=== PATIENT | male | born 1940 | race Caucasian/White ===

== ENCOUNTER 2019-02-02 11:49 | Emergency (ER) | payer MEDICARE, OTHER, SELFPAY ==
[2019-02-02 12:05] VITALS: PULSE 84; RESP 18; TEMP 36.6; O2SAT 95
[2019-02-02 12:08] VITALS: BP 137/59
--- NOTE | 2019-02-02 13:09 | ED.GENADUL_ITS ---
Discharge Plan Disposition Patient Disposition: HOME Condition: Good Discharge Details Chief Complaint: Vascular Clinical Impression: Muscle strain of right lower leg, Traumatic hematoma of right lower leg Primary Care Provider: Marielle,Local ED Provider: Malcolm Naqvis and New Rx's Prescriptions: Continued meclizine 12.5 mg Tablet 12.5 mg PO TID PRNRF: 0 tamsulosin 0.4 mg Capsule 0.4 mg PO DAILY RF: 0 hydroxyzine HCl 25 mg Tablet 25 mg PO TID-QID PRNRF: 0 polyethylene glycol 3350 17 gram/dose Powder 17 g PO DAILY RF: 0 ferrous sulfate 325 mg (65 mg iron) Tablet,Delayed Release (Dr/Ec) 325 mg PO DAILY RF: 0 sertraline 50 mg Tablet 150 mg PO DAILY AM RF: 0 Discharge Instructions Additional Instructions: You most likely strained/tore a muscle in your groin/upper leg which led to bleeding. Your blood count is fine. Your coagulation studies are fine. Would use Tylenol as needed for discomfort. Would ice on and off for the next couple of days and then switch over to heat. Follow-up with primary care at the [facility] in 2-3 weeks to see how you are doing. Return to the emergency department for inability to ambulate, fever, lightheadedness, chest pain, shortness of breath. Referrals: [facility] [Outside] Medical Decision Making Patient with extensive ecchymosis, pain, tenderness along the posterior medial aspect of the right lower extremity from groin to knee. Occurred when he squatted and felt a pop in his groin. He actually has almost normal and complete range of motion of the right lower extremity. He is able to ambulate though with pain. There is no testicular swelling or ecchymosis. Pulses are intact distally. Neurologic exam is normal distally. Suspect muscle or tendon injury when he squatted with resultant bleeding and ecchymosis. I do not think he has bony injury. I do not think he necessarily needs any imaging as he is able to ambulate and has good range of motion. I will check CBC with platelets and coags. I did speak to radiology who recommends MRI as modality of choice if imaging is done. However, in my opinion this should wait 3-4 weeks to see if there is recovery as again he is able to ambulate without significant difficulty and has normal range of motion. Patient's hemoglobin is reasonable at 12.7. Platelets are normal at 233. Coags are normal. Patient will be [facility] He may use Tylenol as needed for pain. Ice on and off for the next couple of days before switching over to heat. HPI General Mode of arrival: ambulatory . Date/Time Provider Initiated Documentation: 02/02/19 13:08 . Limitations to Documentation: no limitations . Information obtained by: patient and old records reviewed . HPI Narrative: Patient presents to ED for evaluation of right groin and thigh pain with associated ecchymosis. Patient reports that 3 days prior, he squatted down to pick remover a trash can lid. He felt a pop in his right groin and had immediate pain. He has subsequently continued to have pain which has progressed down the back of his leg to some degree. He noticed discoloration today and decided to come in for evaluation. He denies any actual fall. He is able to ambulate. He denies abdominal pain, back pain, inability to urinate, testicular pain or swelling. He is not on any blood thinners. He does report bruising and bleeding easily over the last few years. Related Data Home Medications Medication Instructions Recorded Confirmed ferrous sulfate 325 mg PO DAILY 02/02/19 02/02/19 hydroxyzine HCl 25 mg PO TID-QID PRN 02/02/19 02/02/19 meclizine 12.5 mg PO TID PRN 02/02/19 02/02/19 polyethylene glycol 3350 17 g PO DAILY 02/02/19 02/02/19 sertraline 150 mg PO DAILY AM 02/02/19 02/02/19 tamsulosin 0.4 mg PO DAILY 02/02/19 02/02/19 Allergies Allergy/AdvReac Type Severity Reaction Status Date / Time simvastatin Allergy Mild Nausea Unverified 02/02/19 12:55 General Stated Complaint: Vascular EZEKIEL: 3 Review of Systems Constitutional Denies chills, Denies fever(s), Denies headache(s) and Denies weakness ENT Denies otalgia, Denies facial pain, Denies headache(s) and Denies neck pain Cardiovascular Denies chest pain, Denies diaphoresis, Denies syncope, Denies edema and Denies dyspnea Respiratory Denies cough and Denies dyspnea Gastrointestinal Denies abdominal pain, Denies diarrhea, Denies nausea and Denies vomiting Genitourinary Denies hematuria, Denies difficulty urinating, Denies dysuria, Denies flank pain, Denies testicular mass and Denies testicular pain Musculoskeletal Denies back pain and Denies neck pain Comments: groin pain/thigh pain Integumentary/Breasts Denies erythema, Denies rash and Denies wounds Neurologic Denies syncope, Denies headache(s), Denies focal weakness, Denies sensory deficit and Denies weakness [facility] Medical History Aortic valve stenosis (Chronic) BPH (benign prostatic hyperplasia) (Chronic) CAD (coronary artery disease) (Chronic) COPD (chronic obstructive pulmonary disease) (Chronic) Diabetes mellitus (Chronic) HTN (hypertension) (Chronic) Hypercholesterolemia (Chronic) Surgical History History of heart artery stent (Chronic) Social History Smoking/Tobacco Use Status: Never Alcohol Intake: never Substance use type: does not use Do you feel safe at home: Yes Do you feel safe in your relationship?: Yes Exam Const General: cooperative, comfortable and no acute distress Orientation: alert and oriented x3 HENMT Head: normocephalic and atraumatic GI Inspection: normal to inspection and non-distended Palpation: soft and nontender Male General Exam: Yes normal external exam and No hernia Testes: normal Back/Spine/Pelvis Thoracic/Lumbar Spine: thoraco-lumbar ROM normal and No pain with thoraco-lumbar ROM Skin General skin exam: ecchymosis (Extensive ecchymosis extending from right groin to knee medial posterior) Neuro General: alert, oriented x3 and no focal motor deficits Sensory Exam: no sensory deficits noted Extrem General: normal exam except as noted Right lower extremity: full ROM, hip/thigh Details: tenderness (medial/posterior along ecchymotic area), normal ROM and ecchymosis and knee Details: normal to inspection and normal ROM; no edema Course Vital Signs Temperature 97.9 F 02/02/19 12:05 Pulse 84 02/02/19 12:05 Respiratory Rate 18 02/02/19 12:05 Pulse Oximetry 95 02/02/19 12:05 Temperature 97.9 F 02/02/19 12:05 Temperature Source Temporal Artery Scan 02/02/19 12:05 Pulse 84 02/02/19 12:05 Respiratory Rate 18 02/02/19 12:05 Respiratory Effort 02/02/19 12:07 Blood Pressure 137/59 L 02/02/19 12:08 Blood Pressure Position Sitting 02/02/19 12:05 Pulse Oximetry 95 02/02/19 12:05 Oxygen Delivery Method Room Air 02/02/19 12:05 Oxygen Flow Rate 0 02/02/19 12:05 Pain Level 8 02/02/19 12:05
[2019-02-02 13:47] LABS: HCT 36.6 % (40.0-50.0); HGB 12.7 g/dL (13.5-17.5); Mean Corp. HGB Concentration 34.7 g/dL (32.0-36.0); Mean Corpuscular Volume 92.2 fL (80-95); Platelet Count 233 x1000/uL (130-400); RBC 3.97 m/cumm (4.50-6.00); RBC Distribution Width 13.2 % (11.8-14.1); White Blood Cell Count 8.72 k/cumm (4.4-10.8)
[2019-02-02 14:07] LABS: PTT Activated 23.9 sec (21.0-31.4); Prothrombin Time 9.7 sec (9.3-11.0)
== END 2019-02-02 15:26 | disposition home or self-care (01) ==
PROVIDERS: Emergency Provider Emergency Medicine
DX: S86.911A Strain of unspecified muscle(s) and tendon(s) at lower leg level, right leg, initial encounter (principal); S80.11XA Contusion of right lower leg, initial encounter; X50.1XXA Overexertion from prolonged static or awkward postures, initial encounter; I10 Essential (primary) hypertension; E11.9 Type 2 diabetes mellitus without complications; J44.9 Chronic obstructive pulmonary disease, unspecified
CPT/HCPCS: 36415; 85027; 99283; 85610; 85730; 99282

== ENCOUNTER 2019-03-16 18:56 | Inpatient (IN) | payer MEDICARE, OTHER, SELFPAY ==
[2019-03-16] VITALS (26 sets, daily range): BP systolic 119–156; BP diastolic 61–80; PULSE 74–87; RESP 15–21; TEMP 36.6–37; O2SAT 86–96
--- NOTE | 2019-03-16 19:27 | DI.CT_ITS ---
SYMPTOM/DIAGNOSIS: FELL, STRUCK LT SIDE NONCONTRAST HEAD CT: A noncontrast examination was performed. There are no priors for comparison. The ventricles and sulci are consistent with the patient's age. No acute intracranial hemorrhage, midline shift or mass effect is identified. The ventricles are intact. The basilar cisterns are patent. There is complete opacification of the left maxillary sinus and several left ethmoid air cells. Mild thickening of the wall of the left maxillary sinus is present. The findings suggest chronic sinus disease. There is opacification of the left frontal sinus. The mastoid air cells are well pneumatized. The calvarium is intact. There is expansion of the left frontal sinus and a mass such as mucocele cannot be excluded. IMPRESSION: No acute intracranial process. CERVICAL SPINE CT: Multiple continuous axial images of the cervical spine were obtained. Sagittal and coronal reformatted images were evaluated on the Siemens workstation. There is normal alignment of the cervical spine. No acute fractures or subluxations are seen. Multi level degenerative changes are present throughout the cervical spine resulting in multi level neural foraminal and central spinal canal stenosis. IMPRESSION: No acute fracture or subluxation in the cervical spine. CHEST/ABDOMEN AND PELVIC CT: ABDOMEN AND PELVIS: No priors for comparison. The liver is normal in size and appearance. The patient is status post cholecystectomy. No biliary ductal dilatation is seen. The portal, superior mesenteric and splenic veins are patent. The pancreas, spleen and adrenal glands are unremarkable. There are bilateral renal cysts, the largest is seen in the superior pole of the right kidney and measures 4 cm. in diameter. A 2 mm. non obstructing stone is seen in the lower pole of the right kidney. The urinary bladder is intact. Note is made of a small diverticulum arising from the left aspect of the bladder. Reproductive organs are unremarkable. There is diverticulosis of the colon but no evidence of acute diverticulitis. No evidence of bowel obstruction or inflammation is seen. No findings to suggest an acute appendicitis are present. Note is made of a large hiatal hernia. There is a 3.1 cm. infrarenal abdominal aortic aneurysm. No significant abdominal or pelvic adenopathy, ascites or pneumoperitoneum is seen. The bones are intact. Degenerative changes are seen in the spine. 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 IMPRESSION: No evidence of an acute abdominal or pelvic process. Incidental findings including a 3.1 cm. infrarenal abdominal aortic aneurysm and right nephrolithiasis present. CHEST: There is atherosclerosis of the thoracic aorta but no aneurysmal dilatation is seen. Heart size is within normal limits. Coronary artery calcifications are seen. There is also calcification in both the mitral and aortic valves. No significant pericardial effusion is seen. No pleural effusion or pneumothorax is identified. No focal consolidating infiltrates are seen in the lungs. Bilateral basilar atelectasis is present. The tracheobronchial tree is unremarkable. There are fractures involving the third, fourth and fifth ribs laterally and the fifth rib posteriorly. No pneumothorax is identified. There is a compression deformity of the T 7 vertebral body which does not appear to be acute. Degenerative changes are present throughout the thoracic spine. Findings in the spine are also noted which may reflect spondyloarthropathy such as ankylosing spondylitis. There is a large hiatal hernia present. IMPRESSION: Fractures involving multiple left ribs. No pneumothorax or pleural effusion. Compression deformity involving T 7 of indeterminate chronicity.
--- NOTE | 2019-03-16 19:29 | W.ED.GENAD ---
Discharge Plan Disposition Patient Disposition: [facility] INPATIENT Condition: Fair Discharge Details Chief Complaint: Trauma Clinical Impression: Rib fractures Admit Date/Time: 03/16/19 22:11 Admit Provider: Raoul Todd Attending Provider: Raoul Todd Primary Care Provider: Edson Contreras ED Provider: Jazmine Orosco Medical Decision Making Patient 78-year-old male presenting today with chief complaint of fall. He reports that he tripped over his dog leash and falling down 3 steps landing on the left side of his body. Struck the left side of his head, over the upper lateral side of the orbit, left shoulder. Did not initially report pain on left side of chest but has discomfort with palpation of left lateral chest wall and left side of abdomen. No ecchymosis or signs of trauma in these areas. No pain or trauma BLE. Neuro exam intact. Will obtain CT of head/neck, abdomen/pelvis. Will obtain XR of left shoulder. Plan to give Morphine for pain. CT head reviewed by radiologist: FINDINGS: Brain: There is mild age related parenchymal atrophy with prominence of the cortical sulci. Periventricular and deep white matter hypodensities are consistent with sequela of chronic microvascular ischemic disease. Garvey-white matter differentiation is preserved. No acute intracranial hemorrhage. Midline shift: None. Ventricles: Mild ex vacuo dilation of the ventricles, likely secondary to age related volume loss. Bones/joints: Unremarkable. No acute fracture. Sinuses: There is opacification of the left frontal and maxillary sinuses as well as the ethmoid air cells with associated punctate air fluid level is seen in sinus. There is chronic appearing osseous hypertrophic changes of the involved sinuses with slight expansile appearance of the left frontal sinus, could represent mucocele. Right paranasal sinuses are otherwise clear. Mastoid air cells: No mastoid effusion. Orbits: Unremarkable. Soft tissues: No focal soft tissue abnormality. Vasculature: Vascular calcifications of the vertebral and carotid arteries are present. IMPRESSION: 1. No acute intracranial finding. Senescent changes as discussed. 2. 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 Correlate clinically to exclude acute sinusitis. CTneck reviewed by radiologist: FINDINGS: Vertebrae: There is diffuse osteopenia. No acute fracture. No spondylolisthesis. Moderate facet hypertrophic changes, asymmetric to the right, at C3-C5. Discs/Spinal canal/Neural foramina: Moderate multilevel degenerative disc disease scattered throughout the cervical spine, most advanced at C5-C6. There is moderate intervertebral disc height loss at C2-C3, C5-C6, and C6-C7. There is at least mild osseous neural foraminal narrowing bilaterally at C5-C7. There is mild osseous central canal narrowing at C5-C6. Retropharyngeal space: Within normal limits. Soft tissues: No focal abnormality. Thyroid: No mass. Lymph nodes: No pathologically sized nodes by CT size criteria. Lungs: Lung apices are clear. Vasculature: Scattered vascular calcifications are present. IMPRESSION: 1. No acute fracture. No spondylolisthesis. 2. Moderate multilevel cervical spondylosis as discussed, most advanced at C5-C6. CT chest: FINDINGS: Lungs: The lungs are hyperinflated. Linear opacities in the lung bases consistent with mild basilar atalectasis. No pulmonary consolidation or mass. Pleural space: There is minimal reactive pleural thickening underlying nondisplaced left lateral third, fourth, and fifth rib fractures. Also noted minimal pleural thickening underlying nondisplaced posterior left fifth rib fracture. No pneumothorax. No pleural effusion. Heart: No cardiomegaly or pericardial effusion. Scattered dense coronary vascular calcifications are present. Mediastinum: There is moderate hiatal hernia. Aorta: No thoracic aortic dissection or aneurysm. Moderate atherosclerotic calcifications of the aortic arch and its major branches. Dense vascular calcifications of the aortic annulus. Lymph nodes: Unremarkable. No enlarged lymph nodes. Bones/joints: There is nondisplaced fracture of the posterior left fifth rib as well as the lateral left third, fourth, and fifth ribs. There is mild to moderate anterior compression deformity of the T7 vertebral body. Remaining thoracic vertebral body heights are preserved. Multilevel flowing anterior bridging marginal osteophytes are present. There is increased thoracic kyphosis with mild to moderate multilevel degenerative changes. Soft tissues: Minimal symmetric gynecomastia. IMPRESSION: 1. Nondisplaced fractures of the left third, fourth, and fifth ribs as discussed. No pneumothorax or pleural effusion. 2. Mild to moderate anterior compression deformity of the T7 vertebral body of uncertain chronicity. Correlate clinically for acute compression deformity. 3. Moderate hiatal hernia. 4. Multilevel flowing anterior bridging marginal osteophytes of the thoracic spine. This imaging appearance could be seen in the setting of certain spondyloarthropathies such as ankylosing spondylitis. Correlate clinically. 5. Dense aortic annular and coronary vascular calcifications. 6. Hyperinflation. Correlate for COPD. CT abdomen: ABDOMEN: Liver: Unremarkable. No mass. Gallbladder and bile ducts: Gallbladder is surgically absent with mild, expected degree of common bile duct dilation. Pancreas: Unremarkable. No ductal dilation. Spleen: Unremarkable. No splenomegaly. Adrenals: Unremarkable. No mass. Kidneys and ureters: There is mild symmetric renal cortical thinning. There is circumscribed, lobulated 3.9 cm exophytic fluid attenuation superior right renal pole cyst. Few other scattered bilateral subcentimeter renal hypodensities are too small to characterize. There is punctate 1-2 mm calcification within the inferior right renal collecting system. No hydronephrosis. Ureters are normal in course and caliber. Stomach and bowel: Mild diverticulosis is present in the distal colon. No CT evidence of acute diverticulitis. No focal mural thickening. There is mild fibrofatty mural proliferation of the terminal ileum. No evidence of bowel obstruction. Appendix: Within normal limits. PELVIS: Bladder: There is small urinary bladder diverticulum superior and lateral to the insertion of the left ureter. Bladder is otherwise unremarkable. Reproductive: Unremarkable as visualized. ABDOMEN and PELVIS: Intraperitoneal space: No free air. No significant fluid collection. Bones/joints: Mild grade 1 anterolisthesis of L4 and L5, likely secondary to facet hypertrophic changes, no spondylolysis. Otherwise mild to moderate multilevel degenerative disc and facet changes of the lumbar spine. No acute fracture of the abdomen or pelvis. No acute dislocation. There is diffuse osteopenia. Soft tissues: Trace/mild fat projects within the inguinal canals, asymmetric to the right. Trace/small fat containing umbilical hernia. Vasculature: There are moderate scattered atherosclerotic calcifications of the abdominal aorta and its major branches. There is mild fusiform aneurysmal dilation of the infrarenal abdominal aorta, 3.1 cm AP. Lymph nodes: No pathologically enlarged lymph nodes. IMPRESSION: 1. No acute finding of the abdomen or pelvis. 2. Circumscribed, lobulated 3.9 cm exophytic right renal cyst, benign. 3. 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 4. Nonobstructive 1-2 mm right nephrolith. XR left shoulder: FINDINGS: Bones/joints: No acute fracture or dislocation. There are moderate degenerative changes of the left shoulder. There is a high riding humerus with moderate to severe narrowing of the subacromial interval. Punctate ossific fragment adjacent to the anterior, inferior glenoid may represent sequela of prior osseous versus labral injury, correlate clinically. Noted are nondisplaced lateral left rib fractures of the left third through fifth ribs. Soft tissues: No focal abnormality. IMPRESSION: 1. No acute fracture or dislocation. 2. High riding humerus with moderate to severe narrowing of the subacromial space. May be seen in association with high-grade rotator cuff tear. Correlate clinically. 3. Nondisplaced left rib fractures. Discussed findings with the patient. Morphine was unsuccessful at alleviating his pain, gave Dilaudid which still left patient uncomfortable and not wanting to move. He is desaturating yue 88% RA, appears to be breathing shallow, likely secondary to pain. Nursing staff taught to use IS. I am concerned that the patient is a poor candidate to go home. I do not think he will tolerate going home secondary to poor pain control. He lives alone and needs to care for his dog. Discussed secondary complications such as pneumonia. Consulted with Dr. Todd who agrees to admission for pain control of patients 3 nondisplaced rib fractures. HPI General Mode of arrival: ambulatory. Date/Time Provider Initiated Documentation: 03/16/19 19:19. Limitations to Documentation: no limitations. Information obtained by: patient, family (accompanied by daughter) and RN notes reviewed. HPI Narrative: Patient is a 78-year-old male presents today with chief complaint of left sided pain after fall. Patient has history of diabetes, aortic valve stenosis, CAD, hyperlipidemia, hypertension, COPD, BPH. Patient is status post stent placement. He reports that he over a dog run and fell down 3 steps landing on his left side. Struck his head, no loss conscious. Denies any headache at this time. He does have pain over the focal area of swelling in the superior left orbit. Endorses left-sided neck pain, chest pain abdominal pain. Denies any altered sensation. Is not noted any weakness. Is been able to ambulate well since time of the fall. Daughter is with him and brought him in for evaluation. Patient is not anticoagulated Related Data Home Medications Medication Instructions Recorded Confirmed ferrous sulfate 325 mg PO DAILY 02/02/19 03/16/19 hydroxyzine HCl 25 mg PO TID-QID PRN 02/02/19 03/16/19 meclizine 12.5 mg PO TID PRN 02/02/19 03/16/19 polyethylene glycol 3350 17 g PO DAILY 02/02/19 03/16/19 sertraline 200 mg PO DAILY AM 02/02/19 03/16/19 tamsulosin 0.4 mg PO DAILY 02/02/19 02/02/19 atorvastatin [Lipitor] 03/16/19 fluticasone propionate [Flonase 03/16/19 Allergy Relief] metformin 250 03/16/19 metoprolol succinate BID 03/16/19 omeprazole 03/16/19 ropinirole 03/16/19 Allergies Allergy/AdvReac Type Severity Reaction Status Date / Time simvastatin Allergy Mild Nausea Unverified 03/16/19 20:27 lisinopril AdvReac Unverified 03/16/19 20:27 General Stated Complaint: Trauma EZEKIEL: 3 Review of Systems Constitutional Reports as per HPI, Denies chills, Denies fatigue, Denies fever(s), Denies headache(s) and Denies weakness Eyes Reports as per HPI, Denies blurry vision, Denies change in vision and Denies loss of vision ENT Denies abnormal hearing and Denies headache(s) Cardiovascular Reports as per HPI, Denies chest pain and Denies dyspnea Respiratory Reports as per HPI, Denies cough, Denies pain on inspiration, Denies pain with cough and Denies dyspnea Gastrointestinal Reports as per HPI, Denies abdominal pain, Denies nausea and Denies vomiting Genitourinary Reports as per HPI and Denies urinary incontinence Musculoskeletal Reports as per HPI Integumentary/Breasts Reports as per HPI and Denies rash Neurologic Reports as per HPI, Denies abnormal hearing, Denies abnormal movements, Denies abnormal speech, Denies headache(s), Denies lack of coordination, Denies focal weakness, Denies loss of vision, Denies seizure-like activity, Denies paresthesias and Denies weakness Endocrine Denies fatigue [facility] Medical History Aortic valve stenosis (Chronic) BPH (benign prostatic hyperplasia) (Chronic) CAD (coronary artery disease) (Chronic) COPD (chronic obstructive pulmonary disease) (Chronic) Diabetes mellitus (Chronic) HTN (hypertension) (Chronic) Hypercholesterolemia (Chronic) Surgical History History of heart artery stent (Chronic) Social History Smoking/Tobacco Use Status: Never Alcohol Intake: never Substance use type: does not use Do you feel safe at home: Yes Do you feel safe in your relationship?: Yes Exam Const General: cooperative, healthy appearing, comfortable, no acute distress, well developed and well groomed Nutritional Appearance: average body habitus and well nourished Orientation: alert, awake and oriented x3 HENMT Head: no palpable skull fracture, normocephalic and signs of trauma (swelling over left orbit) Ears: hearing grossly normal bilaterally, external ears normal and TM's normal bilaterally General nose exam: external nose normal Mouth: oral mucosae normal, lip normal and tongue normal Throat: posterior oropharynx normal Eyes General: appearance normal, both eyes and all related structures Visual Reeves: normal visual reeves by confrontation Alignment and Position: alignment normal Periorbital: periorbital findings normal Eyelids: eyelids normal Conjunctivae: conjunctivae normal Pupils: PERRL EOM: EOM intact bilaterally Neck Neck: normal visual inspection, full ROM, no lymphadenopathy, no meningeal signs, trachea midline and supple Chest Chest: normal inspection of the chest, normal palpation of entire chest wall, no crepitus, localized rib tenderness with anteroposterior compression (lateral left) and No rash Resp Effort & Inspection: normal respiratory effort, able to speak in complete sentences and no respiratory distress Auscultation: clear to auscultation bilaterally, no rales, no rhonchi and no wheezes Cardio Rate: regular rate Rhythm: regular rhythm Heart Sounds: S1 normal and S2 normal GI Inspection: normal to inspection, no abdominal wall ecchymosis, no edema and non-distended Palpation: soft, no hepatosplenomegaly, not firm, no guarding, no pulsatile masses, not rigid and tender (left upper and lower quadrants, no signs of trauma) Auscultation: normal bowel sounds Back/Spine/Pelvis Back: no CVA tenderness Cervical Spine: normal cervical lordosis, cervical ROM normal, cervical muscular tenderness, pain with cervical ROM (pain with rotation to the left), cervical spasm, cervical spinal tenderness (tenderness left lateral along trapezius,no midline or paraspinal tenderness) and No step off deformity Thoracic/Lumbar Spine: thoracic and lumbar spine normal to inspection, thoraco-lumbar ROM normal, No thoraco-lumbar ROM limited, No thoraco-lumbar spasm and No thoracic spinal tenderness Pelvis: no pain with anterior-posterior compression and no pain with lateral compression Skin Trauma: abrasion (to left lateral shoulder, left wrist, right hand) Neuro General: alert, awake, oriented x3, gait normal, tone normal and moves all extremities Cranial Nerves: CN's II-XI intact bilaterally Cognition: normal cognition Speech: speech normal Gait: normal gait Motor: muscle tone normal throughout and strength 5/5 throughout Sensory Exam: no sensory deficits noted (no saddle paresthesias) Plantar Reflexes: Downgoing: bilateral Extrem General: normal capillary refill, no pedal edema and no calf tenderness Right upper extremity: normal capillary refill, shoulder/upper arm Details: tenderness, swelling, abnormal ROM and ecchymosis; ROM limited, no crepitus, no deformity and no unusual warmth, elbow/forearm Details: normal to inspection, wrist Details: normal to inspection and hand (sensory motor exam normal) Details: normal to inspection; abnormal to inspection (pain with palpation over the left shoulder, ecchymosis laterally) and ROM limited (will not range left shoulder) Psych Appearance: grossly normal and well kempt Mental Status: mental status grossly normal Speech and Movement: speech and movement normal Course Vital Signs Temperature 37 C 03/16/19 19:06 Pulse 74 03/16/19 19:06 Respiratory Rate 20 03/16/19 19:06 Blood Pressure 153/69 H 03/16/19 19:06 Pulse Oximetry 94 L 03/16/19 19:06 Temperature 37 C 03/16/19 19:06 Temperature Source Skin 03/16/19 19:06 Pulse 74 03/16/19 19:06 Respiratory Rate 20 03/16/19 19:06 Respiratory Effort 03/16/19 19:20 Respiratory Depth Shallow 03/16/19 19:20 Respiratory Pattern Normal 03/16/19 19:20 Blood Pressure 153/69 H 03/16/19 19:06 Blood Pressure Position Sitting 03/16/19 19:06 Pulse Oximetry 94 L 03/16/19 19:06 Oxygen Delivery Method Room Air 03/16/19 19:06 Oxygen Flow Rate 0 03/16/19 19:06 Pain Level 10 03/16/19 19:20
--- NOTE | 2019-03-16 19:30 | DI.RAD_ITS ---
SYMPTOM/DIAGNOSIS: PAIN AFTER FALL LEFT SHOULDER: Four views. No acute fracture or dislocation of the left shoulder is noted. There is superior subluxation of the humeral head which may reflect chronic rotator cuff tear. Degenerative changes are seen at the acromioclavicular joint and the glenohumeral joint. The bones appear osteopenic. IMPRESSION: No acute fracture or dislocation of the left shoulder. Please refer to the CT scan of the chest, abdomen and pelvis for further details.
[2019-03-16 19:45] LABS: Abs Immature Grans 0.05 k/cumm (0.0-0.09); Absolute Basophil Count 0.03 k/cumm (0.0-0.2); Absolute Eosinophil Count 0.18 k/cumm (0.0-0.7); Absolute Lymphocyte Count 1.33 k/cumm (1.2-3.4); Absolute Monocyte Count 0.75 k/cumm (0.11-0.7); Basophils % 0.3; Eosinophils % 1.8; HCT 43.7 % (40.0-50.0); Immature Grans % 0.5; Lymphocytes % 13.4; Mean Corp. HGB Concentration 34.3 g/dL (32.0-36.0); Mean Corpuscular Hemoglobin 31.2 pg (27.0-33.0); Mean Corpuscular Volume 90.9 fL (80-95); Mean Platelet Volume 9.2 fL (8.0-11.0); Monocytes % 7.5; Neutrophils % 76.5; Platelet Count 223 x1000/uL (130-400); RBC 4.81 m/cumm (4.50-6.00); RBC Distribution Width 13.2 % (11.8-14.1); White Blood Cell Count 9.94 k/cumm (4.4-10.8)
[2019-03-16] MEDS: MORPHine 10 MG/ML VIAL 2 MG IVP ×2 (20:00→20:30)
[2019-03-16] MEDS: Normal Saline 1,000 ML 150 ML IV ×2 (20:02→23:42)
[2019-03-16 20:03] LABS: ALT 45 U/L (12-78); AST 34 U/L (15-37); Alkaline Phosphatase 101 U/L (46-116); Anion Gap 11.1 mmol/L (3-11); BUN 18 mg/dL (7-18); Bilirubin, Total 0.5 mg/dL (0.2-1.0); CO2 26.9 mmol/L (21.0-32.0); CREATININE 1.28 mg/dL (0.70-1.30); Calcium 8.9 mg/dL (8.5-10.1); Chloride 99 mmol/L (98-107); Glucose 190 mg/dL (70-100); Magnesium 2.1 mg/dL (1.8-2.4); Potassium 4.2 mmol/L (3.5-5.1); Sodium 137 mmol/L (136-145); Total Protein 7.9 g/dL (6.4-8.2)
[2019-03-16 20:05] LABS: Troponin I < 0.02 ng/mL (0.00-0.06)
--- NOTE | 2019-03-16 20:26 | NUR.NOTE ---
Nursing Note: Pt to radiology pain is still 10/10 gave another 2 mg morphine prior to leaving
[2019-03-16] MEDS: Omnipaque 350 MG/ML 100 ML BTL IJ (20:47)
--- NOTE | 2019-03-16 21:09 | DI.VRAD_ITS ---
EXAM: CT Head Without Contrast EXAM DATE/TIME: 03/16/2019 7:29 PM CLINICAL HISTORY: 78 years old, male; Injury or trauma; Fall; Initial encounter; Blunt trauma (contusions or hematomas); Consciousness not specified; Injury date: 03/16/2019; Injury details: Fell outside, fell forward onto steps, impact on left side. Anterior left chest/rib pain TECHNIQUE: Imaging protocol: Axial computed tomography images of the head/brain without contrast. Coronal and sagittal reformatted images were created and reviewed. Radiation optimization: All CT scans at this facility use at least one of these dose optimization techniques: automated exposure control; mA and/or kV adjustment per patient size (includes targeted exams where dose is matched to clinical indication); or iterative reconstruction. COMPARISON: No relevant prior studies available. FINDINGS: Brain: There is mild age related parenchymal atrophy with prominence of the cortical sulci. Periventricular and deep white matter hypodensities are consistent with sequela of chronic microvascular ischemic disease. Garvey-white matter differentiation is preserved. No acute intracranial hemorrhage. Midline shift: None. Ventricles: Mild ex vacuo dilation of the ventricles, likely secondary to age related volume loss. Bones/joints: Unremarkable. No acute fracture. Sinuses: There is opacification of the left frontal and maxillary sinuses as well as the ethmoid air cells with associated punctate air fluid level is seen in sinus. There is chronic appearing osseous hypertrophic changes of the involved sinuses with slight expansile appearance of the left frontal sinus, could represent mucocele. Right paranasal sinuses are otherwise clear. Mastoid air cells: No mastoid effusion. Orbits: Unremarkable. Soft tissues: No focal soft tissue abnormality. Vasculature: Vascular calcifications of the vertebral and carotid arteries are present. IMPRESSION: 1. No acute intracranial finding. Senescent changes as discussed. 2. 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 Correlate clinically to exclude acute sinusitis. EXAM: CT Cervical Spine Without Contrast EXAM DATE/TIME: 03/16/2019 7:29 PM CLINICAL HISTORY: 78 years old, male; Injury or trauma; Fall; Initial encounter; Blunt trauma (contusions or hematomas); Consciousness not specified; Injury date: 03/16/2019; Injury details: Fell outside, fell forward onto steps, impact on left side. Anterior left chest/rib pain TECHNIQUE: Imaging protocol: Axial computed tomography images of the cervical spine without contrast. Coronal and sagittal reformatted images were created and reviewed. Radiation optimization: All CT scans at this facility use at least one of these dose optimization techniques: automated exposure control; mA and/or kV adjustment per patient size (includes targeted exams where dose is matched to clinical indication); or iterative reconstruction. COMPARISON: No relevant prior studies available. FINDINGS: Vertebrae: There is diffuse osteopenia. No acute fracture. No spondylolisthesis. Moderate facet hypertrophic changes, asymmetric to the right, at C3-C5. Discs/Spinal canal/Neural foramina: Moderate multilevel degenerative disc disease scattered throughout the cervical spine, most advanced at C5-C6. There is moderate intervertebral disc height loss at C2-C3, C5-C6, and C6-C7. There is at least mild osseous neural foraminal narrowing bilaterally at C5-C7. There is mild osseous central canal narrowing at C5-C6. Retropharyngeal space: Within normal limits. Soft tissues: No focal abnormality. Thyroid: No mass. Lymph nodes: No pathologically sized nodes by CT size criteria. Lungs: Lung apices are clear. Vasculature: Scattered vascular calcifications are present. IMPRESSION: 1. No acute fracture. No spondylolisthesis. 2. Moderate multilevel cervical spondylosis as discussed, most advanced at C5-C6. Dictated and Authenticated by: Alejandro Jacques MD. Ordering:AMBROSE Luecro MD
[2019-03-16] MEDS: HYDROmorphone 2 MG/ML VIAL 1 MG IVP (21:21)
--- NOTE | 2019-03-16 21:25 | DI.VRAD_ITS ---
EXAM: CT Chest With Contrast EXAM DATE/TIME: 03/16/2019 7:29 PM CLINICAL HISTORY: 78 years old, male; Injury or trauma; Fall; Initial encounter; Luq; Blunt trauma (contusions or hematomas); Injury date: 03/16/2019; Injury details: Fell outside onto left side, struck stairs, left anterior chest and rib pain TECHNIQUE: Imaging protocol: Axial computed tomography images of the chest with intravenous contrast. Coronal and sagittal reformatted images were created and reviewed. Radiation optimization: All CT scans at this facility use at least one of these dose optimization techniques: automated exposure control; mA and/or kV adjustment per patient size (includes targeted exams where dose is matched to clinical indication); or iterative reconstruction. COMPARISON: No relevant prior studies available. FINDINGS: Lungs: The lungs are hyperinflated. Linear opacities in the lung bases consistent with mild basilar atalectasis. No pulmonary consolidation or mass. Pleural space: There is minimal reactive pleural thickening underlying nondisplaced left lateral third, fourth, and fifth rib fractures. Also noted minimal pleural thickening underlying nondisplaced posterior left fifth rib fracture. No pneumothorax. No pleural effusion. Heart: No cardiomegaly or pericardial effusion. Scattered dense coronary vascular calcifications are present. Mediastinum: There is moderate hiatal hernia. Aorta: No thoracic aortic dissection or aneurysm. Moderate atherosclerotic calcifications of the aortic arch and its major branches. Dense vascular calcifications of the aortic annulus. Lymph nodes: Unremarkable. No enlarged lymph nodes. Bones/joints: There is nondisplaced fracture of the posterior left fifth rib as well as the lateral left third, fourth, and fifth ribs. There is mild to moderate anterior compression deformity of the T7 vertebral body. Remaining thoracic vertebral body heights are preserved. Multilevel flowing anterior bridging marginal osteophytes are present. There is increased thoracic kyphosis with mild to moderate multilevel degenerative changes. Soft tissues: Minimal symmetric gynecomastia. IMPRESSION: 1. Nondisplaced fractures of the left third, fourth, and fifth ribs as discussed. No pneumothorax or pleural effusion. 2. Mild to moderate anterior compression deformity of the T7 vertebral body of uncertain chronicity. Correlate clinically for acute compression deformity. 3. Moderate hiatal hernia. 4. Multilevel flowing anterior bridging marginal osteophytes of the thoracic spine. This imaging appearance could be seen in the setting of certain spondyloarthropathies such as ankylosing spondylitis. Correlate clinically. 5. Dense aortic annular and coronary vascular calcifications. 6. Hyperinflation. Correlate for COPD. EXAM: CT Abdomen and Pelvis With Contrast EXAM DATE/TIME: 03/16/2019 7:29 PM CLINICAL HISTORY: 78 years old, male; Injury or trauma; Fall; Initial encounter; Luq; Blunt trauma (contusions or hematomas); Injury date: 03/16/2019; Injury details: Fell outside onto left side, struck stairs, left anterior chest and rib pain TECHNIQUE: Imaging protocol: Axial computed tomography images of the abdomen and pelvis with intravenous contrast. Coronal and sagittal reformatted images were created and reviewed. Radiation optimization: All CT scans at this facility use at least one of these dose optimization techniques: automated exposure control; mA and/or kV adjustment per patient size (includes targeted exams where dose is matched to clinical indication); or iterative reconstruction. Contrast material: [id number]; Contrast volume: 100 ml; Contrast route: IV; COMPARISON: No relevant prior studies available. FINDINGS: ABDOMEN: Liver: Unremarkable. No mass. Gallbladder and bile ducts: Gallbladder is surgically absent with mild, expected degree of common bile duct dilation. Pancreas: Unremarkable. No ductal dilation. Spleen: Unremarkable. No splenomegaly. Adrenals: Unremarkable. No mass. Kidneys and ureters: There is mild symmetric renal cortical thinning. There is circumscribed, lobulated 3.9 cm exophytic fluid attenuation superior right renal pole cyst. Few other scattered bilateral subcentimeter renal hypodensities are too small to characterize. There is punctate 1-2 mm calcification within the inferior right renal collecting system. No hydronephrosis. Ureters are normal in course and caliber. Stomach and bowel: Mild diverticulosis is present in the distal colon. No CT evidence of acute diverticulitis. No focal mural thickening. There is mild fibrofatty mural proliferation of the terminal ileum. No evidence of bowel obstruction. Appendix: Within normal limits. PELVIS: Bladder: There is small urinary bladder diverticulum superior and lateral to the insertion of the left ureter. Bladder is otherwise unremarkable. Reproductive: Unremarkable as visualized. ABDOMEN and PELVIS: Intraperitoneal space: No free air. No significant fluid collection. Bones/joints: Mild grade 1 anterolisthesis of L4 and L5, likely secondary to facet hypertrophic changes, no spondylolysis. Otherwise mild to moderate multilevel degenerative disc and facet changes of the lumbar spine. No acute fracture of the abdomen or pelvis. No acute dislocation. There is diffuse osteopenia. Soft tissues: Trace/mild fat projects within the inguinal canals, asymmetric to the right. Trace/small fat containing umbilical hernia. Vasculature: There are moderate scattered atherosclerotic calcifications of the abdominal aorta and its major branches. There is mild fusiform aneurysmal dilation of the infrarenal abdominal aorta, 3.1 cm AP. Lymph nodes: No pathologically enlarged lymph nodes. IMPRESSION: 1. No acute finding of the abdomen or pelvis. 2. Circumscribed, lobulated 3.9 cm exophytic right renal cyst, benign. 3. 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 4. Nonobstructive 1-2 mm right nephrolith. Dictated and Authenticated by: Alejandro Jacques MD. Ordering:AMBROSE Lucero MD
--- NOTE | 2019-03-16 21:27 | DI.VRAD_ITS ---
EXAM: XR Left Shoulder, Complete, 2 or More Views EXAM DATE/TIME: 03/16/2019 7:31 PM CLINICAL HISTORY: 78 years old, male; Injury or trauma; Fall; Initial encounter; Blunt trauma (contusions or hematomas; Shoulder; Injury date: 03/16/2019; Injury details: Fell outside onto stairs, struck left side TECHNIQUE: Imaging protocol: XR Left shoulder, complete 2 or more views. COMPARISON: No relevant prior studies available. FINDINGS: Bones/joints: No acute fracture or dislocation. There are moderate degenerative changes of the left shoulder. There is a high riding humerus with moderate to severe narrowing of the subacromial interval. Punctate ossific fragment adjacent to the anterior, inferior glenoid may represent sequela of prior osseous versus labral injury, correlate clinically. Noted are nondisplaced lateral left rib fractures of the left third through fifth ribs. Soft tissues: No focal abnormality. IMPRESSION: 1. No acute fracture or dislocation. 2. High riding humerus with moderate to severe narrowing of the subacromial space. May be seen in association with high-grade rotator cuff tear. Correlate clinically. 3. Nondisplaced left rib fractures. Dictated and Authenticated by: Alejandro Jacques MD. Ordering:AMBROSE Lucero MD
[2019-03-16] MEDS: HYDROmorphone 2 MG/ML VIAL (21:44)
--- NOTE | 2019-03-16 22:02 | W.PM.HP.N ---
Date of service: 03/16/19 Time of Service: 22:02 Assessment and Plan (1) Rib fractures: Current visit: Yes Status: Acute Rib and vertebral fractures secondary to fall. Will admit for pain management and will have PT help to mobilize him. Usual meds otherwise. History of Present Illness Chief Complaint: rib fractures Narrative: 78 male, mechanical fall today (tripped over dog leash) struck left side on pavement. C/o left chest pain. In ER rib fractures (three) noted along with t7 compression fracture. Patient given morphine and dilaudid but still unable to navigate. Admitted for further management. Review of Systems Review of Systems All systems reviewed & are unremarkable except as noted in HPI and below PFS Medical History Aortic valve stenosis (Chronic) BPH (benign prostatic hyperplasia) (Chronic) CAD (coronary artery disease) (Chronic) COPD (chronic obstructive pulmonary disease) (Chronic) Diabetes mellitus (Chronic) HTN (hypertension) (Chronic) Hypercholesterolemia (Chronic) Surgical History History of heart artery stent (Chronic) Social History Smoking/Tobacco Use Status: Never Alcohol Intake: never Substance use type: does not use Do you feel safe at home: Yes Do you feel safe in your relationship?: Yes Meds Home Medications Medication Instructions Recorded Confirmed Type ferrous sulfate 325 mg PO DAILY 02/02/19 03/16/19 History hydroxyzine HCl 25 mg PO TID-QID PRN 02/02/19 03/16/19 History meclizine 12.5 mg PO TID PRN 02/02/19 03/16/19 History polyethylene glycol 3350 17 g PO DAILY 02/02/19 03/16/19 History sertraline 200 mg PO DAILY AM 02/02/19 03/16/19 History tamsulosin 0.4 mg PO DAILY 02/02/19 02/02/19 History atorvastatin [Lipitor] 03/16/19 History fluticasone propionate [Flonase 03/16/19 History Allergy Relief] metformin 250 03/16/19 History metoprolol succinate BID 03/16/19 History omeprazole 03/16/19 History ropinirole 03/16/19 History Allergies Allergy/AdvReac Type Severity Reaction Status Date / Time simvastatin Allergy Mild Nausea Unverified 03/16/19 20:27 lisinopril AdvReac Unverified 03/16/19 20:27 Exam Narrative Exam Narrative: 119/77, 75, 19, 37.0. HEENT 3 cm contusion left supraorbital area; necck nontender good ROM; lung dimiinished; hear RRR; abdomen soft nontender; /Rectal defereed; neuro a bit sleepy but oriented and lucid, moves all 4s equally Results Labs : 03/16/19 19:27 03/16/19 19:36 Laboratory Results - last 24 hr 03/16/19 03/16/19 19:27 19:36 WBC 9.94 RBC 4.81 Hgb 15.0 Hct 43.7 MCV 90.9 MCH 31.2 MCHC 34.3 RDW 13.2 Plt Count 223 MPV 9.2 Immature Gran % 0.5 Neutrophils % 76.5 Lymphocytes % 13.4 Monocytes % 7.5 Eosinophils % 1.8 Basophils % 0.3 Absolute Neutrophils 7.60 H Absolute Lymphocytes 1.33 Absolute Monocytes 0.75 H Absolute Eosinophils 0.18 Absolute Basophils 0.03 Sodium 137 Potassium 4.2 Chloride 99 Carbon Dioxide 26.9 Anion Gap 11.1 H BUN 18 Creatinine 1.28 Estimated GFR/1.73 m2 54.50 Glucose 190 H Calcium 8.9 Magnesium 2.1 Total Bilirubin 0.5 AST 34 ALT 45 Alkaline Phosphatase 101 Troponin I < 0.02 Total Protein 7.9 Albumin 4.0 Last Vital Signs Temp 37 C 03/16/19 19:06 Pulse 82 03/16/19 21:32 Resp 19 03/16/19 20:16 BP 119/77 03/16/19 21:32 Pulse Ox 94 L 03/16/19 21:40
[2019-03-16] MEDS: hydrOXYzine HCL 25 MG TAB PO (23:43)
[2019-03-16] MEDS: oxyCODONE 5 MG TAB PO (23:43)
[2019-03-17] VITALS (11 sets, daily range): BP systolic 96–146; BP diastolic 52–76; PULSE 59–90; RESP 6–21; TEMP 36.5–37.3; O2SAT 93–100
[2019-03-17] MEDS: HYDROmorphone 2 MG/ML VIAL 1 MG IVP ×2 (02:35→09:01)
[2019-03-17] MEDS: Normal Saline Flush 10 ML SYR IVP (02:35)
[2019-03-17] MEDS: oxyCODONE 5 MG TAB PO (05:43)
[2019-03-17] MEDS: Sertraline 50 MG TAB 200 MG PO (05:43)
[2019-03-17] MEDS: Normal Saline 1,000 ML 150 ML IV ×2 (06:00→13:08)
--- NOTE | 2019-03-17 07:34 | PDOC.CMIN ---
- If Service Date Differs Date of service: 03/17/19 Time of Service: 07:34 Care Management Initial Assess REASON FOR HOSPITALIZATION:: Rib Fractures PAST MEDICAL HISTORY/PAST SURGICAL HISTORY:: Aortic valve stenosis (Chronic). BPH (benign prostatic hyperplasia) (Chronic). CAD (coronary artery disease) (Chronic). COPD (chronic obstructive pulmonary disease) (Chronic). Diabetes mellitus (Chronic). HTN (hypertension) (Chronic). Hypercholesterolemia (Chronic). History of heart artery stent (Chronic) PREVIOUS FUNCTIONAL STATUS/SOCIAL/FAMILY SUPPORTS:: Jim resides with his daughter Consuelo in [facility]. He states that his Clauida recently one month ago, and that this has been a difficult time for him. Jim was in the [employer] and reports that he is from [place]. His daughter Consuelo prepares his meals, and Jim states that he still drives. He reports that he has two dogs that he spends a lot of time with. CURRENT FUNCTIONAL STATUS:: Currently Jim is sitting up in his chair after working with PT this afternoon. He is pleasant and receptive to discussion. ADVANCE DIRECTIVES:: None on file Has patient been provided with information about the portal?: Yes Did the patient sign up for the portal?: No CODE STATUS:: Full Code INSURANCE COVERAGE / FINANCIAL ISSUES:: Medicare, [employer] CURRENT HOME/COMMUNITY SERVICES/EQUIPMENT:: Currently Olegario has no services in the community. He has a cane, walker, w/c, raised toilet seat, and shower chair at home which he states he does not use any of the above at this time. PRIMARY CARE PHYSICIAN:: Alejandra Schaffer POTENTIAL DISCHARGE NEEDS:: F/U appointment with PCP. ? home health PT vs. SNF placement PATIENT/FAMILY EDUCATION NEEDS:: Review DC instructions, any limitations, and ongoing DC planning discussion. Discuss 'Ask Me Three' ANTICIPATED BARRIERS TO DISCHARGE:: None identified at this time. TRANSPORTATION:: Via private vehicle with serenity Cordero PLAN:: Olegario will return home with home health vs. SNF placement once medically cleared. He will F/U with PCP and plan of care as prescribed. Serenity Cordero to transport when ready.
--- NOTE | 2019-03-17 07:48 | INITIAL_ITS ---
- If Service Date Differs Date of service: 03/17/19 Time of Service: 07:34 Care Management Initial Assess REASON FOR HOSPITALIZATION:: Rib Fractures PAST MEDICAL HISTORY/PAST SURGICAL HISTORY:: Aortic valve stenosis (Chronic). BPH (benign prostatic hyperplasia) (Chronic). CAD (coronary artery disease) (Chronic). COPD (chronic obstructive pulmonary disease) (Chronic). Diabetes mellitus (Chronic). HTN (hypertension) (Chronic). Hypercholesterolemia (C hronic). History of heart artery stent (Chronic) PREVIOUS FUNCTIONAL STATUS/SOCIAL/FAMILY SUPPORTS:: Jim resides with his daughter Consuelo in [facility]. He states that his Claudia recently one month ago, and that this has been a difficult time for him. Jim was in the [employer] and reports that he is from [place]. His daughter Consuelo prepares his meals, and Jim states that he still drives. He reports that he has two dogs that he spends a lot of time with. CURRENT FUNCTIONAL STATUS:: Currently Jim is sitting up in his chair after working with PT this afternoon. He is pleasant and receptive to discussion. ADVANCE DIRECTIVES:: None on file Has patient been provided with information about the portal?: Yes Did the patient sign up for the portal?: No CODE STATUS:: Full Code INSURANCE COVERAGE / FINANCIAL ISSUES:: Medicare, [employer] CURRENT HOME/COMMUNITY SERVICES/EQUIPMENT:: Currently Olegario has no services in the community. He has a cane, walker, w/c, raised toilet seat, and shower chair at home which he states he does not use any of the above at this time. PRIMARY CARE PHYSICIAN:: Alejandra Schaffer POTENTIAL DISCHARGE NEEDS:: F/U appointment with PCP. ? home health PT vs. SNF placement PATIENT/FAMILY EDUCATION NEEDS:: Review DC instructions, any limitations, and ongoing DC planning discussion. Discuss 'Ask Me Three' ANTICIPATED BARRIERS TO DISCHARGE:: None identified at this time. TRANSPORTATION:: Via private vehicle with serenity Cordero PLAN:: Olegario will return home with home health vs. SNF placement once medically cleared. He will F/U with PCP and plan of care as prescribed. Serenity Cordero to transport when ready.
[2019-03-17] MEDS: Ferrous Sulfate 325 MG TAB PO (07:55)
[2019-03-17] MEDS: Metoprolol CR 25 MG TABCR PO (07:55)
[2019-03-17] MEDS: Tamsulosin 0.4 MG CAPCR PO (07:55)
[2019-03-17] MEDS: Lidocaine 5% Patch 1 PATCH TP (09:03)
[2019-03-17] MEDS: Naloxone 0.4 MG/ML VIAL 0.2 MG IVP (10:47)
[2019-03-17] MEDS: ACETAMINOPHEN 1,000 MG/100 ML BTL 400 MG IVPB ×2 (10:47→18:04)
--- NOTE | 2019-03-17 10:48 | DI.RAD_ITS ---
SYMPTOM/DIAGNOSIS: HYPOXIA, POST RIB FRACTURES, ? PNEUMOTHORAX PORTABLE AP CHEST: Heart size and pulmonary vasculature are within normal limits. There is again seen a large hiatal hernia. The lungs are clear. No effusions are seen. No evidence of a pneumothorax is identified. The left rib fractures are best appreciated on the CT scan of the chest. IMPRESSION: No evidence of a pneumothorax.
--- NOTE | 2019-03-17 11:11 | W.PM.PROGNOT ---
Date of Service Date of service: 03/17/19 Time of Service: 11:11 Assessment and Plan (1) Rib fractures: Current visit: Yes Status: Acute Status post mechanical fall. Nondisplaced fractures of the left third, fourth and fifth ribs noted on chest CT with no pneumothorax or pleural effusion. He received oxycodone and IV Dilaudid for pain, he appears mildly oversedated, likely related to narcotic pain medication. Discontinue Dilaudid. We will plan to give him IV Tylenol and Toradol. Give low-dose Narcan as he is experiencing periods of apnea on continuous pulse oximeter. Chest x-ray to assess for pneumothorax and/or effusion. Continue Lidoderm patch, incentive spirometer, oxycodone moderate to severe for pain not relieved by IV acetaminophen and Toradol. Continue to monitor with continuous pulse oximeter. Assess orthostatic vital signs when able. Continue physical therapy and Occupational Therapy. (2) Falls: Current visit: Yes Status: Acute Reportedly suffered a mechanical fall at home after tripping on dog leash. However, the patient reports that he has had other falls at home. Obtain orthostatic vital signs. Consult PT/OT. Unclear at this point if he will be able to return home or if he will require rehab prior to returning home. (3) Diabetes: Current visit: Yes Status: Chronic Assess blood glucose a before meals and at bedtime, short acting insulin per sliding scale, continue ADA diet. (4) Hypercholesteremia: Current visit: Yes Status: Acute Continue lipitor when dose verified by Pharmacy. (5) Depression: Current visit: Yes Status: Chronic Continue Sertraline per home dose. (6) Discharge planning issues: Current visit: Yes Status: Acute Subcutaneous heparin. (7) DVT prophylaxis: Current visit: Yes Status: Acute He is a FULL code. He may require rehab prior to returning home with his history of falls. PT/OT to evaluate and determine if he is safe to return home. This case was discussed with Dr. Prasad who is in agreement. Subjective Interval history since last seen: Mr. Frazier reports pain 5/10 to his left lateral ribs. He has difficulty taking deep breaths due to increased pain in his left side. He denies back pain. His nurse reports shallow breathing and difficulty arousing him. He has been placed on a continuous pulse oximeter. He was noted to have an episode of apnea lasting 30 seconds. He denies shortness of breath, coughing or wheezing. No chest pain/pressure, palpitations. No nausea, vomiting or diarrhea. He does have difficulty moving/repositioning in bed due to pain. A portable chest x-ray has been ordered to evaluate for pneumothorax and/or effusion. Low-dose Narcan has been ordered. Dilaudid has been discontinued. Exam Narrative Exam Narrative: General: Elderly man, lying in bed with head of bed elevated. Reluctant to move due to pain. Answers questions appropriately. HEENT: Normocephalic, atraumatic, pupils symmetrical and round, mucous membranes moist. Neck: Supple, no JVD. Respiratory: Respirations unlabored, shallow, lung sounds clear bilaterally. Reluctant to take deep breaths due to pain. Cardiovascular: Heart has regular rate and rhythm, 3/6 murmur noted across precordium. GI: Normoactive bowel sounds, abdomen soft, nondistended, nontender on palpation. Extremities: Well-perfused, no clubbing, cyanosis or edema. No calf swelling or tenderness. Pedal pulses palpable bilaterally. Skin: Lidoderm patch noted on left lateral chest, no bruising appreciated. Objective Objective Clinical Data: Abnormal lab results 03/16/19 03/16/19 Range/Units 19:27 19:36 Absolute Neutrophils 7.60 H (1.2-6.7) k/cumm Absolute Monocytes 0.75 H (0.11-0.7) k/cumm Anion Gap 11.1 H (3-11) mmol/L Glucose 190 H (70-100) mg/dL Vital Signs Temperature 36.7 C 03/17/19 10:35 Temperature Source Tympanic 03/17/19 10:35 Pulse 83 03/17/19 10:35 Pulse Rhythm Regular 03/16/19 23:10 Pulse 75 03/16/19 20:16 Respiratory Rate 21 03/17/19 10:35 Respiratory Effort Non-Labored 03/16/19 23:10 Respiratory Depth Normal 03/16/19 23:10 Respiratory Pattern Normal 03/16/19 23:10 Blood Pressure 131/73 03/17/19 10:35 Blood Pressure Mean 83 03/16/19 22:31 Blood Pressure Position Sitting 03/16/19 19:06 Pulse Oximetry 95 03/17/19 10:35 Oxygen Delivery Method Nasal Cannula 03/17/19 10:35 Oxygen Flow Rate 2 03/17/19 10:35 Pain Level 5 03/17/19 09:01 Intake & Output 03/16/19 03/16/19 03/17/19 11:59 23:59 11:59 Intake Total 550 / 550 1245 / 1245 Output Total 650 / 650 Balance 550 / 550 595 / 595 Weight 84.368 kg Intake: IV 550 / 550 945 / 945 Oral 300 / 300 Output: Urine 650 / 650 Other: Urine Color Yellow Urine Appearance Clear Urine Odor None Voiding Methods Urinal Laboratory Results WBC 9.94 k/cumm (4.4-10.8) 03/16/19 19: RBC 4.81 m/cumm (4.50-6.00) 03/16/19 19:27 Hgb 15.0 g/dL (13.5-17.5) 03/16/19 19:27 Hct 43.7 % (40.0-50.0) 03/16/19 19:27 MCV 90.9 fL (80-95) 03/16/19 19:27 MCH 31.2 pg (27.0-33.0) 03/16/19 19:27 MCHC 34.3 g/dL (32.0-36.0) 03/16/19 19:27 RDW 13.2 % (11.8-14.1) 03/16/19 19:27 Plt Count 223 x1000/uL (130-400) 03/16/19 19:27 MPV 9.2 fL (8.0-11.0) 03/16/19 19:27 Immature Gran % 0.5 03/16/19 19:27 Neutrophils % 76.5 03/16/19 19:27 Lymphocytes % 13.4 03/16/19 19:27 Monocytes % 7.5 03/16/19 19:27 Eosinophils % 1.8 03/16/19 19:27 Basophils % 0.3 03/16/19 19:27 Absolute Neutrophils 7.60 k/cumm (1.2-6.7) H 03/16/19 19:27 Absolute Lymphocytes 1.33 k/cumm (1.2-3.4) 03/16/19 19:27 Absolute Monocytes 0.75 k/cumm (0.11-0.7) H 03/16/19 19:27 Absolute Eosinophils 0.18 k/cumm (0.0-0.7) 03/16/19 19:27 Absolute Basophils 0.03 k/cumm (0.0-0.2) 03/16/19 19:27 Sodium 137 mmol/L (136-145) 03/16/19 19:36 Potassium 4.2 mmol/L (3.5-5.1) 03/16/19 19:36 Chloride 99 mmol/L (98-107) 03/16/19 19:36 Carbon Dioxide 26.9 mmol/L (21.0-32.0) 03/16/19 19:36 Anion Gap 11.1 mmol/L (3-11) H 03/16/19 19:36 BUN 18 mg/dL (7-18) 03/16/19 19:36 Creatinine 1.28 mg/dL (0.70-1.30) 03/16/19 19:36 Estimated GFR/1.73 m2 54.50 (mL/min/1.73m2) 03/16/19 19:36 Glucose 190 mg/dL (70-100) H 03/16/19 19:36 Calcium 8.9 mg/dL (8.5-10.1) 03/16/19 19:36 Magnesium 2.1 mg/dL (1.8-2.4) 03/16/19 19:36 Total Bilirubin 0.5 mg/dL (0.2-1.0) 03/16/19 19:36 AST 34 U/L (15-37) 03/16/19 19:36 ALT 45 U/L (12-78) 03/16/19 19:36 Alkaline Phosphatase 101 U/L (46-116) 03/16/19 19:36 Troponin I < 0.02 ng/mL (0.00-0.06) 03/16/19 19:36 Total Protein 7.9 g/dL (6.4-8.2) 03/16/19 19:36 Albumin 4.0 g/dL (3.4-5.0) 03/16/19 19:36
--- NOTE | 2019-03-17 11:32 | OT.INIE ---
Occupational Therapy Notes Inpatient Occupational Therapy Evaluation Date: 03/17/19 Referring Doctor:Violeta Prasad MD OT Orders: Eval and Treat Precautions: Standard, Increased Pain PATIENT PROFILE/ADMITTING DIAGNOSIS: Pt is a 78 year old male who was admitted through the ER for (L) rib fx s/p a mechanical fall over a dog leash. Past Medical History: Medical History Aortic valve stenosis (Chronic) BPH (benign prostatic hyperplasia) (Chronic) CAD (coronary artery disease) (Chronic) COPD (chronic obstructive pulmonary disease) (Chronic) Diabetes mellitus (Chronic) HTN (hypertension) (Chronic) Hypercholesterolemia (Chronic) Surgical History History of heart artery stent (Chronic) Social History/Home Situation: Pt states that he lives in a home with his daughter and two dogs. He reports that at baseline he is (I) all ADLs/IADLs with no (A) device for functional mobility. 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 Equipment owned/DME: Grab bars SUBJECTIVE: Pt was lying in bed. He states that he is in pain but is agreeable to OT session. OBJECTIVE: General Observation: Pt is able to verbally respond to OT, he c/o pain and decreased ability to perform any ROM. Mental Status: Alert to name and place Pain: Severe pain in (L) ribs and UE. Nursing is aware and pt has received pain medication. ROM: RUE unable to perform AROM shoulder, passively shoulder flexion to 150* pt reports rotator issue, elbow WNL, caser shoe parts/hand WNL L UE unable to perform AROM shoulder, passively shoulder flexion to 160* pt reports rotator issue, elbow WNL, caser shoe parts/hand WNL STRENGTH: RUE Conveyor Console Operator strength is moderate but symmetrical, elbow 3+/5, shoulder NT LUE Conveyor Console Operator strength is moderate but symmetrical , elbow 3-/5, shoulder NT FUNCTIONAL MOBILITY/ADLS: Unable to test at this time. Pt was medicated per nursing but states he is in severe pain and cannot perform. BALANCE: Unable to test as pt has increased pain and inability to perform functional mobility at this time. SPECIAL TESTS: Daily Activity Limitations Standardized Measure [facility] -PAC ?6 clicks? Daily Activity Inpatient Short Form: Raw score: 8 Standardized score: 22.86 CMS score: 85.69% INFORMED CONSENT/EDUCATION: Pt instructed in purpose of OT Consult and plan of care. ASSESSMENT: Patient is a 78-year-old male referred to occupational therapy services with diagnosis of rib fx s/p mechanical fall. Patient presents with clinical signs and symptoms consistent with dx, as demonstrated by the following impairment level findings/ functional limitations: Pt is unable to perform AROM (B), severe pain with any UE movement, decrease ability to perform bed mobility, unable to perform ADLs/IADLS as pt cannot move his (B) UE, decreased able to reach towards his (B) LE, inability to perform rolling in bed, unable to sit in his bed. AMPAC score 8, CMS Score 85.69% Patient is assessed as a high 35057 complexity based on the following: History: See Above Examination: See Above Presentation: Evolving Decision Making: AMPAC score 8, CMS Score 85.69% GOALS Goals x1 week 1. Transfers 2. Dressing Min-mod (A) sitting 3. Bathing sitting in bed min (A) UE, mod (A) LE 4. Toileting on commode min (A) 5. Eating sitting in bed (I) 6. Grooming sitting on side of bed (I) PLAN OF CARE/TREATMENT PLAN: 1x/day, 5 days/ week x 1week Initiate Occupational Therapy Services for bathing, dressing, grooming, toileting, eating, transfer training. DISCHARGE RECOMMENDATIONS Based on pts high pain level and inability to cooperate fully in OT session, OT recommends that pt go to SNF. OT will continue to assess pts functional (I) to perform ADLs/IADLs. OT is unable to assess DME needs at this time. TREATMENT TIME/MINUTES/CODES 25122, 25 minutes (09:05) [facility]
--- NOTE | 2019-03-17 11:49 | OTIE_ITS ---
Occupational Therapy Notes Inpatient Occupational Therapy Evaluation Date: 03/17/19 Referring Doctor:Violeta Prasad MD OT Orders: Eval and Treat Precautions: Standard, Increased Pain PATIENT PROFILE/ADMITTING DIAGNOSIS: Pt is a 78 year old male who was admitted through the ER for (L) rib fx s/p a mechanical fall over a dog leash. Past Medical History: Medical History Aortic valve stenosis (Chronic) BPH (benign prostatic hyperplasia) (Chronic) CAD (coronary artery disease) (Chronic) COPD (chronic obstructive pulmonary disease) (Chronic) Diabetes mellitus (Chronic) HTN (hypertension) (Chronic) Hypercholesterolemia (Chronic) Surgical History History of heart artery stent (Chronic) Social History/Home Situation: Pt states that he lives in a home with his daughter and two dogs. He reports that at baseline he is (I) all ADLs/IADLs with no (A) device for functional mobility. 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 Equipment owned/DME: Grab bars SUBJECTIVE: Pt was lying in bed. He states that he is in pain but is agreeable to OT session. OBJECTIVE: General Observation: Pt is able to verbally respond to OT, he c/o pain and decreased ability to perform any ROM. Mental Status: Alert to name and place Pain: Severe pain in (L) ribs and UE. Nursing is aware and pt has received pain medication. ROM: RUE unable to perform AROM shoulder, passively shoulder flexion to 150* pt reports rotator issue, elbow WNL, weight control engineer/hand WNL L UE unable to perform AROM shoulder, passively shoulder flexion to 160* pt reports rotator issue, elbow WNL, weight control engineer/hand WNL STRENGTH: RUE Cardiac Sonographer strength is moderate but symmetrical, elbow 3+/5, shoulder NT LUE Cardiac Sonographer strength is moderate but symmetrical , elbow 3-/5, shoulder NT FUNCTIONAL MOBILITY/ADLS: Unable to test at this time. Pt was medicated per nursing but states he is in severe pain and cannot perform. BALANCE: Unable to test as pt has increased pain and inability to perform functional mobility at this time. SPECIAL TESTS: Daily Activity Limitations Standardized Measure [facility] -PAC ?6 clicks? Daily Activity Inpatient Short Form: Raw score: 8 Standardized score: 22.86 CMS score: 85.69% INFORMED CONSENT/EDUCATION: Pt instructed in purpose of OT Consult and plan of care. ASSESSMENT: Patient is a 78-year-old male referred to occupational therapy services with diagnosis of rib fx s/p mechanical fall. Patient presents with clinical signs and symptoms consistent with dx, as demonstrated by the following impairment level findings/ functional limitations: Pt is unable to perform AROM (B), severe pain with any UE movement, decrease ability to perform bed mobility, unable to perform ADLs/IADLS as pt cannot move his (B) UE, decreased able to reach towards his (B) LE, inability to perform rolling in bed, unable to sit in his bed. AMPAC score 8, CMS Score 85.69% Patient is assessed as a high [id number] complexity based on the following: History: See Above Examination: See Above Presentation: Evolving Decision Making: AMPAC score 8, CMS Score 85.69% GOALS Goals x1 week 1. Transfers 2. Dressing Min-mod (A) sitting 3. Bathing sitting in bed min (A) UE, mod (A) LE 4. Toileting on commode min (A) 5. Eating sitting in bed (I) 6. Grooming sitting on side of bed (I) PLAN OF CARE/TREATMENT PLAN: 1x/day, 5 days/ week x 1week Initiate Occupational Therapy Services for bathing, dressing, grooming, toileting, eating, transfer training. DISCHARGE RECOMMENDATIONS Based on pts high pain level and inability to cooperate fully in OT session, OT recommends that pt go to SNF. OT will continue to assess pts functional (I) to perform ADLs/IADLs. OT is unable to assess DME needs at this time. TREATMENT TIME/MINUTES/CODES 22211, 25 minutes (09:05) [facility]
[2019-03-17] MEDS: Ketorolac 15 MG/ML VIAL IVP ×2 (13:08→18:04)
[2019-03-17] MEDS: Heparin 5,000 UNITS/ML VIAL 5000 UNITS SC ×2 (13:09→19:53)
--- NOTE | 2019-03-17 14:10 | IN_ITS ---
Date of service: 03/17/19 Time of Service: 13:30 PT Notes Inpatient Physical Therapy Evaluation Date: 03/17/19 Referring Doctor:Violeta Prasad MD OT Orders: Eval and Treat Precautions: Standard, Increased Pain PATIENT PROFILE/ADMITTING DIAGNOSIS: Pt is a 78 year old male who was admitted through the ER for (L) rib fx s/p a mechanical fall over a dog leash. Past Medical History: Medical History Aortic valve stenosis (Chronic) BPH (benign prostatic hyperplasia) (Chronic) CAD (coronary artery disease) (Chronic) COPD (chronic obstructive pulmonary disease) (Chronic) Diabetes mellitus (Chronic) HTN (hypertension) (Chronic) Hypercholesterolemia (Chronic) Surgical History History of heart artery stent (Chronic) Social History/Home Situation/Premorbid level of function: Pt states that he lives in a one level home, with ramp to enter, with his daughter and two dogs. His daughter his home during the day with him. passed one month ago. He reports that at baseline he is (I) all ADLs/IADLs with no (A) device for functional mobility. 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 He admits to falling, almost daily. He reports need assist from his daughter to get out of his recliner and out of kitchen/dining room chairs, a majority of the time. He generally gets OOB I. Equipment owned/DME: Grab bars, ramp to enter home. Subjective: Reports pain in L anterior rib cage. C/o chronic bilateral shoulder pain, due to RCT's with a daily pain number of 8-10/10 in both shoulders. Agreeable to PT consultation. Objective: General Observation: Lying reclined in hospital bed, IV R [place], [place] 2L O2, pillow protection at L rib cage. Jumpy LE's, which is his baseline. Mental Status: A&Ox3, appears sleepy, but responsive. Pain: 5/10 when resting, increasing to 8/10 with sit at EOB, and sit to stand. Vital Signs: In bed: BP 110/54, HR 84, O2 92% on 2L. Sitting EOB: BP 103/59, HR 72. ROM: Right Upper Extremity: Passive flexion 160*, abduction 90*, ER 45*, IR 40* limited by pain. Attempt of active motion painful to shoulder, beyond 40* flexion. Left Upper Extremity: Passive flexion 160*, abduction 90*, ER 45*, IR 40* limited by pain. Attempt of active motion painful to shoulder and L rib cage. Right Lower Extremity: Grossly WFL Left Lower Extremity: Grossly WFL C-spine: Rotation 20* B, Flexion/extension 5* bilaterally, with pain at end range at L upper trap. Strength: Right Upper Extremity: Shoulder 2/5 due to RC pain, wrist and elbow WFL. Left Upper Extremity: Shoulder 2/5 due to RC pain and rib cage strain, elbow and wrist not assessed to defer pain increase to rib cage. Demonstrates at least 3/5 strength to 40* flexion, with pain. Right Lower Extremity: At least functional for transfer, avoiding MMT today to avoid strain to rib cage Left Lower Extremity: At least functional for transfer, avoiding MMT today to a void strain to rib cage Sensation: Intact throughout to light touch Bed Mobility/Transfers: SBA with supine (80* angle of HOB), to sit at EOB SBA with sit <> stand at walker CG with bed to chair, with RW Gait: RW, 3 steps, CG Balance: Static Sitting: Fair Dynamic Sitting: NA to avoid exacerbation of rib pain Static Standing: Poor Dynamic Standing: Poor Special Tests: Mobility Limitations Standardized Measure [facility] AM-PAC 6 clicks Basic Mobility Inpatient Short Form: 57% disability Patient Education: Deep breathing education, to be completed 10x hourly Neck ROM, gently yes/no 10x hourly, painless range, to defer muscle stiffness. Informed Consent/Education: Patient instructed in purpose of PT consult and plan of care. Assessment: Patient is a 78 year old male referred to physical therapy services with the diagnosis of 3 L rib fractures and T7 compression fracture. Patient presents with clinical signs and symptoms consistent with this diagnosis, in the presence of chronic B shoulder pain and RCT's, degenerative physical condition due to age, and RLS, as demonstrated by the following impairment level findings: Poor shoulder mobility and strength, limited spinal mobility due to acute fractures, global weakness and poor movement, leg restlessness/jumping and poor balance. Impairments are contributing to the following functional limitations: Assist with Bed mobility and transfers, poor tolerance to transfer activities and attempt of ambulation, poor motor control with transfers due to pain inhibition. AMPAC score of 57% disability. Patient is assessed as a Moderate [id number] complexity based on the following: History: See comorbidities Examination: See above impairments and functional limitations Presentation: Evolving Decision Making: Easy, [facility] 57% disability Goals: Goals X1 week 1. Supine-Sit Supervision 2. Sit-Supine Supervision 3. Sit-Stand Supervision 4. Stand-Sit Supervision 5. Bed-Chair RW, supervision 6. Chair-Bed RW, Supervision 7. Gait 100 ft, RW Supervision 8. Independent with home exercise program 10. Balance Fair with static and dynamic standing, with RW Plan of Care/Treatment Plan: 1-2x/day, 7 days/week x 1 week. Plan of care has been reviewed with the TRIAL MANAGER providing the service under Physical Therapy direction. Initiate Physical Therapy intervention for strengthening, bed mobility, transfers, gait, stairs, balance training, use of assistive device. DISCHARGE RECOMMENDATIONS: Home with family, with outpatient PT for return to improve balance and attend to strength deficits acquired from fall. To use RW, which he owns, at time of discharge - at all times!! TREATMENT CODE/TIME: 30 minutes, [id number] Kayli Wolfe, MPT
--- NOTE | 2019-03-17 16:38 | PHARADMIT ---
Addendum entered by Armaan Perez III 03/19/19 13:11: Pharmacy Note Subjective Patient noted to MD that he is experiencing visual changes, MD ordered Head CT & MRI. Objective vs-ok, SCr-0.96 Lytes,H&H,Plts, WBC-OK Assessment No med changes Plan Patient recovering from rib fractures following a fall at home. Possible discharge later today, to [facility], if MRI/CT negative Original Note: Admission Pharmacy Clinical Review Code Status Full Code Current Weight 84.368 kg Renally Cleared and Narrow Therapeutic Index Meds crcl ~53ml/min QTc Value / Action Taken 362 BP Control, Fever 96/52 AFEBRILE Electrolytes reviewed OK DVT Prophylaxis HEPARIN Opiate Usage / Scheduled Bowel Regimen Ordered PRN/NADER Plt/SCr for Heparin / Enoxaparin 223/1.28 INR for Warfarin NA H/H stable, WBC/Bands 15.0/43.7 WBC 9.94 Antibiotic appropriateness NA Cultures and Sensitivities NA Surgical ABX d/c within 24 hr NA DM control / Insulin Dosing NA Heart Failure (Check EF%) (DIEGO's, B-Block, Diuretics) IV to PO Switch Home Meds Reviewed Home Meds Not Ordered hydroxyzine HCl 25 mg PO TID-QID PRN atorvastatin [Lipitor] fluticasone propionate [Flonase Allergy Relief] metformin 250 omeprazole ropinirole Comments Carleen [facility] I called [facility] and they have only filled omeprazole 40mg
[2019-03-17] MEDS: LIDOCAINE Patch Removal 1 EACH TP (19:52)
[2019-03-17] MEDS: Docusate Sodium 100 MG CAP PO (20:42)
[2019-03-17] MEDS: Normal Saline 1,000 ML 100 ML IV (22:58)
[2019-03-18] VITALS (9 sets, daily range): BP systolic 101–153; BP diastolic 49–78; PULSE 68–75; RESP 16–20; TEMP 36.7–37.5; O2SAT 92–97
[2019-03-18] MEDS: Normal Saline Flush 10 ML SYR IVP ×3 (00:39→12:03)
[2019-03-18] MEDS: Ketorolac 15 MG/ML VIAL IVP ×3 (00:39→12:02)
[2019-03-18] MEDS: ACETAMINOPHEN 1,000 MG/100 ML BTL 400 MG IVPB ×2 (01:18→12:02)
[2019-03-18] MEDS: Heparin 5,000 UNITS/ML VIAL 5000 UNITS SC ×2 (05:05→12:02)
[2019-03-18] MEDS: oxyCODONE 5 MG TAB PO ×2 (05:12→19:44)
[2019-03-18 07:00] LABS: Abs Immature Grans 0.02 k/cumm (0.0-0.09); Absolute Basophil Count 0.02 k/cumm (0.0-0.2); Absolute Lymphocyte Count 1.14 k/cumm (1.2-3.4); Absolute Monocyte Count 0.71 k/cumm (0.11-0.7); Absolute Neutrophil Count 5.27 k/cumm (1.2-6.7); Basophils % 0.3; Eosinophils % 2.7; HCT 38.8 % (40.0-50.0); HGB 13.1 g/dL (13.5-17.5); Immature Grans % 0.3; Lymphocytes % 15.5; Mean Corp. HGB Concentration 33.8 g/dL (32.0-36.0); Mean Corpuscular Hemoglobin 31.8 pg (27.0-33.0); Mean Corpuscular Volume 94.2 fL (80-95); Mean Platelet Volume 9.4 fL (8.0-11.0); Monocytes % 9.6; Neutrophils % 71.6; Platelet Count 152 x1000/uL (130-400); RBC 4.12 m/cumm (4.50-6.00); RBC Distribution Width 13.1 % (11.8-14.1); White Blood Cell Count 7.36 k/cumm (4.4-10.8)
[2019-03-18 07:12] LABS: Anion Gap 6.8 mmol/L (3-11); BUN 13 mg/dL (7-18); CO2 29.2 mmol/L (21.0-32.0); CREATININE 1.12 mg/dL (0.70-1.30); Calcium 8.6 mg/dL (8.5-10.1); Chloride 104 mmol/L (98-107); Glucose 109 mg/dL (70-100); Sodium 140 mmol/L (136-145)
[2019-03-18] MEDS: Polyethylene Glycol 3350 17 GM PACKET PO (08:45)
[2019-03-18] MEDS: Docusate Sodium 100 MG CAP PO ×2 (08:46→19:44)
[2019-03-18] MEDS: Lidocaine 5% Patch 1 PATCH TP (08:46)
[2019-03-18] MEDS: Metoprolol CR 25 MG TABCR PO (08:47)
[2019-03-18] MEDS: Ferrous Sulfate 325 MG TAB PO (08:47)
[2019-03-18] MEDS: Sertraline 50 MG TAB 200 MG PO (08:47)
[2019-03-18] MEDS: Tamsulosin 0.4 MG CAPCR PO (08:47)
[2019-03-18] MEDS: Normal Saline 1,000 ML 100 ML IV (09:19)
--- NOTE | 2019-03-18 11:25 | OT.INTREAT ---
Date of service: 03/18/19 Time of Service: 09:30 Occupational Therapy Notes Occupational Therapy Inpatient Treatment Note Date: 03/18/19 PRECAUTIONS: Fall, standard SUBJECTIVE: Pt was walking with BALLOON ARTIST prior to OT session, please refer to her note for full details. He states that he is having pain in his (L) pec area but is agreeable to OT session reporting he wants to go home as soon as possible. OBJECTIVE: PAIN:6/10 pain in (L) chest and ribs FUNCTIONAL MOBILITY Supine-sit: (S) Sit-supine: (S) BATHING: Sitting in bed with max (A) set up Upper Body: Max (A) (B) shoulders and hair, (I) chest abdoman, and lower abdomen Lower Body: (I) de area, (I) legs with bringing leg to abdomen, denies (B) feet DRESSING: Upper Extremity: Sitting in bed mod (A) to [facility] gown d/t pain Lower Extremity: NT GROOMING: Standing at sink post walk with BALLOON ARTIST (I) with brushing teeth, discomfort noted. TOILETING: NT ASSESSMENT/PLAN: Pt has made functional (I) since initial evaluation. He was able to perform bathing sitting in bed d/t decreased functional activity tolerance from walking prior to OT session. Based on pts current functional level for ADLs/IADLs OT recommends that pt return home with HH services when medically cleared per MD. TREATMENT CODES/TIME: [id number], 35 minutes (09:30) Bianca Montana OTR/L [facility]
--- NOTE | 2019-03-18 11:32 | OTTR_ITS ---
Date of service: 03/18/19 Time of Service: 09:30 Occupational Therapy Notes Occupational Therapy Inpatient Treatment Note Date: 03/18/19 PRECAUTIONS: Fall, standard SUBJECTIVE: Pt was walking with MID LEVEL NET DEVELOPER prior to OT session, please refer to her note for full details. He states that he is having pain in his (L) pec area but is agreeable to OT session reporting he wants to go home as soon as possible. OBJECTIVE: PAIN:6/10 pain in (L) chest and ribs FUNCTIONAL MOBILITY Supine-sit: (S) Sit-supine: (S) BATHING: Sitting in bed with max (A) set up Upper Body: Max (A) (B) shoulders and hair, (I) chest abdoman, and lower abdomen Lower Body: (I) de area, (I) legs with bringing leg to abdomen, denies (B) feet DRESSING: Upper Extremity: Sitting in bed mod (A) to [facility] gown d/t pain Lower Extremity: NT GROOMING: Standing at sink post walk with MID LEVEL NET DEVELOPER (I) with brushing teeth, discomfort noted. TOILETING: NT ASSESSMENT/PLAN: Pt has made functional (I) since initial evaluation. He was able to perform bathing sitting in bed d/t decreased functional activity tolerance from walking prior to OT session. Based on pts current functional level for ADLs/IADLs OT recommends that pt return home with HH services when medically cleared per MD. TREATMENT CODES/TIME: [id number], 35 minutes (09:30) Bianca Montana OTR/L [facility]
[2019-03-18] MEDS: Insulin Aspart 300 UNITS/3 ML PEN SC (12:14)
--- NOTE | 2019-03-18 13:18 | PDOC.CMPRO ---
- If Service Date Differs Date of service: 03/18/19 Time of Service: 13:18 Care Management Progress Note S/O: Jim is lying in bed when this chief underwriter visits with him this morning, he is pleasant and receptive to discussion. Jim's daughter Consuelo arrived this afternoon, and CM met with her and Jim at the beside. Discussed discharge plans with Jim and Consuelo, Jim states that he is receptive to a referral to [facility], however would like to continue to think about it at this time. Consuelo believes that this would be a good option for her dad so that he can get stronger. CM provided a referral to [facility], whom will review and notify CM of decision. CM also [facility] with [facility] about the [facility] and Jim states that he would like to remain at [facility]. CM contacted Amelie A: 78 y/o male admitted 03/16/19 for rib fractures P: Referral has been placed at [facility]& for short term SNF placement. Jim and his daughter will continue to discuss SNF placement. Daughter Consuelo will transport when ready.
--- NOTE | 2019-03-18 14:09 | CMPROGNOTE_ITS ---
- If Service Date Differs Date of service: 03/18/19 Time of Service: 13:18 Care Management Progress Note S/O: Jim is lying in bed when this tag writer visits with him this morning, he is pleasant and receptive to discussion. Jim's daughter Consuelo arrived this afternoon, and CM met with her and Jim at the beside. Discussed discharge plans with Jim and Consuelo, Jim states that he is receptive to a referral to [facility], however would like to continue to think about it at this time. Consuelo believes that this would be a good option for her dad so that he can get stronger. CM provided a referral to [facility], whom will review and notify CM of decision. CM also spoke with [facility] about the [facility] and Jim states that he would like to remain at [facility]. CM contacted Amelie A: 78 y/o male admitted 03/16/19 for rib fractures P: Referral has been placed at [facility]& for short term SNF placement. Jim and his daughter will continue to discuss SNF placement. Daughter Consuelo will transport when ready.
--- NOTE | 2019-03-18 15:26 | W.PM.PROGNOT ---
Date of Service Date of service: 03/18/19 Time of Service: 15:26 Assessment and Plan (1) Rib fractures: Current visit: Yes Status: Acute Status post mechanical fall. Nondisplaced fractures of the left third, fourth and fifth ribs noted on chest CT with no pneumothorax or pleural effusion. Received narcan yesterday for oversedation, Dilaudid discontinued at that time. His pain has been controlled with IV Tylenol and Toradol with oxycodone for moderate to severe pain. Transition to oral pain medication with possible discharge tomorrow to SNF if his pain is well controlled. Hold NSAIDS due to history of ulcers and GI bleed requiring blood transfusion in the past. Repeat Chest x-ray did not show pneumothorax and/or effusion. No orthostatic changes with orthostatic vital signs. Continue Lidoderm patch, pain medication as above and incentive spirometer. Continue physical therapy and Occupational Therapy. (2) Falls: Current visit: Yes Status: Acute Reportedly suffered a mechanical fall at home after tripping on dog leash. However, the patient reports that he has had other falls at home. No orthostatic changes on orthostatic vital signs. Consult PT/OT. PT recommends SNF. Referral has been set to [facility] and rehab by care management. (3) Diabetes: Current visit: Yes Status: Chronic Fingersticks have been within acceptable range. Continue to assess blood glucose a before meals and at bedtime, short acting insulin per sliding scale, continue ADA diet. (4) Hypercholesteremia: Current visit: Yes Status: Acute Continue lipitor. (5) Depression: Current visit: Yes Status: Chronic Continue Sertraline per home dose. (6) Discharge planning issues: Current visit: Yes Status: Acute Subcutaneous heparin. (7) DVT prophylaxis: Current visit: Yes Status: Acute He is a FULL code. PT recommends SNF. Care Management is working on referral to [facility] and rehab. This case was discussed with Dr. Prasad who is in agreement. Subjective Interval history since last seen: Mr. Frazier is sitting up in the chair, alert and talkative. He continues to reports pain to his left lateral ribs, 6/10 with activity. If he sits still he is comfortable. He reports that he has been ambulating in the halls with PT. He also has right shoulder pain that is not new. He denies any back pain. He denies chest pain/pressure, palpitations, shortness of breath, coughing, wheezing, abdominal pain, nausea, vomiting or diarrhea. He reports that he does not want to be away for home for long at rehab. He admits to falling at home and feeling that his balance has been off. PT recommends SNF. Exam Narrative Exam Narrative: General: Elderly man, sitting up in the chair. Moving more freely today. Answers questions appropriately. HEENT: Normocephalic, atraumatic, pupils symmetrical and round, mucous membranes moist. Neck: Supple, no JVD. Respiratory: Respirations even and unlabored. lung sounds clear bilaterally. Cardiovascular: Heart has regular rate and rhythm, 3/6 murmur noted across precordium. GI: Normoactive bowel sounds, abdomen soft, nondistended, nontender on palpation. Extremities: Well perfused, no clubbing, cyanosis or edema. No calf swelling or tenderness. Pedal pulses palpable bilaterally. Skin: Lidoderm patch noted on left lateral chest, no bruising appreciated. Objective Objective Clinical Data: Abnormal lab results 03/18/19 03/18/19 Range/Units 06:20 06:20 RBC 4.12 L (4.50-6.00) m/cumm Hgb 13.1 L (13.5-17.5) g/dL Hct 38.8 L (40.0-50.0) % Absolute Lymphocytes 1.14 L (1.2-3.4) k/cumm Absolute Monocytes 0.71 H (0.11-0.7) k/cumm Glucose 109 H D (70-100) mg/dL Vital Signs Temperature 37.1 C 03/18/19 11:00 Temperature Source Tympanic 03/18/19 11:00 Pulse 75 03/18/19 11:00 Pulse Rhythm Regular 03/18/19 09:58 Pulse 75 03/16/19 20:16 Respiratory Rate 18 03/18/19 11:00 Respiratory Effort 03/18/19 09:58 Respiratory Depth Shallow 03/18/19 09:58 Respiratory Pattern Normal 03/18/19 09:58 Blood Pressure 126/67 03/18/19 11:00 Blood Pressure Mean 83 03/16/19 22:31 Blood Pressure Position Sitting 03/16/19 19:06 Pulse Oximetry 92 L 03/18/19 11:00 Oxygen Delivery Method Nasal Cannula 03/18/19 11:00 Oxygen Flow Rate 0 03/18/19 11:00 Pain Level 2 03/18/19 06:12 Intake & Output 03/17/19 03/18/19 03/18/19 23:59 11:59 23:59 Intake Total 2580.0 / 3825.0 1710.000 / 1710.000 Output Total 975 / 1625 450 / 450 Balance 1605.0 / 2200.0 1260.000 / 1260.000 Intake: IV 2100.0 / 3045.0 1100.000 / 1100.000 Oral 480 / 780 610 / 610 Output: Urine 975 / 1625 450 / 450 Post Void Residual 0 / 0 Other: Urine Color Straw Yellow Urine Appearance Clear Clear Urine Odor Normal None Comment unable to perform bladder scan after voided, stayed on chair until 2200 hrs. No abdominal distention and denied of discomfort on urinary issues. pt only had 36 in his bladder after voiding Voiding Methods Toilet Urinal Laboratory Results WBC 7.36 k/cumm (4.4-10.8) 03/18/19 06:20 RBC 4.12 m/cumm (4.50-6.00) L 03/18/19 06:20 Hgb 13.1 g/dL (13.5-17.5) L 03/18/19 06:20 Hct 38.8 % (40.0-50.0) L 03/18/19 06:20 MCV 94.2 fL (80-95) 03/18/19 06:20 MCH 31.8 pg (27.0-33.0) 03/18/19 06:20 MCHC 33.8 g/dL (32.0-36.0) 03/18/19 06:20 RDW 13.1 % (11.8-14.1) 03/18/19 06:20 Plt Count 152 x1000/uL (130-400) 03/18/19 06:20 MPV 9.4 fL (8.0-11.0) 03/18/19 06:20 Immature Gran % 0.3 03/18/19 06:20 Neutrophils % 71.6 03/18/19 06:20 Lymphocytes % 15.5 03/18/19 06:20 Monocytes % 9.6 03/18/19 06:20 Eosinophils % 2.7 05/09/19 06:20 Basophils % 0.3 03/18/19 06:20 Absolute Neutrophils 5.27 k/cumm (1.2-6.7) 03/18/19 06:20 Absolute Lymphocytes 1.14 k/cumm (1.2-3.4) L 03/18/19 06:20 Absolute Monocytes 0.71 k/cumm (0.11-0.7) H 03/18/19 06:20 Absolute Eosinophils 0.20 k/cumm (0.0-0.7) 03/18/19 06:20 Absolute Basophils 0.02 k/cumm (0.0-0.2) 03/18/19 06:20 Sodium 140 mmol/L (136-145) 03/18/19 06:20 Potassium 4.0 mmol/L (3.5-5.1) 03/18/19 06:20 Chloride 104 mmol/L (98-107) 03/18/19 06:20 Carbon Dioxide 29.2 mmol/L (21.0-32.0) 03/18/19 06:20 Anion Gap 6.8 mmol/L (3-11) 03/18/19 06:20 BUN 13 mg/dL (7-18) 03/18/19 06:20 Creatinine 1.12 mg/dL (0.70-1.30) 03/18/19 06:20 Estimated GFR/1.73 m2 >= 60.00 (mL/min/1.73m2) 03/18/19 06:20 Glucose 109 mg/dL (70-100) H D 03/18/19 06:20 Calcium 8.6 mg/dL (8.5-10.1) 03/18/19 06:20 Magnesium 2.0 mg/dL (1.8-2.4) 03/18/19 06:20 Total Bilirubin 0.5 mg/dL (0.2-1.0) 03/16/19 19:36 AST 34 U/L (15-37) 03/16/19 19:36 ALT 45 U/L (12-78) 03/16/19 19:36 Alkaline Phosphatase 101 U/L (46-116) 03/16/19 19:36 Troponin I < 0.02 ng/mL (0.00-0.06) 03/16/19 19:36 Total Protein 7.9 g/dL (6.4-8.2) 03/16/19 19:36 Albumin 4.0 g/dL (3.4-5.0) 03/16/19 19:36
--- NOTE | 2019-03-18 15:30 | PT.INTREAT ---
Date of service: 03/18/19 Time of Service: 15:30 PT Notes 03/18/19 SUBJECTIVE: Jim stating he does not want to walk because it hurts every time he gets up. He notes he would like to go home verse going to rehab. OBJECTIVE: Encourage pt to participate in PT this afternoon. He does eventually agree to participate. TRANSFERS Supine to sit: SBA Sit to stand: SBA Stand to sit: CGA GAIT Device: FWW Weight bearing: Full Assist: CGA Distance: 30' Deviation: One LOB to the right with self recovery ASSESSMENT: Pt continues to have discomfort with transfers but once in standing position he no longer complains of discomfort. Discuss options to brace abdominals when transferring although pt feels this is worse. He did have a minor LOB today which he is able to recover independently. Pt would benefit from continued use of FWW. PLAN: Continue current POC progressing toward's established goals. Direct time: 20 minutes [id number] Sarika Montanez, ELECTRIC FREIGHT CAR OPERATOR
[2019-03-18] MEDS: Acetaminophen 500 MG TAB 1000 MG PO (16:05)
--- NOTE | 2019-03-18 16:27 | CHAPLAIN ---
Jim told me about his recent falls, that led to his admission. Most of our discussion was about his 's , just about a month ago. He told me about caring for her, she became less mobile this winter so because of the snow and cold weather they didn't get out much, but just a few days before she , they got out of the house and went for a car ride. Her was anticipated, but came more quickly than expected. We talked about how difficult even expected deaths are. Their anniversary is coming up later this month and we talked about how he might spend that day. He said he is taking things one day at a time, and plodding along as he gets use to his new normal without his .
--- NOTE | 2019-03-18 17:55 | DI.CT_ITS ---
SYMPTOM/DIAGNOSIS: VISUAL CHANGES, RECENT FALL, STRUCK HEAD CRANIAL CT: 03/[address] was performed. The previously noted finding of left maxillary ethmoid and frontal sinus opacification with loss of the bony wall of the left frontal sinus raising the possibility of mucocele or mass is again noted and unchanged from 03/16/19. There is moderate generalized cerebral atrophy. No evidence of acute intracranial hemorrhage, mass affect or midline shift. The orbital and temporal bone structures appear intact. CONCLUSION: No evidence of acute intracranial injury. Predominantly left sided sinus findings noted as described on 03/16/19, left frontal mucocele or mass not excluded. The possibility that these findings are post traumatic is less likely but not absolutely excluded.
--- NOTE | 2019-03-18 18:23 | DI.VRAD_ITS ---
EXAM: CT Head Without Contrast EXAM DATE/TIME: 03/18/2019 4:24 PM CLINICAL HISTORY: 78 years old, male; Signs and symptoms; Other: Visual changes, recent fall struck head TECHNIQUE: Imaging protocol: Axial computed tomography images of the head/brain without contrast. Coronal and sagittal reformatted images were created and reviewed. COMPARISON: CT HEAD CERVICAL SPINE WO 03/16/2019 8:21 PM FINDINGS: Brain: Ventricles and sulci are unchanged when compared with the patient's prior exam. There is low attenuation involving the periventricular and subcortical white matter, most prominent in the left frontal centrum semiovale best seen on series 2 image 36. Findings likely are related to small vessel ischemic change/microangiopathy. There is also a remote lacune involving the inferior left lentiform nucleus. The appearance is stable. There is no new hemorrhage, mass or shift. There is no evidence of a new or acute cortical or major vascular territory infarct. No new extra-axial collections are identified. Ventricles: Ventricular size is stable Bones/joints: There is no new bony abnormality Sinuses: There is sinus disease also previously noted. There is complete opacification of the left frontal sinus, anterior, middle ethmoid air cells and the left maxillary antrum. There is some bony thinning/erosion of the anterior wall of the left frontal sinus also previously noted. No new sinus opacification is identified. There is rightward bowing of the nasal septum Mastoid air cells: There is no significant mastoid opacification Soft tissues: Subcutaneous soft tissues are unchanged Vasculature: Intracranial vascular calcification is noted IMPRESSION: 1. No significant interval change. No new or acute findings. Findings suggestive of remote small vessel ischemic change/microangiopathy.If further evaluation for recent, acute or subacute ischemic change is indicated, MR correlation is recommended. 2. Left-sided sinus opacification, thinning of the anterior wall of frontal sinus could be related to mucocele. This finding was previously identified. Dictated and Authenticated by: Ange Santiago MD. Ordering:ALEXANDRIA Craig MD
[2019-03-18] MEDS: Omeprazole 20 MG CAPCR PO (19:44)
[2019-03-18] MEDS: Atorvastatin 40 MG TAB PO (19:44)
[2019-03-18] MEDS: LIDOCAINE Patch Removal 1 EACH TP (19:51)
[2019-03-18] MEDS: rOPINIRole 1 MG TAB 2 MG PO (21:28)
[2019-03-19] VITALS (7 sets, daily range): BP systolic 130–164; BP diastolic 68–82; PULSE 71–86; RESP 16–20; TEMP 36.8–37.4; O2SAT 93–96
[2019-03-19] MEDS: Acetaminophen 500 MG TAB 1000 MG PO ×3 (00:06→16:13)
[2019-03-19] MEDS: oxyCODONE 5 MG TAB PO (06:02)
[2019-03-19 07:24] LABS: HCT 37.9 % (40.0-50.0); HGB 12.9 g/dL (13.5-17.5); Mean Corpuscular Hemoglobin 31.5 pg (27.0-33.0); Mean Corpuscular Volume 92.4 fL (80-95); Mean Platelet Volume 9.4 fL (8.0-11.0); Platelet Count 174 x1000/uL (130-400); RBC Distribution Width 12.9 % (11.8-14.1); White Blood Cell Count 7.68 k/cumm (4.4-10.8)
[2019-03-19 07:43] LABS: Anion Gap 8.3 mmol/L (3-11); BUN 11 mg/dL (7-18); CO2 27.7 mmol/L (21.0-32.0); CREATININE 0.96 mg/dL (0.70-1.30); Calcium 8.8 mg/dL (8.5-10.1); Chloride 103 mmol/L (98-107); Glucose 118 mg/dL (70-100); Potassium 3.8 mmol/L (3.5-5.1); Sodium 139 mmol/L (136-145)
[2019-03-19] MEDS: Polyethylene Glycol 3350 17 GM PACKET PO (08:24)
[2019-03-19] MEDS: Ferrous Sulfate 325 MG TAB PO (08:25)
[2019-03-19] MEDS: Tamsulosin 0.4 MG CAPCR PO (08:25)
[2019-03-19] MEDS: Sertraline 50 MG TAB 200 MG PO (08:25)
[2019-03-19] MEDS: Docusate Sodium 100 MG CAP PO ×2 (08:25→20:24)
[2019-03-19] MEDS: Omeprazole 20 MG CAPCR PO ×2 (08:26→20:24)
[2019-03-19] MEDS: Metoprolol CR 25 MG TABCR PO (08:26)
[2019-03-19] MEDS: Lidocaine 5% Patch 1 PATCH TP (08:29)
--- NOTE | 2019-03-19 10:11 | PT.INNT ---
Date of service: 03/19/19 Time of Service: 10:11 PT Notes 03/19/19 Refused x 2 this AM. Will attempt again this PM. Sarika Montanez, FINANCIAL OPERATIONS CONSULTANT
[2019-03-19] MEDS: Normal Saline Flush 10 ML SYR IVP ×2 (10:53→12:52)
[2019-03-19] MEDS: traMADol 50 MG TAB PO ×3 (11:14→22:14)
--- NOTE | 2019-03-19 11:34 | OT.INNT ---
Date of service: 03/19/19 Time of Service: 11:34 Occupational Therapy Notes 03/19/19 OT attempted to see pt 2x this morning and he denied d/t pain and discomfort stating he can't do it today and he doesn't want to. OT will hold on services for today. Bianca Montana OTR/L [facility]
--- NOTE | 2019-03-19 11:59 | PDOC.CMPRO ---
- If Service Date Differs Date of service: 03/19/19 Time of Service: 11:59 Care Management Progress Note S/O: Jim is lying in bed when this investigative writer visits this morning, he is pleasant and receptive to discussion. FERNIE spoke with [facility], whom state that they can accept Jim at [facility]. FERNIE spoke with Jim in regards to this, and he is receptive to short term placement at [facility]. FERNIE spoke with Kiara INFORMATION TECHNOLOGY INSTRUCTOR, whom states that Jim needs to have an MRI today, which cannot happen until this afternoon. FERNIE spoke with [facility], whom states that they can accept Jim Friday03/20/19 @ 11, [facility] will send the w/c van. FERNIE notified Kiara of the above, and spoke with Consuelo, daughter, in regards to the above to notify her of the DC plan. A: 78 y/o male admitted 03/16/19 for rib fractures P: Jim will DC to [facility] tomorrow 03/20/19 @11 via w/c van if medically cleared.
--- NOTE | 2019-03-19 12:05 | CMPROGNOTE_ITS ---
- If Service Date Differs Date of service: 03/19/19 Time of Service: 11:59 Care Management Progress Note S/O: Jim is lying in bed when this life insurance underwriter visits this morning, he is pleasant and receptive to discussion. FERNIE spoke with [facility], whom state that they can accept Jim at [facility]. FERNIE spoke with Jim in regards to this, and he is receptive to short term placement at [facility]. FERNIE spoke with JOSE [facility], whom states that Jim needs to have an MRI today, which cannot happen until this a fternoon. FERNIE spoke with [facility], whom states that they can accept Jim Friday03/20/19 @ 11, [facility] will send the w/c van. FERNIE notified Kiara of the above, and spoke with Consuelo, daughter, in regards to the above to notify her of the DC plan. A: 78 y/o male admitted 03/16/19 for rib fractures P: [facility] @11 via w/c van if medically cleared.
[2019-03-19] MEDS: Gadoterate meglumine 20 ML VIAL 17 ML IVP (12:51)
--- NOTE | 2019-03-19 12:55 | W.INDIABCONS ---
Date of service: 03/19/19 Time of Service: 12:55 Diabetes Inpatient Consult DESCRIPTION/ASSESSMENT: Appreciate diabetes consult for Mr. Frazier, 78 years, hospitalized fractured ribs. He has no A1c available and his medication list indicates Metformin 500mg daily. BMI 25 This hospitalization blood sugars fasting 111-113; randomly 140-190mg/dl managed with sensitive insulin correction used at one meal only. He is eating 25-54 grams carbohydrate at a meal. Blood sugars at goal without medication. INTERVENTION: No intervention suggested at this time. PLAN: Will follow blood sugars for change in glycemic control. Time Spent in Nutritional Counseling and Treatment: 0 minutes face to face
--- NOTE | 2019-03-19 13:02 | DI.MRI_ITS ---
SYMPTOMS/DIAGNOSIS: VISUAL DISTURBANCES, H/O 2 MM NODULE, LEFT VESTIBULAR NERVE BRAIN MRI: MRI examination of the brain was performed according to the usual protocol with additional post contrast axial and coronal T1 weighted imaging. Examination is significantly limited by motion artifact. There is moderate generalized cerebral atrophy. Diffusion weighted imaging shows no evidence of restricted diffusion to suggest infarction. 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 Again, no diffusion restriction identified at this site. Otherwise, no significant signal abnormality identified in the brain. 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 No enhancing lesion or mass lesion seen. CONCLUSION: Limited study. No acute intracranial process.
--- NOTE | 2019-03-19 14:37 | PGE_ITS ---
Date of Service Date of service: 03/19/19 Time of Service: 14:30 Assessment and Plan (1) Rib fractures: Current visit: Yes Status: Acute Status post mechanical fall. Nondisplaced fractures of the left third, fourth and fifth ribs noted on chest CT with no pneumothorax or pleural effusion. Received narcan 2 days ago for oversedation, Dilaudid discontinued at that time. His pain fairly well controlled with oral pain medication. Hold NSAIDS due to history of ulcers and GI bleed requiring blood transfusion in the past. Repeat Chest x-ray did not show pneumothorax and/or effusion. No orthostatic changes with orthostatic vital signs. Continue Lidoderm patch, APAP and tramadol for pain. Continue incentive spirometer. Continue physical therapy and Occupational Therapy. Discharge to [facility] and rehab when ready. (2) Falls: Current visit: Yes Status: Acute Reportedly suffered a mechanical fall at home after tripping on dog leash. However, the patient reports that he has had other falls at home. No orthostatic changes on orthostatic vital signs. Consult PT/OT. PT recommends SNF. He will transfer to [facility] and rehab when ready for discharge. (3) Visual disturbance: Current visit: Yes Status: Acute He reports this is new on this hospitalization. MRI brain pending. Possibly related to narcotic pain medication. Has been on oxycodone for pain control, changed to tramadol today. Urinalysis pending. Also has history of vertigo, trial meclizine. (4) Diabetes: Current visit: Yes Status: Chronic Fingersticks have been within acceptable range, 111 fasting this morning. Continue to assess blood glucose a before meals and at bedtime, short acting insulin per sliding scale, continue ADA diet. (5) Hypercholesteremia: Current visit: Yes Status: Acute Continue lipitor. (6) Depression: Current visit: Yes Status: Chronic Continue Sertraline per home dose. (7) DVT prophylaxis: Current visit: Yes Status: Acute Subcutaneous heparin. (8) Discharge planning issues: Current visit: Yes Status: Acute He is a FULL code. PT recommends SNF. [facility] This case was discussed with Dr. Prasad who is in agreement. Subjective Interval history since last seen: Mr. Frazier continues to report left-sided rib pain. Last evening, he told his nurse that he was experiencing visual disturbances. He reported that the wall looked wavy and that black spots on the floor were moving like spiders. He reported that this has been present throughout his hospitalization. Today, he continues to report visual disturbances, like the wall is rolling over. He was referred for head CT last night which did not show evidence of acute intracranial injury, again (as compared to previous CT on 03/16), note was made of left frontal mucocele or mass not excluded. The possibility that these findings are post traumatic is less likely but not absolutely excluded. He was referred for MRI brain. Prior to going to the MRI he stated, I am sick of all of this. There was a discussion about whether or not he wanted to MRI at all. He decided to proceed with the imaging as he wants to know what is going on. He continues to have increased pain with activity or deep breathing, however he denies shortness of breath, coughing, wheezing, abdominal pain, nausea, vomiting or diarrhea. He has been accepted at [facility] and will transfer when ready. Exam Narrative Exam Narrative: General: Elderly man, sitting up in bed. Alert and oriented. Answering questions appropriately. HEENT: Normocephalic, atraumatic, pupils symmetrical and round, mucous membranes moist. Neck: Supple, no JVD. Respiratory: Respirations even and unlabored. lung sounds clear bilaterally. Cardiovascular: Heart has regular rate and rhythm, 3/6 murmur noted across precordium. GI: Normoactive bowel sounds, abdomen soft, nondistended, nontender on palpation. Extremities: Well perfused, no clubbing or cyanosis. Trace BLE edema. No calf swelling or tenderness. Pedal pulses palpable bilaterally. Skin: Lidoderm patch noted on left lateral chest, no bruising appreciated. Objective Objective Clinical Data: Abnormal lab results 03/19/19 03/19/19 Range/Units 06:40 06:40 RBC 4.10 L (4.50-6.00) m/cumm Hgb 12.9 L (13.5-17.5) g/dL Hct 37.9 L (40.0-50.0) % Glucose 118 H (70-100) mg/dL Vital Signs Temperature 36.8 C 03/19/19 11:35 Temperature Source Tympanic 03/19/19 11:35 Pulse 71 03/19/19 11:35 Pulse Rhythm Regular 03/19/19 10:00 Pulse 75 03/16/19 20:16 Respiratory Rate 18 03/19/19 11:35 Respiratory Effort Non-Labored 03/19/19 10:00 Respiratory Depth Shallow 03/19/19 10:00 Respiratory Pattern Normal 03/19/19 10:00 Blood Pressure 152/81 H 03/19/19 11:35 Blood Pressure Mean 83 03/16/19 22:31 Blood Pressure Position Sitting 03/16/19 19:06 Pulse Oximetry 96 03/19/19 11:35 Oxygen Delivery Method Room Air 03/19/19 11:35 Oxygen Flow Rate 0 03/19/19 11:35 Pain Level 5 03/19/19 12:14 Intake & Output 03/18/19 03/19/19 03/19/19 23:59 11:59 23:59 Intake Total 1261.667 / 2971.667 270 / 270 Output Total 475 / 925 800 / 800 Balance 786.667 / 2046.667 -530 / -530 Intake: IV 781.667 / 1881.667 30 / 30 Oral 480 / 1090 240 / 240 Output: Urine 475 / 925 800 / 800 Other: Urine Color Yellow Yellow Urine Appearance Clear Clear Urine Odor Normal Foul Voiding Methods Urinal Urinal Laboratory Results WBC 7.68 k/cumm (4.4-10.8) 03/19/19 06:40 RBC 4.10 m/cumm (4.50-6.00) L 03/19/19 06:40 Hgb 12.9 g/dL (13.5-17.5) L 03/19/19 06:40 Hct 37.9 % (40.0-50.0) L 03/19/19 06:40 MCV 92.4 fL (80-95) 03/19/19 06:40 MCH 31.5 pg (27.0-33.0) 03/19/19 06:40 MCHC 34.0 g/dL (32.0-36.0) 03/19/19 06:40 RDW 12.9 % (11.8-14.1) 03/19/19 06:40 Plt Count 174 x1000/uL (130-400) 03/19/19 06:40 MPV 9.4 fL (8.0-11.0) 03/19/19 06:40 Immature Gran % 0.3 03/18/19 06:20 Neutrophils % 71.6 03/18/19 06:20 Lymphocytes % 15.5 03/18/19 06:20 Monocytes % 9.6 03/18/19 06:20 Eosinophils % 2.7 03/18/19 06:20 Basophils % 0.3 03/18/19 06:20 Absolute Neutrophils 5.27 k/cumm (1.2-6.7) 03/18/19 06:20 Absolute Lymphocytes 1.14 k/cumm (1.2-3.4) L 03/18/19 06:20 Absolute Monocytes 0.71 k/cumm (0.11-0.7) H 03/18/19 06:20 Absolute Eosinophils 0.20 k/cumm (0.0-0.7) 03/18/19 06:20 Absolute Basophils 0.02 k/cumm (0.0-0.2) 03/18/19 06:20 Sodium 139 mmol/L (136-145) 03/19/19 06:40 Potassium 3.8 mmol/L (3.5-5.1) 03/19/19 06:40 Chloride 103 mmol/L (98-107) 03/19/19 06:40 Carbon Dioxide 27.7 mmol/L (21.0-32.0) 03/19/19 06:40 Anion Gap 8.3 mmol/L (3-11) 03/19/19 06:40 BUN 11 mg/dL (7-18) 03/19/19 06:40 Creatinine 0.96 mg/dL (0.70-1.30) 03/19/19 06:40 Estimated GFR/1.73 m2 >= 60.00 (mL/min/1.73m2) 03/19/19 06:40 Glucose 118 mg/dL (70-100) H 03/19/19 06:40 Calcium 8.8 mg/dL (8.5-10.1) 03/19/19 06:40 Magnesium 2.0 mg/dL (1.8-2.4) 03/18/19 06:20 Total Bilirubin 0.5 mg/dL (0.2-1.0) 03/16/19 19:36 AST 34 U/L (15-37) 03/16/19 19:36 ALT 45 U/L (12-78) 03/16/19 19:36 Alkaline Phosphatase 101 U/L (46-116) 03/16/19 19:36 Troponin I < 0.02 ng/mL (0.00-0.06) 03/16/19 19:36 Total Protein 7.9 g/dL (6.4-8.2) 03/16/19 19:36 Albumin 4.0 g/dL (3.4-5.0) 03/16/19 19:36
--- NOTE | 2019-03-19 16:04 | PT.INTREAT ---
Date of service: 03/19/19 Time of Service: 16:04 PT Notes Inpatient Physical Therapy Treatment Note [facility] Date: 03/19/19 PRECAUTIONS: Fall, Pain SUBJECTIVE: Jim is agreeable to participating in PT, stating that he is feeling better today. OBJECTIVE: PAIN: Patient c/o left-sided rib pain with transfers BED MOBILITY/TRANSFERS Sit-supine: Min A Sit-stand: SBA Stand-sit: SBA GAIT Assistive Device: FWW Weight bearing: Full Assist: CGA Distance: 120' Deviation: No c/o pain with ambulation ASSESSMENT: Patient tolerated session well with c/o left-sided rib pain with transfers. He was able to tolerate a progression in gait distance with FWW support and CGA. He would benefit from continued transfer training for improved mobility. PLAN: Continue with PT's POC TREATMENT CODE/TIME: 15 minutes; [id number]
[2019-03-19] MEDS: LIDOCAINE Patch Removal 1 EACH TP (18:06)
[2019-03-19] MEDS: Atorvastatin 40 MG TAB PO (20:24)
[2019-03-19] MEDS: Heparin 5,000 UNITS/ML VIAL 5000 UNITS SC (20:24)
[2019-03-19 21:39] LABS: Bilirubin Negative (Negative); Blood Trace-intact (Negative); Clarity Clear; Glucose Negative (Negative); Ketones Trace mg/dL (Negative); Leukocyte Esterase Negative (Negative); Nitrite Negative (Negative); Specific Gravity 1.015 (1.005-1.025)
[2019-03-19 21:49] LABS: Bacteria Rare HPF (Negative); C & S Indicated? No; Casts Negative LPF (Negative); Crystals Negative HPF (Negative); Epithelial Cells Negative HPF (Negative); Mucus Negative (Negative); WBC 0-2 HPF (0-5)
[2019-03-19] MEDS: rOPINIRole 1 MG TAB 2 MG PO (22:14)
[2019-03-19] MEDS: Insulin Aspart 300 UNITS/3 ML PEN SC (22:14)
[2019-03-20 03:15] VITALS: BP 173/79; PULSE 77; RESP 17; TEMP 36.6; O2SAT 94
[2019-03-20] MEDS: Heparin 5,000 UNITS/ML VIAL 5000 UNITS SC (04:48)
[2019-03-20 06:53] VITALS: O2SAT 94
[2019-03-20 07:19] LABS: HCT 40.3 % (40.0-50.0); HGB 13.9 g/dL (13.5-17.5); Mean Corp. HGB Concentration 34.5 g/dL (32.0-36.0); Mean Corpuscular Hemoglobin 31.9 pg (27.0-33.0); Mean Corpuscular Volume 92.4 fL (80-95); Mean Platelet Volume 9.4 fL (8.0-11.0); Platelet Count 184 x1000/uL (130-400); RBC 4.36 m/cumm (4.50-6.00); RBC Distribution Width 13.1 % (11.8-14.1); White Blood Cell Count 9.79 k/cumm (4.4-10.8)
[2019-03-20] MEDS: traMADol 50 MG TAB PO (07:52)
[2019-03-20] MEDS: Omeprazole 20 MG CAPCR PO (07:52)
[2019-03-20] MEDS: Metoprolol CR 25 MG TABCR PO (07:52)
[2019-03-20] MEDS: Sertraline 50 MG TAB 200 MG PO (07:52)
[2019-03-20] MEDS: Polyethylene Glycol 3350 17 GM PACKET PO (07:52)
[2019-03-20] MEDS: Aspirin 325 MG TAB PO (07:52)
[2019-03-20] MEDS: Docusate Sodium 100 MG CAP PO (07:53)
[2019-03-20] MEDS: Acetaminophen 500 MG TAB 1000 MG PO ×2 (07:53)
[2019-03-20] MEDS: Tamsulosin 0.4 MG CAPCR PO (07:53)
[2019-03-20] MEDS: Ferrous Sulfate 325 MG TAB PO (07:53)
[2019-03-20] MEDS: Lidocaine 5% Patch 1 PATCH TP (07:53)
[2019-03-20 07:54] VITALS: BP 162/80; PULSE 68; RESP 14; TEMP 37.6; O2SAT 93
[2019-03-20] MEDS: Bisacodyl 5 MG TABEC PO (09:46)
--- NOTE | 2019-03-20 10:14 | W.PM.DS.N ---
Date of service: 03/20/19 Time of Service: 10:14 DS: Diagnosis Discharge Diagnosis (1) Rib fractures: Status: Acute (2) Falls: Status: Acute (3) Visual disturbance: Status: Acute (4) Diabetes: Status: Chronic (5) Hypercholesteremia: Status: Acute (6) Depression: Status: Chronic (7) DVT prophylaxis: Status: Acute (8) Discharge planning issues: Status: Acute Discharge Plan Disposition Patient Disposition: [facility] Condition: Improving Discharge Details Reason For Visit: RIB FRACTURES Admit Date/Time: 03/16/19 22:11 Admit Provider: Raoul Todd Attending Provider: Raoul Todd Primary Care Provider: Alejandra Schaffer Hospital Course Hospital Course: 78 male, mechanical fall today (tripped over dog leash) struck left side on pavement. C/o left chest pain. In ER rib fractures (three) noted along with t7 compression fracture. Patient given morphine and dilaudid but still unable to navigate. Admitted for further management. He has difficulty taking deep breaths due to increased pain in his left side. He denies back pain. His nurse reports shallow breathing and difficulty arousing him. He has been placed on a continuous pulse oximeter. He was noted to have an episode of apnea lasting 30 seconds. He denies shortness of breath, coughing or wheezing. No chest pain/pressure, palpitations. No nausea, vomiting or diarrhea. He does have difficulty moving/repositioning in bed due to pain. A portable chest x-ray has been ordered to evaluate for pneumothorax and/or effusion. Low-dose Narcan has been ordered. Dilaudid has been discontinued. Mr. Frazier continues to report left-sided rib pain. Last evening, he told his nurse that he was experiencing visual disturbances. He reported that the wall looked wavy and that black spots on the floor were moving like spiders. He reported that this has been present throughout his hospitalization. Today, he continues to report visual disturbances, like the wall is rolling over. He was referred for head CT last night which did not show evidence of acute intracranial injury, again (as compared to previous CT on 03/16), note was made of left frontal mucocele or mass not excluded. The possibility that these findings are post traumatic is less likely but not absolutely excluded. Today he was feeling nauseated after taking his pill, he did take them on an empty stomach, once he ate his nausea went away. He also has not had a BM in several days despite being colace and mirlax. He was given fleet enema and ducolax suppository. He is ready to go to rehab. His pain in a 5/10 however he should not receive narcotics because of side effects. Continue lidoderm patch, and tylenol for pain. (1) Rib fractures: Status post mechanical fall. Nondisplaced fractures of the left third, fourth and fifth ribs noted on chest CT with no pneumothorax or pleural effusion. Received narcan 2 days ago for oversedation, Dilaudid discontinued at that time. His pain fairly well controlled with oral pain medication. Hold NSAIDS due to history of ulcers and GI bleed requiring blood transfusion in the past. Repeat Chest x-ray did not show pneumothorax and/or effusion. No orthostatic changes with orthostatic vital signs. Continue Lidoderm patch, APAP and tramadol for pain. Continue incentive spirometer. Continue physical therapy and Occupational Therapy. Discharge to [facility] when ready. (2) Falls: Reportedly suffered a mechanical fall at home after tripping on dog [employer]. However, the patient reports that he has had other falls at home. No orthostatic changes on orthostatic vital signs. Consult PT/OT. PT recommends SNF. He will transfer to [facility] when ready for discharge. (3) Visual disturbance: He reports this is new on this hospitalization. MRI brain pending. Possibly related to narcotic pain medication. Has been on oxycodone for pain control, changed to tramadol today. Urinalysis pending. Also has history of vertigo, trial meclizine. (4) Diabetes: Fingersticks have been within acceptable range, 184 fasting this morning. Continue to assess blood glucose a before meals and at bedtime, short acting insulin per sliding scale, continue ADA diet. (5) Hypercholesteremia: Continue lipitor. (6) Depression: Continue Sertraline per home dose. (7) DVT prophylaxis: Subcutaneous heparin. (8) Discharge planning issues: He is a FULL code. PT recommends SNF. He has been accepted at [facility]. Home Meds and New Rx's Prescriptions: New tramadol 50 mg Tablet 25 - 50 mg PO Q4H PRN PRN (Reason: pain) Qty: 10 RF: 0 acetaminophen [Mapap Extra Strength] 500 mg Tablet 1,000 mg PO Q8H Qty: 30 RF: 0 docusate sodium [Colace] 100 mg Capsule 100 mg PO BID Qty: 30 RF: 0 Continued omeprazole 20 mg Capsule,Delayed Release(Dr/Ec) RF: 0 metformin 500 mg Tablet 250 RF: 0 metoprolol succinate 25 mg Cap,Sprinkle,Er 24hr Dose Pack BID RF: 0 fluticasone propionate [Flonase Allergy Relief] 50 mcg/actuation [place],Suspension RF: 0 atorvastatin [Lipitor] 40 mg Tablet RF: 0 ropinirole 1 mg Tablet RF: 0 meclizine 12.5 mg Tablet 12.5 mg PO TID PRNRF: 0 tamsulosin 0.4 mg Capsule 0.4 mg PO DAILY RF: 0 hydroxyzine HCl 25 mg Tablet 25 mg PO TID-QID PRNRF: 0 polyethylene glycol 3350 17 gram/dose Powder 17 g PO DAILY RF: 0 ferrous sulfate 325 mg (65 mg iron) Tablet,Delayed Release (Dr/Ec) 325 mg PO DAILY RF: 0 sertraline 50 mg Tablet 200 mg PO DAILY AM RF: 0 Discharge Instructions Instructions: Pain Management in the Elderly (GEN), Rib Fracture (GEN) Additional Instructions: Follow up with your Primary in 1 week. Use your incentive spirometer daily to prevent lung problems. Take tylenol for mild-moderate pain Take tramadol for severe pain If you have chest pain, shortness of breath, nausea/vomiting diarrhea, fever or calf pain report to the emergency department immediately. Stand Alone Forms: Nursing Discharge Form Referrals: Alejandra Schaffer [Primary Care Provider] - Activity:: Activity as Tolerated Shower/Bathe:: 24 hours Activity:: Activity as Tolerated Equipment/Supplies:: No Equipment Needed Diet:: Carb Counting Exam Narrative Exam Narrative: General: Elderly man, sitting up in chair. Alert and oriented. Answering questions appropriately. HEENT: Normocephalic, atraumatic, pupils symmetrical and round, mucous membranes moist. Neck: Supple, no JVD. Respiratory: Respirations even and unlabored. lung sounds clear bilaterally. Cardiovascular: Heart has regular rate and rhythm, 3/6 murmur noted across precordium. GI: Normoactive bowel sounds, abdomen firm, nondistended, nontender on palpation. Extremities: Well perfused, no clubbing or cyanosis. no edema. No calf swelling or tenderness. Pedal pulses palpable bilaterally. Skin: Lidoderm patch noted on left lateral chest, no bruising appreciated. DS: Data Vitals/I&O Vitals and I&O: Vital Signs Temperature 37.6 C H 03/20/19 07:54 Temperature Source Tympanic 03/20/19 07:54 Pulse 68 03/20/19 07:54 Pulse Rhythm Regular 03/19/19 23:00 Pulse 75 03/16/19 20:16 Respiratory Rate 14 03/20/19 07:54 Respiratory Effort Non-Labored 03/19/19 23:00 Respiratory Depth Shallow 03/19/19 23:00 Respiratory Pattern Normal 03/19/19 23:00 Blood Pressure 162/80 H 03/20/19 07:54 Blood Pressure Mean 83 03/16/19 22:31 Blood Pressure Position Sitting 03/16/19 19:06 Pulse Oximetry 93 L 03/20/19 07:54 Oxygen Delivery Method Room Air 03/20/19 07:54 Oxygen Flow Rate 0 03/20/19 07:54 Pain Level 5 03/20/19 07:53 Intake & Output 03/19/19 03/19/19 03/20/19 11:59 23:59 11:59 Intake Total 270 / 810 540 / 810 240 / 240 Output Total 800 / 1600 800 / 1600 Balance -530 / -790 -260 / -790 240 / 240 Intake: IV 30 / 30 Oral 240 / 780 540 / 780 240 / 240 Output: Urine 800 / 1600 800 / 1600 Other: Urine Color Yellow Yellow Urine Appearance Clear Clear Urine Odor Foul Strong Strong Comment patient incontinent over night Voiding Methods Urinal Urinal Incontinent Completed studies during hospitalization [Text1]: a RAD:XR portable chest AP SYMPTOM/DIAGNOSIS: HYPOXIA, POST RIB FRACTURES, ? PNEUMOTHORAX PORTABLE AP CHEST: Heart size and pulmonary vasculature are within normal limits. There is again seen a large hiatal hernia. The lungs are clear. No effusions are seen. No evidence of a pneumothorax is identified. The left rib fractures are best appreciated on the CT scan of the chest. EXAM: CT Head Without Contrast EXAM DATE/TIME: 03/16/2019 7:29 PM CLINICAL HISTORY: 78 years old, male; Injury or trauma; Fall; Initial encounter; Blunt trauma (contusions or hematomas); Consciousness not specified; Injury date: 03/16/2019; Injury details: Fell outside, fell forward onto steps, impact on left side. Anterior left chest/rib pain TECHNIQUE: Imaging protocol: Axial computed tomography images of the head/brain without contrast. Coronal and sagittal reformatted images were created and reviewed. Radiation optimization: All CT scans at this facility use at least one of these dose optimization techniques: automated exposure control; mA and/or kV adjustment per patient size (includes targeted exams where dose is matched to clinical indication); or iterative reconstruction. COMPARISON: No relevant prior studies available. FINDINGS: Brain: There is mild age related parenchymal atrophy with prominence of the cortical sulci. Periventricular and deep white matter hypodensities are consistent with sequela of chronic microvascular ischemic disease. Garvey-white matter differentiation is preserved. No acute intracranial hemorrhage. Midline shift: None. Ventricles: Mild ex vacuo dilation of the ventricles, likely secondary to age related volume loss. Bones/joints: Unremarkable. No acute fracture. Sinuses: There is opacification of the left frontal and maxillary sinuses as well as the ethmoid air cells with associated punctate air fluid level is seen in sinus. There is chronic appearing osseous hypertrophic changes of the involved sinuses with slight expansile appearance of the left frontal sinus, could represent mucocele. Right paranasal sinuses are otherwise clear. Mastoid air cells: No mastoid effusion. Orbits: Unremarkable. Soft tissues: No focal soft tissue abnormality. Vasculature: Vascular calcifications of the vertebral and carotid arteries are present. IMPRESSION: 1. No acute intracranial finding. Senescent changes as discussed. 2. 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 Correlate clinically to exclude acute sinusitis. xam(s) a CT:CT head wo SYMPTOM/DIAGNOSIS: VISUAL CHANGES, RECENT FALL, STRUCK HEAD CRANIAL CT: 03/[address] was performed. The previously noted finding of left maxillary ethmoid and frontal sinus opacification with loss of the bony wall of the left frontal sinus raising the possibility of mucocele or mass is again noted and unchanged from 03/16/19. There is moderate generalized cerebral atrophy. No evidence of acute intracranial hemorrhage, mass affect or midline shift. The orbital and temporal bone structures appear intact. CONCLUSION: No evidence of acute intracranial injury. Predominantly left sided sinus findings noted as described on 03/16/19, left frontal mucocele or mass not excluded. The possibility that these findings are post traumatic is less likely but not absolutely excluded. Labs on day of discharge: Labs from last 24 hours 03/20/19 03/19/19 06:40 12:40 WBC 9.79 RBC 4.36 L Hgb 13.9 Hct 40.3 MCV 92.4 MCH 31.9 MCHC 34.5 RDW 13.1 Plt Count 184 MPV 9.4 Urine Color Yellow Urine Clarity Clear Urine pH 7.0 Ur Specific Lee 1.015 Urine Protein Negative Urine Ketones Trace H Urine Blood Trace-intact H Urine Nitrite Negative Urine Bilirubin Negative Urine Urobilinogen 1.0 H Ur Leukocyte Esterase Negative Urine RBC 3-5 H Urine WBC 0-2 Ur Epithelial Cells Negative Urine Crystals Negative Urine Bacteria Rare Urine Casts Negative Urine Mucus Negative Ur Culture Indicated? No Urine Glucose Negative PFSH Medical History Aortic valve stenosis (Chronic) BPH (benign prostatic hyperplasia) (Chronic) CAD (coronary artery disease) (Chronic) COPD (chronic obstructive pulmonary disease) (Chronic) Diabetes mellitus (Chronic) HTN (hypertension) (Chronic) Hypercholesterolemia (Chronic) Surgical History History of heart artery stent (Chronic) Social History Smoking/Tobacco Use Status: Never Alcohol Intake: never Substance use type: does not use Do you feel safe at home: Yes Do you feel safe in your relationship?: Yes
--- NOTE | 2019-03-20 16:46 | PDOC.CMDIS ---
LACE Index Scoring Tool - Questions: Length of Stay (in days): 4 - 6 Acuity (Admit via E.D.?): Yes E.D. Visits: 1 - Answers: Total Score: 8 Risk of Readmission: Low Risk Care Management Discharge Reason for Hospitalization: Rib Fractures Discharge Plan: Olegario was accepted for SNF Level admission to [facility] today. Transported by Wheel [employer] Van using a Wheel chair from [facility].
--- NOTE | 2019-03-22 07:52 | OTDS_ITS ---
Date of service: 03/22/19 Time of Service: 07:51 Occupational Therapy Notes Occupational Therapy Inpatient Discharge Summary Date: 03/22/19 for 03/20/19 Dates of Service: 03/17/19-03/20/19 Referring Doctor:Violeta Prasad MD OT Orders: Eval and Treat Precautions: Standard, Increased Pain PATIENT PROFILE/ADMITTING DIAGNOSIS: Pt is a 78 year old male who was admitted through the ER for (L) rib fx s/p a mechanical fall over a dog leash. Past Medical History: Medical History Aortic valve stenosis (Chronic) BPH (benign prostatic hyperplasia) (Chronic) CAD (coronary artery disease) (Chronic) COPD (chronic obstructive pulmonary disease) (Chronic) Diabetes mellitus (Chronic) HTN (hypertension) (Chronic) Hypercholesterolemia (Chronic) Surgical History History of heart artery stent (Chronic) Social History/Home Situation: Pt states that he lives in a home with his daughter and two dogs. He reports that at baseline he is (I) all ADLs/IADLs with no (A) device for functional mobility. 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 Equipment owned/DME: [employer] This document serves as a summary of care, no skilled OT services provided for this documentation. SUBJECTIVE: NT Dates of Service: 03/17/19-03/20/19 OBJECTIVE: ROM: RUE unable to perform AROM shoulder, passively shoulder flexion to 150* pt reports rotator issue, elbow WNL, director of home care hospice/hand WNL L UE unable to perform AROM shoulder, passively shoulder flexion to 160* pt reports rotator issue, elbow WNL, director of home care hospice/hand WNL STRENGTH: RUE Railroad Track Mechanic strength is moderate but symmetrical, elbow 3+/5, shoulder NT LUE Railroad Track Mechanic strength is moderate but symmetrical , elbow 3-/5, shoulder NT Dates of Service: 03/17/19-03/20/19 FUNCTIONAL MOBILITY/ADLS: Supine-sit: (S) Sit-supine: (S) BATHING: Sitting in bed with max (A) set up Upper Body: Max (A) (B) shoulders and hair, (I) chest abdomen, and lower abdomen Lower Body: (I) de area, (I) legs with bringing leg to abdomen DRESSING: Upper Extremity: Sitting in bed mod (A) to [facility] gown d/t pain GROOMING: Standing at sink post walk with LIBRARY SCIENCE PROFESSOR (I) with brushing teeth, discomfort was noted. ASSESSMENT: Patient is a 78-year-old male referred to occupational therapy services with diagnosis of rib fx s/p mechanical fall. Pt was seen for 2 skilled OT sessions. He was able to demonstrate (I) in his bathing routine in the sitting position but was limited d/t pain in his (B) shoulders and ribs. Pt was discharged on 03/20/19 and discharged to [facility]. GOALS- NOT MET 1. Transfers 2. Dressing Min-mod (A) sitting 3. Bathing sitting in bed min (A) UE, mod (A) LE 4. Toileting on commode min (A) 5. Eating sitting in bed (I) 6. Grooming sitting on side of bed (I) PLAN OF CARE/TREATMENT PLAN: Discharge from skilled OT services. DISCHARGE RECOMMENDATIONS Pt was discharged on 03/20/19 to [facility] TREATMENT TIME/MINUTES/CODES N/A Bianca Montana OTR/L [facility]
--- NOTE | 2019-03-22 12:51 | PT.INDS ---
Date of service: 03/22/19 PT Notes Inpatient Physical Therapy Discharge Summary Dates: Dates of Service: 03/17/2019 through 03/20/2019 This is a clinical summary of skilled PT services provided on the dates listed above. No charge was made in the completion of this documentation. Referring Doctor:Violeta Prasad MD PT Orders: Eval and Treat Precautions: Standard, Increased Pain PATIENT PROFILE/ADMITTING DIAGNOSIS: Pt is a 78 year old male who was admitted through the ER for (L) rib fx s/p a mechanical fall over a dog leash. Past Medical History: Medical History Aortic valve stenosis (Chronic) BPH (benign prostatic hyperplasia) (Chronic) CAD (coronary artery disease) (Chronic) COPD (chronic obstructive pulmonary disease) (Chronic) Diabetes mellitus (Chronic) HTN (hypertension) (Chronic) Hypercholesterolemia (Chronic) Surgical History History of heart artery stent (Chronic) Social History/Home Situation/Premorbid level of function: Pt states that he lives in a one level home, with ramp to enter, with his daughter and two dogs. His daughter his home during the day with him. passed one month ago. He reports that at baseline he is (I) all ADLs/IADLs with no (A) device for functional mobility. 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 He admits to falling, almost daily. He reports need assist from his daughter to get out of his recliner and out of kitchen/dining room chairs, a majority of the time. He generally gets OOB I. Equipment owned/DME: Grab bars, ramp to enter home. Subjective: NT. Please see LOCOMOTIVE DRIVER notyes on 03/19/2019. Objective: General Observation: NT. Please see LOCOMOTIVE DRIVER notyes on 03/19/2019. Mental Status: NT. Please see LOCOMOTIVE DRIVER notyes on 03/19/2019. Pain: NT. Please see LOCOMOTIVE DRIVER notyes on 03/19/2019. ROM: Right Upper Extremity: Passive flexion 160*, abduction 90*, ER 45*, IR 40* limited by pain. Attempt of active motion painful to shoulder, beyond 40* flexion. Left Upper Extremity: Passive flexion 160*, abduction 90*, ER 45*, IR 40* limited by pain. Attempt of active motion painful to shoulder and L rib cage. Right Lower Extremity: Grossly WFL Left Lower Extremity: Grossly WFL C-spine: Rotation 20* B, Flexion/extension 5* bilaterally, with pain at end range at L upper trap. Strength: Right Upper Extremity: Shoulder 2/5 due to RC pain, wrist and elbow WFL. Left Upper Extremity: Shoulder 2/5 due to RC pain and rib cage strain, elbow and wrist not assessed to defer pain increase to rib cage. Demonstrates at least 3/5 strength to 40* flexion, with pain. Right Lower Extremity: At least functional for transfer, avoiding MMT today to avoid strain to rib cage Left Lower Extremity: At least functional for transfer, avoiding MMT today to avoid strain to rib cage Sensation: Intact throughout to light touch Bed Mobility/Transfers: SBA with supine (80* angle of HOB), to sit at EOB SBA with sit <> stand at walker CG with bed to chair, with RW Gait: 120 feet CGA with FWW and FWB on B UE and LE Balance: Static Sitting: Fair Dynamic Sitting: NA to avoid exacerbation of rib pain Static Standing: Poor Dynamic Standing: Poor Assessment: Patient is a 78 year old male referred to physical therapy services with the diagnosis of 3 L rib fractures and T7 compression fracture. Patient presents with clinical signs and symptoms consistent with this diagnosis, in the presence of chronic B shoulder pain and RCT's, degenerative physical condition due to age, and RLS, as demonstrated by the following impairment level findings: Poor shoulder mobility and strength, limited spinal mobility due to acute fractures, global weakness and poor movement, leg restlessness/jumping and poor balance. Impairments are contributing to the following functional limitations: Assist with Bed mobility and transfers, poor tolerance to transfer activities and attempt of ambulation, poor motor control with transfers due to pain inhibition. AMPAC score of 57% disability. Goals: Goals X1 week 1. Supine-Sit Supervision NOT MET 2. Sit-Supine Supervision NOT MET 3. Sit-Stand Supervision NOT MET 4. Stand-Sit Supervision NOT MET 5. Bed-Chair RW, supervision NOT MET 6. Chair-Bed RW, Supervision NOT MET 7. Gait 100 ft, RW Supervision NOT MET 8. Independent with home exercise program NOT MET 10. Balance Fair with static and dynamic standing, with RW NOT MET DISCHARGE RECOMMENDATIONS: patient will transition to a SNF in order to progress mobility level and reduce fall risk. TREATMENT CODE/TIME: NC Thank you for this referral. Chayo Munguia, PT, DPT, CLT [facility]
--- NOTE | 2019-03-22 12:56 | INDS_ITS ---
Date of service: 03/22/19 PT Notes Inpatient Physical Therapy Discharge Summary Dates: Dates of Service: 03/17/2019 through 03/20/2019 This is a clinical summary of skilled PT services provided on the dates listed above. No charge was made in the completion of this documentation. Referring Doctor:Violeta Prasad MD PT Orders: Eval and Treat Precautions: Standard, Increased Pain PATIENT PROFILE/ADMITTING DIAGNOSIS: Pt is a 78 year old male who was admitted through the ER for (L) rib fx s/p a mechanical fall over a dog leash. Past Medical History: Medical History Aortic valve stenosis (Chronic) BPH (benign prostatic hyperplasia) (Chronic) CAD (coronary artery disease) (Chronic) COPD (chronic obstructive pulmonary disease) (Chronic) Diabetes mellitus (Chronic) HTN (hypertension) (Chronic) Hypercholesterolemia (Chronic) Surgical History History of heart artery stent (Chronic) Social History/Home Situation/Premorbid level of function: Pt states that he lives in a one level home, with ramp to enter, with his daughter and two dogs. His daughter his home during the day with him. passed one month ago. He reports that at baseline he is (I) all ADLs/IADLs with no (A) device for functional mobility. 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 He admits to falling, almost daily. He reports need assist from his daughter to get out of his recliner and out of kitchen/dining room chairs, a majority of the time. He generally gets OOB I. Equipment owned/DME: Grab bars, ramp to enter home. Subjective: NT. Please see MUSIC VIDEO PRODUCER notyes on 03/19/2019. Objective: General Observation: NT. Please see MUSIC VIDEO PRODUCER notyes on 03/19/2019. Mental Status: NT. Please see MUSIC VIDEO PRODUCER notyes on 03/19/2019. Pain: NT. Please see MUSIC VIDEO PRODUCER notyes on 03/19/2019. ROM: Right Upper Extremity: Passive flexion 160*, abduction 90*, ER 45*, IR 40* limited by pain. Attempt of active motion painful to shoulder, beyond 40* flexion. Left Upper Extremity: Passive flexion 160*, abduction 90*, ER 45*, IR 40* limited by pain. Attempt of active motion painful to shoulder and L rib cage. Right Lower Extremity: Grossly WFL Left Lower Extremity: Grossly WFL C-spine: Rotation 20* B, Flexion/extension 5* bilaterally, with pain at end range at L upper trap. Strength: Right Upper Extremity: Shoulder 2/5 due to RC pain, wrist and elbow WFL. Left Upper Extremity: Shoulder 2/5 due to RC pain and rib cage strain, elbow and wrist not assessed to defer pain increase to rib cage. Demonstrates at least 3/5 strength to 40* flexion, with pain. Right Lower Extremity: At least functional for transfer, avoiding MMT today to avoid strain to rib cage Left Lower Extremity: At least functional for transfer, avoiding MMT today to avoid strain to rib cage Sensation: Intact throughout to light touch Bed Mobility/Transfers: SBA with supine (80* angle of HOB), to sit at EOB SBA with sit <> stand at walker CG with bed to chair, with RW Gait: 120 feet CGA with FWW and FWB on B UE and LE Balance: Static Sitting: Fair Dynamic Sitting: NA to avoid exacerbation of rib pain Static Standing: Poor Dynamic Standing: Poor Assessment: Patient is a 78 year old male referred to physical therapy services with the diagnosis of 3 L rib fractures and T7 compression fracture. Patient presents with clinical signs and symptoms consistent with this diagnosis, in the presence of chronic B shoulder pain and RCT's, degenerative physical condition due to age, and RLS, as demonstrated by the following impairment level findings: Poor shoulder mobility and strength, limited spinal mobility due to acute fractures, global weakness and poor movement, leg restlessness/jumping and poor balance. Impairments are contributing to the following functional limitations: Assist with Bed mobility and transfers, poor tolerance to transfer activities and attempt of ambulation, poor motor control with transfers due to pain inhibition. AMPAC score of 57% disability. Goals: Goals X1 week 1. Supine-Sit Supervision NOT MET 2. Sit-Supine Supervision NOT MET 3. Sit-Stand Supervision NOT MET 4. Stand-Sit Supervision NOT MET 5. Bed-Chair RW, supervision NOT MET 6. Chair-Bed RW, Supervision NOT MET 7. Gait 100 ft, RW Supervision NOT MET 8. Independent with home exercise program NOT MET 10. Balance Fair with static and dynamic standing, with RW NOT MET DISCHARGE RECOMMENDATIONS: patient will transition to a SNF in order to progress mobility level and reduce fall risk. TREATMENT CODE/TIME: NC Thank you for this referral. Chayo Munguia, PT, DPT, CLT [facility]
== END 2019-03-20 11:03 | disposition intermediate care facility (04) | DRG 184 ==
LOC: ER 20:42 → MS 23:08
PROVIDERS: Internal Medicine; Nurse Practitioner; Admitting Provider General Practice; Emergency Provider Physician Assistant; PCP Nurse Practitioner Primary Care; Visit Provider Internal Medicine
DX: S22.42XA Multiple fractures of ribs, left side, initial encounter for closed fracture (principal); W01.198A Fall on same level from slipping, tripping and stumbling with subsequent striking against other object, initial encounter; S22.020A Wedge compression fracture of second thoracic vertebra, initial encounter for closed fracture; S00.83XA Contusion of other part of head, initial encounter; H53.8 Other visual disturbances; R07.81 Pleurodynia; E11.9 Type 2 diabetes mellitus without complications; F32.9 Major depressive disorder, single episode, unspecified; E78.00 Pure hypercholesterolemia, unspecified; J44.9 Chronic obstructive pulmonary disease, unspecified; I10 Essential (primary) hypertension; R42 Dizziness and giddiness; R60.0 Localized edema; R29.6 Repeated falls; Z79.84 Long term (current) use of oral hypoglycemic drugs; Z71.3 Dietary counseling and surveillance
CPT/HCPCS: 36415; 70553; 74177; 80048; 80053; 85027; 96361; 96374; 96375; 97110; 97162; 97167; 97530; 97535; 99222; 99232; 99239; 99285; 70450; 71045; 71260; 72125; 73030; 81003; 81015; 83735; 84484; 85025; 99219; 99284; G0378; J0131; J1644; J1885; J2270; J2310; J3490

== ENCOUNTER 2019-09-16 15:03 | Inpatient (IN) | payer MEDICARE, OTHER, SELFPAY ==
[2019-09-16] VITALS (8 sets, daily range): BP systolic 107–166; BP diastolic 64–108; PULSE 81–114; RESP 14–20; TEMP 36.5–37.4; O2SAT 95–98
--- NOTE | 2019-09-16 15:33 | DI.RAD_ITS ---
EXAM: XR HIP RT COMPLETE AP PELVIS CLINICAL HISTORY: fall, tender, pain TECHNIQUE: COMPARISON: No exams were available for comparison FINDINGS: Three views were obtained. There is a moderately displaced intertrochanteric fracture of the right f emur. There is varus angulation at the fracture site. No additional fracture seen. IMPRESSION:
[2019-09-16 16:37] LABS: Abs Immature Grans 0.03 k/cumm (0.0-0.09); Absolute Basophil Count 0.03 k/cumm (0.0-0.2); Absolute Eosinophil Count 0.14 k/cumm (0.0-0.7); Absolute Lymphocyte Count 1.27 k/cumm (1.2-3.4); Absolute Monocyte Count 0.74 k/cumm (0.11-0.7); Absolute Neutrophil Count 7.08 k/cumm (1.2-6.7); Basophils % 0.3; Eosinophils % 1.5; HCT 44.2 % (40.0-50.0); HGB 15.4 g/dL (13.5-17.5); Immature Grans % 0.3; Lymphocytes % 13.7; Mean Corp. HGB Concentration 34.8 g/dL (32.0-36.0); Mean Corpuscular Hemoglobin 31.3 pg (27.0-33.0); Mean Corpuscular Volume 89.8 fL (80-95); Mean Platelet Volume 8.9 fL (8.0-11.0); Neutrophils % 76.2; Platelet Count 228 x1000/uL (130-400); RBC 4.92 m/cumm (4.50-6.00); RBC Distribution Width 13.2 % (11.8-14.1); White Blood Cell Count 9.29 k/cumm (4.4-10.8)
--- NOTE | 2019-09-16 16:38 | W.ED.GENAD ---
Discharge Plan Disposition Patient Disposition: [facility] INPATIENT Condition: Serious Discharge Details Chief Complaint: Orthopedic Clinical Impression: Closed intertrochanteric fracture of right femur Primary Care Provider: Alejandra Schaffer ED Provider: Greg Willoughby Home Meds and New Rx's Prescriptions: No Action omeprazole 20 mg Capsule,Delayed Release(Dr/Ec) 20 mg PO BID RF: 0 metformin 500 mg Tablet 250 mg PO DAILY RF: 0 fluticasone propionate [Flonase Allergy Relief] 50 mcg/actuation [place],Suspension RF: 0 atorvastatin [Lipitor] 40 mg Tablet 60 mg PO DAILY RF: 0 acetaminophen [Mapap Extra Strength] 500 mg Tablet 1,000 mg PO Q8H Qty: 30 RF: 0 docusate sodium [Colace] 100 mg Capsule 100 mg PO BID Qty: 30 RF: 0 meclizine 12.5 mg Tablet 12.5 mg PO TID PRNRF: 0 polyethylene glycol 3350 17 gram/dose Powder 17 g PO DAILY RF: 0 ferrous sulfate 325 mg (65 mg iron) Tablet,Delayed Release (Dr/Ec) 325 mg PO BID RF: 0 atorvastatin [Lipitor] 40 mg Tablet 60 mg PO DAILY RF: 0 aspirin [Aspir-81] 81 mg Tablet,Delayed Release (Dr/Ec) 81 mg PO DAILY RF: 0 mirtazapine 7.5 mg Tablet 7.5 mg PO QHS RF: 0 duloxetine 60 mg Capsule,Delayed Release(Dr/Ec) 60 mg PO DAILY RF: 0 calcium carbonate-vitamin D3 [Calcium 500 + D] 500 mg(1,250mg) -200 unit Tablet 1 tab PO DAILY RF: 0 Multi-Day Plus Minerals 18 mg iron-400 mcg-25 mcg Tablet 1 tab PO DAILY RF: 0 Medical Decision Making 78-year-old male here after mechanical fall from standing to the ground with injury to right hip. X-ray of the right hip and pelvis reviewed and interpreted by me: Intertrochanteric fracture on the right. I called and spoke with Dr. Kaur, [facility], he recommends admission to hospitalist service with plan for likely ORIF tomorrow. I called and spoke with nurse and asked to assist and requested ileal fascial block for pain. I called and spoke with on-call hospitalist, Dr. Prasad, who will admit the patient. Screening labs pending at time of admission. HPI General Mode of arrival: ambulatory. Date/Time Provider Initiated Documentation: 09/16/19 15:19. Limitations to Documentation: no limitations. Information obtained by: patient. HPI Narrative: 78-year-old male presents with chief complaint of right hip pain. Patient states that around 2 PM today he was pulled by his dog and fell to the ground from standing. He landed on his right hip. He had pain in the hip since the fall. Is had difficulty ablating. Is no associated numbness or tingling. No other injury. Related Data Home Medications Medication Instructions Recorded Confirmed ferrous sulfate 325 mg PO BID 02/02/19 09/16/19 meclizine 12.5 mg PO TID PRN 02/02/19 09/16/19 polyethylene glycol 3350 17 g PO DAILY 02/02/19 09/16/19 atorvastatin [Lipitor] 60 mg PO DAILY 03/16/19 09/16/19 fluticasone propionate [Flonase 03/16/19 Allergy Relief] metformin 250 mg PO DAILY 03/16/19 omeprazole 20 mg PO BID 03/16/19 09/16/19 acetaminophen [Mapap Extra 1,000 mg PO Q8H #30 tab 03/20/19 09/16/19 Strength] docusate sodium [Colace] 100 mg PO BID #30 cap 03/20/19 09/16/19 aspirin [Aspir-81] 81 mg PO DAILY 09/16/19 09/16/19 atorvastatin [Lipitor] 60 mg PO DAILY 09/16/19 09/16/19 calcium carbonate-vitamin D3 1 tab PO DAILY 09/16/19 09/16/19 [Calcium 500 + D] duloxetine 60 mg PO DAILY 09/16/19 09/16/19 mirtazapine 7.5 mg PO QHS 09/16/19 09/16/19 ogkunnozbjjv-wbb-cglp-FA-vit K 1 tab PO DAILY 09/16/19 09/16/19 [Multi-Day Plus Minerals] Previous Rx's Medication Instructions Recorded acetaminophen [Mapap Extra 1,000 mg PO Q8H #30 tab 03/20/19 Strength] docusate sodium [Colace] 100 mg PO BID #30 cap 03/20/19 Allergies Allergy/AdvReac Type Severity Reaction Status Date / Time simvastatin Allergy Mild Nausea Unverified 09/16/19 15:10 lisinopril AdvReac Unverified 09/16/19 15:10 General Stated Complaint: Orthopedic EZEKIEL: 3 Review of Systems Narrative: No head injury, no neck pain, no back pain Musculoskeletal Musculoskeletal: Reports as per HPI Neurologic Neurologic: Reports as per HPI [facility] Medical History Aortic valve stenosis (Chronic) BPH (benign prostatic hyperplasia) (Chronic) CAD (coronary artery disease) (Chronic) COPD (chronic obstructive pulmonary disease) (Chronic) Diabetes mellitus (Chronic) HTN (hypertension) (Chronic) Hypercholesterolemia (Chronic) Surgical History History of heart artery stent (Chronic) Social History Smoking/Tobacco Use Status: Never Alcohol Intake: never Drug use: Never Substance use type: does not use Do you feel safe at home: Yes Do you feel safe in your relationship?: Yes Exam Const General: cooperative and no acute distress HENDC Head: normocephalic and atraumatic Neck Neck: trachea midline, supple and nontender Resp Auscultation: clear to auscultation bilaterally, no rales, no rhonchi and no wheezes Cardio Jugular venous pressure: no JVD Rate: regular rate and not tachycardic Rhythm: regular rhythm Pulses: dorsalis pedis pulses present on the right 2+ GI Palpation: soft, not firm, no guarding, no masses, not rigid and nontender Back/Spine/Pelvis Cervical Spine: cervical ROM normal Thoracic/Lumbar Spine: thoracic and lumbar spine normal to inspection Skin General skin exam: no rashes or lesions noted Neuro General: alert, awake, oriented x3 and tone normal Extrem General: no edema Left lower extremity: hip/thigh Details: tenderness Location: of the hip Location: laterally and anteriorly and abnormal ROM Details: pain with passive ROM Details: with internal rotation Course Vital Signs Vital signs: Vital Signs Temperature 36.5 C 09/16/19 15:04 Pulse 90 09/16/19 15:04 Respiratory Rate 14 09/16/19 15:04 Blood Pressure 130/80 09/16/19 15:04 Pulse Oximetry 98 09/16/19 15:04 Temperature 36.5 C 09/16/19 15:04 Temperature Source Temporal Artery Scan 09/16/19 15:04 Pulse 88 09/16/19 16:28 Respiratory Rate 14 09/16/19 15:04 Respiratory Effort Non-Labored 09/16/19 15:07 Blood Pressure 157/108 H 09/16/19 16:28 Blood Pressure Mean 124 09/16/19 16:28 Blood Pressure Position Supine 09/16/19 15:04 Pulse Oximetry 97 09/16/19 16:28 Oxygen Delivery Method Room Air 09/16/19 16:28 Oxygen Flow Rate 0 09/16/19 16:28 Pain Level 9 09/16/19 15:04
[2019-09-16] MEDS: Bupivacaine LIPOSOME/PF 133 MG/10 ML VIAL IJ (16:50)
[2019-09-16] MEDS: Bupivacaine 0.5% Pres-Free 30 ML VIAL (16:50)
[2019-09-16 16:51] LABS: ALT 36 U/L (16-63); AST 27 U/L (15-37); Albumin 3.9 g/dL (3.4-5.0); Alkaline Phosphatase 129 U/L (46-116); Anion Gap 9.8 mmol/L (3-11); BUN 13 mg/dL (7-18); Bilirubin, Total 0.8 mg/dL (0.2-1.0); CO2 28.2 mmol/L (21.0-32.0); CREATININE 1.03 mg/dL (0.70-1.30); Chloride 104 mmol/L (98-107); Glucose 123 mg/dL (70-100); Sodium 142 mmol/L (136-145); Total Protein 7.7 g/dL (6.4-8.2)
[2019-09-16] MEDS: Normal Saline Flush 10 ML SYR IVP ×2 (17:54→22:03)
--- NOTE | 2019-09-16 18:01 | HPE_ITS ---
Date of service: 09/16/19 Time of Service: 18:02 Assessment and Plan Assessment and plan (1) Displaced intertrochanteric fracture of right femur: Status: Acute Assessment and plan: Mechanical in nature. Orthopedics consulted. Planned for OR tomorrow under Dr Boyce. NPO after midnight. Will get CXR and EKG for preop purposes. The patient had an echo in 06/2019 at [facility] 30 days post TAVR - LVEF was 60%, he had no evidence of pulmonary artery hypertension. His bioprosthetic valve was functioning normally, only trace aortic regurgitation was present. The patient is expected to be medically cleared for surgery if he does not have any major abnormalities on his EKG or CXR. (2) CAD (coronary artery disease): Status: Chronic Assessment and plan: s/p DC and 3 stents, per patient. Stable. Obtaining EKG prior to preop clearance. (3) COPD (chronic obstructive pulmonary disease): Status: Chronic Assessment and plan: Obtain preop CXR. Stable/asymptomatic at this time. (4) Non-insulin treated type 2 diabetes mellitus: Status: Acute Assessment and plan: Hold metformin. Cover with SSI while in the hospital. (5) Discharge planning issues: Status: Acute Assessment and plan: DNR/DNI per my conversation re code status with the patient witnessed by the daughter. (6) DVT prophylaxis: Status: Acute Assessment and plan: TEDs/SCD's until procedure tomorrow. History of Present Illness History of Present Illness Chief Complaint: Fall, right hip pain Narrative: Mr Frazier is a 78 year old male with PMHx of CAD s/p DC/stents x3 (last cardiac cath in 05/2019 - no new stents placed), as well as aortic stenosis s/p bioprosthesis aortic valve, NIDDM2, hypertension, hyperlipidemia, non-oxygen dependent COPD, who fell over backwards while chasing one of his dogs that ran away today. He states he did not hit his head, but landed on his buttocks, especially on the right. In the ED, he was found to have a moderately displaced intertrochanteric fracture of the right femur. He received a nerve block by anesthesia; after the block his pain is 7/10; reports jerking in his leg. Of note, he denies any chest pain, shortness of breath. Review of Systems Narrative: 12 systems reviewed. 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 Family History (Updated 09/16/19 @ 18:21 by Violeta Prasad MD) Sister Cancer bladder cancer - she was a smoker Social History (Updated 09/16/19 @ 18:21 by Violeta Prasad MD) Smoking/Tobacco Use Status: Former Tobacco Use Tobacco: How many years used: 27 Alcohol Intake: never Drug use: Never Substance use type: does not use Do you feel safe at home: Yes Do you feel safe in your relationship?: Yes Meds Home Medications and Allergies Home Medications Medication Instructions Recorded Confirmed Type ferrous sulfate 325 mg PO BID 02/02/19 09/16/19 History meclizine 12.5 mg PO TID PRN 02/02/19 09/16/19 History polyethylene glycol 3350 17 g PO DAILY 02/02/19 09/16/19 History atorvastatin [Lipitor] 60 mg PO DAILY 03/16/19 09/16/19 History fluticasone propionate [Flonase 03/16/19 History Allergy Relief] metformin 250 mg PO DAILY 03/16/19 History omeprazole 20 mg PO BID 03/16/19 09/16/19 History acetaminophen [Mapap Extra 1,000 mg PO Q8H #30 tab 03/20/19 09/16/19 Rx Strength] docusate sodium [Colace] 100 mg PO BID #30 cap 03/20/19 09/16/19 Rx aspirin [Aspir-81] 81 mg PO DAILY 09/16/19 09/16/19 History atorvastatin [Lipitor] 60 mg PO DAILY 09/16/19 09/16/19 History calcium carbonate-vitamin D3 1 tab PO DAILY 09/16/19 09/16/19 History [Calcium 500 + D] duloxetine 60 mg PO DAILY 09/16/19 09/16/19 History mirtazapine 7.5 mg PO QHS 09/16/19 09/16/19 History mdzuqruvytoj-ujy-frff-FA-vit K 1 tab PO DAILY 09/16/19 09/16/19 History [Multi-Day Plus Minerals] Allergies Allergy/AdvReac Type Severity Reaction Status Date / Time simvastatin Allergy Mild Nausea Unverified 09/16/19 15:10 lisinopril AdvReac Unverified 09/16/19 15:10 Exam Narrative Exam Narrative: General: Very pleasant elderly male, tearful when talking about his recently , A&Ox3, uncomfortable Neurological: A&OX3, no focal deficits Psychiatric: appropriate speech pattern/content Skin: visible skin intact HEENT: Atraumatic, normocephalic, EOMI, MMM, clear oropharynx, no submandibular or cervical lymphadenopathy, no goiter or JVD Cardiovascular: RRR, minimal murmur heard Lungs: CTAB Gastrointestinal: abdomen is soft, nontender, nondistended Genitourinary: does not yet have a eisenberg Extremities: Externally rotated and shortened RLE, no e/c/c BLE's, 2+ pedal pulses B Results Imaging Additional studies: XR R hip: Three views were obtained. There is a moderately displaced intertrochanteric fracture of the right femur. There is varus angulation at the fracture site. No additional fracture seen. Labs Result diagrams: 09/16/19 16:26 09/16/19 16:26 Labs: Laboratory Results - last 24 hr 09/16/19 09/16/19 16:26 16:26 WBC 9.29 RBC 4.92 Hgb 15.4 Hct 44.2 MCV 89.8 MCH 31.3 MCHC 34.8 RDW 13.2 Plt Count 228 MPV 8.9 Immature Gran % 0.3 Neutrophils % 76.2 Lymphocytes % 13.7 Monocytes % 8.0 Eosinophils % 1.5 Basophils % 0.3 Absolute Neutrophils 7.08 H Absolute Lymphocytes 1.27 Absolute Monocytes 0.74 H Absolute Eosinophils 0.14 Absolute Basophils 0.03 Sodium 142 Potassium 4.0 Chloride 104 Carbon Dioxide 28.2 Anion Gap 9.8 BUN 13 Creatinine 1.03 Estimated GFR/1.73 m2 >= 60.00 Glucose 123 H Calcium 9.0 Total Bilirubin 0.8 AST 27 ALT 36 Alkaline Phosphatase 129 H Total Protein 7.7 Albumin 3.9 Last Vital Signs Temp 37.2 C 09/16/19 17:30 Pulse 81 09/16/19 17:30 Resp 18 09/16/19 17:30 BP 148/76 H 09/16/19 17:30 Pulse Ox 96 09/16/19 17:30
--- NOTE | 2019-09-16 18:40 | DI.RAD_ITS ---
EXAM: XR FEMUR RT INDICATION: preop planning,femur fx COMPARISON: No exams were available for comparison TECHNIQUE: 2D digital imaging was performed. FINDINGS: There is an intertrochanteric fracture with mild displacement and varus angulation. There is mild ri ght hip joint space narrowing as well as periarticular spurring. Vascular calcifications are seen. No additional fractures are seen distally in the femur. IMPRESSION: Intertrochanteric fracture of the right femur.
[2019-09-16] MEDS: Acetaminophen 500 MG TAB 1000 MG PO (18:46)
--- NOTE | 2019-09-16 18:46 | DI.VRAD_ITS ---
PROCEDURE INFORMATION: Exam: XR Right Femur Exam date and time: 09/16/2019 18:23 Clinical history: 78 years old, male; Other: Preop planning TECHNIQUE: Imaging protocol: XR Right femur. Views: 2 views. COMPARISON: No relevant prior studies available. FINDINGS: Bones/joints: The bones are demineralized. Acute intertrochanteric femoral fracture with varus angulation. Degenerative changes in the hip. The distal femur is intact. Vasculature: Atherosclerosis. IMPRESSION: Acute intertrochanteric femoral fracture with varus angulation. Dictated and Authenticated by: Charley Nagel MD. Ordering:MEHRDAD Morris MD
[2019-09-16] MEDS: Normal Saline 1,000 ML 100 ML IV (19:40)
[2019-09-16] MEDS: Omeprazole 20 MG CAPCR PO (19:41)
[2019-09-16] MEDS: Ferrous Sulfate 325 MG TAB PO (19:41)
[2019-09-16] MEDS: Atorvastatin 40 MG TAB 60 MG PO (19:41)
--- NOTE | 2019-09-16 20:09 | DI.RAD_ITS ---
EXAM: XR PORTABLE CHEST AP INDICATION: PREOP,FEMUR FX COMPARISON: CT CHEST/ABD/PEL W from 03/16/2019 XR PORTABLE CHEST AP from 03/17/2019 TECHNIQUE: 2D digital imaging was performed. FINDINGS: The heart size is normal. A proximal aortic stent is seen. The lungs are suboptimally inflated but a ppear clear. A hiatal hernia is again noted. There is no evidence of pneumothorax. IMPRESSION: No acute abnormality.
--- NOTE | 2019-09-16 20:21 | DI.VRAD_ITS ---
PROCEDURE INFORMATION: Exam: XR Chest, 1 View Exam date and time: 09/16/2019 20:05 Clinical history: 78 years old, male; Screening exam; Pre-operative exam; Cardiovascular screening TECHNIQUE: Imaging protocol: XR of the chest Views: 1 view. COMPARISON: CR XR PORTABLE CHEST AP 03/17/2019 10:52 FINDINGS: Lungs: No consolidation. Pleural space: No significant pleural effusion. No pneumothorax. Heart/Mediastinum: Suspected hiatal hernia which was probably present on the previous study. Vasculature: Atherosclerosis. Bones/joints: Degenerative changes in the shoulders. No displaced fracture. IMPRESSION: No acute cardiopulmonary pathology. Dictated and Authenticated by: Charley Nagel MD. Ordering:ELVA Mcdaniel MD
[2019-09-16] MEDS: Mirtazapine 15 MG TAB 7.5 MG PO (22:02)
[2019-09-17] VITALS (12 sets, daily range): BP systolic 113–153; BP diastolic 44–85; PULSE 77–95; RESP 10–20; TEMP 36.6–38; O2SAT 94–98
[2019-09-17] MEDS: Normal Saline Flush 10 ML SYR IVP (03:25)
[2019-09-17] MEDS: Normal Saline 1,000 ML 100 ML IV ×2 (05:10→16:08)
[2019-09-17 07:15] LABS: Abs Immature Grans 0.01 k/cumm (0.0-0.09); Absolute Basophil Count 0.02 k/cumm (0.0-0.2); Absolute Eosinophil Count 0.23 k/cumm (0.0-0.7); Absolute Lymphocyte Count 1.64 k/cumm (1.2-3.4); Absolute Neutrophil Count 6.03 k/cumm (1.2-6.7); Basophils % 0.2; Eosinophils % 2.6; HCT 39.4 % (40.0-50.0); HGB 13.1 g/dL (13.5-17.5); Immature Grans % 0.1; Lymphocytes % 18.4; Mean Corp. HGB Concentration 33.2 g/dL (32.0-36.0); Mean Corpuscular Hemoglobin 30.5 pg (27.0-33.0); Mean Corpuscular Volume 91.8 fL (80-95); Mean Platelet Volume 9.2 fL (8.0-11.0); Monocytes % 11.2; Neutrophils % 67.5; Platelet Count 178 x1000/uL (130-400); RBC 4.29 m/cumm (4.50-6.00); RBC Distribution Width 13.4 % (11.8-14.1); White Blood Cell Count 8.93 k/cumm (4.4-10.8)
[2019-09-17 07:25] LABS: BUN 13 mg/dL (7-18); CREATININE 1.03 mg/dL (0.70-1.30); Calcium 8.2 mg/dL (8.5-10.1); Chloride 102 mmol/L (98-107); Glucose 117 mg/dL (70-100); Magnesium 1.8 mg/dL (1.8-2.4); Potassium 3.8 mmol/L (3.5-5.1); Sodium 136 mmol/L (136-145)
--- NOTE | 2019-09-17 07:47 | W.ORTHOCONSU ---
Date of service: 09/17/19 Time of Service: 07:38 History of Present Illness Narrative: Chief Complaint: Right hip pain HPI: 78-year-old male status post mechanical fall yesterday from standing height. Was retrieving his dogs about his property and they tripped him up and he fell onto his right side. Landed on his buttocks. Did not hit his head. Isolated pain to the right hip. Sudden onset. No prior hip pain. Does not report any injuries to other parts of his body. Prior to this injury, ambulated freely as much distance as he wanted. Has medical supplies at home from his recently sick and including walker, wheelchair, and other assistance devices. PMH: Significant for diabetes, myocardial infarction and coronary artery disease and history of stents and aortic valve replacement?anticoagulation on baby aspirin daily. And COPD. allergies: Simvastatin and lisinopril FH: non-contributory SH: hand dominance: Right occupation: Retired smoke cigarettes: Quit smoking, but after significant smoking history Consult Reason Right hip fx Assessment and Plan Assessment and plan (1) Displaced intertrochanteric fracture of right femur: Status: Acute Assessment and plan: 78M with Right basicervical-type intertrochanteric femoral neck fracture Medical admission and optimization for surgical management Multimodal pain control including fascia iliaca block NWB RLE, bedrest, gentle RLE elevation as comfort allows to minimize swelling hold chemo dvt ppx pending OR; recommend bilat SCDs & TEDs Decision for major ortho surgery: Right hip closed reduction, intramedullary nailing The risks, benefits, and alternatives were thoroughly discussed with the patient and will be discussed again with the patient's daughter when she arrives prior to surgery Patient was counseled regarding pain management, expected postoperative course, and recovery timeline. All questions were answered. Informed consent will be obtained in the presence of his daughter. Agree and understand treatment plan. Case and plan of care discussed with admitting hospitalist Dr. Prasad Qualifiers: Encounter type: initial encounter Fracture type: closed Qualified Code(s): S72.141A - Displaced intertrochanteric fracture of right femur, initial encounter for closed fracture Review of Systems Constitutional Constitutional: Denies chills, Denies fever(s) and Reports frequent falls Eyes Eyes: Denies diplopia and Denies loss of vision ENT Ears, Nose, Mouth, and Throat: Denies dental pain and Denies other (cavities) Cardiovascular Cardiovascular: Denies chest pain with activity, Denies irregular heart rhythm and Denies dyspnea Respiratory Respiratory: Denies cough and Denies dyspnea Gastrointestinal Gastrointestinal: Denies nausea and Denies vomiting Musculoskeletal Musculoskeletal: Reports as per HPI Integumentary/Breasts Skin/Breast: Denies rash and Denies wounds Neurologic Neurologic: Reports as per HPI, Reports frequent falls, Reports lack of coordination and Denies loss of vision Psychiatric Psychiatric: Denies anxiety and Reports depression Hematologic/Lymphatic Hematologic/Lymphatic: Denies easy bleeding and Denies easy bruising Allergic/Immunologic Allergic/Immunologic: Reports as per HPI [facility] Medical History (Updated 09/17/19 @ 06:11 by Arturo Boyce MD) Aortic valve stenosis (Chronic) BPH (benign prostatic hyperplasia) (Chronic) CAD (coronary artery disease) (Chronic) COPD (chronic obstructive pulmonary disease) (Chronic) Diabetes mellitus (Chronic) HTN (hypertension) (Chronic) Hypercholesterolemia (Chronic) Surgical History (Updated 09/16/19 @ 18:20 by Violeta Prasad MD) History of heart artery stent (Chronic) S/P cholecystectomy (Inactive) S/P TAVR (transcatheter aortic valve replacement) (Acute) 05/2019 Family History (Updated 09/16/19 @ 18:21 by Violeta Prasad MD) Sister Cancer bladder cancer - she was a smoker Social History (Updated 09/16/19 @ 18:21 by Violeta Prasad MD) Smoking/Tobacco Use Status: Former Tobacco Use Tobacco: How many years used: 27 Alcohol Intake: never Drug use: Never Substance use type: does not use Do you feel safe at home: Yes Do you feel safe in your relationship?: Yes Exam Const General: cooperative, comfortable and no acute distress Orientation: alert, awake and not confused Limitations: mental status not altered and no language barrier HENMT Head: normocephalic and atraumatic Neck Neck: normal visual inspection and full ROM (80% of full) Resp Effort & Inspection: normal respiratory effort, able to speak in complete sentences, no audible wheezes and no grunting Cardio Other: No pedal edema. All extremities warm and well-perfused. General: deferred Skin General skin exam: no rashes or lesions noted Neuro General: alert, awake and oriented x3 Cognition: normal cognition Speech: speech normal Extrem Other: Right lower extremity: Moderately tender to palpation about the right greater trochanter. Nontender throughout the remainder of the thigh, knee, and leg and ankle. Demonstrates intact motor and strength TA, GS, EHL. Sensation at baseline with significant neuropathy bilateral lower extremities up through the thighs. Right thigh musculature tight due to muscle spasm, but all compartments soft and compressible Nontender throughout the left lower extremity Bilateral upper extremities: Nontender. No bruising or ecchymosis. Limited shoulder range of motion due to prior long-standing irreparable rotator cuff injuries. Psych Appearance: grossly normal Mental Status: mental status grossly normal Speech and Movement: speech and movement normal Affect: normal affect Attitude: cooperative Results Last Vital Signs Temp 100.4 F H 09/17/19 03:30 Pulse 95 H 09/17/19 03:30 Resp 20 09/17/19 03:30 BP 117/68 09/17/19 03:30 Pulse Ox 94 L 09/17/19 03:30 Labs Result diagrams: 09/17/19 06:20 09/17/19 06:20 Labs: Laboratory Results - last 24 hr 09/16/19 09/16/19 16:26 16:26 WBC 9.29 RBC 4.92 Hgb 15.4 Hct 44.2 MCV 89.8 MCH 31.3 MCHC 34.8 RDW 13.2 Plt Count 228 MPV 8.9 Immature Gran % 0.3 Neutrophils % 76.2 Lymphocytes % 13.7 Monocytes % 8.0 Eosinophils % 1.5 Basophils % 0.3 Absolute Neutrophils 7.08 H Absolute Lymphocytes 1.27 Absolute Monocytes 0.74 H Absolute Eosinophils 0.14 Absolute Basophils 0.03 Sodium 142 Potassium 4.0 Chloride 104 Carbon Dioxide 28.2 Anion Gap 9.8 BUN 13 Creatinine 1.03 Estimated GFR/1.73 m2 >= 60.00 Glucose 123 H Calcium 9.0 Total Bilirubin 0.8 AST 27 ALT 36 Alkaline Phosphatase 129 H Total Protein 7.7 Albumin 3.9 Imaging Chest x-ray: report reviewed (negative for acute cardiopulm process) Imaging Studies: Rt femur XRs ordered and images + report reviewed: demineralized bone throughout, intact femoral shaft Rt hip and pelvis images + report reviewed: acute displaced Right basicervical type trochanteric femoral neck fracture
[2019-09-17] MEDS: Lactated Ringers 1,000 ML 30 ML IV ×2 (11:29→14:57)
[2019-09-17] MEDS: ceFAZolin 2 GM/50 ML BAG IVPB (11:55)
--- NOTE | 2019-09-17 13:40 | DI.RAD_ITS ---
EXAM: XR HIP RT IN OR CLINICAL HISTORY: TFNA right femur fx. TECHNIQUE: 2D and realtime digital imaging was performed. COMPARISON: XR FEMUR RT from 09/16/2019 FINDINGS: Fluoroscopy was provided in the OR. A single hard copy image shows placement of a gamma nail in the proximal right femur for fixation of the previously noted intertrochanteric fracture. The alignment appears anatomic. Fluoro Time: 117.6 seconds
--- NOTE | 2019-09-17 13:40 | W.PM.OP ---
Date of service: 09/17/19 Time of Service: 13:28 Operative Note Operative Note DATE OF PROCEDURE: 09/17/19 PRE-OP DIAGNOSIS: Right hip displaced intertrochanteric fracture POST-OP DIAGNOSIS: same PROCEDURE: 1. Right hip intramedullary nail, CPT #73188 SURGEON: Arturo Boyce MEDICAL STAFF ASSISTANT: Ilana Arana ANESTHESIA: GETA and local ESTIMATED BLOOD LOSS: 25 COMPLICATIONS: None Patient was transported to: PACU Patient's condition: stable Implants: Synthes TFNA [id number] 130 deg, 110mm TFNA helical blade, 42mm 5.0mm distal locking screw Indications: Please see medical record for details Procedure Description: The patient was brought to the operating room. Spinal anesthesia was induced. The patient was transferred to the operating room table and positioned in the standard fashion. All bony prominences were well padded. Cefazolin 2g IV pre-operative antibiotics were administered. The correct patient, procedure, and side of the procedure were all verified prior to incision. The patient?s hip and thigh were prepped and draped in the usual sterile fashion. C-arm was used to locate the appropriate start point for the guide wire on the tip of the greater trochanter. This guide wire was advanced centrally down the proximal femur to the level of the lessor trochanter. Lateral images confirmed appropriate start point on the trochanter. Next the incision was extended about the guide wire to accommodate the nailing jig and this incision was carried down through the fascia and spread apart for ease of future instrument passage. The entry reamer was inserted along with the soft tissue protection tube and this reamer was used to open the proximal femur. The entry reamer, soft tissue protector, and guidewire were removed from the proximal femur. The appropriately selected nail was assembled on the back table to the jig and tested to ensure proper passage of the cephalomedullary drill. This implant was manually inserted into the proximal femur and advanced to the appropriate level for cephalomedullary fixation. Another incision was made laterally to accommodate the cephalomedullary aiming tube and trochar, which was advanced down to bone. The guide wire was then advanced into the femoral neck and adjusted on AP and lateral fluoroscopy until it was placed near subchondral bone in the center-center position in the femoral head. The depth gauge was used to measure the helical blade length accommodating for depth of guidewire insertion and goal fracture site compression. Next, the drill was used to open the lateral cortex and the helical blade was advanced to the appropriate depth by gentle mallet blows. The set screw was engaged and backed off 180 degrees to allow for rotationally controlled sliding and compression. Traction was released, and the fracture was compressed appropriately via the buttress and compression nut on the jig. The cephalomedullary aiming guide was removed and the distal locking screw guide was inserted through another small incision down the bone. The drill was used to drill for this static locking screw and measure the length. The appropriate length screw was then inserted bicortically. The jig was removed from the nail. Final AP and lateral fluoroscopic images were taken and confirmed appropriate fracture reduction and implant placement. All wounds were copiously irrigated. Deep layers were closed using 0 vicryl in an interrupted fashion. Subcutaneous tissue was closed using 2-0 monocryl in a buried interrupted fashion. Skin was closed using 3-0 monocryl in a running fashion. Skin glue was applied to all incisions. Incisions were covered with Telfa, dry gauze, and covered with Tegaderms. The patient awoke from anesthesia without complication and was transferred to the recovery room in stable condition.
--- NOTE | 2019-09-17 14:23 | PGE_ITS ---
Date of Service Date of service: 09/17/19 Time of Service: 14:23 Assessment and Plan Assessment and plan (1) Displaced intertrochanteric fracture of right femur: Status: Acute Assessment and plan: 78-year-old male postop day #0 status post right hip intramedullary nailing Right lower extremity weightbearing as tolerated with assist device Physical therapy Out of bed as tolerated Pain control?Multimodal SCDs and HAIDER hose bilateral lower extremity Recommend Lovenox 40 mg daily x 30 days for DVT prophylaxis tarting tomorrow morning May resume home 81 mg aspirin Keep dressings in place and clean and dry until follow-up Follow-up with Dr. arrington at [facility] orthopedics in 2-3 weeks Postoperative care discussed with primary medical team We will follow along Qualifiers: Encounter type: initial encounter Fracture type: closed Qualified Code(s): S72.141A - Displaced intertrochanteric fracture of right femur, initial encounter for closed fracture Subjective Subjective Interval history since last seen: No acute events. Resting comfortably in recovery room. Exam Narrative Exam Narrative: Breathing comfortably on room air Right lower extremity warm and well-perfused Dressings clean dry intact All compartments soft Grossly neurovascularly intact distally 2+ dorsalis pedis pulse Demonstrates intact motor about the ankle Objective Objective Clinical Data: Abnormal lab results 09/16/19 09/16/19 09/17/19 Range/Units 16:26 16:26 06:20 RBC (4.50-6.00) m/cumm Hgb (13.5-17.5) g/dL Hct (40.0-50.0) % Absolute Neutrophils 7.08 H (1.2-6.7) k/cumm Absolute Monocytes 0.74 H (0.11-0.7) k/cumm Glucose 123 H 117 H (70-100) mg/dL Calcium 8.2 L (8.5-10.1) mg/dL Alkaline Phosphatase 129 H (46-116) U/L 09/17/19 Range/Units 06:20 RBC 4.29 L (4.50-6.00) m/cumm Hgb 13.1 L D (13.5-17.5) g/dL Hct 39.4 L (40.0-50.0) % Absolute Neutrophils (1.2-6.7) k/cumm Absolute Monocytes 1.00 H (0.11-0.7) k/cumm Glucose (70-100) mg/dL Calcium (8.5-10.1) mg/dL Alkaline Phosphatase (46-116) U/L Vital Signs Temperature 98.1 F 09/17/19 14:20 Temperature Source Tympanic 09/17/19 08:05 Pulse 82 09/17/19 14:20 Pulse Rhythm Regular 09/17/19 03:30 Respiratory Rate 13 09/17/19 14:20 Respiratory Effort 09/17/19 03:30 Respiratory Depth Normal 09/17/19 03:30 Respiratory Pattern Normal 09/17/19 03:30 Blood Pressure 128/67 09/17/19 14:20 Blood Pressure Mean 124 09/16/19 16:28 Blood Pressure Position Supine 09/16/19 15:04 Pulse Oximetry 95 09/17/19 14:20 Respiratory End-tidal CO2 43 09/17/19 14:20 Oxygen Delivery Method Nasal Cannula 09/17/19 14:20 Oxygen Flow Rate 2 09/17/19 14:20 Pain Level 0 09/17/19 14:20 Intake & Output 09/16/19 09/17/19 09/17/19 23:59 11:59 23:59 Intake Total 950 / 1700 750 / 1700 Output Total 19995 175 / 2175 Balance -1050 / -475 575 / -475 Weight 173 lb 15.997 oz Intake: IV 950 / 1700 750 / 1700 Output: Urine 2000 / 2150 150 / 2150 Estimated Blood Loss 25 / 25 Other: Urine Color Yellow Yellow Yellow Urine Appearance Clear Clear Clear Emesis Description None Laboratory Results WBC 8.93 k/cumm (4.4-10.8) 09/17/19 06:20 RBC 4.29 m/cumm (4.50-6.00) L 09/17/19 06:20 Hgb 13.1 g/dL (13.5-17.5) L D 09/17/19 06:20 Hct 39.4 % (40.0-50.0) L 09/17/19 06:20 MCV 91.8 fL (80-95) 09/17/19 06:20 MCH 30.5 pg (27.0-33.0) 09/17/19 06:20 MCHC 33.2 g/dL (32.0-36.0) 09/17/19 06:20 RDW 13.4 % (11.8-14.1) 09/17/19 06:20 Plt Count 178 x1000/uL (130-400) 09/17/19 06:20 MPV 9.2 fL (8.0-11.0) 09/17/19 06:20 Immature Gran % 0.1 09/17/19 06:20 Neutrophils % 67.5 09/17/19 06:20 Lymphocytes % 18.4 09/17/19 06:20 Monocytes % 11.2 09/17/19 06:20 Eosinophils % 2.6 09/17/19 06:20 Basophils % 0.2 09/17/19 06:20 Absolute Neutrophils 6.03 k/cumm (1.2-6.7) 09/17/19 06:20 Absolute Lymphocytes 1.64 k/cumm (1.2-3.4) 09/17/19 06:20 Absolute Monocytes 1.00 k/cumm (0.11-0.7) H 09/17/19 06:20 Absolute Eosinophils 0.23 k/cumm (0.0-0.7) 09/17/19 06:20 Absolute Basophils 0.02 k/cumm (0.0-0.2) 09/17/19 06:20 Sodium 136 mmol/L (136-145) 09/17/19 06:20 Potassium 3.8 mmol/L (3.5-5.1) 09/17/19 06:20 Chloride 102 mmol/L (98-107) 09/17/19 06:20 Carbon Dioxide 27.0 mmol/L (21.0-32.0) 09/17/19 06:20 Anion Gap 7.0 mmol/L (3-11) 09/17/19 06:20 BUN 13 mg/dL (7-18) 09/17/19 06:20 Creatinine 1.03 mg/dL (0.70-1.30) 09/17/19 06:20 Estimated GFR/1.73 m2 >= 60.00 (mL/min/1.73m2) 09/17/19 06:20 Glucose 117 mg/dL (70-100) H 09/17/19 06:20 Calcium 8.2 mg/dL (8.5-10.1) L 09/17/19 06:20 Magnesium 1.8 mg/dL (1.8-2.4) 09/17/19 06:20 Total Bilirubin 0.8 mg/dL (0.2-1.0) 09/16/19 16:26 AST 27 U/L (15-37) 09/16/19 16:26 ALT 36 U/L (16-63) 09/16/19 16:26 Alkaline Phosphatase 129 U/L (46-116) H 09/16/19 16:26 Total Protein 7.7 g/dL (6.4-8.2) 09/16/19 16:26 Albumin 3.9 g/dL (3.4-5.0) 09/16/19 16:26 Objective Narrative Objective Narrative: Postoperative x-rays confirm appropriate fracture site reduction and hardware placement
--- NOTE | 2019-09-17 14:30 | DI.RAD_ITS ---
EXAM: XR HIP RT COMPLETE AND AP PELVIS INDICATION: Postop. COMPARISON: No exams were available for comparison TECHNIQUE: 2D digital imaging was performed portably. FINDINGS: AP and cross-table lateral views were performed. The patient is status post placement of a gamma agata l. The fracture alignment appears anatomic.
--- NOTE | 2019-09-17 16:24 | W.PM.PROGNOT ---
Date of Service Date of service: 09/17/19 Time of Service: 16:25 Assessment and Plan Assessment and plan (1) Displaced intertrochanteric fracture of right femur: Start date: 09/17/19 Start time: 16:28 Status: Acute Assessment and plan: Mechanical in nature. Orthopedics consulted. Intramedullary nail to right hip. POD 0 Doing well, no pain, continue to monitor. Qualifiers: Encounter type: initial encounter Fracture type: closed Qualified Code(s): S72.141A - Displaced intertrochanteric fracture of right femur, initial encounter for closed fracture (2) CAD (coronary artery disease): Start date: 09/17/19 Start time: 16:29 Status: Chronic Assessment and plan: s/p MO and 3 stents, per patient. Stable. Monitor h/h from surgery (3) COPD (chronic obstructive pulmonary disease): Start date: 09/17/19 Start time: 16:29 Status: Chronic Assessment and plan: Not exacerbated at this time. Continue to monitor. ICS w/awake (4) Non-insulin treated type 2 diabetes mellitus: Start date: 09/17/19 Start time: 16:30 Status: Acute Assessment and plan: Hold metformin. Cover with SSI while in the hospital. Glucose this am 117 (5) Discharge planning issues: Start date: 09/17/19 Start time: 16:30 Status: Acute Assessment and plan: DNR/DNI per conversation re code status with the patient witnessed by the daughter. (6) DVT prophylaxis: Start date: 09/17/19 Start time: 16:30 Status: Acute Assessment and plan: TEDs/SCD's until procedure tomorrow. above case discussed with Dr. Prasad who is in agreement. Subjective Subjective Patient reports: no new complaints Interval history since last seen: POD 0 just returned from OR, Sleepy but awake. NO pain at this time. Doing well. Exam Narrative Exam Narrative: General: Very pleasant elderly male, lying in bed, comfortable, just returned from surgery Neurological: A&OX3, no focal deficits Psychiatric: appropriate speech pattern/content Skin: surgical incision to RLE dry and intact with drsg. no ecchymosis at this time. HEENT: Atraumatic, normocephalic, EOMI, MMM, clear oropharynx, no submandibular or cervical lymphadenopathy, no goiter or JVD Cardiovascular: RRR, minimal murmur heard Lungs: CTAB Gastrointestinal: abdomen is soft, nontender, nondistended Objective Objective Clinical Data: Abnormal lab results 09/16/19 09/16/19 09/17/19 Range/Units 16:26 16:26 06:20 RBC (4.50-6.00) m/cumm Hgb (13.5-17.5) g/dL Hct (40.0-50.0) % Absolute Neutrophils 7.08 H (1.2-6.7) k/cumm Absolute Monocytes 0.74 H (0.11-0.7) k/cumm Glucose 123 H 117 H (70-100) mg/dL Calcium 8.2 L (8.5-10.1) mg/dL Alkaline Phosphatase 129 H (46-116) U/L 09/17/19 Range/Units 06:20 RBC 4.29 L (4.50-6.00) m/cumm Hgb 13.1 L D (13.5-17.5) g/dL Hct 39.4 L (40.0-50.0) % Absolute Neutrophils (1.2-6.7) k/cumm Absolute Monocytes 1.00 H (0.11-0.7) k/cumm Glucose (70-100) mg/dL Calcium (8.5-10.1) mg/dL Alkaline Phosphatase (46-116) U/L Vital Signs Temperature 37 C 09/17/19 16:02 Temperature Source Tympanic 09/17/19 16:02 Pulse 87 09/17/19 16:02 Pulse Rhythm Regular 09/17/19 15:00 Respiratory Rate 18 09/17/19 16:02 Respiratory Effort 09/17/19 15:00 Respiratory Depth Normal 09/17/19 15:00 Respiratory Pattern Normal 09/17/19 15:00 Blood Pressure 119/82 09/17/19 16:02 Blood Pressure Mean 124 09/16/19 16:28 Blood Pressure Position Supine 09/16/19 15:04 Pulse Oximetry 95 09/17/19 16:02 Respiratory End-tidal CO2 44 09/17/19 14:35 Oxygen Delivery Method Nasal Cannula 09/17/19 16:02 Oxygen Flow Rate 2 09/17/19 16:02 Pain Level 0 09/17/19 16:02 Intake & Output 09/16/19 09/17/19 09/17/19 23:59 11:59 23:59 Intake Total 950 / 2788.5 1838.5 / 2788.5 Output Total 1999 175 / 2175 Balance -1050 / 613.5 1663.5 / 613.5 Weight 78.925 kg Intake: IV 950 / 2738.5 1788.5 / 2738.5 Oral 50 / 50 Output: Urine 1999 150 / 2150 Estimated Blood Loss Other: Urine Color Yellow Yellow Yellow Urine Appearance Clear Clear Clear Emesis Description None Laboratory Results WBC 8.93 k/cumm (4.4-10.8) 09/17/19 06:20 RBC 4.29 m/cumm (4.50-6.00) L 09/17/19 06:20 Hgb 13.1 g/dL (13.5-17.5) L D 09/17/19 06:20 Hct 39.4 % (40.0-50.0) L 09/17/19 06:20 MCV 91.8 fL (80-95) 09/17/19 06:20 MCH 30.5 pg (27.0-33.0) 09/17/19 06:20 MCHC 33.2 g/dL (32.0-36.0) 09/17/19 06:20 RDW 13.4 % (11.8-14.1) 09/17/19 06:20 Plt Count 178 x1000/uL (130-400) 09/17/19 06:20 MPV 9.2 fL (8.0-11.0) 09/17/19 06:20 Immature Gran % 0.1 09/17/19 06:20 Neutrophils % 67.5 09/17/19 06:20 Lymphocytes % 18.4 09/17/19 06:20 Monocytes % 11.2 09/17/19 06:20 Eosinophils % 2.6 09/17/19 06:20 Basophils % 0.2 09/17/19 06:20 Absolute Neutrophils 6.03 k/cumm (1.2-6.7) 09/17/19 06:20 Absolute Lymphocytes 1.64 k/cumm (1.2-3.4) 09/17/19 06:20 Absolute Monocytes 1.00 k/cumm (0.11-0.7) H 09/17/19 06:20 Absolute Eosinophils 0.23 k/cumm (0.0-0.7) 09/17/19 06:20 Absolute Basophils 0.02 k/cumm (0.0-0.2) 09/17/19 06:20 Sodium 136 mmol/L (136-145) 09/17/19 06:20 Potassium 3.8 mmol/L (3.5-5.1) 09/17/19 06:20 Chloride 102 mmol/L (98-107) 09/17/19 06:20 Carbon Dioxide 27.0 mmol/L (21.0-32.0) 09/17/19 06:20 Anion Gap 7.0 mmol/L (3-11) 09/17/19 06:20 BUN 13 mg/dL (7-18) 09/17/19 06:20 Creatinine 1.03 mg/dL (0.70-1.30) 09/17/19 06:20 Estimated GFR/1.73 m2 >= 60.00 (mL/min/1.73m2) 09/17/19 06:20 Glucose 117 mg/dL (70-100) H 09/17/19 06:20 Calcium 8.2 mg/dL (8.5-10.1) L 09/17/19 06:20 Magnesium 1.8 mg/dL (1.8-2.4) 09/17/19 06:20 Total Bilirubin 0.8 mg/dL (0.2-1.0) 09/16/19 16:26 AST 27 U/L (15-37) 09/16/19 16:26 ALT 36 U/L (16-63) 09/16/19 16:26 Alkaline Phosphatase 129 U/L (46-116) H 09/16/19 16:26 Total Protein 7.7 g/dL (6.4-8.2) 09/16/19 16:26 Albumin 3.9 g/dL (3.4-5.0) 09/16/19 16:26
[2019-09-17] MEDS: Insulin Aspart 300 UNITS/3 ML PEN SC (17:15)
[2019-09-17] MEDS: Acetaminophen 500 MG TAB 1000 MG PO (17:38)
[2019-09-17] MEDS: ceFAZolin 1 GM/50 ML BAG IVPB (17:38)
--- NOTE | 2019-09-17 18:32 | NUR.NOTE ---
1500: Handoff report received from [facility]. Pt was then transfered from PACU to room 226 see 1500 shift assesment for arrival assessment.
--- NOTE | 2019-09-17 19:03 | PDOC.CMIN ---
- If Service Date Differs Date of service: 09/17/19 Time of Service: 19:03 Care Management Initial Assess REASON FOR HOSPITALIZATION:: displaced intertrochanteric fracture right femur PAST MEDICAL HISTORY/PAST SURGICAL HISTORY:: Medical History (Updated 09/16/19 @ 18:25 by Violeta Prasad MD). Aortic valve stenosis (Chronic). BPH (benign prostatic hyperplasia) (Chronic). CAD (coronary artery disease) (Chronic). COPD (chronic obstructive pulmonary disease) (Chronic). Diabetes mellitus (Chronic). HTN (hypertension) (Chronic). Hypercholesterolemia (Chronic). Surgical History (Updated 09/16/19 @ 18:20 by Violeta Prasad MD). History of heart artery stent (Chronic). S/P cholecystectomy (Inactive). S/P TAVR (transcatheter aortic valve replacement) (Acute). 05/2019 PREVIOUS FUNCTIONAL STATUS/SOCIAL/FAMILY SUPPORTS:: Jim lives in a single family home in [facility] with his daughter and his grandson's and daughter.He is independent at baseline and continues to drive. Jim is now retired but used to wor at the [facility] [employer] [facility] in [place], [place]. CURRENT FUNCTIONAL STATUS:: Jim had just returned from surgery when CM met with him. He was pleasant and engaged readily in conversation. Jim denied any pain and was able to discuss discharge plans. He stated that he does not want to go to rehab and feels that he has good support at home and will accept home health services if indicated. ADVANCE DIRECTIVES:: None on file Has patient been provided with information about the portal?: No Did the patient sign up for the portal?: No CODE STATUS:: DNR/DNI INSURANCE COVERAGE / FINANCIAL ISSUES:: Medicare. for Life CURRENT HOME/COMMUNITY SERVICES/EQUIPMENT:: none currently PRIMARY CARE PHYSICIAN:: edilia Schaffer POTENTIAL DISCHARGE NEEDS:: discharge plan and follow up with PCP and surgeon. Likely will need OP PT or HH PT PATIENT/FAMILY EDUCATION NEEDS:: Discharge plan, limitations, follow up plan, Ask Me Three. TRANSPORTATION:: via private vehicle with family PLAN:: Jim will likely discharge home with new HH services of PT and possibly nursing. He will transport via private vehicle with family and follow his discharge plan of care. CM will continue to support patient, family and discharge planning considerations.
[2019-09-17] MEDS: Docusate Sodium 100 MG CAP PO (19:51)
[2019-09-17] MEDS: Omeprazole 20 MG CAPCR PO (19:51)
[2019-09-17] MEDS: Senna TAB 1 TAB PO (19:52)
[2019-09-17] MEDS: Atorvastatin 40 MG TAB 60 MG PO (19:52)
[2019-09-17] MEDS: Ferrous Sulfate 325 MG TAB PO (19:52)
[2019-09-17] MEDS: Mirtazapine 15 MG TAB 7.5 MG PO (21:56)
[2019-09-17] MEDS: Acetaminophen 325 MG TAB PO (22:01)
[2019-09-18] VITALS (7 sets, daily range): BP systolic 134–154; BP diastolic 66–78; PULSE 87–94; RESP 17–20; TEMP 36.8–37.7; O2SAT 95–98
[2019-09-18] MEDS: Meclizine 12.5 MG TAB PO (00:29)
[2019-09-18] MEDS: Acetaminophen 500 MG TAB 1000 MG PO ×3 (02:01→18:23)
[2019-09-18] MEDS: ceFAZolin 1 GM/50 ML BAG IVPB ×2 (02:01→10:14)
[2019-09-18] MEDS: Normal Saline 1,000 ML 100 ML IV ×3 (02:36→22:34)
[2019-09-18 07:32] LABS: Abs Immature Grans 0.02 k/cumm (0.0-0.09); Absolute Basophil Count 0.01 k/cumm (0.0-0.2); Absolute Eosinophil Count 0.12 k/cumm (0.0-0.7); Absolute Lymphocyte Count 1.19 k/cumm (1.2-3.4); Absolute Monocyte Count 1.21 k/cumm (0.11-0.7); Absolute Neutrophil Count 8.54 k/cumm (1.2-6.7); Basophils % 0.1; Eosinophils % 1.1; HCT 34.6 % (40.0-50.0); HGB 11.7 g/dL (13.5-17.5); Immature Grans % 0.2; Lymphocytes % 10.7; Mean Corp. HGB Concentration 33.8 g/dL (32.0-36.0); Mean Corpuscular Volume 91.5 fL (80-95); Mean Platelet Volume 9.4 fL (8.0-11.0); Monocytes % 10.9; Platelet Count 159 x1000/uL (130-400); RBC 3.78 m/cumm (4.50-6.00); RBC Distribution Width 12.9 % (11.8-14.1); White Blood Cell Count 11.09 k/cumm (4.4-10.8)
[2019-09-18 07:41] LABS: Anion Gap 10.1 mmol/L (3-11); BUN 13 mg/dL (7-18); CO2 26.9 mmol/L (21.0-32.0); CREATININE 0.96 mg/dL (0.70-1.30); Calcium 8.3 mg/dL (8.5-10.1); Chloride 105 mmol/L (98-107); Glucose 134 mg/dL (70-100); Magnesium 1.8 mg/dL (1.8-2.4); Potassium 3.8 mmol/L (3.5-5.1); Sodium 142 mmol/L (136-145)
[2019-09-18] MEDS: Normal Saline Flush 10 ML SYR IVP (07:42)
[2019-09-18] MEDS: Omeprazole 20 MG CAPCR PO ×2 (07:57→21:18)
[2019-09-18] MEDS: Senna TAB 1 TAB PO ×2 (07:57→21:20)
[2019-09-18] MEDS: Calcium 600mg/Vit D 200U TAB 1 TAB PO (07:57)
[2019-09-18] MEDS: DULoxetine 30 MG CAP 60 MG PO (07:57)
[2019-09-18] MEDS: Multivitamin TAB 1 TAB PO (07:58)
[2019-09-18] MEDS: Docusate Sodium 100 MG CAP PO ×2 (07:58→21:18)
[2019-09-18] MEDS: Enoxaparin 40 MG/0.4 ML SYR SC (07:58)
[2019-09-18] MEDS: Ferrous Sulfate 325 MG TAB PO ×2 (07:58→21:20)
[2019-09-18] MEDS: oxyCODONE 5 MG TAB PO ×3 (08:23→21:54)
[2019-09-18] MEDS: Polyethylene Glycol 3350 17 GM PACKET PO (08:41)
--- NOTE | 2019-09-18 08:45 | PHARADMIT ---
Admission Pharmacy Clinical Review INTERTROCHANTER FRACTURE OF R FEMUR Code Status DNR/DNI Current Weight Wgt- 78.925 kg Renally Cleared and Narrow Therapeutic Index Meds CrCl~ 70 mL/min Meds-OK QTc Value / Action Taken QTc-448 na BP Control, Fever BP-154/78 Tmax-37.5C Electrolytes reviewed Na-142 K+3.8 Mag-1.8 DVT Prophylaxis Lovenox Opiate Usage / Scheduled Bowel Regimen Ordered Yes Yes Plt/SCr for Heparin / Enoxaparin Plts-159 SCr-0.96 INR for Warfarin NA H/H stable, WBC/Bands H&H- 11.7/34.6 WBC- 11.09 Antibiotic appropriateness Ancef, Cultures and Sensitivities NONE Surgical ABX d/c within 24 hr na DM control / Insulin Dosing BG-134 Aspart Heart Failure (Check EF%) (DIEGO's, B-Block, Diuretics) none IV to PO Switch no Home Meds Reviewed yes Home Meds Not Ordered asa, Metformin, Flonase Comments
[2019-09-18] MEDS: Magnesium Oxide 400 MG TAB PO (10:55)
[2019-09-18] MEDS: Potassium Chloride 20 MEQ TABCR PO (10:55)
--- NOTE | 2019-09-18 11:12 | IN_ITS ---
Date of service: 09/18/19 Time of Service: 08:58 PT Notes Date: 09/18/2019 Referring Doctor: Arturo Boyce MD PT Orders: PT CONSULT: S/P Ortho surgery Precautions: Fall. Standard. WBAT on R LE. Patient Profile/Admitting Diagnosis: Patient is a 78-year-old male who presented to the ED on 09/16/2019 with chief complaints of right hip pain due to a mechanical fall. X-ray showed right hip displaced intertrochanteric fracture. He is status post IM nailing on 09/17/2019. PMHX: Medical History (Updated 09/16/19 @ 18:25 by Violeta Prasad MD) Aortic valve stenosis (Chronic) BPH (benign prostatic hyperplasia) (Chronic) CAD (coronary artery disease) (Chronic) COPD (chronic obstructive pulmonary disease) (Chronic) Diabetes mellitus (Chronic) HTN (hypertension) (Chronic) Hypercholesterolemia (Chronic) Surgical History (Updated 09/16/19 @ 18:20 by Violeta Prasad MD) History of heart artery stent (Chronic) S/P cholecystectomy (Inactive) S/P TAVR (transcatheter aortic valve replacement) (Acute) 05/2019 Social History/Home Situation: Patient lives with daughter, grandson, grandson's family in a 1 floor house with a ramp to enter and an alternate 4 steps with rails on both sides. His in February 2019. He was independent with all mobility ADL performance without an assistive ambulatory device. He is a retired [employer] soldier. Equipment Owned/DME: Electric wheelchair, 4 wheeled walker, single-point cane, bedside commode. Subjective: Patient is agreeable to a PT consult and treatment today. He complains of pain on the right hip at rest and with movement. He denies headache, dizziness, and chest pain. He was hoping that he could go home today but it was suggested to him that staying should allow as to be able to work with him some more so he can at least walk household distances. Patient is amenable to that plan. Objective: General Observation: Patient seen sitting on chair upon arrival of this PT. IV in left UE. Bilateral TEDS on. Dressing over surgical incision. Mental Status: Alert and oriented x4 Pain: 3/10 on the right hip at rest. 5-7/10 with weight bearing. ROM: Right Upper Extremity: Shoulder Flexion 0-90. Shoulder abduction 0-90. Elbow flexion WFL. Wrist flexion WFL. Opening and closing of hand WFL. Left Upper Extremity: Shoulder Flexion 0-90. Shoulder abduction 0-90. Elbow flexion WFL. Wrist flexion WFL. Opening and closing of hand WFL. Right Lower Extremity: Hip flexion does not allow any further flexion beyond 90 degrees with patient seated on chair due to pain. Hip abduction 0-5 degrees limited by pain. Knee flexion WFL 0-90. Kne extension -20 degrees due to pain. Ankle dorsiflexion WFL. Ankle plantarflexion WFL. Left Lower Extremity: Hip flexion WFL. Hip abduction WFL. Knee flexion WFL. Ankle dorsiflexion WFL. Ankle plantarflexion WFL. Strength: Right Upper Extremity: Shoulder flexors 3-/5. Shoulder abductors 3-/5. Elbow flexors 4/5. Elbow extensors 4/5. Senior Accounting Associate strong. Left Upper Extremity: Shoulder flexors 3-/5. Shoulder abductors 3-/5. Elbow flexors 4/5. Elbow extensors 4/5. Senior Accounting Associate strong. Right Lower Extremity: Hip flexors3-/5. Hip abductors 3-/5. Knee flexors 3-/5. Knee extensors 3-/5. Ankle dorsiflexors 4/5. Ankle plantarflexors 4/5. Left Lower Extremity:Hip flexors3-/5. Hip abductors 3-/5. Knee flexors 3-/5. Knee extensors 3-/5. Ankle dorsiflexors 4/5. Ankle plantarflexors 4/5. Sensation: Intact as to pain and pressure on bilateral lower extremities. Bed Mobility/Transfers: Rolling minimal assist Supine to sit minimal assist Sit to supine minimal assist Sit to stand minimal assist Stand to sit minimal assist Bed to chair minimal assist of 2 Chair to bed minimal assist of 2 Gait: Patient was able to tolerate 5 steps forward and 5 steps backward using step to gait pattern requiring minimal assist of 2 with antalgic gait noted. He was able to step onto weighing scale while holding onto bilateral handles and was able as well to slide right foot backwards and stepped down from the scale. Patient reports increased pain on right hip with weight bearing. Patient is unable to fully extend right knee due to pain on right hip. Balance: Static Sitting: Good Dynamic Sitting: Good Static Standing: Fair Dynamic Standing: Fair Special Tests: Mobility Limitations Standardized Measure [facility] AM-PAC 6 clicks Basic Mobility Inpatient Short Form: Raw Score: 13 CMS Score: 65% deficit Informed Consent/Education: Patient instructed in purpose of PT consult and plan of care. Patient was also educated and trained on performing a long arc quads, heel raises, toe raises, while seated on chair or at edge of bed to be repeated x10 every hour on top of what he is going to be doing in therapy in order to facilitate achievement of goals as indicated below Assessment: Patient is a 78-year-old male status post intramedullary nailing on postoperative day 1 due to a displaced intertrochanteric fracture of the right femur. He is previously independent with all aspects of ADL performance. He continues to grieve the recent passing of his in February 2019. He does have a good support network provider but provided for by family members who live with him. He has all the equipment he needs at home. His prognosis for going home is fair at this time. He may benefit from a short term group home facility placement in order to regain highest functional mobility level and reduce fall risk at home. He is pleasant and cooperative and understands the rationale of recommendations given to him. Patient presents with clinical signs and symptoms consistent with current/admitting diagnoses that have resulted to mobility limitations, gait instability, generalized weakness, and impairment of motor control as demonstrated by the following impairment level findings: 1. Decreased strength to R LE major muscle groups 2. Impaired standing balance 3. Impaired activity tolerance 4. Limitation of joint range of motion in right hip and knee Impairments are contributing to the following functional limitations: 1. Dependent bed mobility skills 2. Increased dependence with transfers 3. Inability to safely ambulate without assistive device and physical assistance 4. Increase completion time for mobility ADL performance 5. Increased fall risk 6. Inability to negotiate steps alone safely Patient is assessed as a 31678 moderate complexity based on the following: History: Patient is a 78-year-old male status post intramedullary nailing on postoperative day 1 due to a displaced intertrochanteric fracture of the right femur. He is previously independent with all aspects of ADL performance. Examination: Demonstrable impairment in strength, balance, and range of motion with underlying impairments and functional limitations as documented above Presentation:Evolving Decision Makin moderate complexity Goals: Goals X1 week 1. Supine-Sit independent 2. Sit-Supine independent 3. Sit-Stand independent 4. Stand-Sit independent 5. Bed-Chair independent 6. Chair-Bed independent 7. Independent gait on level surface with use of least restrictive device for at least 300 feet without report of pain nor dyspnea 8. Independent stair negotiation while holding onto bilateral rails for at least 10 steps without report of pain nor dyspnea 9. Independent with home exercise program 10. Good static and dynamic standing balance/tolerance Plan of Care/Treatment Plan: 1-2x/day, 7 days/week x 1 week. Plan of care has been reviewed with the CD REACTOR OPERATOR providing the service under Physical Therapy direction. Initiate Physical Therapy intervention for strengthening, bed mobility, transfers, gait, stairs, balance training, use of assistive device. DISCHARGE RECOMMENDATIONS: Patient will benefit from group home facility placement in order to progress mobility level, strength, and balance in preparation for a safe discharge to home. Patient will also benefit from home health PT services down the road in order to progress mobility level using least restrictive assistive ambulatory device, assess home safety, identify additional equipment needs, and establish a functional maintenance program that will increase ability of patient to remain at home. TREATMENT CODE/TIME: 40394 x 30 minutes, 54055 x 13 minutes beginning at age 8:58 AM. Thank you very much for this referral. Chayo Munguia PT, DPT, CLT [facility]
[2019-09-18] MEDS: Insulin Aspart 300 UNITS/3 ML PEN SC ×2 (11:51→16:53)
--- NOTE | 2019-09-18 13:33 | PGE_ITS ---
Date of Service Date of service: 09/18/19 Time of Service: 13:38 Assessment and Plan Assessment and plan (1) Displaced intertrochanteric fracture of right femur: Status: Acute Assessment and plan: 78-year-old male postop day #1 status post right hip intramedullary nailing. Doing well. Right lower extremity weightbearing as tolerated with assist device Physical therapy Out of bed as tolerated Pain control? Multimodal SCDs and HAIDER hose bilateral lower extremity Lovenox 40 mg daily x 30 days postop for DVT prophylaxis Keep dressings in place and clean and dry until follow-up All patient questions were answered He agrees and understands treatment plan Postoperative care discussed with primary medical team Call if any changes or concerns Follow-up outpatient with Dr. Boyce at [facility] orthopedics in 2-3 weeks Anticipate discharge home in 1-2 nights with home health services including physical therapy as needed Care per hospitalist Qualifiers: Encounter type: initial encounter Fracture type: closed Qualified Code(s): S72.141A - Displaced intertrochanteric fracture of right femur, initial encounter for closed fracture Subjective Subjective Interval history since last seen: No acute events. Resting comfortably in chair. Denies any chest pain, shortness of breath, or pain. Only complaint is of baseline lower extremity nerves acting up Exam Narrative Exam Narrative: Awake, alert, and in no distress Breathing comfortably on room air Right lower extremity warm and well-perfused Dressings clean dry intact All compartments soft 2+ dorsalis pedis pulse Able to maintain straight leg raise Demonstrates intact motor strength about the knee and ankle Sensation intact at baseline throughout right lower extremity Objective Objective Clinical Data: Abnormal lab results 09/18/19 09/18/19 Range/Units 06:50 06:50 WBC 11.09 H (4.4-10.8) k/cumm RBC 3.78 L (4.50-6.00) m/cumm Hgb 11.7 L (13.5-17.5) g/dL Hct 34.6 L (40.0-50.0) % Absolute Neutrophils 8.54 H (1.2-6.7) k/cumm Absolute Lymphocytes 1.19 L (1.2-3.4) k/cumm Absolute Monocytes 1.21 H (0.11-0.7) k/cumm Glucose 134 H (70-100) mg/dL Calcium 8.3 L (8.5-10.1) mg/dL Vital Signs Temperature 99.9 F H 09/18/19 11:26 Temperature Source Tympanic 09/18/19 11:26 Pulse 89 09/18/19 11:26 Pulse Rhythm Irregular 09/18/19 07:40 Respiratory Rate 18 09/18/19 11:26 Respiratory Effort Non-Labored 09/18/19 07:40 Respiratory Depth Normal 09/18/19 07:40 Respiratory Pattern Normal 09/18/19 07:40 Blood Pressure 134/73 09/18/19 11:26 Blood Pressure Mean 124 09/16/19 16:28 Blood Pressure Position Supine 09/16/19 15:04 Pulse Oximetry 97 09/18/19 11:26 Respiratory End-tidal CO2 44 09/17/19 14:35 Oxygen Delivery Method Room Air 09/18/19 11:26 Oxygen Flow Rate 0 09/18/19 11:26 Pain Level 4 09/18/19 11:26 Comment 09/18/19 07:20 Intake & Output 09/17/19 09/18/19 09/18/19 23:59 11:59 23:59 Intake Total 2250.5 / 3200.5 2068.333 / 3068.333 1000 / 3068.333 Output Total 1675 / 3675 475 / 1100 625 / 1100 Balance 575.5 / -474.5 1593.333 / 1968.333 375 / 1968.333 Weight 182 lb 8.684 oz Intake: IV 1960.5 / 2910.5 1048.333 / 2048.333 1000 / 2048.333 Oral 290 / 290 1020 / 1020 Output: Urine 1650 / 3650 475 / 1100 625 / 1100 Estimated Blood Loss 25 / 25 Other: Urine Color Pale Yellow Light Anastacia Yellow Urine Appearance Clear Clear Clear Emesis Description None Laboratory Results WBC 11.09 k/cumm (4.4-10.8) H 09/18/19 06:50 RBC 3.78 m/cumm (4.50-6.00) L 09/18/19 06:50 Hgb 11.7 g/dL (13.5-17.5) L 09/18/19 06:50 Hct 34.6 % (40.0-50.0) L 09/18/19 06:50 MCV 91.5 fL (80-95) 09/18/19 06:50 MCH 31.0 pg (27.0-33.0) 09/18/19 06:50 MCHC 33.8 g/dL (32.0-36.0) 09/18/19 06:50 RDW 12.9 % (11.8-14.1) 09/18/19 06:50 Plt Count 159 x1000/uL (130-400) 09/18/19 06:50 MPV 9.4 fL (8.0-11.0) 09/18/19 06:50 Immature Gran % 0.2 09/18/19 06:50 Neutrophils % 77.0 09/18/19 06:50 Lymphocytes % 10.7 09/18/19 06:50 Monocytes % 10.9 09/18/19 06:50 Eosinophils % 1.1 09/18/19 06:50 Basophils % 0.1 09/18/19 06:50 Absolute Neutrophils 8.54 k/cumm (1.2-6.7) H 09/18/19 06:50 Absolute Lymphocytes 1.19 k/cumm (1.2-3.4) L 09/18/19 06:50 Absolute Monocytes 1.21 k/cumm (0.11-0.7) H 09/18/19 06:50 Absolute Eosinophils 0.12 k/cumm (0.0-0.7) 09/18/19 06:50 Absolute Basophils 0.01 k/cumm (0.0-0.2) 09/18/19 06:50 Sodium 142 mmol/L (136-145) 09/18/19 06:50 Potassium 3.8 mmol/L (3.5-5.1) 09/18/19 06:50 Chloride 105 mmol/L (98-107) 09/18/19 06:50 Carbon Dioxide 26.9 mmol/L (21.0-32.0) 09/18/19 06:50 Anion Gap 10.1 mmol/L (3-11) 09/18/19 06:50 BUN 13 mg/dL (7-18) 09/18/19 06:50 Creatinine 0.96 mg/dL (0.70-1.30) 09/18/19 06:50 Estimated GFR/1.73 m2 >= 60.00 (mL/min/1.73m2) 09/18/19 06:50 Glucose 134 mg/dL (70-100) H 09/18/19 06:50 Calcium 8.3 mg/dL (8.5-10.1) L 09/18/19 06:50 Magnesium 1.8 mg/dL (1.8-2.4) 09/18/19 06:50 Total Bilirubin 0.8 mg/dL (0.2-1.0) 09/16/19 16:26 AST 27 U/L (15-37) 09/16/19 16:26 ALT 36 U/L (16-63) 09/16/19 16:26 Alkaline Phosphatase 129 U/L (46-116) H 09/16/19 16:26 Total Protein 7.7 g/dL (6.4-8.2) 09/16/19 16:26 Albumin 3.9 g/dL (3.4-5.0) 09/16/19 16:26
--- NOTE | 2019-09-18 15:19 | W.PM.PROGNOT ---
Date of Service Date of service: 09/18/19 Time of Service: 15:19 Assessment and Plan Assessment and plan (1) Displaced intertrochanteric fracture of right femur: Start date: 09/18/19 Start time: 15:23 Status: Acute Assessment and plan: Mechanical in nature. Intramedullary nail to right hip. POD 1 Doing well, pain controlled with tylenol and roxicodone. OOB to Chair with PT. Sulma damond, Lovenox teaching done by nursing to daughter who will be giving shots. Continue to monitor. Qualifiers: Encounter type: initial encounter Fracture type: closed Qualified Code(s): S72.141A - Displaced intertrochanteric fracture of right femur, initial encounter for closed fracture (2) CAD (coronary artery disease): Start date: 09/18/19 Start time: 15:23 Status: Chronic Assessment and plan: s/p ME and 3 stents, per patient. Stable. H/H stable 11.7/34.6 (3) COPD (chronic obstructive pulmonary disease): Start date: 09/18/19 Start time: 15:24 Status: Chronic Assessment and plan: Not exacerbated at this time. Continue to monitor. ICS w/awake (4) Non-insulin treated type 2 diabetes mellitus: Start date: 09/18/19 Status: Acute Assessment and plan: Hold metformin. Cover with SSI while in the hospital. Glucose this am 134 by labs (5) Discharge planning issues: Start date: 09/18/19 Start time: 15:24 Status: Acute Assessment and plan: DNR/DNI per conversation re code status with the patient witnessed by the daughter. Would like to return home. (6) DVT prophylaxis: Start date: 09/18/19 Start time: 15:25 Status: Acute Assessment and plan: Enoxaparin subcu. above case discussed with Dr. Prasad who is in agreement. Subjective Subjective Patient reports: no new complaints Interval history since last seen: POD 1 doing well, moderate amount of pain. Pain better controlled with roxicodone. OOB with PT. Lovenox teaching done per nursing. Ozuna dcd. Patient doing well. Denies CP, SOB, n/v/d Exam Narrative Exam Narrative: General: Very pleasant elderly male, sitting up in chair. Pain controlled with roxicodone. Neurological: A&OX3, no focal deficits Psychiatric: appropriate speech pattern/content Skin: surgical incision to RLE dry and intact with drsg. no ecchymosis at this time. Moderate amount of swelling around incision site. HEENT: Atraumatic, normocephalic, EOMI, MMM, clear oropharynx, no submandibular or cervical lymphadenopathy, no goiter or JVD Cardiovascular: RRR, minimal murmur heard Lungs: CTAB Gastrointestinal: abdomen is soft, nontender, nondistended Objective Objective Clinical Data: Abnormal lab results 09/18/19 09/18/19 Range/Units 06:50 06:50 WBC 11.09 H (4.4-10.8) k/cumm RBC 3.78 L (4.50-6.00) m/cumm Hgb 11.7 L (13.5-17.5) g/dL Hct 34.6 L (40.0-50.0) % Absolute Neutrophils 8.54 H (1.2-6.7) k/cumm Absolute Lymphocytes 1.19 L (1.2-3.4) k/cumm Absolute Monocytes 1.21 H (0.11-0.7) k/cumm Glucose 134 H (70-100) mg/dL Calcium 8.3 L (8.5-10.1) mg/dL Vital Signs Temperature 37.7 C H 09/18/19 11:26 Temperature Source Tympanic 09/18/19 11:26 Pulse 89 09/18/19 11:26 Pulse Rhythm Irregular 09/18/19 07:40 Respiratory Rate 18 09/18/19 11:26 Respiratory Effort Non-Labored 09/18/19 07:40 Respiratory Depth Normal 09/18/19 07:40 Respiratory Pattern Normal 09/18/19 07:40 Blood Pressure 134/73 09/18/19 11:26 Blood Pressure Mean 124 09/16/19 16:28 Blood Pressure Position Supine 09/16/19 15:04 Pulse Oximetry 97 09/18/19 11:26 Respiratory End-tidal CO2 44 09/17/19 14:35 Oxygen Delivery Method Room Air 09/18/19 11:26 Oxygen Flow Rate 0 09/18/19 11:26 Pain Level 3 09/18/19 14:33 Comment 09/18/19 07:20 Intake & Output 09/17/19 09/18/19 09/18/19 23:59 11:59 23:59 Intake Total 2250.5 / 3200.5 2068.333 / 3318.333 1250 / 3318.333 Output Total 1675 / 3675 475 / 1100 625 / 1100 Balance 575.5 / -474.5 1593.333 / 2218.333 625 / 2218.333 Weight 82.8 kg Intake: IV 1960.5 / 2910.5 1048.333 / 8.333 1000 / 2048.333 Oral 290 / 290 1020 / 1270 250 / 1270 Output: Urine 1650 / 3650 475 / 1100 625 / 1100 Estimated Blood Loss Other: Urine Color Pale Yellow Light Anastacia Yellow Urine Appearance Clear Clear Clear Emesis Description None Laboratory Results WBC 11.09 k/cumm (4.4-10.8) H 09/18/19 06:50 RBC 3.78 m/cumm (4.50-6.00) L 09/18/19 06:50 Hgb 11.7 g/dL (13.5-17.5) L 09/18/19 06:50 Hct 34.6 % (40.0-50.0) L 09/18/19 06:50 MCV 91.5 fL (80-95) 09/18/19 06:50 MCH 31.0 pg (27.0-33.0) 09/18/19 06:50 MCHC 33.8 g/dL (32.0-36.0) 09/18/19 06:50 RDW 12.9 % (11.8-14.1) 09/18/19 06:50 Plt Count 159 x1000/uL (130-400) 09/18/19 06:50 MPV 9.4 fL (8.0-11.0) 09/18/19 06:50 Immature Gran % 0.2 09/18/19 06:50 Neutrophils % 77.0 09/18/19 06:50 Lymphocytes % 10.7 09/18/19 06:50 Monocytes % 10.9 09/18/19 06:50 Eosinophils % 1.1 09/18/19 06:50 Basophils % 0.1 09/18/19 06:50 Absolute Neutrophils 8.54 k/cumm (1.2-6.7) H 09/18/19 06:50 Absolute Lymphocytes 1.19 k/cumm (1.2-3.4) L 09/18/19 06:50 Absolute Monocytes 1.21 k/cumm (0.11-0.7) H 09/18/19 06:50 Absolute Eosinophils 0.12 k/cumm (0.0-0.7) 09/18/19 06:50 Absolute Basophils 0.01 k/cumm (0.0-0.2) 09/18/19 06:50 Sodium 142 mmol/L (136-145) 09/18/19 06:50 Potassium 3.8 mmol/L (3.5-5.1) 09/18/19 06:50 Chloride 105 mmol/L (98-107) 09/18/19 06:50 Carbon Dioxide 26.9 mmol/L (21.0-32.0) 09/18/19 06:50 Anion Gap 10.1 mmol/L (3-11) 09/18/19 06:50 BUN 13 mg/dL (7-18) 09/18/19 06:50 Creatinine 0.96 mg/dL (0.70-1.30) 09/18/19 06:50 Estimated GFR/1.73 m2 >= 60.00 (mL/min/1.73m2) 09/18/19 06:50 Glucose 134 mg/dL (70-100) H 09/18/19 06:50 Calcium 8.3 mg/dL (8.5-10.1) L 09/18/19 06:50 Magnesium 1.8 mg/dL (1.8-2.4) 09/18/19 06:50 Total Bilirubin 0.8 mg/dL (0.2-1.0) 09/16/19 16:26 AST 27 U/L (15-37) 09/16/19 16:26 ALT 36 U/L (16-63) 09/16/19 16:26 Alkaline Phosphatase 129 U/L (46-116) H 09/16/19 16:26 Total Protein 7.7 g/dL (6.4-8.2) 09/16/19 16:26 Albumin 3.9 g/dL (3.4-5.0) 09/16/19 16:26
--- NOTE | 2019-09-18 18:14 | PDOC.CMPRO ---
Care Management Progress Note S/O: Jim was sitting up in his recliner and said he had a very busy day. Worked with PT and hopes to be able to go home tomorrow. Has all the equipment needed. Independent at baseline and hopes to reach that again. A: 78y.o. male admitted for intertrochanteric FX of R femur with surgical repair performed 09/17/19. Remains on acute status today. P: Jim will return home when medically cleared for discharge. He has all the equopment needed already at home. Will need new service for PT. Family will transport.
[2019-09-18] MEDS: Atorvastatin 40 MG TAB 60 MG PO (21:17)
[2019-09-18] MEDS: Mirtazapine 15 MG TAB 7.5 MG PO (21:21)
[2019-09-18] MEDS: ceFAZolin 1,000 MG VIAL 1000 MG IVPB (22:27)
[2019-09-19 00:10] VITALS: BP 172/86; PULSE 98; RESP 19; TEMP 37.7; O2SAT 98
[2019-09-19] MEDS: Acetaminophen 500 MG TAB 1000 MG PO ×2 (02:16→09:41)
[2019-09-19 04:19] VITALS: BP 158/72; PULSE 82; RESP 17; TEMP 37.2; O2SAT 98
[2019-09-19] MEDS: ceFAZolin 1,000 MG VIAL 1000 MG IVPB (04:58)
[2019-09-19 07:38] LABS: Abs Immature Grans 0.02 k/cumm (0.0-0.09); Absolute Basophil Count 0.01 k/cumm (0.0-0.2); Absolute Eosinophil Count 0.36 k/cumm (0.0-0.7); Absolute Lymphocyte Count 1.33 k/cumm (1.2-3.4); Absolute Monocyte Count 0.96 k/cumm (0.11-0.7); Absolute Neutrophil Count 5.98 k/cumm (1.2-6.7); Basophils % 0.1; Eosinophils % 4.2; HCT 34.6 % (40.0-50.0); HGB 11.5 g/dL (13.5-17.5); Immature Grans % 0.2; Lymphocytes % 15.4; Mean Corp. HGB Concentration 33.2 g/dL (32.0-36.0); Mean Corpuscular Hemoglobin 30.4 pg (27.0-33.0); Mean Corpuscular Volume 91.5 fL (80-95); Mean Platelet Volume 9.3 fL (8.0-11.0); Monocytes % 11.1; Platelet Count 170 x1000/uL (130-400); RBC 3.78 m/cumm (4.50-6.00); RBC Distribution Width 13.2 % (11.8-14.1); White Blood Cell Count 8.66 k/cumm (4.4-10.8)
[2019-09-19 07:47] LABS: Anion Gap 8.9 mmol/L (3-11); BUN 8 mg/dL (7-18); CO2 28.1 mmol/L (21.0-32.0); CREATININE 0.91 mg/dL (0.70-1.30); Calcium 8.6 mg/dL (8.5-10.1); Chloride 105 mmol/L (98-107); Glucose 127 mg/dL (70-100); Magnesium 1.8 mg/dL (1.8-2.4); Potassium 3.9 mmol/L (3.5-5.1); Sodium 142 mmol/L (136-145)
[2019-09-19 07:50] VITALS: BP 159/62; PULSE 60; RESP 16; TEMP 37.5; O2SAT 95
[2019-09-19] MEDS: Enoxaparin 40 MG/0.4 ML SYR SC (09:40)
[2019-09-19] MEDS: Polyethylene Glycol 3350 17 GM PACKET PO (09:40)
[2019-09-19] MEDS: Insulin Aspart 300 UNITS/3 ML PEN SC ×2 (09:40→12:16)
[2019-09-19] MEDS: Omeprazole 20 MG CAPCR PO (09:41)
[2019-09-19] MEDS: Multivitamin TAB 1 TAB PO (09:41)
[2019-09-19] MEDS: DULoxetine 30 MG CAP 60 MG PO (09:41)
[2019-09-19] MEDS: Calcium 600mg/Vit D 200U TAB 1 TAB PO (09:42)
[2019-09-19] MEDS: Ferrous Sulfate 325 MG TAB PO (09:42)
[2019-09-19] MEDS: Docusate Sodium 100 MG CAP PO (09:42)
[2019-09-19] MEDS: Senna TAB 1 TAB PO (09:42)
--- NOTE | 2019-09-19 10:25 | PT.INTREAT ---
Date of service: 09/19/19 Time of Service: 10:25 PT Notes Inpatient Physical Therapy Treatment Note [facility] Date: 09/19/2019 PRECAUTIONS: Fall, WBAT R SUBJECTIVE: Jim states that he is feeling better today, although continues to have R hip pain. He is hopeful that he can return to home today, reporting significant support and DME at home. OBJECTIVE: PAIN: Patient c/o R hip pain with ther ex BED MOBILITY/TRANSFERS Supine-sit: S Sit-stand: SBA Stand-sit: SBA GAIT Assistive Device: FWW Weight bearing: WBAT R Assist: CGA Distance: 30' Deviation: Step-to pattern, cueing to look up THEREX: Patient completed a LE strengthening and stabilization program, in a supine position, as per flow sheet. Patient requires assist with hip abduction exercise due to pain and weakness. ASSESSMENT: Patient demonstrates significant improvement in functional mobility compared to yesterday. He tolerated session with complaint of R LE pain with ther ex. He was able to tolerate a progression in gait distance FWW support and CGA. He would benefit from continued gait and transfer training as well as strengthening, for improved mobility and activity tolerance. PLAN: Continue with PTs POC TREATMENT CODE/TIME: 35 minutes; 49079, [id number]
[2019-09-19 11:35] VITALS: BP 143/64; PULSE 68; RESP 18; TEMP 37.6; O2SAT 98
[2019-09-19] MEDS: Potassium Chloride 10 MEQ TABCR PO (12:15)
[2019-09-19] MEDS: Magnesium Oxide 400 MG TAB PO (12:16)
[2019-09-19] MEDS: ceFAZolin 1 GM/50 ML BAG IVPB (12:17)
--- NOTE | 2019-09-19 14:47 | W.PM.DS.N ---
Date of service: 09/19/19 Time of Service: 14:48 DS: Diagnosis Discharge Diagnosis (1) Displaced intertrochanteric fracture of right femur: Start date: 09/19/19 Start time: 14:48 Status: Acute Asessment and Plan: Nailing by Dr. Boyce, POD 2. Doing well. He will going home on lovenox 40 mg Subcu x 30 days. His daughter will be giving the injections. He will be discharged with PT/OT home health. Ortho follow up in 2-3 weeks. (2) CAD (coronary artery disease): Status: Chronic (3) COPD (chronic obstructive pulmonary disease): Status: Chronic (4) Non-insulin treated type 2 diabetes mellitus: Status: Acute (5) Discharge planning issues: Status: Acute (6) DVT prophylaxis: Status: Acute Discharge Plan Disposition Patient Disposition: HOME W/HOME HEALTH SERVICE Condition: Good Discharge Details Chief Complaint: Orthopedic Clinical Impression: Closed intertrochanteric fracture of right femur Reason For Visit: INTERTROCHANTERIC FX OF R FEMUR Admit Date/Time: 09/16/19 16:30 Admit Provider: Violeta Prasad Attending Provider: Violeta Prasad Primary Care Provider: Alejandra Schaffer ED Provider: Greg Willoughby [facility] Course Hospital Course: 78 y.o Male with PMH of CAD s/p PA stents x 3, Aortic stenosis s/p bioprosthesis aortic valve, NIDDM2, HTN, Hyperlipidemia, COPD not requiring oxygen, admitted to [facility] from the ED for a fall resulting in a moderately displaced introchanteric fracture of right femur found by imaging. Ortho consult was placed and patient was admitted for further management. On 09/17/2019 patient was taken to the OR for an intramedullary nailing. He has been doing well. Out of bed with PT/OT. Pain has been well controlled. He will be discharged on lovenox 40 mg x 30 days subcu. His daughter will be giving the injections. Follow up in the office with Dr. Boyce for 2-3 weeks. He denies CP, SOB, N/V/D. Home Meds and New Rx's Prescriptions: New sennosides [Senokot] 8.6 mg Tablet 8.6 mg PO BID Qty: 60 RF: 0 docusate sodium [Colace] 100 mg Capsule 100 mg PO BID Qty: 60 RF: 0 oxycodone 5 mg Tablet 5 mg PO Q4H PRN PRNQty: 20 RF: 0 enoxaparin [Lovenox] 40 mg/0.4 mL Syringe 40 mg subcut DAILY Qty: 28 RF: 0 Continued omeprazole 20 mg Capsule,Delayed Release(Dr/Ec) 20 mg PO BID RF: 0 metformin 500 mg Tablet 250 mg PO DAILY RF: 0 fluticasone propionate [Flonase Allergy Relief] 50 mcg/actuation [place] Plane,Suspension RF: 0 atorvastatin [Lipitor] 40 mg Tablet 60 mg PO DAILY RF: 0 acetaminophen [Mapap Extra Strength] 500 mg Tablet 1,000 mg PO Q8H Qty: 30 RF: 0 docusate sodium [Colace] 100 mg Capsule 100 mg PO BID Qty: 30 RF: 0 meclizine 12.5 mg Tablet 12.5 mg PO TID PRNRF: 0 polyethylene glycol 3350 17 gram/dose Powder 17 g PO DAILY RF: 0 ferrous sulfate 325 mg (65 mg iron) Tablet,Delayed Release (Dr/Ec) 325 mg PO BID RF: 0 atorvastatin [Lipitor] 40 mg Tablet 60 mg PO DAILY RF: 0 aspirin [Aspir-81] 81 mg Tablet,Delayed Release (Dr/Ec) 81 mg PO DAILY RF: 0 mirtazapine 7.5 mg Tablet 7.5 mg PO QHS RF: 0 duloxetine 60 mg Capsule,Delayed Release(Dr/Ec) 60 mg PO DAILY RF: 0 calcium carbonate-vitamin D3 [Calcium 500 + D] 500 mg(1,250mg) -200 unit Tablet 1 tab PO DAILY RF: 0 Multi-Day Plus Minerals 18 mg iron-400 mcg-25 mcg Tablet 1 tab PO DAILY RF: 0 Discharge Instructions Instructions: Enoxaparin (Injection), Non-pharmacological Pain Management Therapies for Adults (GEN), Pain Management After Surgery (GEN), Hip Fracture (GEN) Additional Instructions: Follow up with Dr. Boyce in 2-3 weeks. You will have Physical therapy at home. Lovenox injections for a full 30 days, you have received 2 days worth all ready. Take pain medication as needed, make sure you drink plenty of fluids and take colace and senna to help with moving your bowels. Seek medical attention if you have chest pain, shortness of breath, redness, calf pain or bleeding in your urine or stool. Activity:: Activity as Tolerated Equipment/Supplies:: No Equipment Needed Diet:: Low Sodium Discharge Orders Discharge Orders: Discharge Order (Routine); Ordered 09/19/19 Ordered By: Ange Antoine DS: Summary Status at Discharge Functional status at discharge: uses cane/walker Overall status at discharge: patient is progressing back to baseline Mental Status: mental status grossly normal Speech and Movement: speech and movement normal Mood: congruent mood Affect: normal affect Exam Narrative Exam Narrative: General: Very pleasant elderly male, sitting up in chair. Pain controlled with roxicodone. Neurological: A&OX3, no focal deficits Psychiatric: appropriate speech pattern/content Skin: surgical incision to RLE dry and intact with drsg. no ecchymosis at this time. Moderate amount of swelling around incision site. HEENT: Atraumatic, normocephalic, EOMI, MMM, clear oropharynx, no submandibular or cervical lymphadenopathy, no goiter or JVD Cardiovascular: RRR, minimal murmur heard Lungs: CTAB Gastrointestinal: abdomen is soft, nontender, nondistended Psych Mental Status: mental status grossly normal Speech and Movement: speech and movement normal Mood: congruent mood Affect: normal affect DS: Data Vitals/I&O Vitals and I&O: Vital Signs Temperature 37.6 C H 09/19/19 11:35 Temperature Source Tympanic 09/19/19 11:35 Pulse 68 09/19/19 11:35 Pulse Rhythm Regular 09/19/19 02:32 Respiratory Rate 18 09/19/19 11:35 Respiratory Effort Non-Labored 09/19/19 13:06 Respiratory Depth Normal 09/19/19 13:06 Respiratory Pattern Normal 09/19/19 13:06 Blood Pressure 143/64 H 09/19/19 11:35 Blood Pressure Mean 124 09/16/19 16:28 Blood Pressure Position Supine 09/16/19 15:04 Pulse Oximetry 98 09/19/19 11:35 Respiratory End-tidal CO2 44 09/17/19 14:35 Oxygen Delivery Method Room Air 09/19/19 11:35 Oxygen Flow Rate 0 09/19/19 11:35 Pain Level 0 09/19/19 11:35 Comment 09/18/19 07:20 Intake & Output 09/18/19 09/19/19 09/19/19 23:59 11:59 23:59 Intake Total 3340 / 5408.333 1000.000 / 1000.000 Output Total 1475 / 1950 1650 / 1650 Balance 1865 / 3458.333 -650.000 / -650.000 Intake: IV 2850 / 3898.333 1000.000 / 1000.000 Oral 490 / 1510 Output: Urine 1475 / 1950 1650 / 1650 Other: Urine Color Straw Pale Yellow Yellow Urine Appearance Clear Clear Clear Urine Odor None Normal None Comment first void post eisenberg catheter Voiding Methods Urinal Urinal Urinal Data Completed and Pending Completed studies during hospitalization [Text1]: Exam(s) PROCEDURE INFORMATION: Exam: XR Right Femur Exam date and time: 09/16/2019 18:23 Clinical history: 78 years old, male; Other: Preop planning TECHNIQUE: Imaging protocol: XR Right femur. Views: 2 views. COMPARISON: No relevant prior studies available. FINDINGS: Bones/joints: The bones are demineralized. Acute intertrochanteric femoral fracture with varus angulation. Degenerative changes in the hip. The distal femur is intact. Vasculature: Atherosclerosis. IMPRESSION: Acute intertrochanteric femoral fracture with varus angulation. Exam(s) a RAD:XR portable chest AP EXAM: XR PORTABLE CHEST AP INDICATION: PREOP,FEMUR FX COMPARISON: CT CHEST/ABD/PEL W from 03/16/2019 XR PORTABLE CHEST AP from 03/17/2019 TECHNIQUE: 2D digital imaging was performed. FINDINGS: The heart size is normal. A proximal aortic stent is seen. The lungs are suboptimally inflated but appear clear. A hiatal hernia is again noted. There is no evidence of pneumothorax. IMPRESSION: No acute abnormality. Exam(s) PROCEDURE INFORMATION: Exam: XR Chest, 1 View Exam date and time: 09/16/2019 20:05 Clinical history: 78 years old, male; Screening exam; Pre-operative exam; Cardiovascular screening TECHNIQUE: Imaging protocol: XR of the chest Views: 1 view. COMPARISON: CR XR PORTABLE CHEST AP 03/17/2019 10:52 FINDINGS: Lungs: No consolidation. Pleural space: No significant pleural effusion. No pneumothorax. Heart/Mediastinum: Suspected hiatal hernia which was probably present on the previous study. Vasculature: Atherosclerosis. Bones/joints: Degenerative changes in the shoulders. No displaced fracture. IMPRESSION: No acute cardiopulmonary pathology. Exam(s) a RAD:XR hip RT in OR EXAM: XR HIP RT IN OR CLINICAL HISTORY: TFNA right femur fx. TECHNIQUE: 2D and realtime digital imaging was performed. COMPARISON: XR FEMUR RT from 09/16/2019 FINDINGS: Fluoroscopy was provided in the OR. A single hard copy image shows placement of a gamma nail in the proximal right femur for fixation of the previously noted intertrochanteric fracture. The alignment appears anatomic. Fluoro Time: 117.6 seconds Exam(s) a RAD:XR hip RT complete & AP pelvis EXAM: XR HIP RT COMPLETE AND AP PELVIS INDICATION: Postop. COMPARISON: No exams were available for comparison TECHNIQUE: 2D digital imaging was performed portably. FINDINGS: AP and cross-table lateral views were performed. The patient is status post placement of a gamma nail. The fracture alignment appears anatomic. Labs on day of discharge: Labs from last 24 hours 09/19/19 09/19/19 06:50 06:50 WBC 8.66 RBC 3.78 L Hgb 11.5 L Hct 34.6 L MCV 91.5 MCH 30.4 MCHC 33.2 RDW 13.2 Plt Count 170 MPV 9.3 Immature Gran % 0.2 Neutrophils % 69.0 Lymphocytes % 15.4 Monocytes % 11.1 Eosinophils % 4.2 Basophils % 0.1 Absolute Neutrophils 5.98 Absolute Lymphocytes 1.33 Absolute Monocytes 0.96 H Absolute Eosinophils 0.36 Absolute Basophils 0.01 Sodium 142 Potassium 3.9 Chloride 105 Carbon Dioxide 28.1 Anion Gap 8.9 BUN 8 Creatinine 0.91 Estimated GFR/1.73 m2 >= 60.00 Glucose 127 H Calcium 8.6 Magnesium 1.8 PFSH Medical History Aortic valve stenosis (Chronic) BPH (benign prostatic hyperplasia) (Chronic) CAD (coronary artery disease) (Chronic) COPD (chronic obstructive pulmonary disease) (Chronic) Diabetes mellitus (Chronic) HTN (hypertension) (Chronic) Hypercholesterolemia (Chronic) Surgical History History of heart artery stent (Chronic) S/P cholecystectomy (Inactive) S/P TAVR (transcatheter aortic valve replacement) (Acute) 05/2019 Family History Sister Cancer bladder cancer - she was a smoker Social History Smoking/Tobacco Use Status: Former Tobacco Use Tobacco: How many years used: 27 Alcohol Intake: never Drug use: Never Substance use type: does not use Do you feel safe at home: Yes Do you feel safe in your relationship?: Yes
--- NOTE | 2019-09-19 19:36 | PDOC.CMDIS ---
LACE Index Scoring Tool - Questions: Length of Stay (in days): 3 Acuity (Admit via E.D.?): Yes E.D. Visits: 2 - Answers: Total Score: 8 Risk of Readmission: Low Risk Care Management Discharge Reason for Hospitalization: displaced intertrochanteric fracture right femur Discharge Plan: Jim will return home when medically cleared for discharge. He owns all of the equipment that is needed. He will have New service for PT. Family will transport by car. Patient/Family Education Needs: Discharge instructions, limitations, safey when walking large dogs on leash and importance of follow up appointments. Services Needed at Discharge: Home Health Care Services, Physical Therapy
[2019-09-20 07:14] LABS: Vitamin D 25 Total 35.4 ng/ml (30-100)
--- NOTE | 2019-09-20 09:20 | PDOC.HHF2F ---
Home Health Certification Home Health Certification: 1. Encounter Date and Reason I certify that LUAN CARR was seen by Ange Antoine on 09/20/19 and that I had a [id number] encounter with this patient that meets the physician face to face encounter requirements. 2. Clinical Findings Supporting Skilled Need and Homebound Status I certify that home health services are medically necessary, include either intermittent halfway and/or physical/speech therapy, and that this patient is homebound in that absences from the home require considerable and taxing effort and are infrequent or of short duration, or are attributable to the need to receive medical care. [X] (a) Attached documentation from encounter provides clinical findings supporting skilled need and homebound status (including what assistance patient requires to leave the home). The encounter with the patient was in whole, or in part, for the following medical condition, which is the primary reason for home health care: INTERTROCHANTERIC FX OF R FEMUR Custodial: Physical Therapy: Pt would benefit from PT/OT Home services to regain strength and mobility after surgery Speech Therapy: Homebound: 3. Certification and Authentication I certify that I composed the above information based on my clinical judgement relating to this patient's medical condition and, if applicable, clinical findings communicated to me by the NPP or inpatient physician who performed the Home Health Referral. All further orders will be obtained through (Community Based Physician - PCP)
--- NOTE | 2019-09-20 09:43 | INDS_ITS ---
Date of service: 09/20/19 Time of Service: 09:44 PT Notes Inpatient Physical Therapy Discharge Summary Dates: 09/20/2019 Dates of Service: 09/18/2019 through 09/19/2019 This is a clinical summary of care provided on the duration of dates listed above. No charge was made in the completion of this documentation. Referring Doctor: Arturo Boyce MD PT Orders: PT CONSULT: S/P Ortho surgery Precautions: Fall. Standard. WBAT on R LE. Patient Profile/Admitting Diagnosis: Patient is a 78-year-old male who presented to the ED on 09/16/2019 with chief complaints of right hip pain due to a mechanical fall. X-ray showed right hip displaced intertrochanteric fracture. He is status post IM nailing on 09/17/2019. PMHX: Medical History (Updated 09/16/19 @ 18:25 by Violeta Prasad MD) Aortic valve stenosis (Chronic) BPH (benign prostatic hyperplasia) (Chronic) CAD (coronary artery disease) (Chronic) COPD (chronic obstructive pulmonary disease) (Chronic) Diabetes mellitus (Chronic) HTN (hypertension) (Chronic) Hypercholesterolemia (Chronic) Surgical History (Updated 09/16/19 @ 18:20 by Violeta Prasad MD) History of heart artery stent (Chronic) S/P cholecystectomy (Inactive) S/P TAVR (transcatheter aortic valve replacement) (Acute) 05/2019 Social History/Home Situation: Patient lives with daughter, grandson, grandson's family in a 1 floor house with a ramp to enter and an alternate 4 steps with rails on both sides. His in February 2019. He was independent with all mobility ADL performance without an assistive ambulatory device. He is a retired [employer] soldier. Equipment Owned/DME: Electric wheelchair, 4 wheeled walker, single-point cane, bedside commode. Subjective: NT Objective: General Observation: NT Mental Status: NT Pain: NT ROM: Right Upper Extremity: Shoulder Flexion 0-90. Shoulder abduction 0-90. Elbow flexion WFL. Wrist flexion WFL. Opening and closing of hand WFL. Left Upper Extremity: Shoulder Flexion 0-90. Shoulder abduction 0-90. Elbow flexion WFL. Wrist flexion WFL. Opening and closing of hand WFL. Right Lower Extremity: Hip flexion does not allow any further flexion beyond 90 degrees with patient seated on chair due to pain. Hip abduction 0-5 degrees limited by pain. Knee flexion WFL 0-90. Kne extension -20 degrees due to pain. Ankle dorsiflexion WFL. Ankle plantarflexion WFL. Left Lower Extremity: Hip flexion WFL. Hip abduction WFL. Knee flexion WFL. Ankle dorsiflexion WFL. Ankle plantarflexion WFL. Strength: Right Upper Extremity: Shoulder flexors 3-/5. Shoulder abductors 3-/5. Elbow flexors 4/5. Elbow extensors 4/5. Financial Recruiter strong. Left Upper Extremity: Shoulder flexors 3-/5. Shoulder abductors 3-/5. Elbow flexors 4/5. Elbow extensors 4/5. Financial Recruiter strong. Right Lower Extremity: Hip flexors3-/5. Hip abductors 3-/5. Knee flexors 3-/5. Knee extensors 3-/5. Ankle dorsiflexors 4/5. Ankle plantarflexors 4/5. Left Lower Extremity:Hip flexors3-/5. Hip abductors 3-/5. Knee flexors 3-/5. Knee extensors 3-/5. Ankle dorsiflexors 4/5. Ankle plantarflexors 4/5. Sensation: Intact as to pain and pressure on bilateral lower extremities. Bed Mobility/Transfers: Rolling supervision Supine to sit supervision Sit to supine and is supervision Sit to stand SBA Stand to sit SBA to Bed to chair SBA Chair to bed SBA is Gait: Patient was able to tolerate 30' feet using step to gait pattern requiring CGA only per INSTRUMENT AND CONTROLS TECHNICIAN notes in the mornng of 09/19/2019. Balance: Static Sitting: Good Dynamic Sitting: Good Static Standing: Fair Dynamic Standing: Fair Assessment: Patient is a 78-year-old male status post intramedullary nailing on postoperative day 1 due to a displaced intertrochanteric fracture of the right femur. He is previously independent with all aspects of ADL performance. He continues to grieve the recent passing of his in February 2019. He does have a good support network provider but provided for by family members who live with him. He has all the equipment he needs at home. His prognosis for going home is fair at this time. He is pleasant and cooperative and understands the ra tionale of recommendations given to him. Patient did signficantly better the following day with INSTRUMENT AND CONTROLS TECHNICIAN and was more confident that he will do okay at home with PT services. Patient continues to present with clinical signs and symptoms consistent with current/admitting diagnoses that have resulted to mobility limitations, gait instability, generalized weakness, and impairment of motor control as d emonstrated by the following impairment level findings: 1. Decreased strength to R LE major muscle groups 2. Impaired standing balance 3. Impaired activity tolerance 4. Limitation of joint range of motion in right hip and knee Impairments are contributing to the following functional limitations: 1. Dependent bed mobility skills 2. Increased dependence with transfers 3. Inability to safely ambulate without assistive device and physical assistance 4. Increase completion time for mobility ADL performance 5. Increased fall risk 6. Inability to negotiate steps alone safely Goals: Goals X1 week 1. Supine-Sit independent NOT MET 2. Sit-Supine independent NOT MET 3. Sit-Stand independent NOT MET 4. Stand-Sit independent NOT MET 5. Bed-Chair independent NOT MET 6. Chair-Bed independent NOT MET 7. Independent gait on level surface with use of least restrictive device for at least 300 feet without report of pain nor dyspnea NOT MET 8. Independent stair negotiation while holding onto bilateral rails for at least 10 steps without report of pain nor dyspnea NOT MET 9. Independent with home exercise program NOT MET 10. Good static and dynamic standing balance/tolerance NOT MET DISCHARGE RECOMMENDATIONS: Patient will benefit from home health PT services down the road in order to progress mobility level using least restrictive assistive ambulatory device, assess home safety, identify additional equipment needs, and establish a functional maintenance program that will increase ability of patient to remain at home. TREATMENT CODE/TIME: NC. Thank you very much for this referral. Chayo Munguia PT, DPT, CLT [facility]
== END 2019-09-19 15:42 | disposition home health service (06) | DRG 482 ==
LOC: ER 17:14 → MS 17:30
PROVIDERS: Nurse Practitioner Family; Student in an Organized Health Care Education/Training Program; Admitting Provider Internal Medicine; Emergency Provider Student in an Organized Health Care Education/Training Program; PCP Nurse Practitioner Primary Care; Visit Provider Internal Medicine
PROC: 0QS606Z Reposition Right Upper Femur with Intramedullary Internal Fixation Device, Open Approach (ICD-10-PCS; CPT 27245; principal; 2019-09-17 10:00)
DX: S72.141A Displaced intertrochanteric fracture of right femur, initial encounter for closed fracture (principal); M25.551 Pain in right hip; I25.10 Atherosclerotic heart disease of native coronary artery without angina pectoris; J44.9 Chronic obstructive pulmonary disease, unspecified; E11.9 Type 2 diabetes mellitus without complications; I25.2 Old myocardial infarction; Z95.5 Presence of coronary angioplasty implant and graft; Z95.3 Presence of xenogenic heart valve; I10 Essential (primary) hypertension; E78.5 Hyperlipidemia, unspecified; N40.0 Benign prostatic hyperplasia without lower urinary tract symptoms; Z87.891 Personal history of nicotine dependence; W18.31XA Fall on same level due to stepping on an object, initial encounter; Y92.017 Garden or yard in single-family (private) house as the place of occurrence of the external cause; Z79.82 Long term (current) use of aspirin; Z79.84 Long term (current) use of oral hypoglycemic drugs
CPT/HCPCS: 27245; 36415; 73552; 76942; 80048; 80053; 82306; 97110; 97162; 97530; 99223; 99233; 99239; 99254; 99285; J1650; NC; 71045; 73501; 73502; 83735; 85025; 93005; 93010; 99284; J0131; J0690; J1100; J1885; J2405; J3010; J3490

== ENCOUNTER 2019-09-29 11:00 | Outpatient (CLI) | payer MEDICARE, OTHER, SELFPAY ==
--- NOTE | 2019-09-29 10:48 | DI.RAD_ITS ---
EXAM: XR HIP RT AP LAT ONLY INDICATION: s/p IM nailing. COMPARISON: XR HIP RT COMPLETE AP PELVIS from 09/17/2019 TECHNIQUE: 2D digital imaging was performed. FINDINGS: There has been no change in hardware or fracture alignment. There has been some increased healing a t the intertrochanteric fracture. No new abnormalities are seen.
== END 2019-09-29 11:20 ==
PROVIDERS: PCP Nurse Practitioner Primary Care; Referring Provider Nurse Practitioner Primary Care; Visit Provider Student in an Organized Health Care Education/Training Program
DX: S72.141D Displaced intertrochanteric fracture of right femur, subsequent encounter for closed fracture with routine healing (principal); X58.XXXD Exposure to other specified factors, subsequent encounter
CPT/HCPCS: 73502

== ENCOUNTER 2019-11-16 12:48 | Outpatient (CLI) | payer OTHER, SELFPAY ==
--- NOTE | 2019-11-16 13:09 | DI.RAD_ITS ---
EXAM: XR HIP RT AP AND LAT ONLY INDICATION: F/U Surgery. COMPARISON: XR HIP RT AP LAT ONLY from 09/29/2019 TECHNIQUE: 2D digital imaging was performed. FINDINGS: There has been no change in the proximal right femoral hardware. There has been continued healing of the intertrochanteric fracture. The left hip is unremarkable.
== END 2019-11-16 13:08 ==
PROVIDERS: PCP Nurse Practitioner Primary Care; Referring Provider Nurse Practitioner Primary Care; Visit Provider Student in an Organized Health Care Education/Training Program
DX: S72.141D Displaced intertrochanteric fracture of right femur, subsequent encounter for closed fracture with routine healing (principal); M75.102 Unspecified rotator cuff tear or rupture of left shoulder, not specified as traumatic; M12.812 Other specific arthropathies, not elsewhere classified, left shoulder; X58.XXXD Exposure to other specified factors, subsequent encounter
CPT/HCPCS: 99213; 73502

== ENCOUNTER 2020-01-04 13:01 | Outpatient (CLI) | payer OTHER, SELFPAY ==
--- NOTE | 2020-01-04 13:00 | DI.RAD_ITS ---
EXAM: XR SHOULDER LT COMPLETE 2+V CLINICAL HISTORY: Pain TECHNIQUE: COMPARISON: XR SHOULDER RT COMPLETE 2+V from 01/04/2020 FINDINGS: Two views were obtained. There is markedly decreased acromial humeral space suggesting superior rota tor cuff tear. Mild subchondral sclerosis of the inferior acromial surface and superior humeral head noted. Moderate moderate hypertrophic changes acromioclavicular joint and glenohumeral joint noted. 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
--- NOTE | 2020-01-04 13:00 | DI.RAD_ITS ---
EXAM: XR SHOULDER RT COMPLETE 2+V CLINICAL HISTORY: Pain TECHNIQUE: COMPARISON: XR shoulder LT complete 2+V from 03/16/2019 FINDINGS: Three views were obtained. There are moderate hypertrophic degenerative changes of the acromioclavic ular joint. There are moderate marginal osteophytes of the glenohumeral joint as well. Cartilaginou s joint space of the glenohumeral joint may be slightly narrowed. No other focal bony abnormality se en. 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
--- NOTE | 2020-01-04 13:00 | DI.RAD_ITS ---
EXAM: XR HIP RT 1V CLINICAL HISTORY: Follow up TECHNIQUE: COMPARISON: XR HIP RT AP LAT ONLY from 11/16/2019 FINDINGS: Single AP view was obtained and shows previously described intertrochanteric fracture of the right fe mur with gamma nail in place. No change in alignment comparison with examination of November 16. IMPRESSION:
== END 2020-01-04 13:21 ==
PROVIDERS: PCP Nurse Practitioner Primary Care; Referring Provider Nurse Practitioner Primary Care; Visit Provider Student in an Organized Health Care Education/Training Program
DX: S72.141D Displaced intertrochanteric fracture of right femur, subsequent encounter for closed fracture with routine healing (principal); S46.211D Strain of muscle, fascia and tendon of other parts of biceps, right arm, subsequent encounter; X58.XXXD Exposure to other specified factors, subsequent encounter; M75.102 Unspecified rotator cuff tear or rupture of left shoulder, not specified as traumatic; M12.812 Other specific arthropathies, not elsewhere classified, left shoulder; M75.101 Unspecified rotator cuff tear or rupture of right shoulder, not specified as traumatic; M12.811 Other specific arthropathies, not elsewhere classified, right shoulder
CPT/HCPCS: 20610; 99214; 73030; 73501; J1030

== ENCOUNTER → 2020-04-19 10:53 | Outpatient (BNVA) | payer OTHER, SELFPAY | PROVIDERS: PCP Nurse Practitioner Primary Care; Referring Provider Nurse Practitioner Primary Care; Visit Provider Student in an Organized Health Care Education/Training Program | DX: R52 Pain, unspecified; M75.101 Unspecified rotator cuff tear or rupture of right shoulder, not specified as traumatic; M12.811 Other specific arthropathies, not elsewhere classified, right shoulder; M75.102 Unspecified rotator cuff tear or rupture of left shoulder, not specified as traumatic; M12.812 Other specific arthropathies, not elsewhere classified, left shoulder; S46.211A Strain of muscle, fascia and tendon of other parts of biceps, right arm, initial encounter; X58.XXXA Exposure to other specified factors, initial encounter | CPT/HCPCS: 20610; 99214; J1040 ==

== ENCOUNTER 2020-08-16 14:49 | Outpatient (CLI) | payer OTHER, SELFPAY ==
--- NOTE | 2020-08-16 13:15 | DI.RAD_ITS ---
EXAM: XR HIP RT 1V CLINICAL HISTORY: 1 year follow up TECHNIQUE: COMPARISON: CR XR HIP RT 1V from 01/04/2020 FINDINGS: Single AP view of the hip was obtained. There is gamma nail in place transfixing a healed intertroch anteric femoral fracture. There is moderate heterotopic bone formation superior to the greater troch anter of the femur. No change in alignment from 01/04/2020. Mild degenerative changes of the hip no julia. IMPRESSION: RADIATION DOSE DELIVERED: Total DLP
== END 2020-08-16 15:09 ==
PROVIDERS: PCP Nurse Practitioner Primary Care; Referring Provider Nurse Practitioner Primary Care; Visit Provider Student in an Organized Health Care Education/Training Program
DX: M75.101 Unspecified rotator cuff tear or rupture of right shoulder, not specified as traumatic; M12.811 Other specific arthropathies, not elsewhere classified, right shoulder; M75.102 Unspecified rotator cuff tear or rupture of left shoulder, not specified as traumatic; M12.812 Other specific arthropathies, not elsewhere classified, left shoulder; S72.141D Displaced intertrochanteric fracture of right femur, subsequent encounter for closed fracture with routine healing; X58.XXXD Exposure to other specified factors, subsequent encounter; J44.9 Chronic obstructive pulmonary disease, unspecified; E11.9 Type 2 diabetes mellitus without complications
CPT/HCPCS: 20610; 99214; 73501; J1040

== ENCOUNTER → 2021-09-18 11:24 | Outpatient (BNVA) | payer OTHER, SELFPAY | PROVIDERS: PCP Nurse Practitioner Primary Care; Referring Provider Nurse Practitioner Primary Care; Visit Provider Student in an Organized Health Care Education/Training Program | DX: S46.211D Strain of muscle, fascia and tendon of other parts of biceps, right arm, subsequent encounter (principal); X58.XXXD Exposure to other specified factors, subsequent encounter; M75.102 Unspecified rotator cuff tear or rupture of left shoulder, not specified as traumatic; M12.812 Other specific arthropathies, not elsewhere classified, left shoulder; M75.101 Unspecified rotator cuff tear or rupture of right shoulder, not specified as traumatic; M12.811 Other specific arthropathies, not elsewhere classified, right shoulder; J44.9 Chronic obstructive pulmonary disease, unspecified; E11.9 Type 2 diabetes mellitus without complications | CPT/HCPCS: 99214 ==

== ENCOUNTER → 2021-10-01 00:52 | Outpatient (CLI) | payer OTHER, SELFPAY ==
--- NOTE | 2021-10-01 15:15 | DI.CT_ITS ---
Exam(s) CT UPPER EXTREMITY LT WO EXAM: CT UPPER EXTREMITY LT WO CLINICAL HISTORY: Surgery planning,LT ROTATOR CUFF TEAR ARTHROPATHY,M75.102,M12.812 TECHNIQUE: Imaging Protocol: Axial computed tomography images with coronal and sagittal reformatted images were created and reviewed. CONTRAST MATERIAL: Noncontrast COMPARISON: CR XR SHOULDER LT COMPLETE 2+V from 01/04/2020 CR XR SHOULDER LT COMPLETE 2+V from 01/04/2020 FINDINGS: Exam was performed for surgical planning. The humeral head is high riding, articulating with the und ersurface of the acromion, consistent with chronic rotator cuff tear. The acromion shows severe spur ring. There is supraspinatus muscle atrophy. There is some bony fragments adjacent to the acromion as well as adjacent to the posterior glenoid. There is spurring at and irregularity at the lesser tu berosity. There is spurring at the margin of the glenoid. Visualized portions of the left lung are clear. IMPRESSION: Degenerative changes and chronic rotator cuff tear. RADIATION DOSE DELIVERED: 667.49mGy.cm Total DLP DATA REPOSITORY: All CT scans at this facility are submitted to the National Radiology Data Registry (NRDR) Dose Index Registry (DIR) with the [employer] (A[employer]). RADIATION OPTIMIZATION: All CT scans at this facility use at least one of these dose optimization te chniques: automated exposure control; mA and/or kV adjustment per patient size (includes targeted exa ms where dose is matched to clinical indication); or iterative reconstruction.
== END ==
PROVIDERS: PCP Nurse Practitioner Primary Care; Visit Provider Student in an Organized Health Care Education/Training Program
DX: M12.812 Other specific arthropathies, not elsewhere classified, left shoulder (principal); M75.102 Unspecified rotator cuff tear or rupture of left shoulder, not specified as traumatic
CPT/HCPCS: 73200

== ENCOUNTER → 2021-10-09 09:39 | Outpatient (BNVA) | payer OTHER, SELFPAY | PROVIDERS: PCP Nurse Practitioner Primary Care; Referring Provider Nurse Practitioner Primary Care; Visit Provider Student in an Organized Health Care Education/Training Program | DX: M75.102 Unspecified rotator cuff tear or rupture of left shoulder, not specified as traumatic (principal); M12.812 Other specific arthropathies, not elsewhere classified, left shoulder; S46.212D Strain of muscle, fascia and tendon of other parts of biceps, left arm, subsequent encounter; X58.XXXD Exposure to other specified factors, subsequent encounter | CPT/HCPCS: 99214 ==

== ENCOUNTER 2021-10-23 02:37 | Outpatient (CLI) | payer OTHER, SELFPAY ==
[2021-10-23 11:53] LABS: Source Nasal/Nares
[2021-10-23 16:22] LABS: COVID-19 PCR Negative (Negative)
== END 2021-10-23 02:38 | disposition home or self-care (01) ==
LOC: LBO 02:37
PROVIDERS: PCP Nurse Practitioner Primary Care; Visit Provider Student in an Organized Health Care Education/Training Program
DX: Z20.822 Contact with and (suspected) exposure to COVID-19 (principal)
CPT/HCPCS: 87635

== ENCOUNTER 2021-10-25 16:16 | Inpatient (IN) | payer OTHER, SELFPAY ==
[2021-10-25] VITALS (11 sets, daily range): BP systolic 109–159; BP diastolic 44–90; PULSE 91–122; RESP 18–24; TEMP 36.2–39; O2SAT 92–98; BMI 24.5
--- NOTE | 2021-10-25 11:13 | W.ANESPRE ---
General Info Date of Service Date Performed: 10/25/21 Height: 6 ft Weight: 82.27 kg Body Mass Index (BMI): 24.5 Surgical Procedure: Operation Date: 10/25/21 12:10 Proposed Procedures Side Surgeon p Shoulder Total Arthroplasty Reverse, poss. biceps tenodesis Left Arturo Boyce MD Meds Allergies and Home Medications Allergies Allergy/AdvReac Type Severity Reaction Status Date / Time simvastatin AdvReac Mild Nausea Verified 10/25/21 11:33 lisinopril AdvReac cough Verified 10/25/21 11:33 Home Medication Medication Instructions Recorded polyethylene glycol 3350 17 g PO DAILY 02/02/19 omeprazole 20 mg PO BID 03/16/19 acetaminophen [Mapap Extra 1,000 mg PO Q8H #30 tab 03/20/19 Strength] Multi-Day Plus Minerals 1 tab PO DAILY 09/16/19 aspirin [Aspir-81] 81 mg PO DAILY 09/16/19 atorvastatin [Lipitor] 60 mg PO DAILY 09/16/19 calcium carbonate-vitamin D3 1 tab PO DAILY 09/16/19 [Calcium 500 + D] duloxetine 60 mg PO DAILY 09/16/19 mirtazapine 7.5 mg PO QHS 09/16/19 docusate sodium 100 mg capsule 100 mg PO BID PRN cap 09/18/21 Current Visit Medications: Current Medications Generic Name Dose Route Start Last Admin Trade Name Freq PRN Reason Stop Dose Admin Ringer's Solution 1,000 mls @ 100 mls/hr 10/25/21 06:00 IV 11/09/21 23:59 [facility] Cefazolin Sodium/Dextrose 2 gm in 50 mls @ 100 mls/hr 10/25/21 06:00 Ancef Duplex IVPB 10/25/21 16:00 PREOP NADER Tranexamic Acid 1,000 mg/ 60 mls @ 360 mls/hr 10/25/21 06:00 Sodium Chloride IVPB 10/25/21 16:00 PREOP NADER IV Miscellaneous Supplies 1 each 10/25/21 06:00 Iv Access IV 11/09/21 23:59 DIRECTED NADER Sodium Chloride 0 ml 10/25/21 06:00 Normal Saline Flush 10 Ml Syr IV 11/09/21 23:59 PRN PRN Sodium Chloride 0 ml 10/25/21 06:00 Normal Saline 10 Ml Vial IJ 11/09/21 23:59 DIRECTED PRN Sterile Water 0 ml 10/25/21 06:00 Water,Injection,Sterile 10 Ml Vial IJ 11/09/21 23:59 DIRECTED PRN PFSH Active Problems Active Problems: Problem Status Onset Code Rupture of right proximal biceps tendon S46.211A Right rotator cuff tear arthropathy M75.101, M12.811 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, M12.812 Non-insulin treated type 2 diabetes mellitus E11.9 Displaced intertrochanteric fracture of right femur 09/16/19 S72.141A Visual disturbance H53.9 CAD (coronary artery disease) I25.10 Depression F32.9 Hypertension I10 PVD (peripheral vascular disease) I73.9 RLS (restless legs syndrome) G25.81 Vertigo R42 Kidney stones N20.0 COPD (chronic obstructive pulmonary disease) J44.9 Sleep apnea G47.30 BPH (benign prostatic hyperplasia) N40.0 Aortic valve stenosis I35.0 DVT prophylaxis Discharge planning issues Z02.9 Depression F32.9 Hypercholesteremia E78.00 Diabetes E11.9 Falls W19.XXXA Rib fractures S22.39XA Medical History Active Problem List Rupture of right proximal biceps tendon (Acute) Right rotator cuff tear arthropathy (Acute) Left rotator cuff tear arthropathy (Acute) Non-insulin treated type 2 diabetes mellitus (Acute) Displaced intertrochanteric fracture of right femur (Acute 09/16/19) Visual disturbance (Acute) CAD (coronary artery disease) (Chronic) Depression (Chronic) Hypertension (Chronic) PVD (peripheral vascular disease) (Chronic) RLS (restless legs syndrome) (Acute) Vertigo (Acute) Kidney stones (Chronic) COPD (chronic obstructive pulmonary disease) (Chronic) Sleep apnea (Acute) BPH (benign prostatic hyperplasia) (Chronic) Aortic valve stenosis (Chronic) DVT prophylaxis (Acute) Discharge planning issues (Acute) Depression (Chronic) Hypercholesteremia (Acute) Diabetes (Chronic) Falls (Acute) Rib fractures (Acute) Medical History Aortic valve stenosis BPH (benign prostatic hyperplasia) CAD (coronary artery disease) COPD (chronic obstructive pulmonary disease) Diabetes mellitus HTN (hypertension) Hypercholesterolemia Rupture of left proximal biceps tendon Surgical History Surgical History History of heart artery stent S/P cholecystectomy 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 Tobacco Smoking/Tobacco Use Status: Former Tobacco Use Tobacco: How many years used: 27 Alcohol Alcohol Intake: never Substance Use Substance use: Never Substance use type: does not use Vital Signs and Lab Results Vital Signs Most Recent Vital Signs in EMR: Temp Pulse Resp BP Pulse Ox 36.6 C 96 H 18 159/68 H 95 10/25/21 11:18 10/25/21 11:18 10/25/21 11:18 10/25/21 11:18 10/25/21 11:18 Lab Results Blood Type / Crossmatch: No Data to Display Complete Blood Count: No Data to Display Complete Metabolic Panel: No Data to Display Liver Function Panel: No Data to Display Coagulation Panel: No Data to Display Cardiac Panel: No Data to Display Arterial Blood Gas: No Data to Display Venous Blood Gas: No Data to Display Pancreas Panel: No Data to Display Thyroid Panel: No Data to Display Infectious Disease: Coronavirus (COVID-19)(PCR) Negative (Negative) 10/23/21 10:13 10/23/21 Coronavirus 2019 Source Nasal/Nares 10/23/21 10:13 10/23/21 Blood Cultures: No Data to Display Toxicology Panel: No Data to Display Imaging and Studies Imaging and Studies Study information below may be from another EMR and interpreted by another provider. Please see original notes in EMR for more complete details. Echocardiogram Summary: 2019: LVEF 60%, no pHTN, prosthetic valve functioning well. Anesthesia Assessment and Plan Anesthesia History Personal History: No History of Anesthesia Complications Family History: No Family History of Anesthesia Complications Exercise Tolerance Exercise Tolerance: Metabolic Equivalents>4 Cardiac & Pulmonary Exam Cardiac Exam: Normal S1/S2 Heart Sounds Pulmonary Exam: Clear Bilateral Breath Sounds Implantable Cardiac Device Does patient have a Pacemaker or an ICD?: No Airway Exam Known Difficult Airway: No Mallampati Class: 2 Mouth Opening: Normal (> 3cm) Thyromental Distance: Greater than 3 cm Neck Range of Motion: Limited ROM Neck Circumference: Normal Teeth Condition: Edentulous ASA Classification ASA Score: ASA 3 Emergency Case?: No NPO Status NPO Status: NPO Clears >2 hours, Solids >8 hours Anesthesia Plan Resuscitation Status: Full Code Anesthesia Technique: General Anesthesia Airway Planned: Endotracheal Tube Pain Management: Surgeon and patient request nerve block Monitors Used: Standard Monitors and Arterial Line (+/-) Preoperative Comments:: 81 yo male for reverse total shoulder, left. Sig PMHx: stents x 3/CAD (ASA 81 mg), s/p TAVR 2018, DM, COPD, former smoker, GERD (omep 20 mg). Clinic BP MAPs ~90-100 Plan: GA/ETT, +/- arterial line.
[2021-10-25] MEDS: Lactated Ringers 1,000 ML 100 ML IV (12:00)
[2021-10-25] MEDS: ceFAZolin 2 GM/50 ML BAG IVPB (13:01)
--- NOTE | 2021-10-25 15:45 | DI.RAD_ITS ---
Exam(s) XR SHOULDER LT COMPLETE 2+V EXAM: XR SHOULDER LT COMPLETE 2+V CLINICAL HISTORY: Postop. TECHNIQUE: 2D digital imaging was performed. COMPARISON: CR XR SHOULDER LT COMPLETE 2+V from 01/04/2020 FINDINGS: Postop portable views reveal satisfactory position alignment of the components of the newly placed re verse prosthesis. No fracture nor loosening evident. IMPRESSION: DATA REPOSITORY: RADIATION DOSE DELIVERED:
--- NOTE | 2021-10-25 16:19 | W.PM.OP ---
Date of service: 10/25/21 Time of Service: 15:00 Operative Note Operative Note DATE OF PROCEDURE: 10/25/21 PRE-OP DIAGNOSIS: Left 1. Rotator cuff arthropathy 2. Long head biceps rupture POST-OP DIAGNOSIS: same PROCEDURE: Left 1. Reverse total shoulder arthroplasty, CPT # 10983 The records assistant was medically required as this procedure involves retraction, protection of neurovascular structures, and manipulation of multiple instruments and implants at the same time, which cannot be done without a skilled records assistant. SURGEON: Arturo Boyce REGISTERED NURSE MATERNAL CHILD: Laura Leung ANESTHESIA TYPE: Local By Surgeon, General LMA/ETT and Primary Nerve Block Refer to Anesthesia Record ESTIMATED BLOOD LOSS: 150 COMPLICATIONS: None Patient was transported to: PACU Patient's condition: stable Implants: [employer] modular glenoid system baseplate 24 mm +2 laterlized [employer] modular glenoid system central post 25 mm [employer] modular glenoid system peripheral non-locking screw 4.5 x 32mm superior; locking screws 5.5 x 36 mm inferior, 16mm posterior, 16mm anterior [employer] modular glenoid system glenosphere 42 +4 mm lateralized [employer] humeral stem 135 degrees size 9 [employer] suture cup size 42 posterior offset [employer] humeral insert +6 mm constrained Indications: Please see complete medical record for details. Findings: Severe rotator cuff arthropathy with complete rotator cuff tearing and denuded greater and lessor tuberosities. No subscapularis for any repair. Long head biceps proxima rupture. Procedure Description: In the operating room, general anesthesia was induced. The patient was positioned beachchair on the operating room table. All bony prominences were well-padded. Preoperative antibiotics were administered. The shoulder was prepped and draped in the usual sterile fashion for shoulder arthroplasty. The correct patient, procedure, and side of the procedure were all verified prior to incision. The deltopectoral approach was taken to the anterior shoulder. Care was taken to bluntly dissect the interval between the deltoid and pectoralis major muscles and to identify the cephalic vein within its fat stripe. The the vein was mobilized laterally. Subdeltoid space and conjoined tendon were freed of adhesions. The long head of the biceps tendon was absent from the biceps groove. The uppermost margin of the pectoralis major tendon was released from the proximal humerus. Thin anterior capsule was releases working from superior to inferior and lateral to medial while bringing the arm gradually into external rotation. Care was taken to avoid the axillary nerve by only working on the bone inferiorly and medially. The degenerative and contracted capsule was partially excised to aid exposure and eliminate impingement. Appropriate coagulation was achieved especially inferiorly. The surgical neck was cut using an oscillating saw and and then a rongeur was used to remove slightly more bone superiorly and bone brought back table in case there was a need for future bone grafting. The proximal humeral protection plate was used to provisionally confirm suture cup and glenosphere size and then gently impacted over the bone cut. Attention was then turned to the glenoid and retractors were placed and a 360 degree release performed. The axillary nerve was palpated but not exposed inferiorely. Care was taken inferiorly to work on bone only between 5 and 7:00 o'clock and bluntly elevate tissues inferiorly. The glenoid was decorticated of minimal soft tissue and residual cartilage. Once adequate exposure had been achieved, the VIP guide was placed on the glenoid and used to assist in placement and trajectory of the central guidepin. The guidepin was inserted by hand and advanced just through the far cortex. The depth gauge was used to confirm appropriate central screw length. The central reamer followed by the peripheral reamer were then used to the appropriate depths. There was appropriate eccentric reaming inferiorly. The drill for the central post was then used and withdrawn with the guidewire. The baseplate was impacted onto the glenoid surface. Testing the glenoid baseplate resulted in motion so it was withdrawal, soft tissue and bone preparation confirmed to be appropriate, and impacted fully again. Due to poor bone quality the central post did not have good fixation strength. The non-locking guide and drill was used to place a bicortical inferior and then superior screw with reasonable compression strength and both tightened sequentially to avoid rotating the baseplate. The locking guide and drill were used to drill for anterior and posterior locking screws. The depth gauge was used to confirm appropriate screw length and they were each gently engaged and then tightened together to reduce risk of rotating the baseplate. The inferior screw as then removed and exchanged for a longer locking screw in attempt to optimize fixation of the construct. The over baseplate reamer was used to confirm adequate peripheral reaming had been achieved. The baseplate now demonstrated good fixation strength and stability. Glenoid was not placed at this time due to soft bone and concerns about blocking humerus preparation. Attention was then turned back to the proximal humerus, which was delivered from the wound and maintained in external rotation. The protective plate was removed and reamers were started appropriately posterior to the bicipital groove taking care to maintain lateralized alignment so as to be straight in line with the humeral canal. Reaming was done only with size 5 due to soft bone and capacious canal. The broaches were sequentially used to open the proximal humerus starting with a size 5 and going up to size 9 and sunk to the appropriate depth while maintaining approximately 30 degrees retroversion. The size 9 had good metaphyseal fit and rotational control the humerus. A posterior offset guide was used to ream for the suture cup. The proximal humerus was not more easily retracted out of the way for placement of the lateralized glenosphere, which was applied with the wood heel flap inserter and then impacted to engage the Leos taper. It was then locked with appropriate countersinking of the setscrew. The glenosphere was inspected and found to have good fit, appropriate positioning, and no soft tissue or bony impingement especially interiorly. The proximal humerus was delivered and humeral trial cup was connected. Trialing was commenced with +3mm liner. The shoulder was reduced and taken through range of motion. It was felt to moderately loose in terms of tension on the conjoined tendon, deltoid, and stability. Trialing was then done with +6mm liner. The shoulder was reduced and felt to have good stability with improved appropriate tension of the deltoid and conjoined tendon. Range of motion was tested past 90 degrees forward elevation, 60 degrees external rotation, internal rotation to the patient's side, and there is no appreciable notching with the arm in full adduction. This combination of implants was stable even with the patient paralyzed. The trial components were removed from the proximal humerus. The wound was copiously irrigated with normal saline. The the proximal humeral stem and suture cup were assembled on the back table. Humerus and suture cup were appropriately impacted into the proximal humerus. There were tested and found of excellent rotational control and fixation. Reduction for stability and range of motion was done again with the +6 mm liner, which was slightly lax. I felt the stability was good but could be improved with +6mm constrained liner, which was appropriate considering lack of subscap and soft tissue available for repair and closure. This construct had improved, excellent stability without placing undue tension on the conjoined tendon or deltoid. The trial liner removed and the definitive spacer and liner connected. Shoulder was reduced and these final implants demonstrated appropriate range of motion and stability. The shoulder was copiously irrigated with normal saline and then irrisept. Vancomycin powder was distributed deeply about the shoulder and through subcutaneous tissues. The deltopectoral interval was loosely closed burying the cephalic vein with 0-Vicryl. Subcutaneous tissue was irrigated then closed using 2-0 Monocryl in a buried interrupted fashion. The skin was closed using 3-0 Monocryl in a buried subcuticular fashion. Skin glue was applied to the incision. A silver impregnated bandage was placed over the incision. The extremity was placed into a shoulder immobilizer. The patient awoke from anesthesia without complication and was taken to the recovery room in stable condition.
[2021-10-25] MEDS: Metoprolol 5 MG/5 ML VIAL 2.5 MG IVP (16:45)
--- NOTE | 2021-10-25 16:53 | W.ANESPOSTOP ---
Postoperative Evaluation Date, Time and Location Date Performed: 10/25/21 Time Performed: 16:54 Patient Location: PACU Vital Signs Most Recent Imported Vital Signs: Most Recent Vital Signs Temp Pulse Resp BP Pulse Ox 36.5 C 91 H 22 117/45 L 98 10/25/21 16:52 10/25/21 16:52 10/25/21 16:52 10/25/21 16:52 10/25/21 16:52 Pain Score Most Recent Pain Score: Most Recent Pain Score Pain Level 0 10/25/21 16:52 Assessment Mental Status: Awake (Alert & Oriented to Patient Baseline) Airway and Respiratory Function: Patent airway with normal (patient baseline) respiratory exam Cardiovascular Function: Hemodynamically Stable Hydration Status: Adequately Hydrated Nausea & Vomiting: No Nausea or Vomiting Pain: Pain is tolerable per patient Peripheral Nerve Block: Regional nerve block not resolved at time of post operative discharge
--- NOTE | 2021-10-25 17:24 | W.PM.PROGNOT ---
Date of Service Date of service: 10/25/21 Time of Service: 17:23 Assessment and Plan Assessment and plan (1) Left rotator cuff tear arthropathy: Status: Acute Assessment and plan: 81-year-old male postop day #0 status post Left reverse total shoulder arthroplasty with constrained liner and without subscapularis repair or biceps tenodesis Complete 24 hours postoperative antibiotics Void trial. If unable to void, place eisenberg and discontinue catheter AM postop day #1 Pain control-Multimodal as ordered. Physical therapy and Occupational Therapy ordered: ACCELERATED reverse TSA protocol. Should remove sling while in bed or resting. Recommend sling when ambulatory or out of home. ALLOW ACTIVE range of motion to the shoulder. Active range of motion elbow, wrist, and hand. May use upper extremity gently for all essential ADLs with light weightbearing. Continue mechanical DVT prophylaxis with SCDs and/or HAIDER hose Resume 81 mg ASA daily tomorrow Plan discharge home tomorrow with any home health services and physical therapy as needed (2) Rupture of left proximal biceps tendon: Status: Acute Qualifiers: Encounter type: sequela Qualified Code(s): S46.212S - Strain of muscle, fascia and tendon of other parts of biceps, left arm, sequela Subjective Subjective Interval history since last seen: No complaints. Comfortable. Exam Narrative Exam Narrative: Resting in hospital bed. No distress. Breathing comfortably. 2+ left radial pulse. Arm without significant bruising or edema. Bandage clean dry intact. Intact returning sensation after block and demonstrates active motor flexion elbow and distally about the wrist. Objective Last Vital Signs Temp 97.7 F 10/25/21 12:11 Pulse 93 H 10/25/21 12:11 Resp 19 10/25/21 12:11 BP 134/90 10/25/21 12:11 Pulse Ox 95 10/25/21 12:11
[2021-10-25] MEDS: Normal Saline 1,000 ML 30 ML IV (18:24)
[2021-10-25] MEDS: Acetaminophen 500 MG TAB 1000 MG PO (19:32)
[2021-10-25] MEDS: Omeprazole 20 MG CAPCR PO (19:32)
[2021-10-25] MEDS: ceFAZolin 1,000 MG VIAL 1000 MG IVPB (20:41)
[2021-10-25] MEDS: Normal Saline 100 ML (20:42)
[2021-10-25] MEDS: Mirtazapine 15 MG TAB 7.5 MG PO (21:54)
[2021-10-25] MEDS: Naproxen 500 MG TAB 250 MG PO (22:26)
--- NOTE | 2021-10-26 | DI.RAD_ITS ---
Exam(s) XR CHEST 2V PA LATERAL EXAM: XR CHEST 2V PA LATERAL CLINICAL HISTORY: fever TECHNIQUE: 2D digital imaging was performed of the chest. Two images were obtained. PA and lateral views were obtained. COMPARISON: CR,XR XR PORTABLE CHEST AP from 09/16/2019 CR,XR XR PORTABLE CHEST AP from 09/16/2019 CR XR SHOULDER LT COMPLETE 2+V from 10/25/2021 FINDINGS: MEDIASTINUM: Normal. HEART: Normal. PULMONARY VASCULATURE: There is a proximal aortic stent. LUNGS: Clear. PLEURAL SPACE: No pleural effusion or pneumothorax. BONE:The patient is status post left shoulder replacement. Postsurgical changes are seen in the soft tissues of the left shoulder. There is air-fluid level projected over the left shoulder which may b e postsurgical. Please correlate clinically. OTHER FINDINGS:There is a hiatal hernia present. There is elevation of the left hemidiaphragm. IMPRESSION: No acute pulmonary findings. DATA REPOSITORY: RADIATION DOSE DELIVERED:
[2021-10-26 01:00] VITALS: TEMP 37
[2021-10-26] MEDS: ceFAZolin 1 GM/50 ML BAG IV ×2 (03:58→12:14)
[2021-10-26 04:14] VITALS: BP 118/61; PULSE 120; RESP 20; TEMP 37.7; O2SAT 93
--- NOTE | 2021-10-26 07:15 | W.PM.PROGNOT ---
Date of Service Date of service: 10/26/21 Time of Service: 07:08 Assessment and Plan Assessment and plan (1) Left rotator cuff tear arthropathy: Status: Acute Assessment and plan: 81-year-old male postop day #1 status post Left reverse total shoulder arthroplasty with constrained liner and without subscapularis repair or biceps tenodesis Complete 24 hours postoperative antibiotics Pain control-Multimodal as ordered. Physical therapy and Occupational Therapy ordered: ACCELERATED reverse TSA protocol. Should remove sling while in bed or resting. Recommend sling when ambulatory or out of home. ALLOW ACTIVE range of motion to the shoulder. Active range of motion elbow, wrist, and hand. May use upper extremity gently for all essential ADLs with light weightbearing. Continue mechanical DVT prophylaxis with SCDs and/or HAIDER hose Resume 81 mg ASA daily today Plan discharge home tomorrow with any home health services and physical therapy as needed Monitor fever and tachycardia. Plan for out of bed to chair, incentive spirometry, and repeat vitals. Asymptomatic. Does not appear to be cardiac, infectious, or thrombotic at this time. Urine output appropriate. Would consider labs, chest x-ray, and EKG if if needed with medicine consultation. (2) Rupture of left proximal biceps tendon: Status: Acute Qualifiers: Encounter type: sequela Qualified Code(s): S46.212S - Strain of muscle, fascia and tendon of other parts of biceps, left arm, sequela Subjective Subjective Interval history since last seen: Feeling well. No pain at rest. Mild pain about the shoulder with active motion. Numbness tingling and motor block wearing off throughout the upper extremity. Denies any chest pain, shortness of breath, or headache. Does not feel like his heart is racing. Voiding without difficulty. Exam Narrative Exam Narrative: Resting in hospital bed. No distress. Alert and oriented. Breathing comfortably on room air. 2+ left radial pulse. Tachycardic, regular rhythm. Left shoulder and arm without significant bruising or edema. Bandage clean dry intact. Intact returning motor and sensation including axillary nerve, elbow flexion, and wrist and hand. Objective Last Vital Signs Temp 99.9 F H 10/26/21 04:14 Pulse 120 H 10/26/21 04:14 Resp 20 10/26/21 04:14 BP 118/61 10/26/21 04:14 Pulse Ox 93 10/26/21 04:14
[2021-10-26] MEDS: Multivitamin w/Minerals TAB 1 TAB PO (08:41)
[2021-10-26] MEDS: Calcium 600mg/Vit D 200U TAB 1 TAB PO (08:41)
[2021-10-26] MEDS: Aspirin E.C. 81 MG TABEC PO (08:41)
[2021-10-26] MEDS: DULoxetine 30 MG CAP 60 MG PO (08:42)
[2021-10-26] MEDS: Omeprazole 20 MG CAPCR PO (08:42)
[2021-10-26] MEDS: Atorvastatin 40 MG TAB 60 MG PO (08:42)
[2021-10-26] MEDS: Acetaminophen 500 MG TAB 1000 MG PO (08:42)
[2021-10-26 09:03] VITALS: BP 128/73; PULSE 113; RESP 18; TEMP 37.9; O2SAT 95
--- NOTE | 2021-10-26 09:30 | OT.INIE ---
Occupational Therapy Notes Inpatient Occupational Therapy Evaluation Date: 10/26/21 Referring Doctor: Arturo Boyce MD OT Orders: Urgent Precautions: Fall, standard, full PATIENT PROFILE/ADMITTING DIAGNOSIS: Pt is a 81 year old male who was referred by ORthopedics after pt underwent a status post left reverse total shoulder arthroplasty on 10/25/2021, high fall risk. Past Medical History: All Active Problems Rupture of right proximal biceps tendon (Acute) Right rotator cuff tear arthropathy (Acute) Left rotator cuff tear arthropathy (Acute) Non-insulin treated type 2 diabetes mellitus (Acute) Displaced intertrochanteric fracture of right femur (Acute 09/16/19) Status post trochanteric nailing 09/17/2019 Visual disturbance (Acute) CAD (coronary artery disease) (Chronic) Depression (Chronic) Hypertension (Chronic) PVD (peripheral vascular disease) (Chronic) RLS (restless legs syndrome) (Acute) Vertigo (Acute) Kidney stones (Chronic) COPD (chronic obstructive pulmonary disease) (Chronic) Sleep apnea (Acute) BPH (benign prostatic hyperplasia) (Chronic) Aortic valve stenosis (Chronic) DVT prophylaxis (Acute) Discharge planning issues (Acute) Depression (Chronic) Hypercholesteremia (Acute) Diabetes (Chronic) Falls (Acute) Rib fractures (Acute) Active Problem List Rupture of right proximal biceps tendon (Acute) Right rotator cuff tear arthropathy (Acute) Left rotator cuff tear arthropathy (Acute) Non-insulin treated type 2 diabetes mellitus (Acute) Displaced intertrochanteric fracture of right femur (Acute 09/16/19) Visual disturbance (Acute) CAD (coronary artery disease) (Chronic) Depression (Chronic) Hypertension (Chronic) PVD (peripheral vascular disease) (Chronic) RLS (restless legs syndrome) (Acute) Vertigo (Acute) Kidney stones (Chronic) COPD (chronic obstructive pulmonary disease) (Chronic) Sleep apnea (Acute) BPH (benign prostatic hyperplasia) (Chronic) Aortic valve stenosis (Chronic) DVT prophylaxis (Acute) Discharge planning issues (Acute) Depression (Chronic) Hypercholesteremia (Acute) Diabetes (Chronic) Falls (Acute) Rib fractures (Acute) Medical History Aortic valve stenosis BPH (benign prostatic hyperplasia) CAD (coronary artery disease) COPD (chronic obstructive pulmonary disease) Diabetes mellitus HTN (hypertension) Hypercholesterolemia Rupture of left proximal biceps tendon Surgical History History of heart artery stent S/P cholecystectomy 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 He also has a grandson who lives in the home as well. Pt notes that his daughter (A) him as needed and throughout the day but she is currently receiving (A) for herself. He notes that he is fairly (I) at his baseline level of function. Equipment owned/DME: cane, FWW, wheelchair, grab bars SUBJECTIVE: Pt states that he is doing well, he notes that he is a little sore but overall he feels that his arm is already improved. OBJECTIVE: General Observation: Sitting in chair, pleasant and agreeable to OT session. Bandage on the anterior shoulder area. Mental Status: A&Ox4 ROM: RUE AROM WFL L UE NT STRENGTH: RUE 4+/5 throughout LUE NT FUNCTIONAL MOBILITY/ADLS: Self care Training [id number]: OT educated and trained pt in dressing and bathing routines consisting of min vc throughout. Pt states that he has to place visual reminders throughout his home for taking his pills or he forgets. He notes that he is able to perform his ADLs with (A) at time. OT educates pt in ADL precautions for (L) shoulder and use of his (L) gently for his ADL performance. Pt is receptive to this. He requires min vc for donning and doffing shirt and with use of adaptive equipment. BALANCE: Static sitting Normal Dynamic Sitting Normal SPECIAL TESTS: Daily Activity Limitations Standardized Measure [facility] AM -PAC ?6 clicks? Daily Activity Inpatient Short Form: Raw score: 20 Standardized score: 42.03 CMS score: 38.32% INFORMED CONSENT/EDUCATION: Pt instructed in purpose of OT Consult and plan of care. ASSESSMENT: Patient is a 81-year-old male referred to occupational therapy services with diagnosis of s/p (L) Reverse total shoulder. Patient presents with clinical signs and symptoms consistent with dx, as demonstrated by the following impairment level findings/functional limitations: Decreased ROM/strength for (L) UE, restrictions noted for (L) UE use, decreased gross and fine motor control, NWB for (L) UE. AMPAC score 20 Patient is assessed as a Moderate 68012 complexity based on the following: History: see above Examination: see functional limitations as noted above Presentation: evolving Decision Making: AMPAC score GOALS N/A PLAN OF CARE/TREATMENT PLAN: Seen for OT consult only. DISCHARGE RECOMMENDATIONS OT recommends that pt return home with HH services when medically cleared per MD. Pt states that he is not interested in HH at this time but OT feels that pt would benefit from OT HH services for assessment of ADLs in the home setting. TREATMENT TIME/MINUTES/CODES 24366, 11803, 30 min (08:00) Bianca Montana OTR/L [facility]
[2021-10-26 10:11] VITALS: TEMP 38.4
--- NOTE | 2021-10-26 10:12 | PDOC.CMIN ---
- If Service Date Differs Date of service: 10/26/21 Time of Service: 10:12 Care Management Initial Assess REASON FOR HOSPITALIZATION:: rotator cuff tear PAST MEDICAL HISTORY/PAST SURGICAL HISTORY:: PFSH. Active Problem List . Rupture of right proximal biceps tendon (Acute). Right rotator cuff tear arthropathy (Acute). Left rotator cuff tear arthropathy (Acute). Non-insulin treated type 2 diabetes mellitus (Acute). Displaced intertrochanteric fracture of right femur (Acute 09/16/19). Visual disturbance (Acute). CAD (coronary artery disease) (Chronic). Depression (Chronic). Hypertension (Chronic). PVD (peripheral vascular disease) (Chronic). RLS (restless legs syndrome) (Acute). Vertigo (Acute). Kidney stones (Chronic). COPD (chronic obstructive pulmonary disease) (Chronic). Sleep apnea (Acute). BPH (benign prostatic hyperplasia) (Chronic). Aortic valve stenosis (Chronic). DVT prophylaxis (Acute). Discharge planning issues (Acute). Depression (Chronic). Hypercholesteremia (Acute). Diabetes (Chronic). Falls (Acute). Rib fractures (Acute). Medical History . Aortic valve stenosis. BPH (benign prostatic hyperplasia). CAD (coronary artery disease). COPD (chronic obstructive pulmonary disease). Diabetes mellitus. HTN (hypertension). Hypercholesterolemia. Rupture of left proximal biceps tendon. Surgical History . History of heart artery stent. S/P cholecystectomy. 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 Family History . Sister. Cancer. bladder cancer - she was a smoker PREVIOUS FUNCTIONAL STATUS/SOCIAL/FAMILY SUPPORTS:: Jim lives in [place], [place] with his daughter Consuelo. CURRENT FUNCTIONAL STATUS:: Jim was discharged home before CM was able to meet with him. Information obtained from staff, providers and chart review. ADVANCE DIRECTIVES:: none on file Has patient been provided with info about the portal/API?: Yes Did the patient sign up for the portal?: No CODE STATUS:: Full Code INSURANCE COVERAGE / FINANCIAL ISSUES:: [facility] Health Plans [facility] PRIMARY CARE PHYSICIAN:: edilia Schaffer POTENTIAL DISCHARGE NEEDS:: Follow up with surgeon and plan of care PATIENT/FAMILY EDUCATION NEEDS:: Review of discharge instructions, activity, limitations, medications, follow up plan and discuss Ask Me Three TRANSPORTATION:: via private vehicle with family PLAN:: Jim will likely be discharge home with new home health services. He will follow up with his surgeon and PCP and transport with family. CM will continue to support Jim and assess for discharge needs.
--- NOTE | 2021-10-26 10:49 | PT.INIE ---
Date of service: 10/26/21 Time of Service: 10:15 PT Notes Visit Reasons: Left Shoulder Arthritis Inpatient Physical Therapy Evaluation Date: 10/26/2021 Referring Doctor: Arturo Boyce. PT Orders: PT CONSULT: Urgent,, light left upper extremity weightbearing and light ADL's okay. AROM okay. Sling donned with ambulation Precautions: Fall risk, standard, ACCELERATED reverse TSA protocol. Should remove sling while in bed or resting. Recommend sling when ambulatory or out of home. ALLOW ACTIVE range of motion to the shoulder. Active range of motion elbow, wrist, and hand. May use upper extremity gently for all essential ADLs with light weightbearing. Patient Profile/Admitting Diagnosis: 81-year-old male status post left reverse total shoulder arthroplasty on 10/25/2021, high fall risk. PMHX: All Active Problems Rupture of right proximal biceps tendon (Acute) Right rotator cuff tear arthropathy (Acute) Left rotator cuff tear arthropathy (Acute) Non-insulin treated type 2 diabetes mellitus (Acute) Displaced intertrochanteric fracture of right femur (Acute 09/16/19) Status post trochanteric nailing 09/17/2019 Visual disturbance (Acute) CAD (coronary artery disease) (Chronic) Depression (Chronic) Hypertension (Chronic) PVD (peripheral vascular disease) (Chronic) RLS (restless legs syndrome) (Acute) Vertigo (Acute) Kidney stones (Chronic) COPD (chronic obstructive pulmonary disease) (Chronic) Sleep apnea (Acute) BPH (benign prostatic hyperplasia) (Chronic) Aortic valve stenosis (Chronic) DVT prophylaxis (Acute) Discharge planning issues (Acute) Depression (Chronic) Hypercholesteremia (Acute) Diabetes (Chronic) Falls (Acute) Rib fractures (Acute) Active Problem List Rupture of right proximal biceps tendon (Acute) Right rotator cuff tear arthropathy (Acute) Left rotator cuff tear arthropathy (Acute) Non-insulin treated type 2 diabetes mellitus (Acute) Displaced intertrochanteric fracture of right femur (Acute 09/16/19) Visual disturbance (Acute) CAD (coronary artery disease) (Chronic) Depression (Chronic) Hypertension (Chronic) PVD (peripheral vascular disease) (Chronic) RLS (restless legs syndrome) (Acute) Vertigo (Acute) Kidney stones (Chronic) COPD (chronic obstructive pulmonary disease) (Chronic) Sleep apnea (Acute) BPH (benign prostatic hyperplasia) (Chronic) Aortic valve stenosis (Chronic) DVT prophylaxis (Acute) Discharge planning issues (Acute) Depression (Chronic) Hypercholesteremia (Acute) Diabetes (Chronic) Falls (Acute) Rib fractures (Acute) Medical History Aortic valve stenosis BPH (benign prostatic hyperplasia) CAD (coronary artery disease) COPD (chronic obstructive pulmonary disease) Diabetes mellitus HTN (hypertension) Hypercholesterolemia Rupture of left proximal biceps tendon Surgical History History of heart artery stent S/P cholecystectomy 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 He also has a grandson and his that live in the basement. His main living quarters are on one floor, with 3 stairs to enter with bilateral rails. Current Functional Limitations: Contact-guard assist with ambulation, with quad cane right hand, sling left upper extremity with ambulation. Equipment Owned/DME: [facility] Subjective: Only having pain in left shoulder with attempted movement, otherwise comfortable at rest. Acknowledges his poor balance, reports that he generally falls whenever attempting to bend forward. Objective: General Observation: Sitting in recliner chair, left arm resting on pillows. IV right cubital fossa Mental Status: A&O x3 Pain: 0/10 at rest, increasing to 5/10 with active left upper extremity movement ROM: Right Upper Extremity: Approximately 90 degrees of flexion abduction shoulder, elbow, wrist and digits WNL Left Upper Extremity: Passive motion allowing for about 80 degrees flexion, abduction 45, scapular 50 degrees, rotation not assessed. Active movement about 40 degrees of flexion, scapular plane 30 degrees. Elbow, wrist, digits WNL active and passive Right Lower Extremity: Grossly WFL Left Lower Extremity: Grossly WFL Strength: Right Upper Extremity: Grossly 4/5 right shoulder all planes, wrist elbow and digits grossly 4/5 Left Upper Extremity: Grossly 3/5 all planes left shoulder, elbow flexion and extension 4+/5, wrist and digits are 4/5 limited by pain referral to shoulder Right Lower Extremity: Grossly 4+/5 Left Lower Extremity: Grossly 4+/5 Sensation: Grossly WNL all extremities Bed Mobility/Transfers: Min assist x1 of lower extremities from edge of bed to supine Sit to stand min assist x1 Stand to sit, close supervision Gait: 100 feet x 2, CG x1. 2 episodes of guarding to prevent fall Two 6 inch step reciprocally with right rail up, three 4 inch steps down reciprocally, right rail, CG throughout. Balance: Static Sitting: Good Dynamic Sitting: Good Static Standing: Poor Dynamic Standing: Poor Stage 4 Balance Test Time (seconds) Feet together 10 with contact-guard Partial tandem 10 with contact-guard Tandem loss of balance One foot unable Special Tests: Mobility Limitations Standardized Measure [facility] AM-PAC 6 clicks Basic Mobility Inpatient Short Form: 50% disability Informed Consent/Education: Patient instructed in purpose of PT consult and plan of care. Assessment: Patient is a 81 year old male referred to physical therapy services S/P left reverse total shoulder arthroplasty 10/25/2021. Patient presents with clinical signs and symptoms consistent with poor balance, and appropriate left upper extremity mobility and strength deficits, gross strength deficits, contributing to transfer activities of imbalance independence of assist with sit to stand, ambulation, and bed mobility to reduce fall risk. Requires use of cane for ambulation, walker not appropriate due to limitations of left upper extremity. 50% disabled per [facility]. Upon discharge patient will have 24 supervision with family support, I do not recommend any dynamic ambulation or transfers without family assist. He is appropriate for continued physical therapy service, which could be completed on an outpatient basis as his daughter would be able to perform transport, however if this is not possible home health PT is necessary particularly for reduction of falls and for rehab of left shoulder. Patient is assessed as moderate complexity History: See comorbidities Examination: See above impairments and functional limitations Presentation: Evolving Decision Making: Easy, [facility] 50% disability Goals: Goals X1 week 1. Supine-Sit close supervision 2. Sit-Supine close supervision 3. Sit-Stand close supervision 4. Stand-Sit close supervision 5. Bed-Chair close supervision with SPC 6. Chair-Bed close supervision with SPC 7. Gait 100 feet with close supervision with SPC 8. Stairs CG, right rail, x5 9. Independent with home exercise program 10. Balance -and expected to change in 1 week's time, will be referred to outpatient service. Plan of Care/Treatment Plan: 1-2x/day, 7 days/week x 1 week. Plan of care has been reviewed with the SHAREPOINT ADMINISTRATOR providing the service under Physical Therapy direction. Initiate Physical Therapy intervention for strengthening, bed mobility, transfers, gait, stairs, balance training, use of assistive device. DISCHARGE RECOMMENDATIONS: Per assessment, home with 24/7 supervision of daughter. Home with outpatient PT, home health transportation cannot be arranged. TREATMENT CODE/TIME: 35 minutes direct and total, [id number]
[2021-10-26 10:53] LABS: Source Nasal/Nares
[2021-10-26 11:42] LABS: Abs Immature Grans 0.03 10^3/uL (0.0-0.06); Absolute Basophil Count 0.02 10^3/uL (0.0-0.2); Absolute Eosinophil Count 0.03 10^3/uL (0.0-0.7); Absolute Monocyte Count 1.11 10^3/uL (0.1-0.8); Basophils % 0.2; Eosinophils % 0.3; HCT 38.3 % (40.0-50.0); HGB 12.9 g/dL (13.5-17.5); Immature Grans % 0.3; Lymphocytes % 8.3; MCH 31.9 pg (27.0-33.0); MCHC 33.7 % (32.0-36.0); MCV 94.6 fL (80-95); MPV 9.1 fL (8.0-11.0); Monocytes % 11.6; Neutrophils % 79.3; Nucleated RBC 0 %; Platelet Count 170 10^3/uL (130-400); RBC 4.05 10^6/uL (4.36-5.78); RDW 12.6 % (11.8-14.1); RDW-SD 43.8 fL; WBC 9.59 10^3/uL (4.4-10.8)
[2021-10-26 11:49] LABS: COVID-19 PCR Negative (Negative)
[2021-10-26 11:53] LABS: BUN 16 mg/dL (7-18); CREATININE 1.4 mg/dL (0.70-1.30); Calcium 8.5 mg/dL (8.5-10.1); Chloride 103 mmol/L (98-107); Estimated GFR 48.76 (mL/min/1.73m2); Glucose 209 mg/dL (74-106); Potassium 3.7 mmol/L (3.5-5.1); Sodium 139 mmol/L (136-145)
[2021-10-26] MEDS: Normal Saline Flush 10 ML SYR IV (12:14)
--- NOTE | 2021-10-26 12:23 | DSE_ITS ---
Date of service: 10/26/21 Time of Service: 12:15 DS: Diagnosis Discharge Diagnosis (1) Rupture of left proximal biceps tendon: Status: Acute (2) Left rotator cuff tear arthropathy: Status: Acute Discharge Plan Disposition Patient Disposition: HOME Condition: Stable Discharge Details Reason For Visit: Left Shoulder Arthritis Admit Date/Time: 10/25/21 16:16 Admit Provider: Arturo Boyce Attending Provider: Arturo Boyce Primary Care Provider: Alejandra Schaffer Hospital Course Hospital Course: Left Reverse TSA 10/26/21. Postoperative course with fevers and tachycardia due to RSV. Home Meds and New Rx's Prescriptions: New naproxen 250 mg tablet 250 mg PO BID PRNQty: 40 RF: 0 tramadol 50 mg Tablet 50 mg PO Q8H PRN PRN (Reason: severe pain) Qty: 12 RF: 0 Continued omeprazole 20 mg Capsule,Delayed Release(Dr/Ec) 20 mg PO BID RF: 0 acetaminophen [Mapap Extra Strength] 500 mg Tablet 1,000 mg PO Q8H Qty: 30 RF: 0 atorvastatin [Lipitor] 40 mg Tablet 60 mg PO DAILY RF: 0 aspirin [Aspir-81] 81 mg Tablet,Delayed Release (Dr/Ec) 81 mg PO DAILY RF: 0 mirtazapine 7.5 mg Tablet 7.5 mg PO QHS RF: 0 duloxetine 60 mg Capsule,Delayed Release(Dr/Ec) 60 mg PO DAILY RF: 0 calcium carbonate-vitamin D3 [Calcium 500 + D] 500 mg(1,250mg) -200 unit Tablet 1 tab PO DAILY RF: 0 Multi-Day Plus Minerals 18 mg iron-400 mcg-25 mcg Tablet 1 tab PO DAILY RF: 0 pramipexole 0.25 mg tablet RF: 0 Discharge Instructions Additional Instructions: Accelerated reverse TSA Protocol Postoperative Weeks 0-6 ?Immobilization: Sling or rest arm at side; may be removed for therapeutic exercises and bathing ?Motion exercises: Immediate gentle active range of motion okay. Start with passive, active assisted, pendulum exercises, elbow range- of-motion exercises, wrist [id number] exercises, and lamination assembler strengthening ?Restrictions: Avoid backwards extension Postoperative Weeks 6-12 ?Immobilization: Sling discontinued ?Motion exercises: Range of motion with a goal of forward flexion to 90? and external rotation of 20? ?Strengthening exercises: Light, resisted forward flexion, external rotation, and abduction limited to isometric exercises and therapy bands with concentric motions only. Continue lamination assembler strengthening ?Restrictions: No resisted internal rotation or backwards extension. No scapular retraction exercises with therapy bands Postoperative Months 3-12 ?Motion exercises: Increase [id number] exercises to achieve full motion, with passive stretching at end ranges ?Strengthening: Begin resisted, internal rotation and backwards extension initially with isometric exercises advancing to light therapy bands and then weights. Advance other shoulder strengthening exercises to include the rotator cuff, deltoid, and scapular stabilizers. Advance to functional strengthening, including plyometric exercises and core strengthening. Note: Protocols may vary based on bone/tissue quality, challenging cases, revisions, and assessment of the surgical repair. Referrals: Arturo Boyce MD [ [facility] STAFF PHYSICIAN] - Activity:: Lt RTSA Equipment/Supplies:: Shoulder cradle Diet:: Encourage fluids Discharge Orders Discharge Orders: Discharge Order (Routine); Ordered 10/26/21 Ordered By: Arturo Boyce DS: Summary Time Spent with Patient providing and/or coordinating discharge services: Less than 30 minutes Status at Discharge Functional status at discharge: independent ambulation Overall status at discharge: patient is progressing back to baseline Mental Status: mental status grossly normal Speech and Movement: speech and movement normal Mood: congruent mood Affect: normal affect Exam Narrative Exam Narrative: Resting in hospital bed. No distress. Alert and oriented. Breathing comfortably on room air. 2+ left radial pulse. Tachycardic, regular rhythm. Left shoulder and arm without significant bruising or edema. Bandage clean dry intact. Intact returning motor and sensation including axillary nerve, elbow flexion, and wrist and hand. Psych Mental Status: mental status grossly normal Speech and Movement: speech and movement normal Mood: congruent mood Affect: normal affect DS: Data Vitals/I&O Vitals and I&O: Vital Signs Temperature 97.7 F 10/25/21 12:11 Temperature Source Skin 10/25/21 12:11 Pulse 93 H 10/25/21 12:11 Pulse Rhythm Regular 10/25/21 11:18 Respiratory Rate 19 10/25/21 12:11 Respiratory Effort 10/25/21 11:18 Respiratory Depth Normal 10/25/21 11:18 Respiratory Pattern Normal 10/25/21 11:18 Blood Pressure 134/90 10/25/21 12:11 Blood Pressure Mean 104 12/16/21 12:11 Blood Pressure Position Supine 10/25/21 12:11 Pulse Oximetry 95 10/25/21 12:11 Oxygen Delivery Method Room Air 10/25/21 12:11 Oxygen Flow Rate 0 10/25/21 12:11 Pain Level 0 10/25/21 12:11 Intake & Output 10/24/21 10/25/21 10/25/21 23:59 11:59 23:59 Intake Total 810 / 810 Balance 810 / 810 Weight 181 lb 5.989 oz Intake: IV 810 / 810 Other: Urine Appearance Clear PFSH All Active Problems Rupture of left proximal biceps tendon (Acute) Rupture of right proximal biceps tendon (Acute) Right rotator cuff tear arthropathy (Acute) Left rotator cuff tear arthropathy (Acute) Non-insulin treated type 2 diabetes mellitus (Acute) Displaced intertrochanteric fracture of right femur (Acute 09/16/19) Status post trochanteric nailing 09/17/2019 Visual disturbance (Acute) CAD (coronary artery disease) (Chronic) Depression (Chronic) Hypertension (Chronic) PVD (peripheral vascular disease) (Chronic) RLS (restless legs syndrome) (Acute) Vertigo (Acute) Kidney stones (Chronic) COPD (chronic obstructive pulmonary disease) (Chronic) Sleep apnea (Acute) BPH (benign prostatic hyperplasia) (Chronic) Aortic valve stenosis (Chronic) DVT prophylaxis (Acute) Discharge planning issues (Acute) Depression (Chronic) Hypercholesteremia (Acute) Diabetes (Chronic) Falls (Acute) Rib fractures (Acute) Medical History Aortic valve stenosis BPH (benign prostatic hyperplasia) CAD (coronary artery disease) COPD (chronic obstructive pulmonary disease) Diabetes mellitus HTN (hypertension) Hypercholesterolemia Surgical History History of heart artery stent S/P cholecystectomy 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
[2021-10-26] MEDS: Normal Saline 1,000 ML 1000 ML IV (13:16)
--- NOTE | 2021-10-26 15:05 | PDOC.CMDIS ---
- If Service Date Differs Date of service: 10/26/21 Time of Service: 15:05 LACE Index Scoring Tool - Questions: Length of Stay (in days): 1 Acuity (Admit via E.D.?): Yes Comorbidities: Diabetes w/o Complication, Chronic Pulmonary Disease E.D. Visits: 0 - Answers: Total Score: 7 Risk of Readmission: Low Risk Care Management Discharge Reason for Hospitalization: rotator cuff tear Discharge Plan: Jim will be discharged home with no new services. He will follow up with his community providers and plan of care and transport with family. Patient/Family Education Needs: Discharge instructions, limitations, follow up plan, Ask Me Three.
== END 2021-10-26 14:33 | disposition home or self-care (01) | DRG 483 ==
LOC: SUR 16:22 → MS 17:09
PROVIDERS: Nurse Practitioner Family; Admitting Provider Student in an Organized Health Care Education/Training Program; PCP Nurse Practitioner Primary Care; Visit Provider Student in an Organized Health Care Education/Training Program
PROC: 0RRK00Z Replacement of Left Shoulder Joint with Reverse Ball and Socket Synthetic Substitute, Open Approach (ICD-10-PCS; CPT 23472; principal; 2021-10-25 12:00)
DX: M75.102 Unspecified rotator cuff tear or rupture of left shoulder, not specified as traumatic (principal); M12.812 Other specific arthropathies, not elsewhere classified, left shoulder; S46.212A Strain of muscle, fascia and tendon of other parts of biceps, left arm, initial encounter; E11.9 Type 2 diabetes mellitus without complications; I25.10 Atherosclerotic heart disease of native coronary artery without angina pectoris; F32.A Depression, unspecified; I10 Essential (primary) hypertension; I73.9 Peripheral vascular disease, unspecified; G25.81 Restless legs syndrome; J44.9 Chronic obstructive pulmonary disease, unspecified; G47.30 Sleep apnea, unspecified; N40.0 Benign prostatic hyperplasia without lower urinary tract symptoms; I35.0 Nonrheumatic aortic (valve) stenosis; E78.00 Pure hypercholesterolemia, unspecified; X58.XXXA Exposure to other specified factors, initial encounter
CPT/HCPCS: 23472; 36410; 76942; 80048; 87040; 87635; 97162; 97165; 97535; 71046; 73030; 85025; C1781; J0690; J2250; J2370; J2405; J3490

== ENCOUNTER → 2021-11-07 08:33 | Outpatient (BNVA) | payer OTHER, SELFPAY | PROVIDERS: PCP Nurse Practitioner Primary Care; Referring Provider Nurse Practitioner Primary Care | DX: Z47.1 Aftercare following joint replacement surgery (principal); M12.812 Other specific arthropathies, not elsewhere classified, left shoulder; G56.01 Carpal tunnel syndrome, right upper limb ==

== ENCOUNTER 2021-11-21 09:38 | Outpatient (CLI) | payer OTHER, SELFPAY ==
--- NOTE | 2021-11-21 08:30 | DI.RAD_ITS ---
Exam(s) XR SHOULDER LT COMPLETE 2+V EXAM: XR SHOULDER LT COMPLETE 2+V CLINICAL HISTORY: left shoulder f/u. TECHNIQUE: 2D digital imaging was performed. COMPARISON: Prior x-rays 10/25/2021 FINDINGS: Stable position alignment of the components of the recently placed reverse prosthesis. No fracture or loosening evident. Healed ipsilateral left rib fractures noted. Also noted in the fi eld of view is left coronary artery stent and stent valve, probably aortic. IMPRESSION: DATA REPOSITORY: RADIATION DOSE DELIVERED:
== END 2021-11-21 09:39 | disposition home or self-care (01) ==
LOC: DIORS 09:38
PROVIDERS: PCP Nurse Practitioner Primary Care; Visit Provider Student in an Organized Health Care Education/Training Program
DX: M12.812 Other specific arthropathies, not elsewhere classified, left shoulder (principal); Z96.612 Presence of left artificial shoulder joint; Z47.1 Aftercare following joint replacement surgery; M25.512 Pain in left shoulder; G56.01 Carpal tunnel syndrome, right upper limb
CPT/HCPCS: 99213; 73030

== ENCOUNTER 2022-01-16 09:16 | Outpatient (CLI) | payer OTHER, SELFPAY ==
--- NOTE | 2022-01-16 09:00 | DI.RAD_ITS ---
Exam(s) XR SHOULDER LT COMPLETE 2+V EXAM: XR SHOULDER LT COMPLETE 2+V CLINICAL HISTORY: left shoulder f/u TECHNIQUE: COMPARISON: CR XR SHOULDER LT COMPLETE 2+V from 11/21/2021 FINDINGS: Two views were obtained and show a reverse shoulder prosthesis in position. The components appear we ll seated. No other significant bony abnormality seen. IMPRESSION: RADIATION DOSE DELIVERED: Total DLP
== END 2022-01-16 09:17 | disposition home or self-care (01) ==
LOC: DIORS 09:16
PROVIDERS: PCP Nurse Practitioner Primary Care; Referring Provider Nurse Practitioner Primary Care; Visit Provider Student in an Organized Health Care Education/Training Program
DX: Z47.1 Aftercare following joint replacement surgery (principal); Z96.612 Presence of left artificial shoulder joint
CPT/HCPCS: 73030

== ENCOUNTER → 2022-02-13 09:54 | Outpatient (BNVA) | payer OTHER, SELFPAY | PROVIDERS: PCP Nurse Practitioner Primary Care; Referring Provider Student in an Organized Health Care Education/Training Program; Visit Provider Nurse Practitioner Adult Health | DX: G56.03 Carpal tunnel syndrome, bilateral upper limbs (principal); G56.23 Lesion of ulnar nerve, bilateral upper limbs; E11.9 Type 2 diabetes mellitus without complications; I10 Essential (primary) hypertension; J44.9 Chronic obstructive pulmonary disease, unspecified | CPT/HCPCS: 95912; 99203; 99214 ==

== ENCOUNTER → 2022-02-15 08:37 | Outpatient (BNVA) | payer OTHER, SELFPAY | PROVIDERS: PCP Nurse Practitioner Primary Care; Referring Provider Nurse Practitioner Primary Care; Visit Provider Student in an Organized Health Care Education/Training Program | DX: G56.01 Carpal tunnel syndrome, right upper limb (principal) | CPT/HCPCS: 99213 ==

== ENCOUNTER 2022-02-25 02:37 | Outpatient (CLI) | payer OTHER, SELFPAY ==
[2022-02-25 12:06] LABS: Source Nasal/Nares
[2022-02-25 15:36] LABS: COVID-19 PCR Negative (Negative)
== END 2022-02-25 02:38 | disposition home or self-care (01) ==
LOC: LBO 02:37
PROVIDERS: PCP Nurse Practitioner Primary Care; Visit Provider Student in an Organized Health Care Education/Training Program
DX: Z20.822 Contact with and (suspected) exposure to COVID-19 (principal); Z01.818 Encounter for other preprocedural examination
CPT/HCPCS: 87635; U0005

== ENCOUNTER 2022-02-26 12:19 | Day surgery (SDC) | payer OTHER, SELFPAY ==
--- NOTE | 2022-02-26 12:09 | W.ANESPRE ---
General Info Date of Service Date Performed: 02/26/22 Height: 6 ft Weight: 82.275 kg Body Mass Index (BMI): 24.5 Surgical Procedure: Operation Date: 02/26/22 16:10 Proposed Procedure Side Surgeon p Wrist ECTR Right Maninder Tafoya MD Meds Allergies and Home Medications Allergies Allergy/AdvReac Type Severity Reaction Status Date / Time simvastatin AdvReac Mild Nausea Verified 02/26/22 12:43 lisinopril AdvReac cough Verified 02/26/22 12:43 Home Medication Medication Instructions Recorded omeprazole 20 mg capsule,delayed 20 mg PO BID 03/16/19 release acetaminophen 500 mg tablet (Mapap 1,000 mg PO Q8H #30 tab 03/20/19 Extra Strength) aspirin 81 mg tablet,delayed 81 mg PO DAILY 09/16/19 release (Aspir-) atorvastatin 40 mg tablet (Lipitor) 60 mg PO DAILY 09/16/19 calcium carbonate 500 mg-vitamin 1 tab PO DAILY 09/16/19 D3 5 mcg (200 unit) tablet (Calcium 500 + D) duloxetine 60 mg capsule,delayed 60 mg PO DAILY 09/16/19 release mirtazapine 7.5 mg tablet 7.5 mg PO QHS 09/16/19 multivit with minerals-iron 18 1 tab PO DAILY 09/16/19 mg-folic ac 400 mcg-vit K 25 mcg tablet (Multi-Day Plus Minerals) pramipexole 0.25 mg tablet 0.25 mg PO DAILY 10/25/21 naproxen 250 mg tablet 250 mg PO BID PRN #40 tab 10/26/21 losartan 25 mg tablet 25 mg PO DAILY 02/26/22 Current Visit Medications: Current Medications Generic Name Dose Route Start Last Admin Trade Name Moiq PRN Reason Stop Dose Admin Ringer's Solution 1,000 mls @ 80 mls/hr 02/26/22 06:00 IV 03/09/22 23:59 INFUSION NADER Cefazolin Sodium/Dextrose 2 gm in 50 mls @ 100 mls/hr 02/26/22 06:00 Ancef Duplex IVPB 02/26/22 23:59 PREOP NADER IV Miscellaneous Supplies 1 each 02/26/22 06:00 Iv Access IV 03/09/22 23:59 DIRECTED NADER Sodium Chloride 0 ml 02/26/22 06:00 Normal Saline Flush 10 Ml Syr IV 03/09/22 23:59 PRN PRN Sodium Chloride 0 ml 02/26/22 06:00 Normal Saline 10 Ml Vial IJ 03/09/22 23:59 DIRECTED PRN Sterile Water 0 ml 02/26/22 06:00 Water,Injection,Sterile 10 Ml Vial IJ 03/09/22 23:59 DIRECTED PRN PFSH Active Problems Active Problems: Problem Status Onset Code Rib fractures S22.39XA Falls W19.XXXA Diabetes E11.9 Hypercholesteremia E78.00 Depression F32.9 Discharge planning issues Z02.9 DVT prophylaxis Aortic valve stenosis I35.0 BPH (benign prostatic hyperplasia) N40.0 Sleep apnea G47.30 COPD (chronic obstructive pulmonary disease) J44.9 Kidney stones N20.0 Vertigo R42 RLS (restless legs syndrome) G25.81 PVD (peripheral vascular disease) I73.9 Hypertension I10 Depression F32.9 CAD (coronary artery disease) I25.10 Visual disturbance H53.9 Displaced intertrochanteric fracture of right femur 09/16/19 S72.141A Non-insulin treated type 2 diabetes mellitus E11.9 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, M12.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.101, M12.811 Rupture of right proximal biceps tendon S46.211A Rupture of left proximal biceps tendon S46.212A Right carpal tunnel syndrome G56.01 Bilateral carpal tunnel syndrome G56.03 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 Medical History Medical History Aortic valve stenosis BPH (benign prostatic hyperplasia) CAD (coronary artery disease) COPD (chronic obstructive pulmonary disease) Diabetes mellitus HTN (hypertension) Hypercholesterolemia Surgical History Surgical History (Updated 02/26/22 @ 12:46 by Cristy Casper) History of heart artery stent History of hip surgery History of reverse total replacement of right shoulder joint (10/25/21) pt states left shoulder Hx of cholecystectomy S/P cholecystectomy 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 Tobacco Smoking/Tobacco Use Status: Former Tobacco Use Alcohol Alcohol Intake: current Alcohol intake frequency: a few times a month Alcohol type: beer Substance Use Substance use: Never Substance use type: does not use Vital Signs and Lab Results Lab Results Blood Type / Crossmatch: No Data to Display Complete Blood Count: No Data to Display Complete Metabolic Panel: No Data to Display Liver Function Panel: No Data to Display Coagulation Panel: No Data to Display Cardiac Panel: No Data to Display Arterial Blood Gas: No Data to Display Venous Blood Gas: No Data to Display Pancreas Panel: No Data to Display Thyroid Panel: No Data to Display Infectious Disease: Coronavirus (COVID-19)(PCR) Negative (Negative) 02/25/22 09:53 02/25/22 Coronavirus 2019 Source Nasal/Nares 02/25/22 09:53 02/25/22 Blood Cultures: No Data to Display Toxicology Panel: No Data to Display Imaging and Studies Imaging and Studies Study information below may be from another EMR and interpreted by another provider. Please see original notes in EMR for more complete details. Echocardiogram Summary: 2019: LVEF 60%, no pHTN, prosthetic valve functioning well. Anesthesia Assessment and Plan Anesthesia History Personal History: No History of Anesthesia Complications Family History: No Family History of Anesthesia Complications Exercise Tolerance Exercise Tolerance: Metabolic Equivalents>4 Pertinent Negatives Pertinent Negatives: No Symptoms of GERD Cardiac & Pulmonary Exam Cardiac Exam: Other Pulmonary Exam: Clear Bilateral Breath Sounds Implantable Cardiac Device Does patient have a Pacemaker or an ICD?: No Airway Exam Known Difficult Airway: No Mallampati Class: 1 Mouth Opening: Normal (> 3cm) Thyromental Distance: Greater than 3 cm Neck Range of Motion: Limited ROM Neck Circumference: Normal Teeth Condition: Edentulous ASA Classification ASA Score: ASA 3 Emergency Case?: No NPO Status NPO Status: NPO Clears >2 hours, Solids >8 hours Anesthesia Plan Resuscitation Status: Full Code Anesthesia Technique: General Anesthesia Airway Planned: Natural Airway Monitors Used: Standard Monitors Preoperative Comments:: 81 yo male for ECTR Sig PMHx: stents x 3/CAD (ASA 81 mg), s/p TAVR 2019, DM, COPD, former smoker, GERD (omep 20 mg). previous airway: adam 2 grade 1. Plan: GA no airway.
--- NOTE | 2022-02-26 12:35 | W.PM.DSUDISC ---
Discharge Plan Disposition Patient Disposition: HOME Condition: Good Discharge Details Reason For Visit: Right ECTR Attending Provider: Maninder Tafoya Primary Care Provider: DEEPA TINOCO Home Meds and New Rx's Prescriptions: Continued omeprazole 20 mg Capsule,Delayed Release(Dr/Ec) 20 mg PO BID 0RF acetaminophen [Mapap Extra Strength] 500 mg Tablet 1,000 mg PO Q8H Qty: 30 0RF atorvastatin [Lipitor] 40 mg Tablet 60 mg PO DAILY 0RF aspirin [Aspir-81] 81 mg Tablet,Delayed Release (Dr/Ec) 81 mg PO DAILY 0RF mirtazapine 7.5 mg Tablet 7.5 mg PO QHS 0RF duloxetine 60 mg Capsule,Delayed Release(Dr/Ec) 60 mg PO DAILY 0RF calcium carbonate-vitamin D3 [Calcium 500 + D] 500 mg(1,250mg) -200 unit Tablet 1 tab PO DAILY 0RF Multi-Day Plus Minerals 18 mg iron-400 mcg-25 mcg Tablet 1 tab PO DAILY 0RF pramipexole 0.25 mg tablet 0.25 mg PO DAILY 0RF Label Comments: TAKE 1 TABLET BY MOUTH DAILY naproxen 250 mg tablet 250 mg PO BID PRNQty: 40 0RF Rx Instructions: take with a meal Discharge Instructions Stand Alone Forms: Lottie Bailey Tunnel Release Referrals: Maninder Tafoya MD [ [facility]] - Activity:: Activity as Tolerated Remove Dressings/Wound Care:: 72 hours Shower/Bathe:: 72 hours Diet:: As Tolerated Discharge Orders Discharge Orders: Discharge Order (Routine); Ordered 02/26/22 Ordered By: Laura Leung DS: Diagnosis Discharge Diagnosis (1) Right carpal tunnel syndrome: Status: Acute
[2022-02-26 12:46] VITALS: BP 149/81; PULSE 71; RESP 16; TEMP 36.6; O2SAT 94
[2022-02-26] MEDS: Lactated Ringers 1,000 ML 80 ML IV (12:59)
--- NOTE | 2022-02-26 13:10 | HPE_ITS ---
Documented by User: RADHA Burris 02/26/22 13:17 Assessment and Plan Assessment and plan (1) Right carpal tunnel syndrome: Status: Acute Assessment and plan: Olegario is an 81 year old male who presents to day surgery for a right ECTR. Has previously had the opportunity to be seen in the office and be evaluated for symptoms which mainly affect his thumb, index and middle finger on the right hand. He elects surgical intervention at this time for definitive therapy. History of diabetes, COPD. Denies changes in vision or flashes of light, chest pain, palpitations, SOB, N/V/D, or nonhealing skin wounds. Denies history stroke, cardiac events, respiratory events requiring hospitalizations or intubation, renal or liver disorders. Denies history of complications from anesthesia. Olegario elects to proceed with a right ECTR. After a review of the presented information and risks the patient was given the opportunity to ask questions, all of which were answered to satisfaction. We will plan to proceed with s cheduled procedure. History of Present Illness History of Present Illness Chief Complaint: right carpal tunnel PFSH All Active Problems Rib fractures (Acute) Falls (Acute) Diabetes (Chronic) Hypercholesteremia (Acute) Depression (Chronic) Discharge planning issues (Acute) DVT prophylaxis (Acute) Aortic valve stenosis (Chronic) BPH (benign prostatic hyperplasia) (Chronic) Sleep apnea (Acute) COPD (chronic obstructive pulmonary disease) (Chronic) Kidney stones (Chronic) Vertigo (Acute) RLS (restless legs syndrome) (Acute) PVD (peripheral vascular disease) (Chronic) Hypertension (Chronic) Depression (Chronic) CAD (coronary artery disease) (Chronic) Visual disturbance (Acute) Displaced intertrochanteric fracture of right femur (Acute 09/16/19) Status post trochanteric nailing 09/17/2019 Non-insulin treated type 2 diabetes mellitus (Acute) Left rotator cuff tear arthropathy (Acute) Status post reverse total shoulder: 10/25/2021 Right rotator cuff tear arthropathy (Acute) Rupture of right proximal biceps tendon (Acute) Rupture of left proximal biceps tendon (Acute) Status post reverse total shoulder Right carpal tunnel syndrome (Acute) Bilateral carpal tunnel syndrome (Acute) 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) Medical History Aortic valve stenosis BPH (benign prostatic hyperplasia) CAD (coronary artery disease) COPD (chronic obstructive pulmonary disease) Diabetes mellitus HTN (hypertension) Hypercholesterolemia Surgical History (Updated 02/26/22 @ 12:46 by Cristy Casper) History of heart artery stent History of hip surgery History of reverse total replacement of right shoulder joint (10/25/21) pt states left shoulder Hx of cholecystectomy S/P cholecystectomy 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 Family History Sister Cancer bladder cancer - she was a smoker Social History Smoking/Tobacco Use Status: Former Tobacco Use Quit Date: 11/10/82 Tobacco: How many years used: 27 Smoking risk assessment performed?: Yes Alcohol Intake: current Alcohol Intake frequency: a few times a month Alcohol type: beer Drug use: Never Substance use type: does not use Current gender identity: male Do you feel safe at home: Yes Do you feel safe in your relationship?: Yes Meds Allergies and Home Medications Allergies Allergy/AdvReac Type Severity Reaction Status Date / Time simvastatin AdvReac Mild Nausea Verified 02/26/22 12:43 lisinopril AdvReac cough Verified 02/26/22 12:43 Home Medications Medication Instructions Recorded Confirmed Type omeprazole 20 mg capsule,delayed 20 mg PO BID 03/16/19 02/26/22 History release acetaminophen 500 mg tablet (Mapap 1,000 mg PO Q8H #30 tab 03/20/19 02/26/22 Rx Extra Strength) aspirin 81 mg tablet,delayed 81 mg PO DAILY 09/16/19 02/26/22 History release (Aspir-) atorvastatin 40 mg tablet (Lipitor) 60 mg PO DAILY 09/16/19 02/26/22 History calcium carbonate 500 mg-vitamin 1 tab PO DAILY 09/16/19 02/26/22 History D3 5 mcg (200 unit) tablet (Calcium 500 + D) duloxetine 60 mg capsule,delayed 60 mg PO DAILY 09/16/19 02/26/22 History release mirtazapine 7.5 mg tablet 7.5 mg PO QHS 09/16/19 02/26/22 History multivit with minerals-iron 18 1 tab PO DAILY 09/16/19 02/26/22 History mg-folic ac 400 mcg-vit K 25 mcg tablet (Multi-Day Plus Minerals) pramipexole 0.25 mg tablet 0.25 mg PO DAILY 10/25/21 02/26/22 History naproxen 250 mg tablet 250 mg PO BID PRN #40 tab 10/26/21 02/26/22 Rx losartan 25 mg tablet 25 mg PO DAILY 02/26/22 02/26/22 History Exam Resp Effort & Inspection: normal respiratory effort and able to speak in complete sentences Auscultation: clear to auscultation bilaterally, no rales, no rhonchi and no wheezes Cardio Rate: regular rate Rhythm: regular rhythm Heart Sounds: S1 normal and S2 normal Pulses: radial pulses present Results Last Vital Signs Temp 97.9 F 02/26/22 12:46 Pulse 71 02/26/22 12:46 Resp 16 02/26/22 12:46 BP 149/81 H 02/26/22 12:46 Pulse Ox 94 02/26/22 12:46 Documented by User: Maninder Tafoya MD 02/26/22 13:36 Assessment and Plan Assessment and plan (1) Right carpal tunnel syndrome: Status: Acute Assessment and plan: Olegario is an 81 year old male who presents to day surgery for a right ECTR. Has previously had the opportunity to be seen in the office and be evaluated for symptoms which mainly affect his thumb, index and middle finger on the right hand. He elects surgical intervention at this time for definitive therapy. History of diabetes, COPD. Denies changes in vision or flashes of light, chest pain, palpitations, SOB, N/V/D, or nonhealing skin wounds. Denies history stroke, cardiac events, respiratory events requiring hospitalizations or intubation, renal or liver disorders. Denies history of complications from anesthesia. Olegario elects to proceed with a right ECTR. After a review of the presented information and risks the patient was given the opportunity to ask questions, all of which were answered to satisfaction. We will plan to proceed with scheduled procedure. I interviewed and examined the patient with Mikaela Leung PA-C. I agree with the documentation as above. The assessment and plan were formulated with my direct involvement. Jim is here for carpal tunnel syndrome which has failed nonoperative treatments. I discussed the technical details of carpal tunnel release and that I perform an endoscopic release, but would make a larger, open, incision if necessary for visualization. I discussed the risks of the procedure to include, but not limited to, bleeding, infection, palmar pain, stiffness, damage to nerves, damage to vessels, damage to tendons, weakness, recurrence, and incomplete release. Given these risks, Jim desires to proceed. Maninder Tafoya MD FAAOS FAAHKS PFSH All Active Problems Rib fractures (Acute) Falls (Acute) Diabetes (Chronic) Hypercholesteremia (Acute) Depression (Chronic) Discharge planning issues (Acute) DVT prophylaxis (Acute) Aortic valve stenosis (Chronic) BPH (benign prostatic hyperplasia) (Chronic) Sleep apnea (Acute) COPD (chronic obstructive pulmonary disease) (Chronic) Kidney stones (Chronic) Vertigo (Acute) RLS (restless legs syndrome) (Acute) PVD (peripheral vascular disease) (Chronic) Hypertension (Chronic) Depression (Chronic) CAD (coronary artery disease) (Chronic) Visual disturbance (Acute) Displaced intertrochanteric fracture of right femur (Acute 09/16/19) Status post trochanteric nailing 09/17/2019 Non-insulin treated type 2 diabetes mellitus (Acute) Left rotator cuff tear arthropathy (Acute) Status post reverse total shoulder: 10/25/2021 Right rotator cuff tear arthropathy (Acute) Rupture of right proximal biceps tendon (Acute) Rupture of left proximal biceps tendon (Acute) Status post reverse total shoulder Right carpal tunnel syndrome (Acute) Bilateral carpal tunnel syndrome (Acute) 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) Medical History Aortic valve stenosis BPH (benign prostatic hyperplasia) CAD (coronary artery disease) COPD (chronic obstructive pulmonary disease) Diabetes mellitus HTN (hypertension) Hypercholesterolemia Surgical History (Updated 02/26/22 @ 12:46 by Cristy Casper) History of heart artery stent History of hip surgery History of reverse total replacement of right shoulder joint (10/25/21) pt states left shoulder Hx of cholecystectomy S/P cholecystectomy 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 Family History Sister Cancer bladder cancer - she was a smoker Social History Smoking/Tobacco Use Status: Former Tobacco Use Quit Date: 11/10/82 Tobacco: How many years used: 27 Smoking risk assessment performed?: Yes Alcohol Intake: current Alcohol Intake frequency: a few times a month Alcohol type: beer Drug use: Never Substance use type: does not use Current gender identity: male Do you feel safe at home: Yes Do you feel safe in your relationship?: Yes Meds Allergies and Home Medications Allergies Allergy/AdvReac Type Severity Reaction Status Date / Time simvastatin AdvReac Mild Nausea Verified 02/26/22 12:43 lisinopril AdvReac cough Verified 02/26/22 12:43 Home Medications Medication Instructions Recorded Confirmed Type omeprazole 20 mg capsule,delayed 20 mg PO BID 03/16/19 02/26/22 History release acetaminophen 500 mg tablet (Mapap 1,000 mg PO Q8H #30 tab 03/20/19 02/26/22 Rx Extra Strength) aspirin 81 mg tablet,delayed 81 mg PO DAILY 09/16/19 02/26/22 History release (Aspir-) atorvastatin 40 mg tablet (Lipitor) 60 mg PO DAILY 09/16/19 02/26/22 History calcium carbonate 500 mg-vitamin 1 tab PO DAILY 09/16/19 02/26/22 History D3 5 mcg (200 unit) tablet (Calcium 500 + D) duloxetine 60 mg capsule,delayed 60 mg PO DAILY 09/16/19 02/26/22 History release mirtazapine 7.5 mg tablet 7.5 mg PO QHS 09/16/19 02/26/22 History multivit with minerals-iron 18 1 tab PO DAILY 09/16/19 02/26/22 History mg-folic ac 400 mcg-vit K 25 mcg tablet (Multi-Day Plus Minerals) pramipexole 0.25 mg tablet 0.25 mg PO DAILY 10/25/21 02/26/22 History naproxen 250 mg tablet 250 mg PO BID PRN #40 tab 10/26/21 02/26/22 Rx losartan 25 mg tablet 25 mg PO DAILY 02/26/22 02/26/22 History
[2022-02-26] MEDS: ceFAZolin 2 GM/50 ML BAG IVPB (13:30)
[2022-02-26] MEDS: Sodium Bicarbonate 50 MEQ/50 ML VIAL (13:38)
[2022-02-26 13:50] VITALS: BP 123/74; PULSE 82; RESP 20; TEMP 36.3; O2SAT 94
[2022-02-26 13:52] VITALS: BMI 24.5
--- NOTE | 2022-02-26 13:52 | W.ANESPOSTOP ---
Postoperative Evaluation Date, Time and Location Date Performed: 02/26/22 Time Performed: 13:52 Patient Location: Day Surgery Unit Vital Signs Most Recent Imported Vital Signs: Most Recent Vital Signs Temp Pulse Resp BP Pulse Ox 36.6 C 71 16 149/81 H 94 02/26/22 12:46 02/26/22 12:46 02/26/22 12:46 02/26/22 12:46 02/26/22 12:46 Pain Score Most Recent Pain Score: Most Recent Pain Score Pain Level 0 02/26/22 12:46 Assessment Mental Status: Arousable with meaningful communication Airway and Respiratory Function: Patent airway with normal (patient baseline) respiratory exam Cardiovascular Function: Hemodynamically Stable Hydration Status: Adequately Hydrated Nausea & Vomiting: No Nausea or Vomiting Pain: Pt. Denies Any Pain Peripheral Nerve Block: Patient did not receive a nerve block
[2022-02-26 14:24] VITALS: BP 125/77; PULSE 81; RESP 18; TEMP 36.2; O2SAT 94
--- NOTE | 2022-02-26 21:36 | W.PM.OP ---
Date of service: 02/26/22 Time of Service: 14:00 Operative Note Operative Note DATE OF PROCEDURE: 02/26/22 PRE-OP DIAGNOSIS: Right Carpal Tunnel Syndrome POST-OP DIAGNOSIS: same PROCEDURE: Right Endoscopic Carpal Tunnel Release SURGEON: Maninder Tafoya ANESTHESIA TYPE: General:No Airway Refer to Anesthesia Record ESTIMATED BLOOD LOSS: 0 PATHOLOGY: none sent TOURNIQUET TIME: 4 COMPLICATIONS: None Patient was transported to: same day Patient's condition: stable Indications: I have seen [facility] for symptoms of carpal tunnel syndrome. The numbness, tingling, and pain limited function. Clinical exam findings with nerve conduction tests confirmed the diagnosis of carpal tunnel syndrome. Nonoperative measures such as bracing, time, activity modifications had been tried but disability and pain persisted. I discussed carpal tunnel release with the patient. I reviewed the risks of the procedure to include, but not limited to, bleeding, infection, pain, stiffness, incomplete release, damage to nerves or vessels, persistent numbness, recurrence. Despite these risks, the patient elected to proceed. Findings: There was tightened carpal tunnel. This was dilated and released successfully with the endoscopic with increased space within the tunnel. The antebrachial fascia was released proximally freeing the median nerve at the wrist. Procedure Description: Jim was greeted in the preoperative holding area where the correct side was identified and marked. The consent was reviewed with the patient and signed. The history and physical was updated. All questions were answered. He was taken back to the operating room. The patient was placed into the supine position on the operating room table with the right arm on an arm board. A nonsterile tourniquet was placed high onto the arm. All bony prominences were well padded. Prophylactic antibiotics in the form of Cefazolin were administered. The right arm was then prepped with Chloraprep and draped in a standard fashion with stockinette and extremity drape. A timeout to confirm correct identity, side and site, procedure, allergies, anesthesia, and medical concerns was performed. The surgical site was marked in the volar wrist creases in line with the radial border of the fourth ray. This area was anesthetized with approximately 6cc of 1% Lidocaine. The limb was then exsanguinated with an Esmarch. The skin was incised with a 15 blade, approximately 1cm. The skin only was cut and the deeper tissue was dissected bluntly with a tenotomy scissor, avoiding passing nerve and venous structures. The fascia was penetrated and opened bluntly. A two-prong skin hook was placed under this proximal fascial edge. A series of hamate finders were used to identify and dilate the carpal tunnel. Synovial elevator was used to free synovial attachments to the underside of the transverse carpal ligament. My thumb was kept in the palm to leslie the distal extent of the carpal tunnel and correctly position the hand. The Microaire endoscope was inserted without difficulty and without resistance. Excellent visualization showed horizontally running fibers of the transverse carpal ligament (TCL). The distal extent of the TCL was visualized and the end of the scope palpated with the thumb. The blade was elevated and withdrawn from distal to proximal. The TCL was split into two flaps. The endoscope was reinserted to confirm complete release and any remnant ligament was incised. The scope was withdrawn and the proximal aspect of the carpal tunnel was grossly inspected and appeared release with the median nerve visible. The antebrachial fascia at the level of the wrist was then freed from the overlying skin and then the underlying median nerve with blunt dissection. This was transected longitudinally for about 3cm proximal to the wrist incision. The wound was then irrigated with easy flow of irrigant distally and proximally. The incision was closed with a single 4-0 Nylon suture. The wound was dressed with Xeroform, Gauze, Kerlix and Paul. The tourniquet was deflated with the initial dressing and held with some pressure. Blood flow returned easily to all digits with capillary refill less than 2 seconds. The patient tolerated the procedure well and was returned to the Same Day Surgery area in a stable condition suffering no known complication.
== END 2022-02-26 14:50 | disposition home or self-care (01) ==
PROVIDERS: PCP Internal Medicine; Visit Provider Student in an Organized Health Care Education/Training Program
PROC: 01N54ZZ Release Median Nerve, Percutaneous Endoscopic Approach (ICD-10-PCS; CPT 29848; principal; 2022-02-26 16:00)
DX: G56.01 Carpal tunnel syndrome, right upper limb (principal); E11.9 Type 2 diabetes mellitus without complications; I25.10 Atherosclerotic heart disease of native coronary artery without angina pectoris; J44.9 Chronic obstructive pulmonary disease, unspecified; I10 Essential (primary) hypertension
CPT/HCPCS: 29848; J0690; J2001

== ENCOUNTER → 2022-03-07 09:24 | Outpatient (BNVA) | payer OTHER, SELFPAY | PROVIDERS: PCP Internal Medicine; Referring Provider Nurse Practitioner Primary Care; Visit Provider Physician Assistant | DX: G56.01 Carpal tunnel syndrome, right upper limb (principal); Z47.89 Encounter for other orthopedic aftercare ==

== ENCOUNTER 2022-03-20 11:02 | Outpatient (CLI) | payer OTHER, SELFPAY ==
--- NOTE | 2022-03-20 10:15 | DI.RAD_ITS ---
Exam(s) XR SHOULDER LT COMPLETE 2+V EXAM: XR SHOULDER LT COMPLETE 2+V INDICATION: left shoulder f/u. COMPARISON: CR XR SHOULDER LT COMPLETE 2+V from 01/16/2022 TECHNIQUE: 2D digital imaging was performed. Two views. FINDINGS: There has been no change in the alignment of the reverse shoulder prosthesis. No surrounding bony nathalie cencies. No acute fracture is present. Old left rib fractures. DATA REPOSITORY: RADIATION DOSE DELIVERED:
== END 2022-03-20 11:03 | disposition home or self-care (01) ==
LOC: DIORS 11:02
PROVIDERS: PCP Internal Medicine; Referring Provider Internal Medicine; Visit Provider Student in an Organized Health Care Education/Training Program
DX: Z96.612 Presence of left artificial shoulder joint (principal); S46.212S Strain of muscle, fascia and tendon of other parts of biceps, left arm, sequela; M12.812 Other specific arthropathies, not elsewhere classified, left shoulder; Z98.890 Other specified postprocedural states
CPT/HCPCS: 99213; 73030

== ENCOUNTER → 2022-05-20 12:45 | Outpatient (BNVA) | payer OTHER, SELFPAY | PROVIDERS: PCP Internal Medicine; Referring Provider Internal Medicine; Visit Provider Student in an Organized Health Care Education/Training Program | DX: G56.01 Carpal tunnel syndrome, right upper limb (principal); G56.02 Carpal tunnel syndrome, left upper limb ==

== ENCOUNTER 2022-10-23 14:07 | Outpatient (CLI) | payer OTHER, SELFPAY ==
--- NOTE | 2022-10-23 13:45 | DI.RAD_ITS ---
Exam(s) XR SHOULDER LT COMPLETE 2+V EXAM: XR SHOULDER LT COMPLETE 2+V CLINICAL HISTORY: left shoulder pain. TECHNIQUE: 2D digital imaging was performed. Three images were obtained. AP, Y and axillary views w ere obtained. COMPARISON: CR XR SHOULDER LT COMPLETE 2+V from 03/20/2022 FINDINGS: BONES: There are stable post operative changes present. No fracture or dislocation. There are old he aled rib fractures. JOINTS: The orthopedic hardware is in good position. No evidence of hardware loosening. SOFT TISSUE: Normal. IMPRESSION: Stable postoperative changes. DATA REPOSITORY: RADIATION DOSE DELIVERED:
== END 2022-10-23 14:08 | disposition home or self-care (01) ==
LOC: DIORS 14:08
PROVIDERS: PCP Internal Medicine; Referring Provider Internal Medicine; Visit Provider Student in an Organized Health Care Education/Training Program
DX: M75.102 Unspecified rotator cuff tear or rupture of left shoulder, not specified as traumatic (principal); M12.812 Other specific arthropathies, not elsewhere classified, left shoulder; S46.212S Strain of muscle, fascia and tendon of other parts of biceps, left arm, sequela; G56.02 Carpal tunnel syndrome, left upper limb; G56.22 Lesion of ulnar nerve, left upper limb; Z96.612 Presence of left artificial shoulder joint
CPT/HCPCS: 99213; 73030

== ENCOUNTER 2022-10-29 10:33 | Emergency (ER) | payer OTHER, SELFPAY ==
[2022-10-29 10:37] VITALS: BP 137/82; PULSE 97; RESP 18; TEMP 37.1; O2SAT 95
[2022-10-29 11:53] VITALS: BP 147/76; PULSE 93; RESP 16; TEMP 36.5; O2SAT 93
--- NOTE | 2022-10-29 12:05 | ED.GENADUL_ITS ---
Discharge Plan Disposition Patient Disposition: Home Condition: Stable Discharge Details Clinical Impression: Right rib fracture Primary Care Provider: DEEPA TINOCO ED Provider: Greg Willoughby Home Meds and New Rx's Prescriptions: No Action omeprazole 20 mg Capsule,Delayed Release(Dr/Ec) 20 mg PO BID acetaminophen [Mapap Extra Strength] 500 mg Tablet 1,000 mg PO Q8H Qty: 30 0RF atorvastatin [Lipitor] 40 mg Tablet 60 mg PO DAILY aspirin [Aspir-81] 81 mg Tablet,Delayed Release (Dr/Ec) 81 mg PO DAILY mirtazapine 7.5 mg Tablet 7.5 mg PO QHS duloxetine 60 mg Capsule,Delayed Release(Dr/Ec) 60 mg PO DAILY calcium carbonate-vitamin D3 [Calcium 500 + D] 500 mg(1,250mg) -200 unit Tablet 1 tab PO DAILY Multi-Day Plus Minerals 18 mg iron-400 mcg-25 mcg Tablet 1 tab PO DAILY pramipexole 0.25 mg tablet 0.25 mg PO DAILY Label Comments: TAKE 1 TABLET BY MOUTH DAILY naproxen 250 mg tablet 250 mg PO BID PRNQty: 40 0RF Rx Instructions: take with a meal losartan 25 mg tablet 25 mg PO DAILY Label Comments: TAKE 1 TABLET BY MOUTH EVERY DAY Discharge Instructions Instructions: How to Use an Incentive Spirometer (ED), Rib Fracture (ED), Fall Prevention for Older Adults (ED) Additional Instructions: Please take ibuprofen over the counter. Take 600mg by mouth every 6 hours as needed for pain. Please take acetaminophen (tylenol) - 650mg every 6 hours by mouth as needed for pain. Use lidocaine patch. These are [id number]. Dose according to label. Use incentive spirometer every 2 hours while awake for the next 1 week. Please contact your primary care physician to arrange follow-up. Return to the ER immediately for any worsening or new concerning symptoms. Referrals: DEEPA TINOCO [Primary Care Provider] - Discharge Data Discharge Date/Time-TO BE ENTERED AT DEPARTURE: 10/29/22 13:53 Medical Decision Making 82-year-old male presents 1 week after slip and fall on ice with injury to his right ribs. He has pain with any deep inspiration. Patient saturating well in no respiratory distress. Ibuprofen and Tylenol was administered. Lidocaine patch was placed. Concern for fracture. X-ray was obtained. cxr with right ribs interpreted by radiology: IMPRESSION: 1. Right 10th and 11th rib fractures appear subacute.? 2. No ipsilateral lung nor pleural abnormality evident.? No pneumothorax. Usual and customary discharge instructions reviewed with the patient. HPI General Mode of arrival: ambulatory . Date/Time Provider Initiated Documentation: 10/29/22 11:14 . Limitations to Documentation: no limitations . Information obtained by: patient . HPI Narrative: 82-year-old male presents with chief complaint of right rib pain. Patient notes that 1 week he had a slip and fall on ice and injured his right ribs. He has had pain since the fall. Pain is worse with deep inspiration. Pain is sharp. No other injury sustained. He denies shortness of breath. Related Data Home Medications Medication Instructions Recorded Confirmed omeprazole 20 mg capsule,delayed 20 mg PO BID 03/16/19 10/29/22 release acetaminophen 500 mg tablet (Mapap 1,000 mg PO Q8H #30 tabs 03/20/19 10/29/22 Extra Strength) aspirin 81 mg tablet,delayed 81 mg PO DAILY 09/16/19 10/29/22 release (Aspir-) atorvastatin 40 mg tablet (Lipitor) 60 mg PO DAILY 09/16/19 10/29/22 calcium carbonate 500 mg-vitamin 1 tab PO DAILY 09/16/19 10/29/22 D3 5 mcg (200 unit) tablet (Calcium 500 + D) duloxetine 60 mg capsule,delayed 60 mg PO DAILY 09/16/19 10/29/22 release mirtazapine 7.5 mg tablet 7.5 mg PO QHS 09/16/19 10/29/22 multivit with minerals-iron 18 1 tab PO DAILY 09/16/19 10/29/22 mg-folic ac 400 mcg-vit K 25 mcg tablet (Multi-Day Plus Minerals) pramipexole 0.25 mg tablet 0.25 mg PO DAILY 10/25/21 10/29/22 naproxen 250 mg tablet 250 mg PO BID PRN #40 tabs 10/26/21 10/29/22 losartan 25 mg tablet 25 mg PO DAILY 02/26/22 10/29/22 Previous Rx's Medication Instructions Recorded acetaminophen 500 mg tablet (Mapap 1,000 mg PO Q8H #30 tabs 03/20/19 Extra Strength) naproxen 250 mg tablet 250 mg PO BID PRN #40 tabs 10/26/21 Allergies Allergy/AdvReac Type Severity Reaction Status Date / Time simvastatin AdvReac Mild Nausea Verified 10/29/22 10:40 lisinopril AdvReac cough Verified 10/29/22 10:40 General Stated Complaint: Fall/Non TraumaCriteria EZEKIEL: 4 Review of Systems All systems reviewed & are unremarkable except as noted in HPI and below Gastrointestinal Gastrointestinal: Denies abdominal pain Musculoskeletal Musculoskeletal: Reports as per HPI PFSH All Active Problems (Updated 10/29/22 @ 13:25 by Greg Willoughby MD) Right rib fracture (Acute) Cubital tunnel syndrome on left (Acute) Left carpal tunnel syndrome (Acute) Rib fractures (Acute) Falls (Acute) Diabetes (Chronic) Hypercholesteremia (Acute) Depression (Chronic) Discharge planning issues (Acute) DVT prophylaxis (Acute) Aortic valve stenosis (Chronic) BPH (benign prostatic hyperplasia) (Chronic) Sleep apnea (Acute) COPD (chronic obstructive pulmonary disease) (Chronic) Kidney stones (Chronic) Vertigo (Acute) RLS (restless legs syndrome) (Acute) PVD (peripheral vascular disease) (Chronic) Hypertension (Chronic) Depression (Chronic) CAD (coronary artery disease) (Chronic) Visual disturbance (Acute) Displaced intertrochanteric fracture of right femur (Acute 09/16/19) Status post trochanteric nailing 09/17/2019 Non-insulin treated type 2 diabetes mellitus (Acute) Left rotator cuff tear arthropathy (Acute) Status post reverse total shoulder: 10/25/2021 Right rotator cuff tear arthropathy (Acute) Rupture of right proximal biceps tendon (Acute) Rupture of left proximal biceps tendon (Acute) Status post reverse total shoulder Right carpal tunnel syndrome (Acute 02/26/22) s/p right ECTR Bilateral carpal tunnel syndrome (Acute) 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) Medical History (Updated 10/29/22 @ 13:25 by Greg Willoughby MD) Aortic valve stenosis BPH (benign prostatic hyperplasia) CAD (coronary artery disease) COPD (chronic obstructive pulmonary disease) Diabetes mellitus HTN (hypertension) Hypercholesterolemia Surgical History (Updated 03/07/22 @ 09:19 by Ilana Arana) History of heart artery stent History of hip surgery History of reverse total replacement of right shoulder joint (10/25/21) pt states left shoulder Hx of cholecystectomy S/P cholecystectomy 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 Family History Sister Cancer bladder cancer - she was a smoker Social History Smoking/Tobacco Use Status: Former Tobacco Use Quit Date: 11/10/82 Tobacco: How many years used: 27 Smoking risk assessment performed?: Yes Alcohol Intake: current Alcohol Intake frequency: a few times a month Alcohol type: beer Drug use: Never Substance use type: does not use Current gender identity: male Do you feel safe at home: Yes Do you feel safe in your relationship?: Yes Exam Const General: cooperative and no acute distress HENMT Head: normocephalic and atraumatic Neck Neck: supple Chest Chest: no crepitus and tenderness rib (rt mid lateral) Resp Auscultation: clear to auscultation bilaterally, no rales, no rhonchi and no wheezes Cardio Rate: regular rate and not tachycardic Rhythm: regular rhythm GI Palpation: soft, not firm, no guarding, no masses, not rigid and nontender Back/Spine/Pelvis Cervical Spine: cervical ROM normal and No cervical spinal tenderness Thoracic/Lumbar Spine: thoracic and lumbar spine normal to inspection, No thoracic spinal tenderness and No lumbar spinal tenderness Skin General skin exam: no rashes or lesions noted Neuro General: patient alert, patient awake, patient oriented x3 and tone normal Course Vital Signs Vital signs: Vital Signs Temperature 37.1 C 10/29/22 10:37 Pulse 97 H 10/29/22 10:37 Respiratory Rate 18 10/29/22 10:37 Blood Pressure 137/82 10/29/22 10:37 Pulse Oximetry 95 10/29/22 10:37 Temperature 36.5 C 10/29/22 11:53 Temperature Source Tympanic 10/29/22 11:53 Pulse 93 H 10/29/22 11:53 Respiratory Rate 16 10/29/22 11:53 Respiratory Effort Non-Labored 10/29/22 10:41 Blood Pressure 147/76 H 10/29/22 11:53 Blood Pressure Position Sitting 10/29/22 10:37 Pulse Oximetry 93 10/29/22 11:53 Oxygen Delivery Method Room Air 10/29/22 11:53 Oxygen Flow Rate 0 10/29/22 11:53 PAWSS Have you Been Recently Intoxicated or Drunk Within the Last 30 days?: No Have you Ever Experienced Previous Episodes of Alcohol Withdrawal?: No Have you ever Experienced Withdrawal Seizures?: No Have you ever Experienced Delirium Tremens(DT)s?: No Have you ever undergone Alcohol Rehabilitation Treatment (i.e, inpt ot outpatient treatment programs)?: No Have you ever Experienced Blackouts?: No Have you ever Combined Alcohol with other Downers within the last 90 days?: No Have you ever Combined Alcohol with any other Substance of Abuse during the last 90 days?: No Positive Blood Alcohol level on Presentation? [PCS.BAL]: No Evidence of Increased Autonomic Activity (i.e. HR>120, tremor, sweating, agitation, nausea)?: No Result: 0
[2022-10-29] MEDS: Ibuprofen 600 MG TAB PO (12:10)
[2022-10-29] MEDS: Acetaminophen 325 MG TAB 650 MG PO (12:12)
[2022-10-29] MEDS: Lidocaine 5% Patch 1 PATCH TP (12:13)
--- NOTE | 2022-10-29 12:30 | DI.RAD_ITS ---
Exam(s) XR RIBS RT W PA LAT CHEST EXAM: XR RIBS RT W PA LAT CHEST CLINICAL HISTORY: fall 1 week ago, pain TECHNIQUE: 2D digital imaging was performed. COMPARISON: CR XR CHEST 2V PA LATERAL from 10/26/2021 FINDINGS: Total 6 views: RIBS 3 VIEWS-RIGHT There are adjacent fractures of the right 10th and 11th ribs which appear subacute and nondisplaced. CXR- 2 VIEWS: Heart size upper normal. Aortic valve TAVR noted, similar to previous study. Left shoulder reverse prosthesis also acute. Hiatal hernia again evident moderate size, unchanged. There are no confluent infiltrates and there are no pleural effusions. No pneumothorax. No ominous pulmonary nodules. IMPRESSION: 1. Right 10th and 11th rib fractures appear subacute. 2. No ipsilateral lung nor pleural abnormality evident. No pneumothorax. DATA REPOSITORY: RADIATION DOSE DELIVERED:
== END 2022-10-29 13:53 | disposition home or self-care (01) ==
PROVIDERS: Emergency Provider Student in an Organized Health Care Education/Training Program; PCP Internal Medicine
DX: S22.41XA Multiple fractures of ribs, right side, initial encounter for closed fracture (principal); J44.9 Chronic obstructive pulmonary disease, unspecified; I10 Essential (primary) hypertension; E11.9 Type 2 diabetes mellitus without complications; Z79.82 Long term (current) use of aspirin; W00.0XXA Fall on same level due to ice and snow, initial encounter
CPT/HCPCS: 99283; 71046; 71100

== ENCOUNTER 2022-11-08 07:46 | Day surgery (SDC) | payer OTHER, SELFPAY ==
[2022-11-08] VITALS (8 sets, daily range): BP systolic 132–159; BP diastolic 50–86; PULSE 87–99; RESP 13–18; TEMP 36.2–36.8; O2SAT 92–98; BMI 23.3
--- NOTE | 2022-11-08 08:41 | W.ANESPRE ---
General Info Date of Service Date Performed: 11/08/22 Height: 6 ft Weight: 78.1 kg Body Mass Index (BMI): 23.3 Surgical Procedure: Operation Date: 11/08/22 10:10 Proposed Procedure Side Surgeon p Wrist ECTR Left Maninder Tafoya MD s Cubital Tunnel Release Left Maninder Tafoya MD Meds Allergies and Home Medications Allergies Allergy/AdvReac Type Severity Reaction Status Date / Time simvastatin AdvReac Mild Nausea Verified 11/08/22 08:17 lisinopril AdvReac cough Verified 11/08/22 08:17 Home Medication Medication Instructions Recorded omeprazole 20 mg capsule,delayed 20 mg PO BID 03/16/19 release aspirin 81 mg tablet,delayed 81 mg PO DAILY 09/16/19 release (Aspir-) atorvastatin 40 mg tablet (Lipitor) 60 mg PO DAILY 09/16/19 calcium carbonate 500 mg-vitamin 1 tab PO DAILY 09/16/19 D3 5 mcg (200 unit) tablet (Calcium 500 + D) duloxetine 60 mg capsule,delayed 60 mg PO DAILY 09/16/19 release mirtazapine 7.5 mg tablet 7.5 mg PO QHS 09/16/19 multivit with minerals-iron 18 1 tab PO DAILY 09/16/19 mg-folic ac 400 mcg-vit K 25 mcg tablet (Multi-Day Plus Minerals) pramipexole 0.25 mg tablet 0.25 mg PO HS 10/25/21 losartan 25 mg tablet 25 mg PO HS 02/26/22 acetaminophen 500 mg tablet 500 mg PO Q6H PRN pain #60 tabs 11/08/22 hydrocodone 5 mg-acetaminophen 325 1 tab PO Q6H PRN severe pain #6 11/08/22 mg tablet tabs ibuprofen 600 mg tablet 600 mg PO TID PRN pain #60 tabs 11/08/22 Current Visit Medications: Current Medications Generic Name Dose Route Start Last Admin Trade Name Freq PRN Reason Stop Dose Admin Ringer's Solution 1,000 mls @ 80 mls/hr 11/08/22 06:00 IV 12/07/22 23:59 INFUSION NADER Cefazolin Sodium/Dextrose 2 gm in 50 mls @ 100 mls/hr 11/08/22 06:00 Ancef Duplex IVPB 12/07/22 23:59 PREOP NADER IV Miscellaneous Supplies 1 each 11/08/22 06:00 Iv Access IV 12/07/22 23:59 DIRECTED NADER Sodium Chloride 0 ml 11/08/22 06:00 Normal Saline Flush 10 Ml Syr IV 12/07/22 23:59 PRN PRN Sodium Chloride 0 ml 11/08/22 06:00 Normal Saline 10 Ml Vial IJ 12/07/22 23:59 DIRECTED PRN Sterile Water 0 ml 11/08/22 06:00 Water,Injection,Sterile 10 Ml Vial IJ 12/07/22 23:59 DIRECTED PRN PFSH Active Problems Active Problems: Problem Status Onset Code Rib fractures S22.39XA Falls W19.XXXA Diabetes E11.9 Hypercholesteremia E78.00 Depression F32.9 Discharge planning issues Z02.9 DVT prophylaxis Aortic valve stenosis I35.0 BPH (benign prostatic hyperplasia) N40.0 Sleep apnea G47.30 COPD (chronic obstructive pulmonary disease) J44.9 Kidney stones N20.0 Vertigo R42 RLS (restless legs syndrome) G25.81 PVD (peripheral vascular disease) I73.9 Hypertension I10 Depression F32.9 CAD (coronary artery disease) I25.10 Visual disturbance H53.9 Displaced intertrochanteric fracture of right femur 09/16/19 S72.141A Non-insulin treated type 2 diabetes mellitus E11.9 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, M12.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.101, M12.811 Rupture of right proximal biceps tendon S46.211A Rupture of left proximal biceps tendon S46.212A Right carpal tunnel syndrome 02/26/22 G56.01 Bilateral carpal tunnel syndrome G56.03 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 Left carpal tunnel syndrome G56.02 Cubital tunnel syndrome on left G56.22 Right rib fracture S22.31XA Medical History Medical History Aortic valve stenosis BPH (benign prostatic hyperplasia) CAD (coronary artery disease) COPD (chronic obstructive pulmonary disease) Diabetes mellitus HTN (hypertension) Hypercholesterolemia Medical History Comments:: pt. reports a little bit of chest with exertion, hasnt taken nitro for about a year for it. Pt. reports broken ribs 2 weeks ago, came to ER on week ago, 2 broken on R side, pt. 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 Tobacco Smoking/Tobacco Use Status: Former Tobacco Use Alcohol Alcohol Intake: current Alcohol intake frequency: a few times a month Alcohol type: beer Substance Use Substance use: Never Substance use type: does not use Details: alcohol: t-14 Vital Signs and Lab Results Vital Signs Most Recent Vital Signs in EMR: Most Recent Vital Signs Temp Pulse Resp BP Pulse Ox 36.5 C 87 16 133/73 98 11/08/22 08:23 11/08/22 08:23 11/08/22 08:23 11/08/22 08:23 11/08/22 08:23 Lab Results Blood Type / Crossmatch: No Data to Display Complete Blood Count: No Data to Display Complete Metabolic Panel: No Data to Display Liver Function Panel: No Data to Display Coagulation Panel: No Data to Display Cardiac Panel: No Data to Display Arterial Blood Gas: No Data to Display Venous Blood Gas: No Data to Display Pancreas Panel: No Data to Display Thyroid Panel: No Data to Display Infectious Disease: No Data to Display Blood Cultures: No Data to Display Toxicology Panel: No Data to Display Imaging and Studies Imaging and Studies Study information below may be from another EMR and interpreted by another provider. Please see original notes in EMR for more complete details. Echocardiogram Summary: 2019: LVEF 60%, no pHTN, prosthetic valve functioning well. Anesthesia Assessment and Plan Anesthesia History Personal History: No History of Anesthesia Complications Family History: No Family History of Anesthesia Complications Exercise Tolerance Exercise Tolerance: Metabolic Equivalents<4 Pertinent Negatives Pertinent Negatives: No Symptoms of GERD, No Major Cardiovascular Symptoms or Complaints, No Major Pulmonary Symptoms or Complaints and No History of CVA/TIA Cardiac & Pulmonary Exam Cardiac Exam: Normal S1/S2 Heart Sounds Pulmonary Exam: Clear Bilateral Breath Sounds Implantable Cardiac Device Does patient have a Pacemaker or an ICD?: No Airway Exam Known Difficult Airway: No Mallampati Class: 1 Mouth Opening: Normal (> 3cm) Thyromental Distance: Greater than 3 cm Neck Range of Motion: Limited ROM Neck Circumference: Normal Teeth Condition: Edentulous ASA Classification ASA Score: ASA 3 Emergency Case?: No NPO Status NPO Status: NPO Clears >2 hours, Solids >8 hours Anesthesia Plan Resuscitation Status: Full Code Anesthesia Technique: General Anesthesia Airway Planned: LMA Monitors Used: Standard Monitors
[2022-11-08] MEDS: Lactated Ringers 1,000 ML 80 ML IV (08:50)
--- NOTE | 2022-11-08 09:07 | PDOC.DSDIS_ITS ---
Date of service: 11/08/22 Time of Service: 09:36 Discharge Plan Disposition Patient Disposition: Home Condition: Good Discharge Details Reason For Visit: Left carpal and cubital tunnel syndromes Attending Provider: Maninder Tafoya Primary Care Provider: DEEPA TINOCO Home Meds and New Rx's Prescriptions: New hydrocodone-acetaminophen 5-325 mg tablet 1 tab PO Q6H PRN (Reason: severe pain) Qty: 6 0RF Rx Instructions: Take one tablet up to every 6 hours as needed for severe postoperative pain acetaminophen 500 mg tablet 500 mg PO Q6H PRN (Reason: pain) Qty: 60 2RF ibuprofen 600 mg tablet 600 mg PO TID PRN (Reason: pain) Qty: 60 0RF Continued omeprazole 20 mg Capsule,Delayed Release(Dr/Ec) 20 mg PO BID atorvastatin [Lipitor] 40 mg Tablet 60 mg PO DAILY aspirin [Aspir-81] 81 mg Tablet,Delayed Release (Dr/Ec) 81 mg PO DAILY mirtazapine 7.5 mg Tablet 7.5 mg PO QHS duloxetine 60 mg Capsule,Delayed Release(Dr/Ec) 60 mg PO DAILY calcium carbonate-vitamin D3 [Calcium 500 + D] 500 mg(1,250mg) -200 unit Tablet 1 tab PO DAILY Multi-Day Plus Minerals 18 mg iron-400 mcg-25 mcg Tablet 1 tab PO DAILY pramipexole 0.25 mg tablet 0.25 mg PO HS Label Comments: TAKE 1 TABLET BY MOUTH DAILY losartan 25 mg tablet 25 mg PO HS Label Comments: TAKE 1 TABLET BY MOUTH EVERY DAY Discontinued acetaminophen [Mapap Extra Strength] 500 mg Tablet 1,000 mg PO Q8H Qty: 30 0RF naproxen 250 mg tablet 250 mg PO BID PRNQty: 40 0RF Rx Instructions: take with a meal Discharge Instructions Additional Instructions: Cubital Tunnel Decompression Discharge Instructions Activity: You should stay in the sling for the first 2 weeks. You may come out of the sling for gentle motion and hygiene but should largely remain in the sling to allow the incision site to heal. Gentle motion of the elbow, hand, wrist, and fingers is okay and encouraged after the first few days, but no repetitive activities nor heavy lifting. You may apply ice. Medications: - You should take Tylenol and Ibuprofen around the clock. - You have been prescribed Hydrocodone for breakthrough pain. Dressings: - The initial surgical dressing should stay in place for 3 days. It may then be removed and kept clean and dry. You should cover with a light gauze dressing. - You may shower after 3 days and get the wound wet. Follow-up: 10 days Referrals: Maninder Tafoya MD [ [facility] STAFF PHYSICIAN] - Equipment/Supplies: Sling Remove Dressings/Wound Care:: 72 hours Shower/Bathe:: 72 hours Diet:: As Tolerated Discharge Orders Discharge Orders: Discharge Order (Routine); Ordered 11/08/22 Ordered By: Ilana Arana
[2022-11-08] MEDS: ceFAZolin 2 GM/50 ML BAG IVPB (09:55)
[2022-11-08] MEDS: Bupivacaine 0.5% Pres-Free W/EPI 30 ML VIAL (10:23)
--- NOTE | 2022-11-08 12:45 | W.ANESPOSTOP ---
Postoperative Evaluation Date, Time and Location Date Performed: 11/08/22 Time Performed: 12:46 Patient Location: Day Surgery Unit Vital Signs Most Recent Imported Vital Signs: Most Recent Vital Signs Temp Pulse Resp BP Pulse Ox 36.5 C 97 H 16 132/76 97 11/08/22 11:55 11/08/22 11:55 11/08/22 11:55 11/08/22 11:55 11/08/22 11:55 Pain Score Most Recent Pain Score: Most Recent Pain Score Pain Level 0 11/08/22 08:23 Assessment Mental Status: Awake (Alert & Oriented to Patient Baseline) Airway and Respiratory Function: Patent airway with normal (patient baseline) respiratory exam Cardiovascular Function: Hemodynamically Stable Hydration Status: Adequately Hydrated Nausea & Vomiting: No Nausea or Vomiting Pain: Pt. Denies Any Pain Peripheral Nerve Block: Patient did not receive a nerve block
--- NOTE | 2022-11-08 15:25 | W.PM.OP ---
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 Nonoperative treatment options had been trialed. Nerve conduction studies identified the carpal and cubital tunnel as the point of compression. Given failure of nonoperative treatments and persistent symptoms, I offered operative intervention. I reviewed the technical details of a carpal tunnel release and cubital tunnel decompression with possible anterior subcutaneous transposition. I reviewed the risk of the procedure to include bleeding, infection, pain, stiffness, nerve instability, damage to superficial nerves, persistent symptoms, and incomplete release. Despite these risks, the patient elected to proceed. Findings: The carpal tunnel was release with a standard endoscopic technique without difficulty and excellent visualization. There was a tightened cubital tunnel. The ulnar nerve was release from the first motor branch distally through the [place] proximally. The nerve was freely subluxating and thus was transposed anteriorly. Procedure Description: Jim was greeted in the preoperative holding area where the correct side was identified and marked. The consent was reviewed with the patient and signed. The history and physical was updated. All questions were answered. He was taken back to the operating room. The patient was placed into the supine position on the operating room table with the left arm on an arm board. A nonsterile tourniquet was placed high onto the arm, into the axilla. All bony prominences were well padded. Prophylactic antibiotics in the form of Cefazolin were administered. The right arm was then prepped with Chloraprep and draped in a standard fashion with stockinette and extremity drape. A timeout to confirm correct identity, side and site, procedure, allergies, anesthesia, and medical concerns was performed. The surgical site was marked in the volar wrist creases in line with the radial border of the fourth ray. This area was anesthetized with approximately 6cc of 1% Lidocaine with Epinephrine. The surgical site about the medial elbow was drawn on the skin just posterior to the medial epicondyle borders. The planned surgical field was anesthetized with 1% Lidocaine with Epinephrine. The limb was then exsanguinated with an Esmarch. Starting with the carpal tunnel, the skin was incised with a 15 blade, approximately 1cm. The skin only was cut and the deeper tissue was dissected bluntly with a tenotomy scissor, avoiding passing nerve and venous structures. The fascia was penetrated and opened bluntly. A two-prong skin hook was placed under this proximal fascial edge. A series of hamate finders were used to identify and dilate the carpal tunnel. Synovial elevator was used to free synovial attachments to the underside of the transverse carpal ligament. My thumb was kept in the palm to leslie the distal extent of the carpal tunnel and correctly position the hand. The Microaire endoscope was inserted without difficulty and without resistance. Excellent visualization showed horizontally running fibers of the transverse carpal ligament (TCL). The distal extent of the TCL was visualized and the end of the scope palpated with the thumb. The blade was elevated and withdrawn from distal to proximal. The TCL was split into two flaps. The endoscope was reinserted to confirm complete release and any remnant ligament was incised. The scope was withdrawn and the proximal aspect of the carpal tunnel was grossly inspected and appeared release with the median nerve visible. The antebrachial fascia at the level of the wrist was then freed from the overlying skin and then the underlying median nerve with blunt dissection. This was transected longitudinally for about 3cm proximal to the wrist incision. The wound was then irrigated with easy flow of irrigant distally and proximally. The incision was closed with a single 4-0 Nylon suture. . Attention was then turned to the cubital tunnel release. The skin of the medial elbow was incised only with the elbow in some flexion and on a bump. The deep tissue and subcutaneous fat was dissected with a tenotomy scissors trying to protect any branches of the medial antebrachial cutaneous nerve. Any branches that were identified were retracted out of the way. The ulnar nerve was palpated and identified. A small window into the cubital tunnel, sheath overlying the nerve, was created and the nerve was able to be palpated with the [place]. A Metzenbaum scissor was then used to open up the sheath starting with Moya's ligament. I then worked distal over the ulnar nerve releasing any constraints against the nerve all the way to the fascia of the FCU muscle belly. This muscle belly was bluntly all the way down to the first motor branch of the ulnar nerve and the overlying fascia was incised. Likewise starting there at the medial epicondyle, I proceeded to work proximally to release any constraints over the ulnar nerve. This was taken all the way to the [place] of [place]. The medial intermuscular septum was also palpated and any sharp edges against the ulnar nerve were resected and released. After fully releasing the nerve it was inspected visually. I was also able to palpate the nerve fully and reach one finger up into the proximal and distal aspects to make sure there were no constraints against the nerve. A freer elevator was also used to slide easily against the ulnar nerve without any points of constriction. The arm was then taken through range of motion. The ulnar nerve did sublux/dislocate out of its groove behind the lateral epicondyle. The nerve was released from all attachments to allow free subluxation anteriorly. A pocket was made over the anterior surface of the medial epicondyle. A fascial flap was raised off of the medial condyle. The ulnar nerve was subluxed anteriorly and was able to rest in this position without any significant tension or compression on the nerve. With the nerve resting in the anterior position I then secured the fascial flap to a layer of adiposity anteriorly as well as to the dermis overlying the medial epicondyle. Once this was secured it was inspected to ensure that there was no point of compression along the ulnar nerve. The tourniquet was then deflated. Any areas of bleeding were cauterized with bipolar electrocautery. The wound was thoroughly irrigated. The deep tissue was closed with a 3-0 Vicryl. The skin was closed with a 4-0 nylon. The wounds were dressed with Xeroform, 4 x 4's, ABD, Kerlix and an Paul wrap. Jim was placed into a sling. He was transferred back to the PACU in a stable condition.
== END 2022-11-08 12:55 | disposition home or self-care (01) ==
PROVIDERS: PCP Internal Medicine; Visit Provider Student in an Organized Health Care Education/Training Program
PROC: 01N54ZZ Release Median Nerve, Percutaneous Endoscopic Approach (ICD-10-PCS; CPT 29848; principal; 2022-11-08 10:00)
PROC: (CPT 64718; 2022-11-08 10:00)
DX: G56.02 Carpal tunnel syndrome, left upper limb (principal); G56.22 Lesion of ulnar nerve, left upper limb; E11.9 Type 2 diabetes mellitus without complications; J44.9 Chronic obstructive pulmonary disease, unspecified
CPT/HCPCS: 64718; 29848; J0690; J1100; J1885; J2405; J2704; J3010

== ENCOUNTER → 2022-11-18 14:21 | Outpatient (BNVA) | payer MEDICARE, OTHER, SELFPAY | PROVIDERS: PCP Internal Medicine; Referring Provider Internal Medicine; Visit Provider Physician Assistant | DX: Z47.89 Encounter for other orthopedic aftercare (principal); G56.02 Carpal tunnel syndrome, left upper limb; G56.22 Lesion of ulnar nerve, left upper limb ==

== ENCOUNTER → 2022-12-30 13:01 | Outpatient (BNVA) | payer MEDICARE, OTHER, SELFPAY | PROVIDERS: PCP Internal Medicine; Referring Provider Internal Medicine; Visit Provider Student in an Organized Health Care Education/Training Program | DX: M65.332 Trigger finger, left middle finger; R53.1 Weakness | CPT/HCPCS: 20550; J1030 ==

== ENCOUNTER 2023-02-18 21:35 | Emergency (ER) | payer OTHER, SELFPAY ==
[2023-02-18 21:38] VITALS: BP 140/60; PULSE 110; RESP 20; TEMP 36.7; O2SAT 95
--- NOTE | 2023-02-18 21:45 | DI.CT_ITS ---
Exam(s) CT CHEST WO EXAM: CT CHEST WO CLINICAL HISTORY: right sided chest pain s/p fall. TECHNIQUE: Multi planar reconstructions were performed. CONTRAST MATERIAL: None COMPARISON: CT CT CHEST/ABD/PEL W from 03/16/2019 FINDINGS: CHEST: LUNGS: A small-moderate size unilateral right pleural effusion with subjacent atelectasis. Multiple acute as well as chronic right-sided rib fractures. There is a mildly displaced acute fracture in th e posterolateral aspect of the right 5th rib with overlying pleural thickening. Also nondisplaced fr actures of the right 3rd and 4th ribs and there is evidence of ipsilateral healed right rib fractures posteriorly also the 5th rib and in the 8th rib and 9th rib and 10th rib. There are no left rib fra ctures evident. No acute vertebral fractures.. No sternal fracture. No pneumothorax nor obvious nathalie ng contusion. Trachea and mainstem bronchi are clear with without evidence of significant mucus. MEDIASTINUM: No evidence of sternal fracture or mediastinal hematoma. No incidental hilar nor medias tinal adenopathy. There is a prominent hiatal hernia again noted which measures 8 cm wide by 6 cm AP by 8 cm craniocaudal. In addition to the stomach there is also superiorly herniated intra-abdominal fat surrounding the stomach at this level.No significant hilar nor mediastinal adenopathy. CARDIAC: Heart size is normal. There is an aortic valve TAVR. Coronary artery calcifications noted. Caliber of the thoracic aorta is within normal limits. VISUALIZED UPPER ABDOMEN:No adrenal findings. Benign cyst in the upper pole medial right kidney note d, this measuring 4 by 3.4 cm. Entire kidneys are not included. Spleen size normal. No obvious spl enic nor patent laceration in the field of view. Incidentally noted is a nonobstructive 4 millimeter calculus in the right renal pelvis as well as an exophytic cyst in the opposite-left kidney which me asures 1.8 x 2.0 cm. OSSEOUS: Mild loss of height midthoracic vertebral body noted which has a chronic appearance. There is no evidence of acute thoracic compression fracture. No listhesis.. IMPRESSION: 1. There are acute fractures of multiple right ribs as described above, with the fracture site in the lateral aspect of the right 5th rib exhibiting some displacement and is so seated with a small-moder ate size ipsilateral right pleural effusion. There is no pneumothorax. No prominent lung contusion. There are also chronic healed right-sided rib fractures as described above. No left-sided rib frac tures. No acute thoracic vertebral fractures. 2. Large hiatal hernia measuring 8 x 6 x 8 cm., unchanged from prior CT scan of March 2019. RADIATION DOSE DELIVERED: 461.03mGy.cm Total DLP DATA REPOSITORY: All CT scans at this facility are submitted to the National Radiology Data Registry (NRDR) Dose Index Registry (DIR) with the [employer] (ACR). RADIATION OPTIMIZATION: All CT scans at this facility use at least one of these dose optimization te chniques: automated exposure control; mA and/or kV adjustment per patient size (includes targeted exa ms where dose is matched to clinical indication); or iterative reconstruction.
--- NOTE | 2023-02-18 21:50 | W.ED.GENAD ---
Discharge Plan Disposition Patient Disposition: Home Condition: Stable Discharge Details Clinical Impression: Right rib fracture Primary Care Provider: DEEPA TINOCO ED Provider: Tejinder Onofre Home Meds and New Rx's Prescriptions: Continued omeprazole 20 mg Capsule,Delayed Release(Dr/Ec) 20 mg PO BID acetaminophen 500 mg tablet 500 mg PO Q6H PRN (Reason: pain) Qty: 60 2RF ibuprofen 600 mg tablet 600 mg PO TID PRN (Reason: pain) Qty: 60 0RF atorvastatin [Lipitor] 40 mg Tablet 60 mg PO DAILY aspirin [Aspir-81] 81 mg Tablet,Delayed Release (Dr/Ec) 81 mg PO DAILY mirtazapine 7.5 mg Tablet 7.5 mg PO QHS duloxetine 60 mg Capsule,Delayed Release(Dr/Ec) 60 mg PO DAILY calcium carbonate-vitamin D3 [Calcium 500 + D] 500 mg(1,250mg) -200 unit Tablet 1 tab PO DAILY Multi-Day Plus Minerals 18 mg iron-400 mcg-25 mcg Tablet 1 tab PO DAILY pramipexole 0.25 mg tablet 0.25 mg PO HS Patient Comments: TAKE 1 TABLET BY MOUTH DAILY losartan 25 mg tablet 25 mg PO HS Patient Comments: TAKE 1 TABLET BY MOUTH EVERY DAY Discharge Instructions Instructions: Rib Fracture (ED) Additional Instructions: continue to use tylenol, follow dosing instructions on packaging continue lidocaine patches, follow dosing instructions on packaging follow up with your primary care provider within 1 week if you feel more ill, have severe worsening pain or difficulty breathing or fevers return to the emergency department Medical Decision Making 82 yo male who has a hx of hld, dm, copd, ongoing balance problems per patient for years, who comes in with right upper back pain. He states it started on Friday when he was getting ready to go to the [facility]. 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 Denies hitting his head or loc. He denies fevers, chest pain, dyspnea, cough. No head pain, neck pain, abdomen pain or extremity pain or lower back pain. HE arrives stable caox4 in no distress. He has no signs of trauma to the head. No midline c/t/l spine tenderness, no anterior chest or abdominal tenderness. No pain in his extremities. He is tender over the right scapul and upper back, no visible or palpable deformities. Suspect contusion but will obtain ct to evaluate for rib vs scapula fracture. He declines any pain medication orally or parentally, will try topical lidocaine patch ct confirms right posterior 3-6 ribs. no ptx, small pleural effusion. He is stable, mild improvement with lidocaine patch and still declining additional pain medications. He requests d/c which I feel is reasonable given stable vitals, he has had trouble sleeping due to pain and recommended taking oxycodone at bedtime which he is in agreement with. He will f/u with pcp, return precautions given Differential Diagnosis Differential Diagnosis: rib fracture, contusion Imaging Data Radiologic Study: Attestation: I personally reviewed and interpreted this imaging study as follows: Imaging: CT Scan Radiologist's impression: IMPRESSION: 1. Small right pleural effusion with associated atelectasis. 2. Acute-appearing displaced right posterior 3rd through 6th rib fractures. HPI General Mode of arrival: EMS. Date/Time Provider Initiated Documentation: 02/18/23 21:45. Limitations to Documentation: no limitations. Information obtained by: patient. History of Present Illness 82 year old M presents to the emergency department with the chief complaint of right sided upper back pain, described as moderate, Quality is described as aching, Patient reports no radiation. Patient started experiencing this day(s) (4) and it has been constant. No relieving factors improve symptom(s), No exacerbating factors reported . Patient notes denies fever/chills. Patient did receive the following treatments prior to arrival, none Related Data Home Medications Medication Instructions Recorded Confirmed omeprazole 20 mg capsule,delayed 20 mg PO BID 03/16/19 12/30/22 release aspirin 81 mg tablet,delayed 81 mg PO DAILY 09/16/19 12/30/22 release (Aspir-) atorvastatin 40 mg tablet (Lipitor) 60 mg PO DAILY 09/16/19 12/30/22 calcium carbonate 500 mg-vitamin 1 tab PO DAILY 09/16/19 12/30/22 D3 5 mcg (200 unit) tablet (Calcium 500 + D) duloxetine 60 mg capsule,delayed 60 mg PO DAILY 09/16/19 12/30/22 release mirtazapine 7.5 mg tablet 7.5 mg PO QHS 09/16/19 12/30/22 multivit with minerals-iron 18 1 tab PO DAILY 09/16/19 12/30/22 mg-folic ac 400 mcg-vit K 25 mcg tablet (Multi-Day Plus Minerals) pramipexole 0.25 mg tablet 0.25 mg PO HS 10/25/21 12/30/22 losartan 25 mg tablet 25 mg PO HS 02/26/22 12/30/22 acetaminophen 500 mg tablet 500 mg PO Q6H PRN pain #60 tabs 11/08/22 12/30/22 ibuprofen 600 mg tablet 600 mg PO TID PRN pain #60 tabs 11/08/22 12/30/22 Previous Rx's Medication Instructions Recorded acetaminophen 500 mg tablet 500 mg PO Q6H PRN pain #60 tabs 11/08/22 ibuprofen 600 mg tablet 600 mg PO TID PRN pain #60 tabs 11/08/22 Allergies Allergy/AdvReac Type Severity Reaction Status Date / Time simvastatin AdvReac Mild Nausea Verified 11/18/22 14:52 lisinopril AdvReac cough Verified 11/18/22 14:52 General Stated Complaint: Fall/Non TraumaCriteria EZEKIEL: 3 Review of Systems All systems reviewed & are unremarkable except as noted in HPI and below Constitutional Constitutional: Denies chills, Denies fever(s) and Denies weakness Cardiovascular Cardiovascular: Denies chest pain and Denies dyspnea Respiratory Respiratory: Denies cough and Denies dyspnea Gastrointestinal Gastrointestinal: Denies abdominal pain, Denies nausea and Denies vomiting Musculoskeletal Musculoskeletal: Denies joint swelling Neurologic Neurologic: Denies weakness PFSH All Active Problems (Updated 11/18/22 @ 15:02 by Ilana Arana) Right rib fracture (Acute) Trigger finger, left middle finger (Acute) 40 mg Depo-Medrol injection: 12/30/2022 Rib fractures (Acute) Falls (Acute) Diabetes (Chronic) Hypercholesteremia (Acute) Depression (Chronic) Discharge planning issues (Acute) DVT prophylaxis (Acute) Aortic valve stenosis (Chronic) BPH (benign prostatic hyperplasia) (Chronic) Sleep apnea (Acute) COPD (chronic obstructive pulmonary disease) (Chronic) Kidney stones (Chronic) Vertigo (Acute) RLS (restless legs syndrome) (Acute) PVD (peripheral vascular disease) (Chronic) Hypertension (Chronic) Depression (Chronic) CAD (coronary artery disease) (Chronic) Visual disturbance (Acute) Displaced intertrochanteric fracture of right femur (Acute 11/07/19) Status post trochanteric nailing 09/17/2019 Non-insulin treated type 2 diabetes mellitus (Acute) Left rotator cuff tear arthropathy (Acute) Status post reverse total shoulder: 10/25/2021 Right rotator cuff tear arthropathy (Acute) Rupture of right proximal biceps tendon (Acute) Rupture of left proximal biceps tendon (Acute) Status post reverse total shoulder Right carpal tunnel syndrome (Acute 02/26/22) s/p right ECTR Bilateral carpal tunnel syndrome (Acute) 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) Left carpal tunnel syndrome (Acute) s/p left ECTR DOS: 11/08/22 Cubital tunnel syndrome on left (Acute) s/p cubital tunnel release DOS: 11/08/22 Medical History (Updated 02/18/23 @ 22:58 by Tejinder Onofre MD) Aortic valve stenosis BPH (benign prostatic hyperplasia) CAD (coronary artery disease) COPD (chronic obstructive pulmonary disease) Diabetes mellitus HTN (hypertension) Hypercholesterolemia Surgical History (Updated 11/18/22 @ 15:02 by Ilana Arana) History of heart artery stent History of hip surgery right History of reverse total replacement of right shoulder joint (10/25/21) pt states left shoulder Hx of cholecystectomy S/P cholecystectomy 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 Family History Sister Cancer bladder cancer - she was a smoker Social History Smoking/Tobacco Use Status: Former Tobacco Use Quit Date: 11/10/82 Tobacco: How many years used: 27 Smoking risk assessment performed?: Yes Alcohol Intake: current Alcohol Intake frequency: a few times a month Alcohol type: beer Drug use: Never Substance use type: does not use Details: alcohol: t-14 Current gender identity: male Do you feel safe at home: Yes Additional Social history: unable to assess privately Exam Const General: no acute distress Orientation: alert HENMT Head: normal to inspection Ears: external ears normal General nose exam: external nose normal Mouth: moist mucous membranes Eyes General: appearance normal, both eyes and all related structures Neck Neck: normal visual inspection, full ROM and nontender Chest Chest: normal inspection of the chest Resp Effort & Inspection: normal respiratory effort and able to speak in complete sentences Auscultation: clear to auscultation bilaterally Cardio Rate: regular rate Back/Spine/Pelvis Thoracic/Lumbar Spine: thoracic and lumbar spine normal to inspection and No thoracic spinal tenderness Skin General skin exam: no rashes or lesions noted Neuro General: patient alert and patient oriented x3 Extrem General: normal to inspection Psych Mental Status: mental status grossly normal Course Vital Signs Vital signs: Vital Signs Temperature 36.7 C 02/18/23 21:38 Pulse 110 H 02/18/23 21:38 Respiratory Rate 20 02/18/23 21:38 Blood Pressure 140/60 02/18/23 21:38 Pulse Oximetry 95 02/18/23 21:38 Temperature 36.7 C 02/18/23 21:38 Temperature Source Oral 02/18/23 21:38 Pulse 110 H 02/18/23 21:38 Respiratory Rate 20 02/18/23 21:38 Blood Pressure 140/60 02/18/23 21:38 Blood Pressure Position Sitting 02/18/23 21:38 Pulse Oximetry 95 02/18/23 21:38 Oxygen Delivery Method Room Air 02/18/23 21:38 Oxygen Flow Rate 0 02/18/23 21:38 Pain Level 10 02/18/23 21:38
--- NOTE | 2023-02-18 22:22 | DI.VRAD_ITS ---
PROCEDURE INFORMATION: Exam: CT Chest Without Contrast; Diagnostic Exam date and time: 02/18/2023 10:03 PM Age: 82 years old Clinical indication: Injury or trauma; Blunt trauma (contusions or hematomas); Injury date: 02/18/23; Injury details: Right sided chest pain S/P fall; Prior surgery; Surgery date: 6+ months; Surgery type: R shoulder, aortic valve replacement, heart stent; Patient HX: Fall, right sided chest pain, back pain TECHNIQUE: Imaging protocol: Diagnostic computed tomography of the chest without contrast. 3D rendering (Not supervised by radiologist): MIP and/or 3D reconstructed images were created by the technologist. Radiation optimization: All CT scans at this facility use at least one of these dose optimization techniques: automated exposure control; mA and/or kV adjustment per patient size (includes targeted exams where dose is matched to clinical indication); or iterative reconstruction. COMPARISON: CT CHEST/ABD/PEL W 03/16/2019 8:45 PM FINDINGS: Lungs: Minimal linear atelectasis and/or scarring within the posterior left upper lobe and lingula. Pleural spaces: Small right pleural effusion with associated atelectasis. Heart: Changes of prior TAVR. Coronary arteries: Moderate three-vessel coronary artery atherosclerotic calcification. Lymph nodes: No enlarged lymph nodes. Vasculature: Atherosclerotic disease of the thoracic aorta, without aneurysm. Diaphragm: Moderate-sized hiatal hernia. Gallbladder and bile ducts: Gallbladder surgically absent. Kidneys and ureters: Bilateral simple renal cysts, for which no further evaluation necessary. Nonobstructive right nephrolithiasis. Bones/joints: Acute-appearing displaced right posterior 3rd through 6th rib fractures. Old, healed right posterior 9th and 10th rib fractures. Multilevel thoracic spine degenerative disc space narrowing and osteophyte formation. Partially visualized left glenohumeral arthroplasty. Soft tissues: Normal. IMPRESSION: 1. Small right pleural effusion with associated atelectasis. 2. Acute-appearing displaced right posterior 3rd through 6th rib fractures. Dictated and Authenticated by: Gary Matos MD. Ordering:BAM Marr MD
== END 2023-02-18 23:08 | disposition home or self-care (01) ==
PROVIDERS: Emergency Provider Emergency Medicine; PCP Internal Medicine
DX: S22.31XA Fracture of one rib, right side, initial encounter for closed fracture (principal); W19.XXXA Unspecified fall, initial encounter
CPT/HCPCS: 71250; 99283; 99284

== ENCOUNTER 2023-04-23 14:06 | Outpatient (CLI) | payer MEDICARE, OTHER, SELFPAY ==
--- NOTE | 2023-04-23 13:00 | DI.RAD_ITS ---
Exam(s) XR SHOULDER LT COMPLETE 2+V EXAM: XR SHOULDER LT COMPLETE 2+V CLINICAL HISTORY: F/U LEFT RTSA. TECHNIQUE: 2D digital imaging was performed. COMPARISON: CR XR SHOULDER LT COMPLETE 2+V from 10/23/2022 FINDINGS: 3 views There is continued stable position alignment of the components of the reverse prosthesis. No fractur e or loosening evident. No radiographic evidence of osteomyelitis. Again noted is an aortic valve TAVR IMPRESSION: DATA REPOSITORY: RADIATION DOSE DELIVERED:
== END 2023-04-23 14:07 | disposition home or self-care (01) ==
LOC: DIORS 14:07
PROVIDERS: PCP Internal Medicine; Referring Provider Internal Medicine; Visit Provider Student in an Organized Health Care Education/Training Program
DX: S46.212S Strain of muscle, fascia and tendon of other parts of biceps, left arm, sequela (principal); G95.9 Disease of spinal cord, unspecified; Z96.612 Presence of left artificial shoulder joint; M12.812 Other specific arthropathies, not elsewhere classified, left shoulder; M75.102 Unspecified rotator cuff tear or rupture of left shoulder, not specified as traumatic
CPT/HCPCS: 99213; 73030

== ENCOUNTER 2023-12-02 12:43 | Emergency (ER) | payer OTHER, SELFPAY ==
[2023-12-02 12:43] VITALS: BP 149/83; PULSE 111; RESP 20; TEMP 36.9; O2SAT 95
--- NOTE | 2023-12-02 12:53 | ED.GENADUL_ITS ---
HPI General Date/Time Provider Initiated Documentation: 12/02/23 12:50 . HPI Narrative: 83 year-old male presents to ED today by EMS with a chief complaint of fall last night around 1830, with pain to lower back and bilateral hips. Quality described as mid-back pain, pain at both hips with weight-bearing- patient is supposed to use a walker or cane but was not, no radiation to headstrike, LOC, altered mentation, vomiting, slurred speech, extremity trauma. Severity is described as 8/10. Palliating factors include nothing specific attempted. Provoking factors include nothing specific. Patient not anticoagulated. Related Data Home Medications Medication Instructions Recorded Confirmed omeprazole 20 mg capsule,delayed 20 mg PO BID 03/16/19 04/23/23 release aspirin 81 mg tablet,delayed 81 mg PO DAILY 09/16/19 04/23/23 release (Aspir-) atorvastatin 40 mg tablet (Lipitor) 60 mg PO DAILY 09/16/19 04/23/23 calcium carbonate 500 mg-vitamin 1 tab PO DAILY 09/16/19 04/23/23 D3 5 mcg (200 unit) tablet (Calcium 500 + D) duloxetine 60 mg capsule,delayed 60 mg PO DAILY 09/16/19 04/23/23 release mirtazapine 7.5 mg tablet 7.5 mg PO QHS 09/16/19 04/23/23 multivit with minerals-iron 18 1 tab PO DAILY 09/16/19 04/23/23 mg-folic ac 400 mcg-vit K 25 mcg tablet (Multi-Day Plus Minerals) pramipexole 0.25 mg tablet 0.25 mg PO HS 10/25/21 04/23/23 losartan 25 mg tablet 25 mg PO HS 02/26/22 04/23/23 acetaminophen 500 mg tablet 500 mg PO Q6H PRN pain #60 tabs 11/08/22 04/23/23 ibuprofen 600 mg tablet 600 mg PO TID PRN pain #60 tabs 11/08/22 04/23/23 Previous Rx's Medication Instructions Recorded acetaminophen 500 mg tablet 500 mg PO Q6H PRN pain #60 tabs 11/08/22 ibuprofen 600 mg tablet 600 mg PO TID PRN pain #60 tabs 11/08/22 Allergies Allergy/AdvReac Type Severity Reaction Status Date / Time simvastatin AdvReac Mild Nausea Verified 04/23/23 13:03 lisinopril AdvReac cough Verified 04/23/23 13:03 General Stated Complaint: Fall/Non TraumaCriteria EZEKIEL: 3 Review of Systems All systems reviewed & are unremarkable except as noted in HPI and below Exam Narrative Exam Narrative: GENERAL APPEARANCE: Well-nourished, non-toxic, awake and alert, atraumatic, no acute distress. SKIN: Warm, pink, dry, intact, without rashes/lesions/ulcerations. HEAD: Normocephalic, atraumatic, normal hair distribution for gender/age. EYES: Pupils PERRLA, EOMs intact without nystagmus, normal conjunctiva, no exudates on lids/lashes. ENT: Nares patent, no circumoral cyanosis, no facial swelling NECK: Supple, trachea midline, painless cervical ROM. LUNGS/CHEST: Lungs CTA bilaterally- no rhonchi/rales/wheezes diffusely, non- labored respirations, normal A/P diameter, symmetrical expansion, no chest wall deformity HEART (CV/PV): Regular rate and rhythm without murmur, no peripheral edema, no JVD. ABDOMEN: Soft, non-distended, no guarding, no tenderness. MSK: Normal ROM, no swelling/deformity to bilateral UEs or LEs, moving all extremities without weakness, no cyanosis, spine midline without tenderness, normal curvature, midline lumbar vertebral tenderness without crepitus or step- offs, mild R hip tenderness without crepitus. NEURO: Mental Status AAOx4 - alert to person, place, time, events No facial droop, no forehead involvement. Motor: No focal weakness - strength 5/5 in bilateral UEs and LEs, proximal and distal, symmetric. Sensory: sensation intact to light touch globally. Gait normal: patient ambulated without ataxia into ED room. PSYCH: euthymic, cooperative, pleasant, appropriate speech Course Vital Signs Vital signs: Vital Signs Temperature 36.9 C 12/02/23 12:43 Pulse 111 H 12/02/23 12:43 Respiratory Rate 20 12/02/23 12:43 Blood Pressure 149/83 H 12/02/23 12:43 Pulse Oximetry 95 12/02/23 12:43 Temperature 36.9 C 12/02/23 12:43 Pulse 111 H 12/02/23 12:43 Respiratory Rate 20 12/02/23 12:43 Respiratory Effort Normal 12/02/23 12:48 Blood Pressure 149/83 H 12/02/23 12:43 Blood Pressure Position Sitting 12/02/23 12:43 Pulse Oximetry 95 12/02/23 12:43 Oxygen Delivery Method Room Air 12/02/23 12:43 Oxygen Flow Rate 0 12/02/23 12:43 Medical Decision Making This dictation utilizes [id number] dictation software and may contain unedi julia grammatical errors. 83 y/o M presents to ED today with a chief complaint of fall last night, not using his walker/cane, and now having lower back pain, and bilateral hip pain with standing. Patient denies anticoagulation, denies headstrike/LOC/vomiting, has not had altered mentation today from last nights fall. Patients' medical history: BPH, COPD, hypertension, coronary artery disease, aortic stenosis, diabetes mellitus, cervical myelopathy, history of rib fractures from falls, T2DM. Family and social history: noncontributory. Pertinent exam findings / vital signs include mid-lumbar vertebral tenderness, NV intact bilateral LEs, bilateral hip mild tenderness- worse with weight- bearing. Differential / pathologies of concern include Fracture, Contusion. Diagnostic studies of: -CT Lumbar Spine wo, CT Pelvis wo. -CT pelvis shows no hip fracture -CT lumbar shows lumbar compression fx's at 30% of L3 & 30% of L4 height loss. Interventions of: -Consult with [facility] Ortho about possible TLSO back brace recommendations - recommends using an abdominal binder for a soft LSO bracing. -Patients' requesting HomeHealth to be started today- states she cannot help lift him at home, he has two walkers in the home +/- PT consult for safety once compression fractures are addressed ED Course/Assessment/Plan: 83-year-old male presents with a fall last night around 6:00 has been able to ambulate, has 2 simple wedge compression fractures, I discussed with Dr. Tafoya of orthopedics. He recommends using an abdominal binder. Patient's is apprehensive about bringing him home stating that she cannot assist him at the home and wanted home health to start today, has little health literacy about timeline of starting home health. Patient will be road tested with his baseline walker and abdominal binder in place with disposition pending, patient signed out to oncoming provider Mago Barrett PA-C. Findings not consistent with burst fracture, NV compromise. Disposition of Fall, Lumbar Compression Fractures. Patient verbalized understanding of the plan and return to ED criteria and engaged in shared decision making. Medical Records Medical records reviewed: Yes I reviewed the patient's medical records. Imaging Data Radiologic Study: Attestation: I personally reviewed and interpreted this imaging study as follows: Imaging: CT Scan Radiologist's impression: EXAM: CT PELVIC WO CLINICAL HISTORY: bilateral hip pain, fall. TECHNIQUE: Imaging Protocol: Axial computed tomography images with coronal and sagittal reformatted images were created and reviewed. COMPARISON: CR XR HIP RT 1V from 08/16/2020 FINDINGS: Bones: There is no acute fracture or dislocation. There is again seen an intramedullary chaparrita in the right femoral neck. The bones are osteopenic. Bony alignment is satisfactory. No cellulitic or osteomyelitic changes are identified. There are degenerative changes seen in the lower visualized lumbar spine, the sacroiliac joints bilaterally and the hips bilaterally. No lytic or sclerotic lesions are identified. Soft Tissues: There is a 3.3 x 3.2 cm distal infrarenal abdominal aortic aneurysm. Atherosclerosis is present. There are urinary bladder diverticula present. The prostate gland is enlarged. There is a fat containing right inguinal hernia. IMPRESSION: No acute fracture or dislocation. Radiologic Study #2: Attestation: I personally reviewed and interpreted this imaging study as follows: Imaging: CT Scan Radiologist's impression: EXAM: CT LUMBAR SPINE WO CLINICAL HISTORY: low back pain, fall. TECHNIQUE: Imaging Protocol: Axial computed tomography images with coronal and sagittal reformatted images were created and reviewed. COMPARISON: CT CT CHEST/ABD/PEL W from 03/16/2019 CR XR RIBS RT W PA LAT CHEST from 10/29/[address] CHEST WO from 02/18/2023 FINDINGS: Bones: There is a complex superior endplate compression deformity of L3 with loss of approximately 30 percent of the height of the vertebral body. There is no retropulsion or central spinal canal stenosis. There is also compression fracture deformity of the superior endplate of L4 with loss of approximately 30 percent of the height of the vertebral body. There are degenerative changes present throughout the lumbar spine. The bones are osteopenic. Soft tissues: Note is made of bilateral renal cysts. There is a nonobstructing 4 mm stone in the right kidney. There is a 3.4 cm infrarenal abdominal aortic aneurysm. Urinary bladder diverticula are noted. Degenerative changes seen at L3-4 and L4-L5 cause central spinal canal and neural foraminal stenosis. IMPRESSION: 1. Compression fracture deformities of the superior endplates of L3 and L4 of indeterminate age. 2. 3.4 cm infrarenal abdominal aortic aneurysm. 3. Degenerative changes seen in the lumbar spine causing central spinal canal neural foraminal stenosis at L3-4 and L4-L5. Quality:SDOH Health Related Social Needs: No Data to Display PFSH All Active Problems (Updated 11/18/22 @ 15:02 by Ilana Arana) Lumbar compression fracture (Acute) Fall (Acute) Cervical myelopathy (Acute) Trigger finger, left middle finger (Acute) 40 mg Depo-Medrol injection: 12/30/2022 Rib fractures (Acute) Falls (Acute) Diabetes (Chronic) Hypercholesteremia (Acute) Depression (Chronic) Discharge planning issues (Acute) DVT prophylaxis (Acute) Aortic valve stenosis (Chronic) BPH (benign prostatic hyperplasia) (Chronic) Sleep apnea (Acute) COPD (chronic obstructive pulmonary disease) (Chronic) Kidney stones (Chronic) Vertigo (Acute) RLS (restless legs syndrome) (Acute) PVD (peripheral vascular disease) (Chronic) Hypertension (Chronic) Depression (Chronic) CAD (coronary artery disease) (Chronic) Visual disturbance (Acute) Displaced intertrochanteric fracture of right femur (Acute 09/16/19) Status post trochanteric nailing 09/17/2019 Non-insulin treated type 2 diabetes mellitus (Acute) Left rotator cuff tear arthropathy (Acute) Status post reverse total shoulder: 10/25/2021 Right rotator cuff tear arthropathy (Acute) Rupture of right proximal biceps tendon (Acute) Rupture of left proximal biceps tendon (Acute) Status post reverse total shoulder Right carpal tunnel syndrome (Acute 02/26/22) s/p right ECTR Bilateral carpal tunnel syndrome (Acute) 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) Left carpal tunnel syndrome (Acute) s/p left ECTR DOS: 11/08/22 Cubital tunnel syndrome on left (Acute) s/p cubital tunnel release DOS: 11/08/22 Medical History (Updated 12/02/23 @ 15:12 by RADHA Machado) BPH (benign prostatic hyperplasia) COPD (chronic obstructive pulmonary disease) HTN (hypertension) Hypercholesterolemia CAD (coronary artery disease) Aortic valve stenosis Diabetes mellitus Surgical History (Updated 11/18/22 @ 15:02 by Ilana Arana) Hx of cholecystectomy History of hip surgery right History of reverse total replacement of right shoulder joint (10/25/21) pt states left shoulder S/P cholecystectomy 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 History of heart artery stent Family History Sister Cancer bladder cancer - she was a smoker Social History Smoking/Tobacco Use Status: Former Tobacco Use Quit Date: 11/10/82 Tobacco: How many years used: 27 Smoking risk assessment performed?: Yes Alcohol Intake: current Alcohol Intake frequency: a few times a month Alcohol type: beer Drug use: Never Substance use type: does not use Details: alcohol: t-14 Housing: house Current gender identity: male Do you feel safe at home: Yes Do you feel safe in your relationship?: Yes Discharge Plan Disposition Patient Disposition: Home Condition: Stable Discharge Details Clinical Impression: Fall, Lumbar compression fracture Primary Care Provider: DEEPA TINOCO ED Provider: Chago Lopez Home Meds and New Rx's Prescriptions: Continued omeprazole 20 mg Capsule,Delayed Release(Dr/Ec) 20 mg PO BID acetaminophen 500 mg tablet 500 mg PO Q6H PRN (Reason: pain) Qty: 60 2RF ibuprofen 600 mg tablet 600 mg PO TID PRN (Reason: pain) Qty: 60 0RF atorvastatin [Lipitor] 40 mg Tablet 60 mg PO DAILY aspirin [Aspir-81] 81 mg Tablet,Delayed Release (Dr/Ec) 81 mg PO DAILY mirtazapine 7.5 mg Tablet 7.5 mg PO QHS duloxetine 60 mg Capsule,Delayed Release(Dr/Ec) 60 mg PO DAILY calcium carbonate-vitamin D3 [Calcium 500 + D] 500 mg(1,250mg) -200 unit Tablet 1 tab PO DAILY Multi-Day Plus Minerals 18 mg iron-400 mcg-25 mcg Tablet 1 tab PO DAILY pramipexole 0.25 mg tablet 0.25 mg PO HS Patient Comments: TAKE 1 TABLET BY MOUTH DAILY losartan 25 mg tablet 25 mg PO HS Patient Comments: TAKE 1 TABLET BY MOUTH EVERY DAY Discharge Instructions Instructions: Fall Prevention (ED) Additional Instructions: You were seen in the emergency department for your fall, there are 2 small compression fractures of your lumbar vertebrae, we placed an abdominal binder on which increases intra-abdominal pressure and helps with back fractures. You need to use your walker in the home. He demonstrated perfectly safe ambulation here in the department. I have referred you to home health which should be available in the coming day. Please take Tylenol and ibuprofen as needed for your pain, apply ice to any areas of pain, you may apply [id number] Lidoderm patches to any areas of pain for 12 hours each day. Please use your walker and cane when you ambulate as this is likely what caused your fall. Please return to the ED for any urinary retention, bowel incontinence, numbness in the groin, intractable pain. Referrals: [facility] [Provider Group] (Lumbar Fractures) [facility] [Outside] (Orthopaedics) DEEPA TINOCO [Primary Care Provider] -
--- NOTE | 2023-12-02 14:00 | DI.CT_ITS ---
Exam(s) CT LUMBAR SPINE WO EXAM: CT LUMBAR SPINE WO CLINICAL HISTORY: low back pain, fall. TECHNIQUE: Imaging Protocol: Axial computed tomography images with coronal and sagittal reformatted images were created and reviewed. COMPARISON: CT CT CHEST/ABD/PEL W from 03/16/2019 CR XR RIBS RT W PA LAT CHEST from 10/29/[address] CHEST WO from 02/18/2023 FINDINGS: Bones: There is a complex superior endplate compression deformity of L3 with loss of approximately 30 percent of the height of the vertebral body. There is no retropulsion or central spinal canal steno sis. There is also compression fracture deformity of the superior endplate of L4 with loss of approx imately 30 percent of the height of the vertebral body. There are degenerative changes present throu ghout the lumbar spine. The bones are osteopenic. Soft tissues: Note is made of bilateral renal cysts. There is a nonobstructing 4 mm stone in the rig ht kidney. There is a 3.4 cm infrarenal abdominal aortic aneurysm. Urinary bladder diverticula are noted. Degenerative changes seen at L3-4 and L4-L5 cause central spinal canal and neural foraminal s tenosis. IMPRESSION: 1. Compression fracture deformities of the superior endplates of L3 and L4 of indeterminate age. 2. 3.4 cm infrarenal abdominal aortic aneurysm. 3. Degenerative changes seen in the lumbar spine causing central spinal canal neural foraminal stenos is at L3-4 and L4-L5. RADIATION DOSE DELIVERED: 760.65mGy.cm Total DLP 760.65mGy.cm Total DLP DATA REPOSITORY: All CT scans at this facility are submitted to the National Radiology Data Registry (NRDR) Dose Index Registry (DIR) with the [employer] (A[employer]). RADIATION OPTIMIZATION: All CT scans at this facility use at least one of these dose optimization te chniques: automated exposure control; mA and/or kV adjustment per patient size (includes targeted exa ms where dose is matched to clinical indication); or iterative reconstruction.
--- NOTE | 2023-12-02 14:20 | DI.CT_ITS ---
Exam(s) CT PELVIC WO EXAM: CT PELVIC WO CLINICAL HISTORY: bilateral hip pain, fall. TECHNIQUE: Imaging Protocol: Axial computed tomography images with coronal and sagittal reformatted images were created and reviewed. COMPARISON: CR XR HIP RT 1V from 08/16/2020 FINDINGS: Bones: There is no acute fracture or dislocation. There is again seen an intramedullary chaparrita in the right femoral neck. The bones are osteopenic. Bony alignment is satisfactory. No cellulitic or ost eomyelitic changes are identified. There are degenerative changes seen in the lower visualized lumba r spine, the sacroiliac joints bilaterally and the hips bilaterally. No lytic or sclerotic lesions a re identified. Soft Tissues: There is a 3.3 x 3.2 cm distal infrarenal abdominal aortic aneurysm. Atherosclerosis i s present. There are urinary bladder diverticula present. The prostate gland is enlarged. There is a fat containing right inguinal hernia. IMPRESSION: No acute fracture or dislocation. RADIATION DOSE DELIVERED: 400.86mGy.cm Total DLP 400.86mGy.cmTotal DLP DATA REPOSITORY: All CT scans at this facility are submitted to the National Radiology Data Registry (NRDR) Dose Index Registry (DIR) with the [employer] (ACR). RADIATION OPTIMIZATION: All CT scans at this facility use at least one of these dose optimization te chniques: automated exposure control; mA and/or kV adjustment per patient size (includes targeted exa ms where dose is matched to clinical indication); or iterative reconstruction.
[2023-12-02 16:01] VITALS: BP 178/97; PULSE 119; O2SAT 94
== END 2023-12-02 16:08 | disposition home or self-care (01) ==
PROVIDERS: Emergency Provider Physician Assistant; PCP Internal Medicine
DX: S32.030A Wedge compression fracture of third lumbar vertebra, initial encounter for closed fracture (principal); I71.43 Infrarenal abdominal aortic aneurysm, without rupture; J44.9 Chronic obstructive pulmonary disease, unspecified; I10 Essential (primary) hypertension; I25.10 Atherosclerotic heart disease of native coronary artery without angina pectoris; E78.00 Pure hypercholesterolemia, unspecified; E11.9 Type 2 diabetes mellitus without complications; Z79.82 Long term (current) use of aspirin; Z87.891 Personal history of nicotine dependence; W19.XXXA Unspecified fall, initial encounter; Y92.019 Unspecified place in single-family (private) house as the place of occurrence of the external cause
CPT/HCPCS: 99284; 72131; 72192

== ENCOUNTER 2023-12-04 10:39 | Emergency (ER) | payer OTHER, SELFPAY ==
[2023-12-04 10:36] VITALS: BP 142/76; PULSE 106; RESP 18; TEMP 36.6; O2SAT 93
--- NOTE | 2023-12-04 10:45 | RT.EKG_ITS ---
APPROVED REPORT Exam: Resting ECG Reason for Exam: weakness Patient Location: E HR:105 bpm ECG Measurements Heart Rate 105 AXIS WV 176 P 64 QRSd 106 QRS -12 QT 371 T 124 QTc 487 Conclusion Sinus tachycardia...rate> 99 Atrial premature complexes...SV complexes w/ short R-R intvls
--- NOTE | 2023-12-04 10:45 | NUR.NOTE ---
[facility] Renea Nursing Note:
[2023-12-04 10:47] VITALS: PULSE 107; RESP 18; O2SAT 95
[2023-12-04 11:30] LABS: Abs Immature Grans 0.05 10^3/uL (0.0-0.06); Absolute Basophil Count 0.04 10^3/uL (0.0-0.2); Absolute Eosinophil Count 0.15 10^3/uL (0.0-0.7); Absolute Lymphocyte Count 0.76 10^3/uL (1.2-3.4); Absolute Monocyte Count 0.99 10^3/uL (0.1-0.8); Absolute Neutrophil Count 10.14 10^3/uL (1.2-6.7); Basophils % 0.3; Eosinophils % 1.2; HCT 47.5 % (40.0-50.0); HGB 16.1 g/dL (13.5-17.5); Immature Grans % 0.4; Lymphocytes % 6.3; MCH 31.7 pg (27.0-33.0); MCHC 33.9 % (32.0-36.0); MCV 94 fL (80-95); Monocytes % 8.2; Neutrophils % 83.6; Platelet Count 165 10^3/uL (130-400); RBC 5.08 10^6/uL (4.36-5.78); RDW 12.7 % (11.8-14.1); RDW-SD 43.9 fL; WBC 12.13 10^3/uL (4.4-10.8)
[2023-12-04 11:44] LABS: Bilirubin Small (Negative); Blood Negative (Negative); Clarity Clear (Clear); Glucose Negative (Negative); Ketones 40 mg/dL (Negative); Leukocyte Esterase Negative (Negative); Nitrite Negative (Negative); Specific Gravity 1.025 (1.005-1.025)
[2023-12-04] MEDS: Normal Saline 1,000 ML 1000 ML IV (11:45)
[2023-12-04 11:48] LABS: ALT 30 U/L (16-63); AST 24 U/L (15-37); Alkaline Phosphatase 106 U/L (46-116); Anion Gap 10.8 mmol/L (3-11); BUN 14 mg/dL (7-18); CO2 30.2 mmol/L (21.0-32.0); Calcium 9.9 mg/dL (8.5-10.1); Chloride 99 mmol/L (98-107); Creatine Kinase 106 U/L (39-308); Estimated GFR 75.14 (mL/min/1.73m2); Glucose 176 mg/dL (74-106); Magnesium 2.2 mg/dL (1.8-2.4); Sodium 140 mmol/L (136-145); Total Protein 8.2 g/dL (6.4-8.2); Troponin I < 50 ng/L (< or =60)
[2023-12-04 11:50] LABS: Bacteria Negative HPF (Negative); C & S Indicated? No; Casts 0-2 Hyaline LPF (Negative); Crystals Negative HPF (Negative); Epithelial Cells Rare HPF (Negative); Mucus Moderate (Negative); RBC Negative HPF (0-2); WBC 0-2 HPF (0-5)
--- NOTE | 2023-12-04 12:45 | DI.CT_ITS ---
Exam(s) CT HEAD CERVICAL SPINE WO EXAM: CT HEAD CERVICAL SPINE WO CLINICAL HISTORY: weakness, HI. TECHNIQUE: Imaging Protocol: Axial computed tomography images with coronal and sagittal reformatted images were created and reviewed COMPARISON: CT CT HEAD CERVICAL SPINE WO from 03/16/[address] HEAD WO from 03/18/2019 FINDINGS: CT Head: Ventricles and Extra axial spaces: Normal in size and morphology for the patient's age. Hemorrhage: None. 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 There are areas of decreased attenuation in the white matter consistent with small vessel ischemic disease. No mass effect is identified. Midline shift: None. Brainstem/Cerebellum: Normal. Calvarium: Normal. Visualized Paranasal sinuses/Mastoids: There is a fluid level in the left maxillary sinus. The remai sung visualized paranasal sinuses are clear as are the mastoid air cells. Soft Tissues: Unremarkable. CT Cervical Spine: Bones: No acute fracture or subluxation. Age-appropriate degenerative changes are seen throughout the cervical spine. Soft Tissues: Unremarkable. Lung Apices: Clear. IMPRESSION: 1. No acute intracranial process. 2. No acute fracture or subluxation in the cervical spine. 3. Findings were discussed with the emergency department at 01:06 p.m. on 12/04/2023. RADIATION DOSE DELIVERED: 1,470.75mGy.cm Total DLP DATA REPOSITORY: All CT scans at this facility are submitted to the National Radiology Data Registry (NRDR) Dose Index Registry (DIR) with the [employer] (ACR). RADIATION OPTIMIZATION: All CT scans at this facility use at least one of these dose optimization te chniques: automated exposure control; mA and/or kV adjustment per patient size (includes targeted exa ms where dose is matched to clinical indication); or iterative reconstruction.
--- NOTE | 2023-12-04 12:55 | DI.RAD_ITS ---
Exam(s) XR CHEST 2V PA LATERAL EXAM: XR CHEST 2V PA LATERAL CLINICAL HISTORY: fall, weakness TECHNIQUE: 2D digital imaging was performed of the chest. Two images were obtained. PA and lateral views were obtained. COMPARISON: CT CT CHEST/ABD/PEL W from 03/16/2019 CR,XR XR PORTABLE CHEST AP from 09/16/2019 CR XR CHEST 2V PA LATERAL from 10/26/2021 CR XR RIBS RT W PA LAT CHEST from 10/29/2022 FINDINGS: MEDIASTINUM: There is hiatal hernia present. HEART: Normal. There is a cardiac valve replacement. PULMONARY VASCULATURE: Normal. LUNGS: Clear. PLEURAL SPACE: There is blunting of the posterior costophrenic angles bilaterally which may represent small effusions or scarring. BONE:Within normal limits for the patient's age. OTHER FINDINGS:There is a reverse left total shoulder replacement. IMPRESSION: 1. No acute pulmonary findings. 2. There is blunting posteriorly which may represent a small effusion or scarring. DATA REPOSITORY: RADIATION DOSE DELIVERED:
[2023-12-04 13:12] VITALS: BP 183/95; PULSE 106; RESP 20; TEMP 37.1; O2SAT 95
--- NOTE | 2023-12-04 14:07 | W.ED.GENAD ---
HPI General Date/Time Provider Initiated Documentation: 12/04/23 10:48. HPI Narrative: This 83-year-old male presents with report of back pain with weakness. Patient reportedly had a fall on Friday as neglected to use his walker. He states he fell onto his buttocks and hit his head. There was no report of loss of consciousness. Patient was unable to ambulate after the event secondary to pain. He is evaluated in the emergency department and had x-ray of his lumbar spine which showed fracture, compression to L3 on L4. He states that he was placed in an abdominal binder and discharged home with a walker. He has been unable to ambulate since being discharged home and family's been trying to help but they are unable to lift patient out of bed secondary to weakness and pain. He states that he feels generally weak but mostly his legs when he tries to stand. He states he has been urinating in bed as they have been unable to lift him at home to ambulate. Denies fever or chills. He denies chest pain or abdominal pain. There is been no report of nausea or vomiting. Denies any fever or chills. Denies any confusion. Denies any new medications. Daughter states patient has had some progressively worsening weakness over the course of the past several years. Denies any cough or upper respiratory symptoms. Related Data Home Medications Medication Instructions Recorded Confirmed omeprazole 20 mg capsule,delayed 20 mg PO BID 03/16/19 12/04/23 release aspirin 81 mg tablet,delayed 81 mg PO DAILY 09/16/19 12/04/23 release (Aspir-) atorvastatin 40 mg tablet (Lipitor) 60 mg PO DAILY 09/16/19 12/04/23 calcium carbonate 500 mg-vitamin 1 tab PO DAILY 09/16/19 12/04/23 D3 5 mcg (200 unit) tablet (Calcium 500 + D) duloxetine 60 mg capsule,delayed 60 mg PO DAILY 09/16/19 12/04/23 release mirtazapine 7.5 mg tablet 7.5 mg PO QHS 09/16/19 12/04/23 multivit with minerals-iron 18 1 tab PO DAILY 09/16/19 12/04/23 mg-folic ac 400 mcg-vit K 25 mcg tablet (Multi-Day Plus Minerals) pramipexole 0.25 mg tablet 0.25 mg PO HS 10/25/21 12/04/23 losartan 25 mg tablet 25 mg PO HS 02/26/22 12/04/23 acetaminophen 500 mg tablet 500 mg PO Q6H PRN pain #60 tabs 11/08/22 12/04/23 ibuprofen 600 mg tablet 600 mg PO TID PRN pain #60 tabs 11/08/22 12/04/23 Previous Rx's Medication Instructions Recorded acetaminophen 500 mg tablet 500 mg PO Q6H PRN pain #60 tabs 11/08/22 ibuprofen 600 mg tablet 600 mg PO TID PRN pain #60 tabs 11/08/22 Allergies Allergy/AdvReac Type Severity Reaction Status Date / Time simvastatin AdvReac Mild Nausea Verified 04/23/23 13:03 lisinopril AdvReac cough Verified 04/23/23 13:03 General Stated Complaint: [facility] EZEKIEL: 3 Course Vital Signs Vital signs: Vital Signs Temperature 36.6 C 12/04/23 10:36 Pulse 106 H 12/04/23 10:36 Respiratory Rate 18 12/04/23 10:36 Blood Pressure 142/76 H 12/04/23 10:36 Pulse Oximetry 93 12/04/23 10:36 Temperature 37.1 C 12/04/23 13:12 Temperature Source Temporal Artery Scan 12/04/23 13:12 Pulse 106 H 12/04/23 13:12 Respiratory Rate 20 12/04/23 13:12 Respiratory Effort Normal 12/04/23 10:47 Blood Pressure 183/95 H 12/04/23 13:12 Blood Pressure Position Sitting 12/04/23 10:36 Pulse Oximetry 95 12/04/23 13:12 Oxygen Delivery Method Room Air 12/04/23 13:12 Oxygen Flow Rate 0 12/04/23 13:12 Pain Level 5 12/04/23 10:47 Comment in back 12/04/23 10:47 Lab/Test Results Lab/Test Results: Laboratory Tests Range/Units 12/04/23 12/04/23 12/04/23 10:59 11:00 11:22 WBC (4.4-10.8) 10^3/uL 12.13 H RBC (4.36-5.78) 10^6/uL 5.08 Hgb (13.5-17.5) g/dL 16.1 Hct (40.0-50.0) % 47.5 MCV (80-95) fL 94 MCH (27.0-33.0) pg 31.7 MCHC (32.0-36.0) % 33.9 RDW (11.8-14.1) % 12.7 Plt Count (130-400) 10^3/uL 165 MPV (8.0-11.0) fL 9.0 Immature Gran % 0.4 Neutrophils % 83.6 Lymphocytes % 6.3 Monocytes % 8.2 Eosinophils % 1.2 Basophils % 0.3 Nucleated RBC % (0.0-0.3) % 0.0 Absolute Neutrophils (1.2-6.7) 10^3/uL 10.14 H Absolute Lymphocytes (1.2-3.4) 10^3/uL 0.76 L Absolute Monocytes (0.1-0.8) 10^3/uL 0.99 H Absolute Eosinophils (0.0-0.7) 10^3/uL 0.15 Absolute Basophils (0.0-0.2) 10^3/uL 0.04 Sodium (136-145) mmol/L 140 Potassium (3.5-5.1) mmol/L 4.0 Chloride (98-107) mmol/L 99 Carbon Dioxide (21.0-32.0) mmol/L 30.2 Anion Gap (3-11) mmol/L 10.8 BUN (7-18) mg/dL 14 Creatinine (0.70-1.30) mg/dL 1.0 Est GFR (CKD-EPI 2020) (mL/min/1.73m2) 75.14 Glucose (74-106) mg/dL 176 H Calcium (8.5-10.1) mg/dL 9.9 Magnesium Cancelled 2.2 Total Bilirubin (0.2-1.0) mg/dL 2.0 H AST (15-37) U/L 24 ALT (16-63) U/L 30 Alkaline Phosphatase (46-116) U/L 106 Creatine Kinase Cancelled 106 Troponin I Cancelled < 50 Total Protein (6.4-8.2) g/dL 8.2 Albumin (3.4-5.0) g/dL 4.0 Urine Color (Yellow) Urine Clarity (Clear) Urine pH (5-8) Ur Specific [place] (1.005-1.025) Urine Protein (Negative) mg/dL Urine Ketones (Negative) mg/dL Urine Blood (Negative) Urine Nitrite (Negative) Urine Bilirubin (Negative) Urine Urobilinogen (Up to 0.2) mg/dL Ur Leukocyte Esterase (Negative) Urine RBC (0-2) HPF Urine WBC (0-5) HPF Ur Epithelial Cells (Negative) HPF Urine Crystals (Negative) HPF Urine Bacteria (Negative) HPF Urine Casts (Negative) LPF Urine Mucus (Negative) Ur Culture Indicated? Urine Glucose (Negative) mg/dL Range/Units 12/04/23 11:40 WBC (4.4-10.8) 10^3/uL RBC (4.36-5.78) 10^6/uL Hgb (13.5-17.5) g/dL Hct (40.0-50.0) % MCV (80-95) fL MCH (27.0-33.0) pg MCHC (32.0-36.0) % RDW (11.8-14.1) % Plt Count (130-400) 10^3/uL MPV (8.0-11.0) fL Immature Gran % Neutrophils % Lymphocytes % Monocytes % Eosinophils % Basophils % Nucleated RBC % (0.0-0.3) % Absolute Neutrophils (1.2-6.7) 10^3/uL Absolute Lymphocytes (1.2-3.4) 10^3/uL Absolute Monocytes (0.1-0.8) 10^3/uL Absolute Eosinophils (0.0-0.7) 10^3/uL Absolute Basophils (0.0-0.2) 10^3/uL Sodium (136-145) mmol/L Potassium (3.5-5.1) mmol/L Chloride (98-107) mmol/L Carbon Dioxide (21.0-32.0) mmol/L Anion Gap (3-11) mmol/L BUN (7-18) mg/dL Creatinine (0.70-1.30) mg/dL Est GFR (CKD-EPI 2020) (mL/min/1.73m2) Glucose (74-106) mg/dL Calcium (8.5-10.1) mg/dL Magnesium Total Bilirubin (0.2-1.0) mg/dL AST (15-37) U/L ALT (16-63) U/L Alkaline Phosphatase (46-116) U/L Creatine Kinase Troponin I Total Protein (6.4-8.2) g/dL Albumin (3.4-5.0) g/dL Urine Color (Yellow) Yellow Urine Clarity (Clear) Clear Urine pH (5-8) 6.0 Ur Specific [place] (1.005-1.025) 1.025 Urine Protein (Negative) mg/dL 100 H Urine Ketones (Negative) mg/dL 40 H Urine Blood (Negative) Negative Urine Nitrite (Negative) Negative Urine Bilirubin (Negative) Small H Urine Urobilinogen (Up to 0.2) mg/dL 1.0 H Ur Leukocyte Esterase (Negative) Negative Urine RBC (0-2) HPF Negative Urine WBC (0-5) HPF 0-2 Ur Epithelial Cells (Negative) HPF Rare Urine Crystals (Negative) HPF Negative Urine Bacteria (Negative) HPF Negative Urine Casts (Negative) LPF 0-2 Hyaline Urine Mucus (Negative) Moderate Ur Culture Indicated? No Urine Glucose (Negative) mg/dL Negative Medical Decision Making 83-year-old male with history of diabetes, hypercholesterolemia, depression, lumbar spine compression fracture presents with report of weakness after a fall on Friday L3 and L4 compression fractures reviewed on CT scan from Friday Given he had his head and has had progressively worsening weakness, I did order blood work and CT of his head and cervical spine, CT head and cervical spine are negative for acute pathology, no obvious pelvic fracture on CT, labs do not show significant acute abnormality Pain with palpation over lumbar spine, no visible signs of trauma, alert and oriented x 4, GCS 15, pupils equal round reactive to light and accommodation, strength and sensation intact to all 4 extremities, distal pulses intact, no abdominal bruit or pulsatile mass, no abdominal tenderness appreciated on exam, no flank tenderness, Glucose mildly elevated at 176, no evidence of diabetic ketoacidosis, mild elevation in bilirubin, 2 but no abdominal tenderness, no elevation of LFTs or alk phos, Urinalysis does not show evidence of acute infectious etiology of complaints, chest x-ray without obvious evidence of infiltrate per radiology interpretation my review As patient is unable to ambulate, he will likely need skilled rehabilitation placement, unfortunately secondary to hospital capacity is unable to be admitted here and we did attempt to obtained skilled rehabilitation admission from this facility, however they are not accepting patients at this time I did discuss the case with Dr. Bar [facility] [place] and [facility] graciously agreed to accept the patient secondary to capacity issues at this facility Patient is stable for transport Will give IV Tylenol prior transfer Quality:SDOH Health Related Social Needs: No Data to Display PFSH All Active Problems (Updated 11/18/22 @ 15:02 by Ilana Arana) Lumbar compression fracture (Acute) Fall (Acute) Cervical myelopathy (Acute) Trigger finger, left middle finger (Acute) 40 mg Depo-Medrol injection: 12/30/2022 Rib fractures (Acute) Falls (Acute) Diabetes (Chronic) Hypercholesteremia (Acute) Depression (Chronic) Discharge planning issues (Acute) DVT prophylaxis (Acute) Aortic valve stenosis (Chronic) BPH (benign prostatic hyperplasia) (Chronic) Sleep apnea (Acute) COPD (chronic obstructive pulmonary disease) (Chronic) Kidney stones (Chronic) Vertigo (Acute) RLS (restless legs syndrome) (Acute) PVD (peripheral vascular disease) (Chronic) Hypertension (Chronic) Depression (Chronic) CAD (coronary artery disease) (Chronic) Visual disturbance (Acute) Displaced intertrochanteric fracture of right femur (Acute 09/16/19) Status post trochanteric nailing 09/17/2019 Non-insulin treated type 2 diabetes mellitus (Acute) Left rotator cuff tear arthropathy (Acute) Status post reverse total shoulder: 10/25/2021 Right rotator cuff tear arthropathy (Acute) Rupture of right proximal biceps tendon (Acute) Rupture of left proximal biceps tendon (Acute) Status post reverse total shoulder Right carpal tunnel syndrome (Acute 02/26/22) s/p right ECTR Bilateral carpal tunnel syndrome (Acute) 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) Left carpal tunnel syndrome (Acute) s/p left ECTR DOS: 11/08/22 Cubital tunnel syndrome on left (Acute) s/p cubital tunnel release DOS: 11/08/22 Medical History (Updated 12/02/23 @ 15:12 by RADHA Machado) BPH (benign prostatic hyperplasia) COPD (chronic obstructive pulmonary disease) HTN (hypertension) Hypercholesterolemia CAD (coronary artery disease) Aortic valve stenosis Diabetes mellitus Surgical History (Updated 11/18/22 @ 15:02 by Ilana Arana) Hx of cholecystectomy History of hip surgery right History of reverse total replacement of right shoulder joint (10/25/21) pt states left shoulder S/P cholecystectomy 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 History of heart artery stent Family History Sister Cancer bladder cancer - she was a smoker Social History Smoking/Tobacco Use Status: Never Tobacco: How many years used: 27 Smoking risk assessment performed?: Yes Alcohol Intake: current Alcohol Intake frequency: a few times a month Alcohol type: beer Drug use: Never Substance use type: does not use Details: alcohol: t-14 Housing: house Current gender identity: male Do you feel safe at home: Yes Do you feel safe in your relationship?: Yes Discharge Plan Discharge Details Chief Complaint: [facility]Medical Primary Care Provider: [facility] ED Provider: Mago Barrett Home Meds and New Rx's Prescriptions: No Action omeprazole 20 mg Capsule,Delayed Release(Dr/Ec) 20 mg PO BID acetaminophen 500 mg tablet 500 mg PO Q6H PRN (Reason: pain) Qty: 60 2RF ibuprofen 600 mg tablet 600 mg PO TID PRN (Reason: pain) Qty: 60 0RF atorvastatin [Lipitor] 40 mg Tablet 60 mg PO DAILY aspirin [Aspir-81] 81 mg Tablet,Delayed Release (Dr/Ec) 81 mg PO DAILY mirtazapine 7.5 mg Tablet 7.5 mg PO QHS duloxetine 60 mg Capsule,Delayed Release(Dr/Ec) 60 mg PO DAILY calcium carbonate-vitamin D3 [Calcium 500 + D] 500 mg(1,250mg) -200 unit Tablet 1 tab PO DAILY Multi-Day Plus Minerals 18 mg iron-400 mcg-25 mcg Tablet 1 tab PO DAILY pramipexole 0.25 mg tablet 0.25 mg PO HS Patient Comments: TAKE 1 TABLET BY MOUTH DAILY losartan 25 mg tablet 25 mg PO HS Patient Comments: TAKE 1 TABLET BY MOUTH EVERY DAY
[2023-12-04 14:44] LABS: Troponin I < 50 ng/L (< or =60)
[2023-12-04] MEDS: Acetaminophen 500 MG TAB 1000 MG PO (14:44)
== END 2023-12-04 14:50 | disposition skilled nursing facility (03) ==
LOC: ER 10:47
PROVIDERS: Emergency Provider Physician Assistant; PCP Internal Medicine
DX: M54.50 Low back pain, unspecified (principal); R53.1 Weakness; I10 Essential (primary) hypertension; E78.00 Pure hypercholesterolemia, unspecified; I25.10 Atherosclerotic heart disease of native coronary artery without angina pectoris; E11.9 Type 2 diabetes mellitus without complications; J44.9 Chronic obstructive pulmonary disease, unspecified; R00.0 Tachycardia, unspecified; Z79.82 Long term (current) use of aspirin; Z79.899 Other long term (current) drug therapy
CPT/HCPCS: 80053; 82550; 93005; 96360; 99285; 70450; 71046; 72125; 81003; 81015; 83735; 84484; 85025; 93010